=== PATIENT | male | born 1995 | race American Indian/Alaskan Native ===

== ENCOUNTER 2020-08-01 21:05 | Emergency (ER) | payer OTHER, SELFPAY ==
--- NOTE | ~2020-08-01 | CT_ITS ---
EXAMINATION: CT ABDOMEN AND PELVIS WITHOUT CONTRAST CLINICAL INFORMATION: Abdominal discomfort with question of hernia COMPARISON: None TECHNIQUE: Multidetector volumetric imaging was performed from the superior aspect of the liver through the pubic symphysis. Sagittal and coronal reformatted images were obtained on the technologist's workstation. This CT examination was performed using dose optimization techniques as appropriate, variously including the following: *Automated exposure control *Adjustment of mA and/or kV according to patient size (this includes techniques or standardized protocols for targeted exams where dose is matched to indication/reason for exam; i.e. extremities or head) *Use of iterative reconstruction technique DLP: 468 mGy-cm FINDINGS: LUNG BASES: The visualized lung bases are unremarkable. LIVER, GALLBLADDER, AND BILIARY TREE: The liver is normal in size, shape, and attenuation. No focal hepatic lesion or biliary ductal dilatation is present. The gallbladder is unremarkable with no evidence of radiopaque gallstones, gallbladder wall thickening, or obvious pericholecystic inflammatory changes. PANCREAS: Unremarkable. SPLEEN: Mild splenomegaly with the spleen measuring 13.4 cm in greatest length . ADRENAL GLANDS: Unremarkable. KIDNEYS AND URETERS: The kidneys are normal in size, shape, and attenuation. Tiny punctate 1 to 2 mm left renal calculus is present. No hydronephrosis, hydroureter, or other calculi seen. No perinephric stranding. BLADDER: Unremarkable. GASTROINTESTINAL TRACT: The small and large bowel are unremarkable. The appendix is unremarkable. ABDOMINAL WALL: No significant hernia is appreciated. LYMPH NODES: Moderately extensive retroperitoneal lymphadenopathy is present which is suboptimally seen because of lack of IV contrast, oral contrast and lack of retroperitoneal fat. Precaval nodes are present, aortocaval nodes are present, para-aortic lymph nodes are present and iliac lymph nodes are present. For example, a conglomerate lymph node in the left para-aortic region measures 2.1 x 1.4 x 4.2 cm (3:31). A left external iliac lymph node measures 2.1 x 1.4 x 1.8 cm (3:79). Multiple lymph nodes are also noted in the root of the mesentery which are more easily appreciable on coronal imaging. VASCULAR: Unremarkable. PELVIC VISCERA: Prostate and seminal vesicles appear normal. OSSEOUS STRUCTURES: Unremarkable. CT/CT abdomen pelvis wo con IMPRESSION: 1. Retroperitoneal lymphadenopathy and splenomegaly. Differential diagnosis includes infectious etiologies as well as neoplastic. 2. Incidentally noted tiny punctate nonobstructing left renal calculus. This critical result was discussed with KATIA Hanna at 11:59 PM on 08/01/2020 and it was ascertained that the content and urgency of the report was understood at the time of direct communication.
[2020-08-01 21:18] VITALS: BP 107/70; PULSE 77; RESP 15; TEMP 36.8; O2SAT 98; BMI 23.0
--- NOTE | 2020-08-01 23:39 | ED_ITS ---
HPI - General Adult General Chief complaint: Abdominal Pain Stated complaint: UPPER EPIGASTRIC PAIN Time Seen by Provider: 08/01/20 22:59 Source: patient Mode of arrival: ambulatory Limitations: no limitations History of Present Illness HPI narrative: Patient presents to ED stating sensation of something moving in h is abdomen. 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 Patient denies any abdominal pain, nausea, vomiting, fever, or chills. Patient denies any ingestion of drugs. Related Data Allergies Allergy/AdvReac Type Severity Reaction Status Date / Time No Known Allergies Allergy Verified 08/01/20 22:05 Review of Systems Review of Systems: Yes all other systems are reviewed and are negative Constitutional: Constitutional: Reports as per HPI and Reports no additional constitutional complaints Eyes: Eyes: Reports as per HPI and Reports no additional eye complaints ENT: Reports system reviewed and no additional complaints, except as documented and Reports as per HPI Cardiovascular: Cardiovascular: Reports as per HPI and Reports no additional cardiovascular complaints Respiratory: Respiratory: Reports as per HPI and Reports no additional respiratory complaints Gastrointestinal: Gastrointestinal: Reports as per HPI and Reports no additional gastrointestinal complaints Comments: Something moving abdomen Genitourinary: Genitourinary: Reports no additional male genitourinary complaints and Reports as per HPI Musculoskeletal: Musculoskeletal: Reports no additional musculoskeletal comp laints and Reports as per HPI Neurologic: Reports system reviewed and no additional complaints, except as documented and Reports as per HPI Psychiatric: Psychiatric: Reports no additional psychiatric complaints and Reports as per HPI [facility] Social History Social History Smoking Status: Current every day smoker Substance Use Type: Marijuana Any prior treatment program specific to substance use: No Advance Directives: No Advance Directives Information Provided: No Physical Exam Vital Signs: Vital Signs: Last Vital Signs Temp 98.3 F 08/01/20 21:18 Pulse 77 08/01/20 21:18 Resp 15 08/01/20 21:18 BP 107/70 08/01/20 21:18 Pulse Ox 98 08/01/20 21:18 Body Mass Index 23.0 Const: General: cooperative, healthy appearing, comfortable, no acute distress, well developed, alert, awake and Physically active Orientation/c onsciousness: patient oriented x3 HENMT: Head: Yes normal to inspection, Yes No palpable skull fracture present, Yes normocephalic and Yes atraumatic Eyes: General: appearance normal, both eyes and all related structures Neck: Neck: Yes normal visual inspection, Yes full ROM, Yes no lymphadenopathy, Yes no meningeal signs, Yes trachea midline, Yes supple and No tender Chest: Chest palpation & inspection: normal inspection of the chest and normal palpation of entire chest wall Resp: Effort & Inspection: normal respiratory effort and able to speak in complete sentences Cardio: Jugular venous distension: no JVD Heart sounds: S1 normal heart sound present and S2 normal heart sound present GI: Inspection: Yes normal to inspection and No abdominal wall ecchymosis Palpation (GI): Soft to palpation, not firm, nontender, no guarding and not rigid : General: No CVA tenderness and Yes no CVA tenderness Back/Spine/Pelvis: Back: no CVA tenderness, No CVA tenderness and No back tenderness Skin: General skin exam: no rashes or lesions noted and elasticity normal Neuro: General: patient oriented x3, no meningeal signs and CN's II-XI intact bilaterally Cranial nerves: Yes CN's II-XII intact bilaterally Extrem: General: Yes normal to inspection Psych: Appearance: grossly normal, well kempt and not disheveled Course Course Course Narrative: Unlikely patient have abdominal event. 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 Low suspicious for m edical/surgical etiology. Reevaluation(s) Reevaluation #1: Negative for elevated white blood cell count. Chemistry normal. Liver enzymes and lipase normal. Also called by radiologist to inform of patient's retroperitoneal lymphadenopathy. Patient was informed of this and told he should follow up with PCP or oncology to get biopsy make sure he does not have lymphoma. Patient labs are normal. Patient given copy of labs and imaging. Medical Decision Making MDM Narrative Medical decision making narrative: Marijuana use Lab Data Result diagrams: 08/01/20 23:43 08/01/20 23:43 Labs: Lab Results 08/01/20 08/01/20 Range/Units 23:43 23:43 WBC 4.5 L (4.8-10.8) X10*3/uL RBC 4.01 L (4.60-5.80) X10*6/uL Hgb 12.4 L (14.0-18.0) g/dl Hct 36.6 L (42-52) % MCV 91.3 (80-98) fL MCH 30.9 (27.0-33.0) pg MCHC 33.9 (31.0-36.0) g/dl RDW 11.8 (11.0-16.0) % Plt Count 237 (160-400) X10*3/uL MPV 8.3 L (9.4-12.4) fL Immature Gran % (Auto) 0.2 (0.0-0.4) % Neut % (Auto) 59.2 (45-73) % Lymph % (Auto) 21.0 (20-40) % Collier % (Auto) 18.5 H (2-11) % Eos % (Auto) 0.7 (0-4) % Baso % (Auto) 0.4 (0-2) % Lymph # (Auto) 1.0 L (1.2-4.9) X10*3/uL Collier # (Auto) 0.8 (0.1-1.2) X10*3/uL Eos # (Auto) 0.0 (0.0-0.4) X10*3/uL Baso # (Auto) 0.0 (0.0-0.2) X10*3/uL Abs Immat Gran (auto) 0.01 (0.00-0.03) X10*3/uL Absolute Neuts (auto) 2.7 (2.0-8.3) X10*3/uL Absolute Nucleated RBC 0.000 (0.0-0.012) X10*3/uL Nucleated RBC % (auto) 0.0 (0.0-0.2) /100WBC Sodium 142 (135-145) mmol/L Potassium 3.8 (3.3-5.1) mmol/L Chloride 104 (96-108) mmol/L Carbon Dioxide 25 (22-29) mmol/L Anion Gap 17 (12-20) BUN 11 (9-16) mg/dL Creatinine 0.80 (0.5-1.4) mg/dL Estim Creat Clear Calc 150.7 Estimated GFR > 60 Random Glucose 81 (60-115) mg/dL Calcium 9.1 (8.4-10.2) mg/dL Total Bilirubin 1.6 H (0.0-1.0) mg/dL Direct Bilirubin 0.6 H (0.0-0.5) mg/dL AST 21 (5-37) U/L ALT 11 (0-40) U/L Alkaline Phosphatase 62 (39-117) U/L Total Protein 6.5 (6.5-8.0) g/dL Albumin 4.2 (3.5-5.0) g/dL Lipase 41 (8-78) U/L Discharge Plan Discharge Clinical Impression: Marijuana use Patient Disposition: Home, Self-Care Instructions: Lymphadenopathy (ED), Medicinal Use of Cannabis (ED) Additional Instructions: Return to the ED immediately for any abdominal pain, nausea, vomiting, fever, chills, weakness, dizziness, or any other concerning symptoms. CT scan shows retro peritoneal lymphadenopathy and splenomegaly. Recommend follow-up with PCP for further evaluation to rule out lymphoma. Referrals: Jb Weiss MD [Physician] - 2 days (CT scan shows retroperitoneal lymphadenopathy and splenomegaly. Lymphoma workup may be needed) Interventions: ED Discharge Assessment Last Done: 08/02/20 00:56 Discharge Date/Time: 08/02/20 00:58 Print Language: Czech
[2020-08-01 23:49] LABS: MANUAL DIFF FLAG NO
[2020-08-01 23:51] LABS: Basophils Percent Auto 0.4 % (0-2); Eosinophils Percent Auto 0.7 % (0-4); Hematocrit 36.6 % (42-52); Hemoglobin 12.4 g/dl (14.0-18.0); Imm Gran Abs Auto 0.01 X10*3/uL (0.00-0.03); Imm Gran Pct Auto 0.2 % (0.0-0.4); Mean Corpuscular HGB Conc 33.9 g/dl (31.0-36.0); Mean Corpuscular Hemoglobin 30.9 pg (27.0-33.0); Mean Corpuscular Volume 91.3 fL (80-98); Mean Platelet Volume 8.3 fL (9.4-12.4); Monocytes Absolute Auto 0.8 X10*3/uL (0.1-1.2); Monocytes Percent Auto 18.5 % (2-11); Neutrophils Absolute Auto 2.7 X10*3/uL (2.0-8.3); Neutrophils Percent Auto 59.2 % (45-73); Platelet Count 237 X10*3/uL (160-400); Red Blood Count 4.01 X10*6/uL (4.60-5.80); Red Cell Distribution Width 11.8 % (11.0-16.0); White Blood Count 4.5 X10*3/uL (4.8-10.8)
[2020-08-02 00:36] LABS: Alanine Aminotransferase 11 U/L (0-40); Albumin Level 4.2 g/dL (3.5-5.0); Alkaline Phosphatase 62 U/L (39-117); Anion Gap 17 (12-20); Aspartate Amino Transferase 21 U/L (5-37); Bilirubin Direct 0.6 mg/dL (0.0-0.5); Bilirubin Total 1.6 mg/dL (0.0-1.0); Blood Urea Nitrogen 11 mg/dL (9-16); Calcium 9.1 mg/dL (8.4-10.2); Carbon Dioxide 25 mmol/L (22-29); Chloride 104 mmol/L (96-108); Creatinine Clr Calc Pharmacy 150.7; Estimated Glomerular Filt Rate > 60; Glucose Random 81 mg/dL (60-115); Lipase 41 U/L (8-78); Potassium 3.8 mmol/L (3.3-5.1); Sodium 142 mmol/L (135-145); Total Protein 6.5 g/dL (6.5-8.0)
== END 2020-08-02 00:58 | disposition home or self-care (01) ==
PROVIDERS: Physician Assistant; Emergency Provider Internal Medicine
DX: R10.13 Epigastric pain (principal); F12.90 Cannabis use, unspecified, uncomplicated; F17.200 Nicotine dependence, unspecified, uncomplicated; Z71.6 Tobacco abuse counseling
CPT/HCPCS: 36415; 74176; 80053; 80076; 82248; 83690; 85025; 99284

== ENCOUNTER 2022-07-31 12:32 | Inpatient (IN) | payer MEDICARE, MEDICAID, SELFPAY ==
[2022-07-31 13:05] VITALS: BP 130/60; BP 148/86; PULSE 110; PULSE 92; RESP 18; TEMP 36.4; O2SAT 96; O2SAT 97; BMI 22.4
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
[2022-07-31 14:08] LABS: MANUAL DIFF FLAG NO
[2022-07-31 14:10] LABS: Basophils Percent Auto 0.6 % (0-2); Eosinophils Absolute Auto 0.1 X10*3/uL (0.0-0.4); Hematocrit 38.2 % (42.0-52.0); Imm Gran Abs Auto 0.01 X10*3/uL (0.00-0.03); Imm Gran Pct Auto 0.2 % (0.0-0.4); Lymphocytes Absolute Auto 0.7 X10*3/uL (1.2-4.9); Lymphocytes Percent Auto 12.8 % (20-40); Mean Corpuscular Hemoglobin 31.1 pg (27.0-33.0); Mean Corpuscular Volume 91.4 fL (80.0-98.0); Mean Platelet Volume 8.2 fL (9.4-12.4); Monocytes Percent Auto 19.1 % (2-11); Neutrophils Absolute Auto 3.3 x10*3/uL (2.0-8.3); Neutrophils Percent Auto 65.3 % (45-73); Platelet Count 333 X10*3/uL (160-400); Red Blood Count 4.18 X10*6/uL (4.60-5.80); Red Cell Distribution Width 12.2 % (11.0-16.0); White Blood Count 5.1 X10*3/uL (4.8-10.8)
[2022-07-31 14:26] LABS: IDNOW Serial# 08D9AD1C
[2022-07-31 14:27] LABS: COVID-19 Test Negative (Negative)
[2022-07-31 14:27] LABS: Alanine Aminotransferase 17 U/L (0-40); Albumin Level 4.5 g/dL (3.5-5.0); Alkaline Phosphatase 73 U/L (39-117); Anion Gap 12 (12-20); Aspartate Amino Transferase 26 U/L (5-37); Bilirubin Direct 0.6 mg/dL (0.0-0.5); Bilirubin Total 2.3 mg/dL (0.0-1.0); Blood Urea Nitrogen 10 mg/dL (9-16); Calcium 9.6 mg/dL (8.4-10.2); Carbon Dioxide 31 mmol/L (22-29); Chloride 102 mmol/L (96-108); Estimated Glomerular Filt Rate > 60; Ethanol < 10 mg/dL; Glucose Random 85 mg/dL (60-115); Potassium 4.9 mmol/L (3.3-5.1); Sodium 140 mmol/L (135-145); Total Protein 6.9 g/dL (6.5-8.0)
[2022-07-31 14:28] LABS: Amphetamine Screen Urine Not Detected (Not Detect); Barbiturates, Urine Not Detected (Not Detect); Benzodiazepines Screen Urine Not Detected (Not Detect); Cannabinoid Screen Urine POSITIVE (Not Detect); Cocaine Screen Urine Not Detected (Not Detect); Fentanyl, urine Not Detected (Not Detect); Opiate Screen Urine Not Detected (Not Detect); Phencyclidine Screen Urine Not Detected (Not Detect)
--- NOTE | 2022-07-31 14:54 | PHA.MEDREC ---
Pharmacy Consult ? Medication Reconciliation Pharmacy has completed the medication reconciliation. Patient states that they use an estradiol patch once weekly but are unsure of dosing
--- NOTE | 2022-07-31 15:03 | MHC.CARE ---
Spoke with [facility]- pt is an adult inpatient bedsearch
[2022-07-31] MEDS: QUEtiapine Fumarate 100 MG TABLET PO (20:15)
[2022-07-31] MEDS: hydrOXYzine HCL 25 MG TABLET PO (20:18)
[2022-07-31 20:24] VITALS: BP 102/48; PULSE 89; RESP 18; TEMP 37.2; O2SAT 99
[2022-07-31] MEDS: QUEtiapine Fumarate 25 MG TABLET PO (21:40)
--- NOTE | 2022-08-01 01:55 | PC.NURSE ---
Patient is in bed appears sleeping, no distress observed/reported, mood labile and behavior unpredictable, disposition per [facility] is section 12 inpatient bed search, medication compliant, VSS, will continue to monitor
[2022-08-01 06:49] VITALS: BP 102/56; PULSE 74; RESP 15; TEMP 36.8; O2SAT 97
[2022-08-01] MEDS: QUEtiapine Fumarate 25 MG TABLET PO ×2 (07:59→16:49)
[2022-08-01] MEDS: QUEtiapine Fumarate 50 MG TABLET PO (07:59)
[2022-08-01] MEDS: hydrOXYzine HCL 25 MG TABLET PO ×2 (07:59→20:15)
--- NOTE | 2022-08-01 08:01 | PC.NURSE ---
patient anxious-states he feels unsafe in the hospital and wants to go home. unable to elaborate on why he feels unsafe. given daily medications as well as PRN for anxiety
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
[2022-08-01 20:02] VITALS: BP 113/53; PULSE 88; RESP 18; TEMP 36.4; O2SAT 98
[2022-08-01] MEDS: QUEtiapine Fumarate 100 MG TABLET PO (20:15)
[2022-08-02 08:00] VITALS: BP 111/57; PULSE 72; TEMP 36.6; O2SAT 99
[2022-08-02] MEDS: hydrOXYzine HCL 25 MG TABLET PO ×2 (08:26→20:46)
[2022-08-02] MEDS: QUEtiapine Fumarate 50 MG TABLET PO (08:27)
[2022-08-02 09:01] LABS: Estimated Average Glucose 80 mg/dL; Hemoglobin A1c % 4.4 %
[2022-08-02 09:09] LABS: Alanine Aminotransferase 15 U/L (0-31); Albumin Level 4.3 g/dL (3.5-5.0); Alkaline Phosphatase 71 U/L (39-117); Anion Gap 11 (12-20); Aspartate Amino Transferase 19 U/L (5-31); Bilirubin Total 1.5 mg/dL (0.0-1.0); Blood Urea Nitrogen 15 mg/dL (9-16); Calcium 9.4 mg/dL (8.4-10.2); Carbon Dioxide 32 mmol/L (22-29); Chloride 102 mmol/L (96-108); Cholesterol 166 mg/dL; Creatinine Clr Calc Pharmacy 104.8; Estimated Glomerular Filt Rate > 60; Glucose Fasting 86 mg/dL (60-99); HDL Cholesterol 42 mg/dL; LDL Cholesterol Calculated 97 mg/dl; Potassium 4.7 mmol/L (3.3-5.1); Sodium 140 mmol/L (135-145); Total Protein 6.7 g/dL (6.5-8.0); Triglycerides 135 mg/dL
[2022-08-02 09:38] LABS: Folate 14.1 ng/mL (> or = 4.0); Free T4 (Free Thyroxine) 1.02 ng/dL (0.71-1.85); Vitamin B12 < 148 pg/mL (200-900)
[2022-08-02] MEDS: QUEtiapine Fumarate 25 MG TABLET PO ×2 (12:24→16:13)
--- NOTE | 2022-08-02 12:30 | HO.PS.ADMBH ---
FORMERLY [facility], [facility] Medical History PTSD (post-traumatic stress disorder) Diagnostics Vital Signs (24Hr): Vital Signs - 24 hr 08/01/22 20:02 08/02/22 08:00 Temperature 97.6 F 97.8 F Pulse Rate 88 72 Respiratory Rate 18 Blood Pressure 113/53 L 111/57 L Pulse Oximetry 98 99 Oxygen Delivery Method Room Air Room Air BMI result Body Mass Index 22.4 Labs 07/31/22 14:04 08/02/22 08:21 Labs: Laboratory Results - last 48 hr 07/31/22 07/31/22 07/31/22 14:00 14:04 14:04 WBC 5.1 RBC 4.18 L Hgb 13.0 L Hct 38.2 L MCV 91.4 MCH 31.1 MCHC 34.0 RDW 12.2 Plt Count 333 MPV 8.2 L Immature Gran % (Auto) 0.2 Neut % (Auto) 65.3 Lymph % (Auto) 12.8 L [place] % (Auto) 19.1 H Eos % (Auto) 2.0 Baso % (Auto) 0.6 Lymph # (Auto) 0.7 L [place] # (Auto) 1.0 Eos # (Auto) 0.1 Baso # (Auto) 0.0 Abs Immat Gran (auto) 0.01 Absolute Neuts (auto) 3.3 Absolute Nucleated RBC 0.000 Nucleated RBC % (auto) 0.0 Sodium 140 Potassium 4.9 D Chloride 102 Carbon Dioxide 31 H Anion Gap 12 BUN 10 Creatinine 0.88 Estim Creat Clear Calc 124.0 Estimated GFR > 60 Random Glucose 85 Fasting Glucose Estimat Average Glucose Hemoglobin A1c % Calcium 9.6 Total Bilirubin 2.3 H Direct Bilirubin 0.6 H AST 26 ALT 17 Alkaline Phosphatase 73 Total Protein 6.9 Albumin 4.5 Triglycerides Cholesterol LDL Cholesterol, Calc HDL Cholesterol Vitamin B12 Folate TSH Free T4 Urine Opiates Screen Urine Fentanyl Screen Ur Barbiturates Screen Ur Phencyclidine Scrn Ur Amphetamines Screen U Benzodiazepines Scrn Urine Cocaine Screen U Marijuana (THC) Screen Ethyl Alcohol < 10 COVID-19 (CONSUELO) Negative COVID-19 Clin Com See Note 07/31/22 08/02/22 08/02/22 14:09 08:21 08:21 WBC RBC Hgb Hct MCV MCH MCHC RDW Plt Count MPV Immature Gran % (Auto) Neut % (Auto) Lymph % (Auto) [place] % (Auto) Eos % (Auto) Baso % (Auto) Lymph # (Auto) [place] # (Auto) Eos # (Auto) Baso # (Auto) Abs Immat Gran (auto) Absolute Neuts (auto) Absolute Nucleated RBC Nucleated RBC % (auto) Sodium 140 Potassium 4.7 Chloride 102 Carbon Dioxide 32 H Anion Gap 11 L BUN 15 Creatinine 0.85 Estim Creat Clear Calc 104.8 Estimated GFR > 60 Random Glucose Fasting Glucose 86 Estimat Average Glucose 80 Hemoglobin A1c % 4.4 Calcium 9.4 Total Bilirubin 1.5 H Direct Bilirubin AST 19 ALT 15 Alkaline Phosphatase 71 Total Protein 6.7 Albumin 4.3 Triglycerides 135 Cholesterol 166 LDL Cholesterol, Calc 97 HDL Cholesterol 42 Vitamin B12 < 148 L Folate 14.1 TSH 0.90 Free T4 1.02 Urine Opiates Screen Not Detected Urine Fentanyl Screen Not Detected Ur Barbiturates Screen Not Detected Ur Phencyclidine Scrn Not Detected Ur Amphetamines Screen Not Detected U Benzodiazepines Scrn Not Detected Urine Cocaine Screen Not Detected U Marijuana (THC) Screen POSITIVE H Ethyl Alcohol COVID-19 (CONSUELO) COVID-19 Clin Com Meds/Allergies Meds Home Medications Medication Instructions Recorded Confirmed Type hydroxyzine pamoate 25 mg capsule 25 mg PO BID 07/31/22 07/31/22 History (Vistaril) quetiapine 100 mg tablet (Seroquel) 100 mg PO BEDTIME 07/31/22 07/31/22 History quetiapine 25 mg tablet (Seroquel) 25 mg PO DAILY PRN Anxiety 07/31/22 07/31/22 History quetiapine 50 mg tablet (Seroquel) 50 mg PO DAILY 07/31/22 07/31/22 History Allergies Allergies Allergy/AdvReac Type Severity Reaction Status Date / Time No Known Allergies Allergy Verified 08/01/20 22:05 Assessment & Plan Certification I certify that partial hospital treatment is medically necessary due to the symptoms and problems resulting from the patient's mental illness and the failure to treat the patient at the partial hospital level of care would likely result in the patient requiring inpatient psychiatric care which could not be prevented at a less intensive level of care. Time Spent With Patient Time: Total time managing care of this patient today ____ minutes.
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
[2022-08-02] MEDS: QUEtiapine Fumarate 200 MG TABLET PO (20:46)
[2022-08-02 20:47] VITALS: BP 115/65; PULSE 100; TEMP 36.8; O2SAT 99
[2022-08-03 08:42] VITALS: BP 98/55; PULSE 70; TEMP 36.7; O2SAT 100
[2022-08-03] MEDS: QUEtiapine Fumarate 50 MG TABLET PO (08:48)
[2022-08-03] MEDS: hydrOXYzine HCL 25 MG TABLET PO ×2 (08:49→20:06)
[2022-08-03] MEDS: Cyanocobalamin (Vitamin B-12) 1,000 MCG TABLET 1000 MCG PO (12:25)
[2022-08-03] MEDS: QUEtiapine Fumarate 200 MG TABLET PO (20:06)
[2022-08-03 20:08] VITALS: BP 126/73; PULSE 100; TEMP 36.8; O2SAT 99
--- NOTE | 2022-08-03 21:45 | P.PNPSI_ITS ---
Subjective Subjective Date of Service: 08/03/22 Reason For Visit: Psychosis Interim History: Patient seen. DW RN I feel well medicated Feels increase in Seroquel helped. She slept well. She continues to be hyperverbal. She talks about people interfering in her marriage before going to the hospital. She is medication compliant. Vit B12 is low. Review of Systems Review of Systems Constitutional:No Fever, No Chills, No Fatigue, No Malaise ENT/Mouth: No Ear Pain, No sore throat, No Rhinorrhea, No Swallowing Difficulty Eyes: No Eye Pain, No Swelling, No Redness Cardiovascular: No Chest Pain, No SOB, No Edema, No Palpitations Respiratory: No Cough, No Dyspnea Gastrointestinal: No Nausea, No Vomiting, No Diarrhea, No Constipation, No Abdominal pain Musculoskeletal: No joint pain, No Myalgias, No Joint Swelling Skin: No Skin Lesions, No rash Neuro: No Weakness, No Headache Psych: + Anxiety/Panic, +Depression, No SI/HI/AH/VH, + Social Issues Yes all other systems are reviewed and are negative Constitutional: Reports as per [facility] Mental Status Exam Mental Status Exam Narrative: calm, cooperative. no PMA/PMR. adequtely dressed and groomed. speech nml rate, incr amount, nml loudness, nml tone, decr latency. thoughts generally linear, paranoid, illogical. affect full range, normo-intense, non-labile. mood pretty relaxed. denies SI/HI/AVH. Diagnostics Vital Signs (24Hr): Vital Signs - 24 hr 08/03/22 08:42 08/03/22 20:08 Temperature 98.1 F 98.3 F Pulse Rate 70 100 Blood Pressure 98/55 L 126/73 Pulse Oximetry 100 99 Oxygen Delivery Method Room Air Room Air BMI result Body Mass Index 22.4 Labs 07/31/22 14:04 08/02/22 08:21 Labs: Laboratory Results - last 48 hr 08/02/22 08/02/22 08:21 08:21 Sodium 140 Potassium 4.7 Chloride 102 Carbon Dioxide 32 H Anion Gap 11 L BUN 15 Creatinine 0.85 Estim Creat Clear Calc 104.8 Estimated GFR > 60 Fasting Glucose 86 Estimat Average Glucose 80 Hemoglobin A1c % 4.4 Calcium 9.4 Total Bilirubin 1.5 H AST 19 ALT 15 Alkaline Phosphatase 71 Total Protein 6.7 Albumin 4.3 Triglycerides 135 Cholesterol 166 LDL Cholesterol, Calc 97 HDL Cholesterol 42 Vitamin B12 < 148 L Folate 14.1 TSH 0.90 Free T4 1.02 Medications Medications Current Medications Acetaminophen (Acetaminophen 325 Mg Tablet) 650 mg PO Q6H PRN PRN Reason: Headache/Pain Mild Scale (1-3) Al Hydroxide/Mg Hydroxide (Magnesium Hydrox/Alum Hydrox 30 Ml Oral.Susp) 30 ml PO Q6H PRN PRN Reason: Heartburn/Nausea Cyanocobalamin (Cyanocobalamin (Vitamin B-12) 1,000 Mcg Tablet) 1,000 mcg PO DAILY [facility] Last Admin: 08/03/22 12:25 Dose: 1,000 mcg Hydroxyzine HCl (Hydroxyzine Hcl 25 Mg Tablet) 25 mg PO BID [facility] Last Admin: 08/03/22 20:06 Dose: 25 mg Hydroxyzine HCl (Hydroxyzine Hcl 25 Mg Tablet) 25 mg PO Q6H PRN PRN Reason: Anxiety Magnesium Hydroxide (Milk Of Magnesia 30 Ml Oral.Susp) 30 ml PO DAILY PRN PRN Reason: Constipation Nicotine Polacrilex (Nicotine Polacrilex 2 Mg Gum) 4 mg BUCCAL Q2H PRN PRN Reason: Nicotine Cravings Quetiapine Fumarate (Quetiapine Fumarate 50 Mg Tablet) 50 mg PO DAILY [facility] Last Admin: 08/03/22 08:48 Dose: 50 mg Quetiapine Fumarate (Quetiapine Fumarate 25 Mg Tablet) 25 mg PO Q4H PRN PRN Reason: severe anxiety Last Admin: 08/02/22 16:13 Dose: 25 mg Quetiapine Fumarate (Quetiapine Fumarate 200 Mg Tablet) 200 mg PO BEDTIME [facility] Last Admin: 08/03/22 20:06 Dose: 200 mg Trazodone HCl (Trazodone Hcl 50 Mg Tablet) 50 mg PO BEDTIME MRX1 PRN PRN Reason: Insomnia Allergies Allergies Allergy/AdvReac Type Severity Reaction Status Date / Time No Known Allergies Allergy Verified 08/01/20 22:05 Assessment & Plan Assessment & Plan (1) Psychotic disorder: Status: Acute Code(s): F29 - Unspecified psychosis not due to a substance or known physiological condition Plan increase HS seroquel from 100 mg to 200 mg nightly. continue seroquel 50 mg QAM and 25 mg PRNs. 08/03: Continue treatment plan Reason for contiued inpatient stay Substantial Risk for: inability to function and rapid decompensation Time Spent With Patient Time: Total time managing care of this patient today ____ minutes.
[2022-08-04 06:00] VITALS: BP 92/53; PULSE 77; TEMP 36.6; O2SAT 98
[2022-08-04] MEDS: hydrOXYzine HCL 25 MG TABLET PO ×2 (08:27→20:03)
[2022-08-04] MEDS: QUEtiapine Fumarate 50 MG TABLET PO (08:27)
[2022-08-04] MEDS: Ibuprofen 400 MG TABLET PO (13:36)
[2022-08-04] MEDS: QUEtiapine Fumarate 25 MG TABLET PO (15:24)
[2022-08-04 20:00] VITALS: BP 120/72; PULSE 96; RESP 18; TEMP 36.3; O2SAT 97
[2022-08-04] MEDS: QUEtiapine Fumarate 200 MG TABLET PO (20:03)
--- NOTE | 2022-08-04 20:57 | HO.PSYCHPN ---
Subjective Subjective Date of Service: 08/04/22 Reason For Visit: Psychosis Interim History: Patient seen. LENORE RN Patient continues to verbalize delusional thoughts. 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 She says her is famous because of her. She refused vit B12 today. She said she felt nauseaous after she took it yesterday. I offered a decrease in dose and she declined for today. Believes an uncle of hers and they found high levels of vit B12 in his system which is why she doesn't want to take it. Continues to say I feel well medicated. Denies SI/HI. Review of Systems Review of Systems Constitutional:No Fever, No Chills, No Fatigue, No Malaise ENT/Mouth: No Ear Pain, No sore throat, No Rhinorrhea, No Swallowing Difficulty Eyes: No Eye Pain, No Swelling, No Redness Cardiovascular: No Chest Pain, No SOB, No Edema, No Palpitations Respiratory: No Cough, No Dyspnea Gastrointestinal: No Nausea, No Vomiting, No Diarrhea, No Constipation, No Abdominal pain Musculoskeletal: No joint pain, No Myalgias, No Joint Swelling Skin: No Skin Lesions, No rash Neuro: No Weakness, No Headache Psych: + Anxiety/Panic, +Depression, No SI/HI/AH/VH, + Social Issues Yes all other systems are reviewed and are negative Constitutional: Reports as per [facility] Mental Status Exam Mental Status Exam Narrative: calm, cooperative. no PMA/PMR. adequtely dressed and groomed. speech nml rate, incr amount, nml loudness, nml tone, decr latency. thoughts generally linear, paranoid, illogical. affect full range, normo-intense, non-labile. mood pretty relaxed. denies SI/HI/AVH. Diagnostics Vital Signs (24Hr): Vital Signs - 24 hr 08/04/22 06:00 08/04/22 20:00 Temperature 98 F 97.4 F Pulse Rate 77 96 Respiratory Rate 18 Blood Pressure 92/53 L 120/72 Pulse Oximetry 98 97 Oxygen Delivery Method Room Air Room Air BMI result Body Mass Index 22.4 Labs 07/31/22 14:04 08/02/22 08:21 Medications Medications Current Medications Acetaminophen (Acetaminophen 325 Mg Tablet) 650 mg PO Q6H PRN PRN Reason: Headache/Pain Mild Scale (1-3) Al Hydroxide/Mg Hydroxide (Magnesium Hydrox/Alum Hydrox 30 Ml Oral.Susp) 30 ml PO Q6H PRN PRN Reason: Heartburn/Nausea Cyanocobalamin (Cyanocobalamin (Vitamin B-12) 1,000 Mcg Tablet) 1,000 mcg PO DAILY [facility] Last Admin: 08/04/22 08:27 Dose: Not Given Hydroxyzine HCl (Hydroxyzine Hcl 25 Mg Tablet) 25 mg PO BID [facility] Last Admin: 08/04/22 20:03 Dose: 25 mg Hydroxyzine HCl (Hydroxyzine Hcl 25 Mg Tablet) 25 mg PO Q6H PRN PRN Reason: Anxiety Ibuprofen (Ibuprofen 400 Mg Tablet) 400 mg PO TIDWM PRN PRN Reason: Pain, Severe (Pain Scale 7-10) Last Admin: 08/04/22 13:36 Dose: 400 mg Magnesium Hydroxide (Milk Of Magnesia 30 Ml Oral.Susp) 30 ml PO DAILY PRN PRN Reason: Constipation Nicotine Polacrilex (Nicotine Polacrilex 2 Mg Gum) 4 mg BUCCAL Q2H PRN PRN Reason: Nicotine Cravings Quetiapine Fumarate (Quetiapine Fumarate 50 Mg Tablet) 50 mg PO DAILY [facility] Last Admin: 08/04/22 08:27 Dose: 50 mg Quetiapine Fumarate (Quetiapine Fumarate 25 Mg Tablet) 25 mg PO Q4H PRN PRN Reason: severe anxiety Last Admin: 08/04/22 15:24 Dose: 25 mg Quetiapine Fumarate (Quetiapine Fumarate 200 Mg Tablet) 200 mg PO BEDTIME [facility] Last Admin: 08/04/22 20:03 Dose: 200 mg Trazodone HCl (Trazodone Hcl 50 Mg Tablet) 50 mg PO BEDTIME MRX1 PRN PRN Reason: Insomnia Allergies Allergies Allergy/AdvReac Type Severity Reaction Status Date / Time No Known Allergies Allergy Verified 08/01/20 22:05 Assessment & Plan Assessment & Plan (1) Psychotic disorder: Status: Acute Code(s): F29 - Unspecified psychosis not due to a substance or known physiological condition Plan increase HS seroquel from 100 mg to 200 mg nightly. continue seroquel 50 mg QAM and 25 mg PRNs. 08/03: Continue treatment plan 08/04: Lower dose of vit B12. Continue treatment plan. Reason for contiued inpatient stay Substantial Risk for: inability to function and rapid decompensation Time Spent With Patient Time: Total time managing care of this patient today ____ minutes.
[2022-08-05 06:00] VITALS: BP 110/59; PULSE 86; RESP 18; TEMP 36.7; O2SAT 100
[2022-08-05] MEDS: QUEtiapine Fumarate 50 MG TABLET PO (08:39)
[2022-08-05] MEDS: hydrOXYzine HCL 25 MG TABLET PO ×2 (08:39→20:13)
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
[2022-08-05] MEDS: QUEtiapine Fumarate 25 MG TABLET PO ×3 (10:39→17:37)
[2022-08-05 20:05] VITALS: BP 127/55; PULSE 96; RESP 18; TEMP 36.9; O2SAT 97
[2022-08-05] MEDS: QUEtiapine Fumarate 200 MG TABLET PO (20:13)
[2022-08-06 08:00] VITALS: BP 104/54; PULSE 80; RESP 18; TEMP 36.6; O2SAT 98
[2022-08-06] MEDS: hydrOXYzine HCL 25 MG TABLET PO (08:56)
[2022-08-06] MEDS: QUEtiapine Fumarate 50 MG TABLET PO (08:56)
--- NOTE | 2022-08-06 09:35 | PC.NURSE ---
Francine is alert, fully oriented, pleasant and cooperative with discharge process. She denies ideation, plan or intent to harm self or others. She verbalizes understanding of discharge plan including medications and appointments. She denies physical complaint at present.
== END 2022-08-06 11:00 | disposition home or self-care (01) | DRG 885 ==
LOC: HO.ED 08-01 11:34 → HO.PADLT16 08-01 14:24
PROVIDERS: Physician Assistant; Admitting Provider Psychiatry & Neurology Psychiatry; Emergency Provider Internal Medicine; Visit Provider Psychiatry & Neurology Psychiatry
DX: F31.9 Bipolar disorder, unspecified (principal); F39 Unspecified mood [affective] disorder; F43.10 Post-traumatic stress disorder, unspecified; F17.210 Nicotine dependence, cigarettes, uncomplicated; Z71.6 Tobacco abuse counseling; Z79.899 Other long term (current) drug therapy
CPT/HCPCS: 36415; 80048; 80053; 80061; 80076; 80307; 82077; 82607; 82746; 83036; 84439; 84443; 85025; 87635; 99285

== ENCOUNTER 2022-09-20 23:53 | Inpatient (IN) | payer MEDICARE, MEDICAID, SELFPAY ==
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
--- NOTE | ~2022-09-20 | CT_ITS ---
EXAMINATION: CT HEAD WITHOUT CONTRAST CLINICAL INFORMATION: Status post findings appear. COMPARISON: None available. TECHNIQUE: Contiguous axial imaging was performed from the skull base to vertex without intravenous administration of contrast. This CT examination was performed using dose optimization techniques as appropriate, variously including the following: *Automated exposure control *Adjustment of mA and/or kV according to patient size (this includes techniques or standardized protocols for targeted exams where dose is matched to indication/reason for exam; i.e. extremities or head) *Use of iterative reconstruction technique DLP: 692 mGy-cm FINDINGS: There is no acute intra-axial, extra-axial bleed, masses or midline shift. There is no acute infarction evolution. There is no edema. The bah to white matter difference is maintained normal. The lateral ventricles are symmetrical in size and configuration without enlargement. Bone windows reveal no calvarial abnormality. There is diffuse mucoperiosteal thickening bilateral sphenoid and ethmoid sinuses. No gross bony abnormality seen. CT/CT head/brain wo IV con IMPRESSION: 1. No acute intracranial process seen. 2. Chronic bilateral sphenoid and ethmoid sinus inflammatory changes.
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
--- NOTE | 2022-09-21 | ECG_ITS ---
Test Reason : Asses QT Blood Pressure : / mmHG Vent. Rate : 074 BPM Atrial Rate : 074 BPM P-R Int : 154 ms QRS Dur : 096 ms QT Int : 380 ms P-R-T Axes : 069 087 083 degrees QTc Int : 421 ms Normal sinus rhythm Normal ECG No previous ECGs available Referred By: Val Carballo Electronically Signed By:MARIAJOSE MCCALLUM
[2022-09-21 00:06] VITALS: BP 104/68; PULSE 106; RESP 18; TEMP 36.7; O2SAT 98; BMI 22.4
--- NOTE | 2022-09-21 00:40 | ED.PSYCH ---
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 Has had multiple hospitalizations on the psych unit in the past. Patient takes medical marijuana and Seroquel. He denies visual and auditory hallucinations however seems to be talking to himself during my exam. Denies drugs, alcohol. And reports regular tobacco smoking Denies suicidal and homicidal ideation Related Data Home Medications Medication Instructions Recorded Confirmed quetiapine 200 mg tablet 200 mg PO BEDTIME 09/21/22 09/21/22 quetiapine 25 mg tablet 25 mg PO BEDTIME 09/21/22 09/21/22 quetiapine 50 mg tablet 50 mg PO BEDTIME 09/21/22 09/21/22 Allergies Allergy/AdvReac Type Severity Reaction Status Date / Time No Known Allergies Allergy Verified 09/21/22 00:15 Review of Systems Review of Systems: Constitutional : No Weight loss, No Fever, No Chills, No Fatigue, No Malaise ENT/Mouth : No sore throat, No Rhinorrhea Eyes: No Eye Pain, No Swelling, No Redness Cardiovascular : No Chest Pain, No SOB, No Dyspnea on Exertion, No Orthopnea, No Edema, No Palpitations Respiratory : No Cough, No Sputum, No Wheezing Gastrointestinal : No Nausea, No Vomiting, No Diarrhea, No Constipation, No abdominal Pain, No Hematochezia, No Melena Genitourinary : No Dysuria, No Urinary Frequency, No Hematuria, Musculoskeletal : No joint pain, No Myalgias, No Joint Swelling Skin : No Skin Lesions, No rash Neuro : No Weakness, No Numbness, No Dizziness, No Headache Psych : + Anxiety/Panic, No Depression, + hallucinations All other systems reviewed and are negative Yes all other systems are reviewed and are negative PMFSH Past Medical History Attestation statement: The following information was validated with the patient. Source: old records reviewed and nursing notes reviewed Medical History PTSD (post-traumatic stress disorder) Social History Social History Household Members: None Housing: Apartment Do you presently have visiting nurse or other home services: No Alcohol intake: current Alcohol intake frequency: holidays/special occasions only Patient Tobacco Use Status: Current someday Tobacco user Tobacco use type: Cigarette Cigarettes Per Day: 3 e-Cigarette/Vaping Use: Never Used Second Hand Smoke Exposure: No Substance Use Type: Marijuana Advance Directives: No Advance Directives Information Provided: No service: No Sexual orientation: Lesbian/Gagnon/Homosexual Physical Exam Vital Signs: Vital Signs: Last Vital Signs Temp 98.1 F 09/21/22 00:06 Pulse 106 H 09/21/22 00:06 Resp 18 09/21/22 00:06 BP 104/68 09/21/22 00:06 Pulse Ox 98 09/21/22 00:06 O2 Del Method Room Air 09/21/22 00:06 BMI result Body Mass Index 22.4 vss Appearance: Alert.? Oriented X3.? No acute distress.? Goes off on tangents during my exam, Unorganized thoughts. Head: Normocephalic, atraumatic, no step-offs or deformities Eyes: Pupils equal, round and reactive to light.? ENT: Pharynx normal.??External ears normal, TMs normal bilaterally and EAC's normal. No pain with manipulation of external ears bilaterally. No mastoid tenderness. Neck: Normal inspection.? Neck supple.? CVS: Normal heart rate and rhythm.? Pulses normal.? Respiratory: No respiratory distress.? Breath sounds normal.? Abdomen: Soft and nontender.? Skin: Skin warm and dry.? Normal skin color.? Normal skin turgor.? Extremities: No lower extremity edema.? No calf ttp. 5/5 strength to bilateral upper and lower extremities Back: No midline tenderness, no C-spine tenderness, full range of motion, no CVA tenderness bilaterally Neuro: Oriented X 3.? No motor deficit.? No sensory deficit. CN 2-12 intact Course Reevaluation(s) Reevaluation #1: You the within normal limits. Chemistry unremarkable however patient is noted to have an elevated bilirubin of 2.2, no abdominal pain or tenderness, will have him follow up with outpatient providers to further evaluate this elevated bilirubin, to no upon chart review patient's bilirubin has been 2.3 in the past.. No medical complaints at this time. Patient's salicylates, acetaminophen ethanol negative. COVID negative Time: 01:21 Reevaluation #2: At this time patient to be placed into observation to allow more time to be evaluated by care team. Time: 01:22 Medical Decision Making Medical Decision Making MDM Narrative: 27-year-old female to male transgender presents with hallucinations, grandiose thoughts times a few days worsening. Physical exam significant for goes off on tangents during my exam, Unorganized thoughts. RRR. lungs clear. Abdomen soft non tender non distended This is likely acute psychosis versus polysubstance abuse versus narcissistic personality disorder per since borderline personality disorder versus schizophrenia. Unlikely metabolic derangements. Plan medical clearance evaluation by behavioral health team Differential Diagnosis Differential Diagnoses: The differential diagnosis associated with the presentation includes This is likely acute psychosis versus polysubstance abuse versus narcissistic personality disorder per since borderline personality disorder versus schizophrenia. Unlikely metabolic derangements. Admission/Observation Consideration of admission/observation: Escalation of care including admission/observation considered Lab Data 09/21/22 00:53 09/21/22 00:53 Labs: Lab Results 09/21/22 Range/Units 00:53 WBC 6.8 (4.8-10.8) X10*3/uL RBC 4.11 L (4.20-5.50) X10*6/uL Hgb 11.5 L (12.0-16.0) g/dl Hct 35.7 L (37.0-47.0) % MCV 86.9 (80.0-98.0) fL MCH 28.0 (27.0-33.0) pg MCHC 32.2 (31.0-35.0) g/dl RDW 13.1 (11.0-16.0) % Plt Count 312 (160-400) X10*3/uL MPV 8.5 L (9.4-12.3) fL Immature Gran % (Auto) 0.1 (0.0-0.4) % Neut % (Auto) 65.6 (45-73) % Lymph % (Auto) 19.4 L (20-40) % [place] % (Auto) 14.3 H (2-11) % Eos % (Auto) 0.3 (0-4) % Baso % (Auto) 0.3 (0-2) % Lymph # (Auto) 1.3 (1.2-4.9) X10*3/uL [place] # (Auto) 1.0 (0.1-1.2) X10*3/uL Eos # (Auto) 0.0 (0.0-0.4) X10*3/uL Baso # (Auto) 0.0 (0.0-0.2) X10*3/uL Abs Immat Gran (auto) 0.01 (0.00-0.03) X10*3/uL Absolute Neuts (auto) 4.4 (2.0-8.3) x10*3/uL Absolute Nucleated RBC 0.000 (0.0-0.012) X10*3/uL Nucleated RBC % (auto) 0.0 (0.0-0.2) /100WBC Core Measures AMI core measures followed: Yes Measure exclusions: not indicated Critical Care Time Critical Care Time Critical Care Time: No Discharge Plan Discharge Clinical Impression: Acute psychosis, Hyperbilirubinemia Patient Disposition: Still a Patient Prescriptions: No Action quetiapine 25 mg tablet 25 mg PO BEDTIME quetiapine 200 mg tablet 200 mg PO BEDTIME quetiapine 50 mg tablet 50 mg PO BEDTIME
[2022-09-21 00:59] LABS: MANUAL DIFF FLAG NO
[2022-09-21 01:01] LABS: Basophils Percent Auto 0.3 % (0-2); Eosinophils Percent Auto 0.3 % (0-4); Hematocrit 35.7 % (37.0-47.0); Hemoglobin 11.5 g/dl (12.0-16.0); Imm Gran Abs Auto 0.01 X10*3/uL (0.00-0.03); Imm Gran Pct Auto 0.1 % (0.0-0.4); Lymphocytes Absolute Auto 1.3 X10*3/uL (1.2-4.9); Lymphocytes Percent Auto 19.4 % (20-40); Mean Corpuscular HGB Conc 32.2 g/dl (31.0-35.0); Mean Corpuscular Volume 86.9 fL (80.0-98.0); Mean Platelet Volume 8.5 fL (9.4-12.3); Monocytes Percent Auto 14.3 % (2-11); Neutrophils Absolute Auto 4.4 x10*3/uL (2.0-8.3); Neutrophils Percent Auto 65.6 % (45-73); Platelet Count 312 X10*3/uL (160-400); Red Blood Count 4.11 X10*6/uL (4.20-5.50); Red Cell Distribution Width 13.1 % (11.0-16.0); White Blood Count 6.8 X10*3/uL (4.8-10.8)
[2022-09-21 01:15] LABS: Alanine Aminotransferase 23 U/L (0-31); Albumin Level 4.5 g/dL (3.5-5.0); Alkaline Phosphatase 61 U/L (39-117); Anion Gap 13 (12-20); Aspartate Amino Transferase 47 U/L (5-31); Bilirubin Total 2.2 mg/dL (0.0-1.0); Blood Urea Nitrogen 15 mg/dL (9-16); Calcium 9.3 mg/dL (8.4-10.2); Carbon Dioxide 25 mmol/L (22-29); Chloride 107 mmol/L (96-108); Creatinine Clr Calc Pharmacy 89.9; Estimated Glomerular Filt Rate > 60; Glucose Random 87 mg/dL (60-115); Potassium 3.6 mmol/L (3.3-5.1); Sodium 141 mmol/L (135-145); Total Protein 6.6 g/dL (6.5-8.0)
[2022-09-21 01:16] LABS: Acetaminophen LAB < 17 mcg/mL (<30); Ethanol < 10 mg/dL; Salicylate < 5.0 mg/dL (15-30)
[2022-09-21 01:20] LABS: COVID-19 Test Negative (Negative); IDNOW Serial# BCCEAD1C
--- NOTE | 2022-09-21 06:11 | PC.NURSE ---
Patient is currently in bed appears sleeping, no distress observed/reported, behavior non concerning, care consult ordered/pending evaluation, VSS, urine pending, blood draws completed/resulted, med rec completed/pending provider's approval, will continue to monitor.
--- NOTE | 2022-09-21 06:56 | PC.NURSE ---
patient appears to remain asleep at present respirations are even and unlabored patient appears in no distress
[2022-09-21 07:16] VITALS: BP 105/63; PULSE 72; RESP 20; TEMP 36.5; O2SAT 100
[2022-09-21 07:30] LABS: Appearance Urine Clear; Color Urine Yellow; Glucose Urine UA Negative (Negative); Leukocyte Esterase Urine Negative (Negative); Nitrite Urine Negative (Negative); PH 5.5 (5.0-9.0); Specific Gravity - Urine >= 1.030 (1.005-1.025); Urine Blood Negative (Negative); Urine Ketones Trace mg/dL (Negative); Urine Protein Trace mg/dL (Neg-Trace)
[2022-09-21 07:42] LABS: Amphetamine Screen Urine Not Detected (Not Detect); Barbiturates, Urine Not Detected (Not Detect); Benzodiazepines Screen Urine Not Detected (Not Detect); Cannabinoid Screen Urine POSITIVE (Not Detect); Cocaine Screen Urine Not Detected (Not Detect); Fentanyl, urine Not Detected (Not Detect); Opiate Screen Urine Not Detected (Not Detect); Phencyclidine Screen Urine Not Detected (Not Detect)
[2022-09-21] MEDS: QUEtiapine Fumarate 100 MG TABLET PO (08:38)
[2022-09-21] MEDS: QUEtiapine Fumarate 25 MG TABLET 50 MG PO (13:05)
[2022-09-21 16:29] VITALS: BP 110/71; PULSE 75; RESP 16; TEMP 36.4; O2SAT 99
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
[2022-09-21] MEDS: QUEtiapine Fumarate 200 MG TABLET PO (20:03)
[2022-09-22] MEDS: hydrOXYzine HCL 25 MG TABLET PO (06:17)
[2022-09-22] MEDS: QUEtiapine Fumarate 100 MG TABLET PO (08:25)
[2022-09-22 08:26] VITALS: BP 106/54; PULSE 79; RESP 16; TEMP 36.1; O2SAT 94
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
[2022-09-22] MEDS: QUEtiapine Fumarate 25 MG TABLET 50 MG PO (12:57)
[2022-09-22] MEDS: QUEtiapine Fumarate 25 MG TABLET PO (15:17)
[2022-09-22 15:48] VITALS: BP 121/50; PULSE 91; TEMP 36
[2022-09-22] MEDS: QUEtiapine Fumarate 200 MG TABLET PO (19:40)
[2022-09-23] MEDS: QUEtiapine Fumarate 100 MG TABLET PO (08:52)
[2022-09-23 08:53] VITALS: BP 112/61; PULSE 80; RESP 18; TEMP 36.9; O2SAT 99
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
[2022-09-23] MEDS: QUEtiapine Fumarate 25 MG TABLET 50 MG PO (13:16)
--- NOTE | 2022-09-23 13:51 | PC.NURSE ---
PT does not want NRT.
--- NOTE | 2022-09-23 14:22 | PC.NURSE ---
PT signed a three day notice, up 09/26/22
[2022-09-23] MEDS: QUEtiapine Fumarate 25 MG TABLET PO (17:48)
[2022-09-23 20:05] VITALS: BP 116/72; PULSE 94; TEMP 36.6
[2022-09-23] MEDS: clonazePAM 1 MG TABLET PO (20:06)
[2022-09-23] MEDS: QUEtiapine Fumarate 200 MG TABLET PO (20:07)
--- NOTE | 2022-09-23 20:29 | PC.NURSE ---
Pt signed a 3-day notice on previous shift today, then retracted 3-day early in evening shift. Pt approached this telegraphic typewriter operator chief and asked to sign a new 3-day notice, which was signed at 20:30.
[2022-09-24] MEDS: clonazePAM 1 MG TABLET PO ×2 (08:35→19:45)
[2022-09-24] MEDS: QUEtiapine Fumarate 100 MG TABLET PO (08:35)
--- NOTE | 2022-09-24 10:00 | HO.PSYCHPN ---
Subjective Subjective Date of Service: 09/24/22 Reason For Visit: psychosis Subjective Notes: 3 Day Healthcare Proxy: No Guardianship: No Medical Problems Affecting Mental Status: No Interim History: Francine presents with sadness and tearfulness today. She feels betrayed by supports in her community she reports. Reports medicines are helpful, but is ruminative regarding why others are against me . 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 Isolative, in her room a good deal of the time, and much less agitated than previously observed. States she is feeling defeated today. Medication Compliance: Yes Side effects from medications: No Attending Groups: No Review of Systems Acute medical concerns: No Medical Review of Systems: unchanged Mental Status Exam Mental Status Exam Patient Appearance: Appropriate Patient Orientation: Person and Place Level of Consciousness: Alert Patient Behavior: Guarded, Talkative, Passive, Suspicious, Anxious, Fearful and Distractible Mood Description: Depressed and Labile Affect Description: Flat Patient Cognition Impaired: No Ability to Follow Directions: Fair Speech Pattern: Spontaneous Speech Memory Description: Remote Impaired and Episodic Impaired Delusions: Being Controlled, Paranoid Ideation, Grandiose and Present Perceptual Disturbances: Depersonalization and Derealization Thought Process: Evasive Thought Content: positive for Flight of Ideas, positive for Racing, positive for Disorganized and positive for Evasive Depressive Symptoms: Crying Spells, Loss of Int. in Activity, Feelings of Worthlessness, Hopelessness, Isolating-Friends/Family, Unhappiness, Increased Fatigue, Low Self Esteem and Difficulty Concentrating Abnormal Motor Activity Signs and Symptoms: Restlessness Judgement: Poor Diagnostics Vital Signs (24Hr): Vital Signs - 24 hr 09/23/22 20:05 Temperature 97.9 F Pulse Rate 94 Blood Pressure 116/72 BMI result Body Mass Index 22.4 Labs 09/21/22 00:53 09/21/22 00:53 Medications Medications Current Medications Acetaminophen (Acetaminophen 325 Mg Tablet) 650 mg PO Q6H PRN PRN Reason: Headache/Pain Mild Scale (1-3) Al Hydroxide/Mg Hydroxide (Magnesium Hydrox/Alum Hydrox 30 Ml Oral.Susp) 30 ml PO Q6H PRN PRN Reason: Heartburn/Nausea Clonazepam (Clonazepam 1 Mg Tablet) 1 mg PO BID REYES Last Admin: 05/16/23 08:35 Dose: 1 mg Hydroxyzine HCl (Hydroxyzine Hcl 25 Mg Tablet) 25 mg PO Q6H PRN PRN Reason: Anxiety Last Admin: 09/22/22 06:17 Dose: 25 mg Magnesium Hydroxide (Milk Of Magnesia 30 Ml Oral.Susp) 30 ml PO DAILY PRN PRN Reason: Constipation Nicotine (Nicotine 21 Mg Patch.Td24) 21 mg TRANSDERMA DAILY [facility] Last Admin: 09/24/22 08:38 Dose: Not Given Nicotine Polacrilex (Nicotine Polacrilex 2 Mg Gum) 4 mg BUCCAL Q2H PRN PRN Reason: Nicotine Cravings Quetiapine Fumarate (Quetiapine Fumarate 25 Mg Tablet) 50 mg PO DAILY@1300 [facility] Last Admin: 09/23/22 13:16 Dose: 50 mg Quetiapine Fumarate (Quetiapine Fumarate 100 Mg Tablet) 100 mg PO DAILY [facility] Last Admin: 09/24/22 08:35 Dose: 100 mg Quetiapine Fumarate (Quetiapine Fumarate 200 Mg Tablet) 200 mg PO BEDTIME [facility] Last Admin: 09/23/22 20:07 Dose: 200 mg Quetiapine Fumarate (Quetiapine Fumarate 25 Mg Tablet) 25 mg PO TID PRN PRN Reason: agitation Last Admin: 09/23/22 17:48 Dose: 25 mg Trazodone HCl (Trazodone Hcl 50 Mg Tablet) 50 mg PO BEDTIME MRX1 PRN PRN Reason: Insomnia Allergies Allergies Allergy/AdvReac Type Severity Reaction Status Date / Time No Known Allergies Allergy Verified 09/21/22 00:15 Assessment & Plan Assessment & Plan (1) Bipolar affective psychosis: Status: Acute Code(s): F31.9 - Bipolar disorder, unspecified Plan 27 year old with history of psychosis presents with delusions, paranoia, and grandiosity believing someone is trying to steal her identity, 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 Admit to M5 CV Start medications as prescribed during last admission and seemed effective. Optimize as needed. Collaterals. FU on whether patient has access to firearms. Milieu and group therapy 09/23/22 Klonopin 1 mg bid Nicotine Patch/Gum 09/24/22 Continue current regime TDN to 09/25. Will file Section 7. Informed Consent: further education needed Reason for continued inpatient stay Substantial Risk for: harm to self, harm to others, inability to function and rapid decompensation Time Spent With Patient Time: Total time managing care of this patient today ____ minutes.
[2022-09-24 11:11] VITALS: BP 112/46; PULSE 73; RESP 16; TEMP 36.8; O2SAT 100
[2022-09-24] MEDS: QUEtiapine Fumarate 25 MG TABLET 50 MG PO (14:25)
[2022-09-24 19:25] VITALS: BP 112/57; PULSE 78; TEMP 36.1; O2SAT 97
[2022-09-24] MEDS: QUEtiapine Fumarate 200 MG TABLET PO (19:45)
[2022-09-25] MEDS: clonazePAM 1 MG TABLET PO ×2 (08:38→20:24)
[2022-09-25] MEDS: QUEtiapine Fumarate 100 MG TABLET PO (08:38)
[2022-09-25 08:40] VITALS: BP 110/59; PULSE 82; RESP 18; TEMP 36.8; O2SAT 99
[2022-09-25] MEDS: QUEtiapine Fumarate 25 MG TABLET 50 MG PO (13:53)
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
[2022-09-25 18:35] VITALS: BP 126/61; PULSE 125; TEMP 36.6
[2022-09-25] MEDS: QUEtiapine Fumarate 200 MG TABLET PO (20:24)
[2022-09-26] MEDS: QUEtiapine Fumarate 100 MG TABLET PO (08:53)
[2022-09-26] MEDS: clonazePAM 1 MG TABLET PO ×2 (08:53→19:57)
[2022-09-26 09:35] VITALS: BP 116/75; PULSE 85; RESP 18; TEMP 36.4; O2SAT 99
[2022-09-26 09:36] VITALS: BMI 23.1
[2022-09-26] MEDS: QUEtiapine Fumarate 25 MG TABLET 50 MG PO (13:29)
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
[2022-09-26 16:48] VITALS: BP 105/56; PULSE 75; TEMP 36.6
[2022-09-26] MEDS: QUEtiapine Fumarate 200 MG TABLET PO (19:57)
[2022-09-27] MEDS: QUEtiapine Fumarate 100 MG TABLET PO (08:54)
[2022-09-27] MEDS: clonazePAM 1 MG TABLET PO ×2 (08:54→20:23)
[2022-09-27 09:00] VITALS: BP 129/57; PULSE 77; RESP 18; TEMP 36.4; O2SAT 98
--- NOTE | 2022-09-27 10:10 | HO.PSYCHPN ---
Subjective Subjective Date of Service: 09/27/22 Reason For Visit: psychosis Subjective Notes: Conditional Voluntary Healthcare Proxy: No Guardianship: No Medical Problems Affecting Mental Status: No Interim History: Reports feeling some improvement. Agrees to increase HS Seroquel by 100 mg. Discussed distress with foster father and her feelings of sadness and not feeling supported. Reviewed in team who report pt was expansive last evening and expressing her anger with her landlord and others. Discussed having a family meeting with foster father-pt is agreeable. Discussed couples meeting possibility which she doubts will be possible as partner is reluctant due to trust issues with people he does not know. Medication Compliance: Yes Side effects from medications: No Attending Groups: No Review of Systems Acute medical concerns: No Medical Review of Systems: unchanged Mental Status Exam Mental Status Exam Patient Appearance: Appropriate Patient Orientation: Person, Place and Time Level of Consciousness: Alert Patient Behavior: Talkative, Anxious and Distractible Mood Description: Labile Affect Description: Labile Patient Cognition Impaired: No Ability to Follow Directions: Fair Speech Pattern: Spontaneous Speech Memory Description: Remote Impaired and Episodic Impaired Delusions: Being Controlled, Paranoid Ideation, Grandiose and Present Perceptual Disturbances: Depersonalization and Derealization Thought Content: positive for Circumstantial Depressive Symptoms: Increased Anxiety, Crying Spells, Loss of Int. in Activity, Feelings of Worthlessness, Hopelessness, Isolating-Friends/Family, Unhappiness, Increased Fatigue, Low Self Esteem and Difficulty Concentrating Judgement: Fair Diagnostics Vital Signs (24Hr): Vital Signs - 24 hr 09/26/22 16:48 09/27/22 09:00 Temperature 97.9 F 97.6 F Pulse Rate 75 77 Respiratory Rate 18 Blood Pressure 105/56 L 129/57 L Pulse Oximetry 98 Oxygen Delivery Method Room Air BMI result Body Mass Index 23.1 Labs 09/21/22 00:53 09/21/22 00:53 Medications Medications Current Medications Acetaminophen (Acetaminophen 325 Mg Tablet) 650 mg PO Q6H PRN PRN Reason: Headache/Pain Mild Scale (1-3) Al Hydroxide/Mg Hydroxide (Magnesium Hydrox/Alum Hydrox 30 Ml Oral.Susp) 30 ml PO Q6H PRN PRN Reason: Heartburn/Nausea Clonazepam (Clonazepam 1 Mg Tablet) 1 mg PO BID [facility] Last Admin: 09/27/22 08:54 Dose: 1 mg Hydroxyzine HCl (Hydroxyzine Hcl 25 Mg Tablet) 25 mg PO Q6H PRN PRN Reason: Anxiety Last Admin: 09/22/22 06:17 Dose: 25 mg Magnesium Hydroxide (Milk Of Magnesia 30 Ml Oral.Susp) 30 ml PO DAILY PRN PRN Reason: Constipation Nicotine (Nicotine 21 Mg Patch.Td24) 21 mg TRANSDERMA DAILY [facility] Last Admin: 09/27/22 08:56 Dose: Not Given Nicotine Polacrilex (Nicotine Polacrilex 2 Mg Gum) 4 mg BUCCAL Q2H PRN PRN Reason: Nicotine Cravings Quetiapine Fumarate (Quetiapine Fumarate 25 Mg Tablet) 50 mg PO DAILY@1300 [facility] Last Admin: 09/26/22 13:29 Dose: 50 mg Quetiapine Fumarate (Quetiapine Fumarate 100 Mg Tablet) 100 mg PO DAILY [facility] Last Admin: 09/27/22 08:54 Dose: 100 mg Quetiapine Fumarate (Quetiapine Fumarate 200 Mg Tablet) 200 mg PO BEDTIME [facility] Last Admin: 09/26/22 19:57 Dose: 200 mg Quetiapine Fumarate (Quetiapine Fumarate 25 Mg Tablet) 25 mg PO TID PRN PRN Reason: agitation Last Admin: 09/23/22 17:48 Dose: 25 mg Trazodone HCl (Trazodone Hcl 50 Mg Tablet) 50 mg PO BEDTIME MRX1 PRN PRN Reason: Insomnia Allergies Allergies Allergy/AdvReac Type Severity Reaction Status Date / Time No Known Allergies Allergy Verified 09/21/22 00:15 Assessment & Plan Assessment & Plan (1) Bipolar affective psychosis: Status: Acute Code(s): F31.9 - Bipolar disorder, unspecified Plan 27 year old with history of psychosis presents with delusions, paranoia, and grandiosity believing someone is trying to steal her identity, 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 Admit to [facility] CV Start medications as prescribed during last admission and seemed effective. Optimize as needed. Collaterals. FU on whether patient has access to firearms. Milieu and group therapy 09/23/22 Klonopin 1 mg bid Nicotine Patch/Gum 09/24/22 Continue current regime TDN to 09/25. Will file Section 7. 09/26/22 Continue current regime and plan of care. 09/27/22 Increase Seroquel by 100 mg at HS Patient educated on: medication risk/benefits Informed Consent: understands Reason for continued inpatient stay Substantial Risk for: rapid decompensation Time Spent With Patient Time: Total time managing care of this patient today ____ minutes.
[2022-09-27] MEDS: QUEtiapine Fumarate 25 MG TABLET 50 MG PO (12:37)
[2022-09-27 18:00] VITALS: BP 120/56; PULSE 80; TEMP 36.4
[2022-09-27] MEDS: QUEtiapine Fumarate 300 MG TABLET PO (20:23)
[2022-09-28] MEDS: clonazePAM 1 MG TABLET PO ×2 (08:50→19:46)
[2022-09-28] MEDS: QUEtiapine Fumarate 100 MG TABLET PO (08:50)
[2022-09-28 08:53] VITALS: BP 96/51; PULSE 94; RESP 16; TEMP 36.8; O2SAT 98
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
[2022-09-28] MEDS: QUEtiapine Fumarate 25 MG TABLET PO (10:26)
[2022-09-28] MEDS: QUEtiapine Fumarate 25 MG TABLET 50 MG PO (13:22)
[2022-09-28 18:00] VITALS: BP 118/54; PULSE 92; TEMP 36.3; O2SAT 98
[2022-09-28] MEDS: QUEtiapine Fumarate 300 MG TABLET PO (19:46)
[2022-09-29] MEDS: clonazePAM 1 MG TABLET PO ×2 (08:24→20:37)
[2022-09-29] MEDS: QUEtiapine Fumarate 100 MG TABLET PO (08:24)
[2022-09-29 08:30] VITALS: BP 115/88; PULSE 72; RESP 16; TEMP 36.6; O2SAT 98
[2022-09-29] MEDS: QUEtiapine Fumarate 25 MG TABLET PO ×2 (11:48→18:54)
[2022-09-29] MEDS: QUEtiapine Fumarate 25 MG TABLET 50 MG PO (13:17)
--- NOTE | 2022-09-29 15:21 | PC.NURSE ---
PT signed a 3 day notice 09/29/22, up 10/03/22.
[2022-09-29 16:55] VITALS: BP 121/63; PULSE 86; TEMP 36.7; O2SAT 97
--- NOTE | 2022-09-29 18:10 | HO.PSYCHPN ---
Subjective Subjective Date of Service: 09/29/22 Reason For Visit: psychosis Subjective Notes: Conditional Voluntary and 3 Day Healthcare Proxy: No Guardianship: No Medical Problems Affecting Mental Status: No Interim History: Pt seen, reviewed with the team Will trial Lidocaine Patch for pain mgt Discussed making contact with which she will do today. Discussed agenda for team meeting this week. Medication Compliance: Yes Side effects from medications: No Attending Groups: No Review of Systems Acute medical concerns: No Medical Review of Systems: unchanged Mental Status Exam Mental Status Exam Patient Appearance: Appropriate Patient Orientation: Person, Place and Time Level of Consciousness: Alert Patient Behavior: Talkative, Anxious and Distractible Mood Description: Labile Affect Description: Labile Patient Cognition Impaired: No Ability to Follow Directions: Fair Speech Pattern: Spontaneous Speech Memory Description: Remote Impaired and Episodic Impaired Delusions: Being Controlled, Paranoid Ideation, Grandiose and Present Perceptual Disturbances: Depersonalization and Derealization Thought Content: positive for Circumstantial Depressive Symptoms: Increased Anxiety, Crying Spells, Loss of Int. in Activity, Feelings of Worthlessness, Hopelessness, Isolating-Friends/Family, Unhappiness, Increased Fatigue, Low Self Esteem and Difficulty Concentrating Judgement: Fair Diagnostics Vital Signs (24Hr): Vital Signs - 24 hr 09/29/22 08:30 09/29/22 16:55 Temperature 98 F 98.0 F Pulse Rate 72 86 Respiratory Rate 16 Blood Pressure 115/88 121/63 Pulse Oximetry 98 97 Oxygen Delivery Method Room Air Room Air BMI result Body Mass Index 23.1 Labs 09/21/22 00:53 09/21/22 00:53 Medications Medications Current Medications Acetaminophen (Acetaminophen 325 Mg Tablet) 650 mg PO Q6H PRN PRN Reason: Headache/Pain Mild Scale (1-3) Al Hydroxide/Mg Hydroxide (Magnesium Hydrox/Alum Hydrox 30 Ml Oral.Susp) 30 ml PO Q6H PRN PRN Reason: Heartburn/Nausea Clonazepam (Clonazepam 1 Mg Tablet) 1 mg PO BID [facility] Last Admin: 09/29/22 08:24 Dose: 1 mg Hydroxyzine HCl (Hydroxyzine Hcl 25 Mg Tablet) 25 mg PO Q6H PRN PRN Reason: Anxiety Last Admin: 09/22/22 06:17 Dose: 25 mg Magnesium Hydroxide (Milk Of Magnesia 30 Ml Oral.Susp) 30 ml PO DAILY PRN PRN Reason: Constipation Nicotine (Nicotine 21 Mg Patch.Td24) 21 mg TRANSDERMA DAILY [facility] Last Admin: 09/29/22 08:33 Dose: Not Given Nicotine Polacrilex (Nicotine Polacrilex 2 Mg Gum) 4 mg BUCCAL Q2H PRN PRN Reason: Nicotine Cravings Quetiapine Fumarate (Quetiapine Fumarate 25 Mg Tablet) 50 mg PO DAILY@1300 [facility] Last Admin: 09/29/22 13:17 Dose: 50 mg Quetiapine Fumarate (Quetiapine Fumarate 100 Mg Tablet) 100 mg PO DAILY [facility] Last Admin: 09/29/22 08:24 Dose: 100 mg Quetiapine Fumarate (Quetiapine Fumarate 25 Mg Tablet) 25 mg PO TID PRN PRN Reason: agitation Last Admin: 09/29/22 11:48 Dose: 25 mg Quetiapine Fumarate (Quetiapine Fumarate 300 Mg Tablet) 300 mg PO BEDTIME [facility] Last Admin: 09/28/22 19:46 Dose: 300 mg Trazodone HCl (Trazodone Hcl 50 Mg Tablet) 50 mg PO BEDTIME MRX1 PRN PRN Reason: Insomnia Allergies Allergies Allergy/AdvReac Type Severity Reaction Status Date / Time No Known Allergies Allergy Verified 09/21/22 00:15 Assessment & Plan Assessment & Plan (1) Bipolar affective psychosis: Status: Acute Code(s): F31.9 - Bipolar disorder, unspecified Plan 27 year old with history of psychosis presents with delusions, paranoia, and grandiosity believing someone is trying to steal her identity, 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 Admit to [facility] CV Start medications as prescribed during last admission and seemed effective. Optimize as needed. Collaterals. FU on whether patient has access to firearms. Milieu and group therapy 09/23/22 Klonopin 1 mg bid Nicotine Patch/Gum 09/24/22 Continue current regime TDN to 09/25. Will file Section 7. 09/26/22 Continue current regime and plan of care. 09/27/22 Increase Seroquel by 100 mg at HS 09/29/22 Continue current plan and regime Lidocaine Patch daily for pain mgt. Patient educated on: medication risk/benefits and therapeutic strategies Informed Consent: understands Reason for continued inpatient stay Substantial Risk for: rapid decompensation Time Spent With Patient Time: Total time managing care of this patient today ____ minutes.
[2022-09-29] MEDS: hydrOXYzine HCL 25 MG TABLET PO (18:54)
[2022-09-29] MEDS: Ibuprofen 800 MG TABLET PO (18:54)
[2022-09-29] MEDS: Lidocaine 4 % Patch ADH..PATCH 1 PATCH TRANSDERMA (18:55)
[2022-09-29] MEDS: Acetaminophen 325 MG TABLET 650 MG PO (20:36)
[2022-09-29] MEDS: QUEtiapine Fumarate 300 MG TABLET PO (20:37)
[2022-09-30] MEDS: clonazePAM 1 MG TABLET PO ×2 (08:02→20:25)
[2022-09-30] MEDS: QUEtiapine Fumarate 100 MG TABLET PO (08:02)
[2022-09-30] MEDS: Lidocaine 4 % Patch ADH..PATCH 1 PATCH TRANSDERMA (08:03)
[2022-09-30 08:05] VITALS: BP 144/77; PULSE 107; RESP 18; TEMP 36.4; O2SAT 99
[2022-09-30] MEDS: Acetaminophen 325 MG TABLET 650 MG PO (10:47)
[2022-09-30] MEDS: Ibuprofen 800 MG TABLET PO (10:47)
[2022-09-30] MEDS: QUEtiapine Fumarate 25 MG TABLET 50 MG PO (12:45)
[2022-09-30] MEDS: QUEtiapine Fumarate 25 MG TABLET PO (13:31)
[2022-09-30] MEDS: hydrOXYzine HCL 25 MG TABLET PO (13:31)
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
[2022-09-30 17:12] VITALS: BP 120/63; PULSE 98; TEMP 36.1
--- NOTE | 2022-09-30 19:59 | PC.NURSE ---
LATE ENTRY: Contacted MD Hagen at 1703 via [employer] to confirm the ortho consult that was placed, 09/30/22 at 1432 was placed, and was aware. MD Hagen is aware of consult.
[2022-09-30] MEDS: QUEtiapine Fumarate 300 MG TABLET PO (20:25)
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
[2022-10-01] MEDS: hydrOXYzine HCL 25 MG TABLET PO ×2 (05:18→12:35)
[2022-10-01] MEDS: Ibuprofen 800 MG TABLET PO ×2 (05:20→19:03)
[2022-10-01] MEDS: Lidocaine 4 % Patch ADH..PATCH 1 PATCH TRANSDERMA (05:56)
[2022-10-01] MEDS: QUEtiapine Fumarate 25 MG TABLET PO (06:02)
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
[2022-10-01 08:15] VITALS: BP 120/58; PULSE 93; RESP 18; TEMP 37; O2SAT 99
[2022-10-01] MEDS: QUEtiapine Fumarate 100 MG TABLET PO (08:23)
[2022-10-01] MEDS: Acetaminophen 325 MG TABLET 650 MG PO (08:23)
[2022-10-01] MEDS: clonazePAM 1 MG TABLET PO ×2 (08:23→18:13)
[2022-10-01] MEDS: QUEtiapine Fumarate 25 MG TABLET 50 MG PO (12:34)
[2022-10-01 16:10] VITALS: BP 92/55; PULSE 97
[2022-10-01] MEDS: QUEtiapine Fumarate 300 MG TABLET PO (18:13)
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
--- NOTE | 2022-10-01 19:44 | PC.NURSE ---
Pt signed a 3-day notice on 10/01/22, up on 10/04/22
[2022-10-01] MEDS: OLANZapine 5 MG TABLET PO (21:34)
--- NOTE | 2022-10-01 21:37 | PC.NURSE ---
Pt retracted a 3-day notice on 10/01/22
[2022-10-02] MEDS: OLANZapine 5 MG TABLET PO ×2 (08:12→19:29)
[2022-10-02] MEDS: clonazePAM 1 MG TABLET PO ×2 (08:12→19:28)
[2022-10-02 08:20] VITALS: BP 102/58; PULSE 87; RESP 18; TEMP 36.5; O2SAT 98
[2022-10-02] MEDS: Lidocaine 4 % Patch ADH..PATCH 1 PATCH TRANSDERMA (09:34)
[2022-10-02] MEDS: Milk of Magnesia 30 ML ORAL.SUSP PO (10:20)
[2022-10-02] MEDS: Acetaminophen 325 MG TABLET 650 MG PO (13:03)
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
[2022-10-02 16:12] VITALS: BP 114/58; PULSE 90; TEMP 37.4
--- NOTE | 2022-10-02 17:06 | HE.PHANOTE ---
Recieved patient own [facility] patch [facility], verifying medication, sending up to the floor
[2022-10-02] MEDS: Ibuprofen 800 MG TABLET PO (18:25)
[2022-10-02] MEDS: Magnesium Hydrox/Alum Hydrox 30 ML ORAL.SUSP PO (18:47)
[2022-10-02] MEDS: QUEtiapine Fumarate 100 MG TABLET PO (19:28)
--- NOTE | 2022-10-02 19:48 | PC.NURSE ---
Pt received first Estradiol 0.1 mg Transdermal patch at 1926 rather than 1714 because patient wanted to shower before putting patch on.
[2022-10-03 07:00] VITALS: BMI 24.5
[2022-10-03] MEDS: OLANZapine 5 MG TABLET PO ×2 (08:03→20:13)
[2022-10-03] MEDS: Lidocaine 4 % Patch ADH..PATCH 1 PATCH TRANSDERMA (08:03)
[2022-10-03 08:06] VITALS: BP 130/63; PULSE 92; RESP 16; TEMP 36.5; O2SAT 99
[2022-10-03] MEDS: QUEtiapine Fumarate 100 MG TABLET PO ×2 (08:09→20:14)
[2022-10-03] MEDS: Acetaminophen 325 MG TABLET 650 MG PO (08:09)
[2022-10-03] MEDS: clonazePAM 1 MG TABLET PO ×2 (10:23→20:13)
--- NOTE | 2022-10-03 13:11 | P.PNPSI_ITS ---
Subjective Subjective Date of Service: 10/03/22 Reason For Visit: psychosis Subjective Notes: Conditional Voluntary Healthcare Proxy: No Guardianship: No Medical Problems Affecting Mental Status: No Interim History: Approached x 2 this afternoon to meet, however, pt sleeping soundly-possibly transition to Olanzapine SE? Team report pt is anxious to discharge. We spoke of this yesterday and discussed Olanzapine titration and time that was needed. Medication Compliance: Yes Side effects from medications: Yes (??Sedation) Attending Groups: Yes Review of Systems Acute medical concerns: No Medical Review of Systems: unchanged Mental Status Exam Mental Status Exam Patient Appearance: Appropriate Patient Orientation: Person, Place and Time Level of Consciousness: Alert Patient Behavior: Talkative, Distractible and Good Eye Contact Mood Description: Apprehensive Affect Description: Apprehensive Patient Cognition Impaired: No Ability to Follow Directions: Fair Speech Pattern: Spontaneous Speech Memory Description: Episodic Impaired Delusions: Paranoid Ideation, Grandiose and Present Perceptual Disturbances: Depersonalization and Derealization Thought Process: Distracted and Goal Oriented Thought Content: positive for Flight of Ideas, positive for Circumstantial and positive for Perseveration Depressive Symptoms: Increased Anxiety, Loss of Int. in Activity, Feelings of Worthlessness, Hopelessness, Isolating-Friends/Family, Unhappiness, Increased Fatigue, Low Self Esteem and Difficulty Concentrating Abnormal Motor Activity Signs and Symptoms: Restlessness Judgement: Fair Diagnostics Vital Signs (24Hr): Vital Signs - 24 hr 10/02/22 16:12 10/03/22 08:06 Temperature 99.3 F 97.7 F Pulse Rate 90 92 Respiratory Rate 16 Blood Pressure 114/58 L 130/63 Pulse Oximetry 99 Oxygen Delivery Method Room Air BMI result Body Mass Index 24.5 Labs 09/21/22 00:53 09/21/22 00:53 Imaging Radiology Impressions: ITS Impressions Cervical Spine X-Ray 09/29/22 19:45 IMPRESSION: No fracture or dislocation. Forearm X-Ray 09/29/22 19:45 IMPRESSION: Oblique fracture of the distal shaft of the ulna. Findings will be communicated by the [place] work flow sustainability purchasing agent. Humerus X-Ray 09/29/22 19:45 IMPRESSION: Oblique fracture of the distal shaft of the ulna. Findings will be communicated by the [place] work flow sustainability purchasing agent. Wrist X-Ray 09/29/22 19:45 IMPRESSION: Oblique fracture of the distal shaft of the ulna. Findings will be communicated by the [place] work flow sustainability purchasing agent. Head CT 09/29/22 19:49 IMPRESSION: 1. No acute intracranial process seen. 2. Chronic bilateral sphenoid and ethmoid sinus inflammatory changes. Medications Medications Current Medications Acetaminophen (Acetaminophen 325 Mg Tablet) 650 mg PO Q6H PRN PRN Reason: Headache/Pain Mild Scale (1-3) Last Admin: 10/03/22 08:09 Dose: 650 mg Al Hydroxide/Mg Hydroxide (Magnesium Hydrox/Alum Hydrox 30 Ml Oral.Susp) 30 ml PO Q6H PRN PRN Reason: Heartburn/Nausea Last Admin: 10/02/22 18:47 Dose: 30 ml Clonazepam (Clonazepam 1 Mg Tablet) 1 mg PO BID [facility] Hydroxyzine HCl (Hydroxyzine Hcl 25 Mg Tablet) 25 mg PO Q6H PRN PRN Reason: Anxiety Last Admin: 10/01/22 12:35 Dose: 25 mg Ibuprofen (Ibuprofen 800 Mg Tablet) 800 mg PO Q8H PRN PRN Reason: Pain, Mild (Pain Scale 1-3) Last Admin: 10/02/22 18:25 Dose: 800 mg Lidocaine (Lidocaine 4 % Patch Adh..Patch) 1 patch TRANSDERMA DAILY [facility]; Protocol Last Admin: 10/03/22 08:03 Dose: 1 patch Magnesium Hydroxide (Milk Of Magnesia 30 Ml Oral.Susp) 30 ml PO DAILY PRN PRN Reason: Constipation Last Admin: 10/02/22 10:20 Dose: 30 ml Nicotine (Nicotine 21 Mg Patch.Td24) 21 mg TRANSDERMA DAILY [facility] Last Admin: 10/03/22 08:06 Dose: Not Given Nicotine Polacrilex (Nicotine Polacrilex 2 Mg Gum) 4 mg BUCCAL Q2H PRN PRN Reason: Nicotine Cravings Pt Own (Fidelia ( Estradiol 0.1 Mg Transdermal System)) 1 each TRANSDERMA SuWe [facility]; Protocol Last Admin: 10/02/22 19:27 Dose: 1 each Olanzapine (Olanzapine 5 Mg Tablet) 5 mg PO BID [facility] Last Admin: 10/03/22 08:03 Dose: 5 mg Quetiapine Fumarate (Quetiapine Fumarate 100 Mg Tablet) 100 mg PO TID PRN PRN Reason: agitation Last Admin: 10/03/22 08:09 Dose: 100 mg Trazodone HCl (Trazodone Hcl 50 Mg Tablet) 50 mg PO BEDTIME MRX1 PRN PRN Reason: Insomnia Allergies Allergies Allergy/AdvReac Type Severity Reaction Status Date / Time No Known Allergies Allergy Verified 09/21/22 00:15 Assessment & Plan Assessment & Plan (1) Psychotic disorder: Status: Acute Code(s): F29 - Unspecified psychosis not due to a substance or known physiological condition Plan Discontinue Seroquel Seroquel prn Olanzapine 5 mg bid As pt was taking Seroquel 450 mg, this converts to Olanzapine 30 mg-will adjust as tolerated. 10/02/22: Continue current regime and plan of care. 10/03/22: Continue current regime. If daytime sedation persists, will consolidate Olanzapine to HS. Informed Consent: understands Reason for continued inpatient stay Substantial Risk for: harm to self, harm to others, inability to function and rapid decompensation Time Spent With Patient Time: Total time managing care of this patient today ____ minutes.
[2022-10-03] MEDS: Ibuprofen 800 MG TABLET PO (15:47)
[2022-10-03 18:00] VITALS: BP 125/69; PULSE 100; TEMP 37.2; O2SAT 95
[2022-10-04] MEDS: Ibuprofen 800 MG TABLET PO ×2 (06:14→20:01)
[2022-10-04] MEDS: clonazePAM 1 MG TABLET PO (08:28)
[2022-10-04] MEDS: OLANZapine 5 MG TABLET PO (08:28)
[2022-10-04 08:30] VITALS: RESP 16; TEMP 36.3; O2SAT 99
[2022-10-04] MEDS: Lidocaine 4 % Patch ADH..PATCH 1 PATCH TRANSDERMA (09:21)
[2022-10-04] MEDS: QUEtiapine Fumarate 100 MG TABLET PO ×2 (12:02→20:00)
[2022-10-04] MEDS: OLANZapine 10 MG TABLET PO (13:57)
--- NOTE | 2022-10-04 14:53 | PC.NURSE ---
Pt signed a 3-day on 10/04/2022, it is up 10/10/2022.
--- NOTE | 2022-10-04 14:53 | PC.NURSE ---
Pt revoked 3-day in the afternoon of 10/04/2022
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
[2022-10-04 18:00] VITALS: BP 125/72; PULSE 95; TEMP 36.2; O2SAT 99
[2022-10-04] MEDS: OLANZapine 7.5 MG TABLET 15 MG PO (20:00)
[2022-10-04] MEDS: clonazePAM 0.5 MG TABLET PO (20:01)
[2022-10-05 08:39] VITALS: BP 109/57; PULSE 92; RESP 16; TEMP 36.7; O2SAT 98
[2022-10-05] MEDS: OLANZapine 7.5 MG TABLET 15 MG PO ×2 (08:43→18:02)
[2022-10-05] MEDS: clonazePAM 0.5 MG TABLET PO ×2 (08:43→18:03)
--- NOTE | 2022-10-05 10:56 | HO.PSYCHPN ---
Subjective Subjective Date of Service: 10/05/22 Reason For Visit: psychosis Interim History: Patient seen and discussed. Patient remains psychotic and excitable at times. She is reported to be self dialoguing. She was calm on approach by this telegraphic typewriter operator chief and says she has been feeling well. Says her medications calm her anxiety and fears. She had a visit from her [facility] family service caseworker which she appreciated. Talked to staff about meeting with and spending time with the [facility] after she leaves the hospital. Denies SI/HI/AVH. Review of Systems Review of Systems Constitutional : No Weight loss, No Fever, No Chills, No Fatigue, No Malaise ENT/Mouth : No sore throat, No Rhinorrhea Eyes: No Eye Pain, No Swelling, No Redness Cardiovascular : No Chest Pain, No SOB, No Dyspnea on Exertion, No Orthopnea, No Edema, No Palpitations Respiratory : No Cough, No Sputum, No Wheezing Gastrointestinal : No Nausea, No Vomiting, No Diarrhea, No Constipation, No abdominal Pain, No Hematochezia, No Melena Genitourinary : No Dysuria, No Urinary Frequency, No Hematuria, Musculoskeletal : No joint pain, No Myalgias, No Joint Swelling Skin : No Skin Lesions, No rash Neuro : No Weakness, No Numbness, No Dizziness, No Headache Psych : + Anxiety/Panic, No Depression, + hallucinations All other systems reviewed and are negative Yes all other systems are reviewed and are negative Mental Status Exam Mental Status Exam Narrative: Appearance:casually groomed, good hygiene, right hand pain Behavior:cooperative Psychomotor: no agitation or retardation noted Speech:clear, normal rate/rhythm/volume, spontaneous TP:mostly linear TC:less perseverative on DC Mood: calm Affect: contricted. blunted SI: none HI: none AH/VH: delusions: Grandiose. Paranoid Insight/judgment: poor x 2. Memory/cog: alert, oriented x 3. Patient Appearance: Appropriate Patient Orientation: Person, Place and Time Level of Consciousness: Alert Patient Behavior: Talkative, Suspicious, Anxious, Fearful, Distractible and Good Eye Contact Mood Description: Anxious and Apprehensive Affect Description: Anxious and Apprehensive Patient Cognition Impaired: No Ability to Follow Directions: Fair Speech Pattern: Spontaneous Speech Memory Description: Episodic Impaired Diagnostics Vital Signs (24Hr): Vital Signs - 24 hr 10/04/22 18:00 10/05/22 08:39 Temperature 97.1 F 98.1 F Pulse Rate 95 92 Respiratory Rate 16 Blood Pressure 125/72 109/57 L Pulse Oximetry 99 98 Oxygen Delivery Method Room Air Room Air BMI result Body Mass Index 24.5 Labs 09/21/22 00:53 09/21/22 00:53 Imaging Radiology Impressions: ITS Impressions Cervical Spine X-Ray 09/29/22 19:45 IMPRESSION: No fracture or dislocation. Forearm X-Ray 09/29/22 19:45 IMPRESSION: Oblique fracture of the distal shaft of the ulna. Findings will be communicated by the [place] work flow place change roof bolter. Humerus X-Ray 09/29/22 19:45 IMPRESSION: Oblique fracture of the distal shaft of the ulna. Findings will be communicated by the [place] work flow place change roof bolter. Wrist X-Ray 09/29/22 19:45 IMPRESSION: Oblique fracture of the distal shaft of the ulna. Findings will be communicated by the [place] work flow place change roof bolter. Head CT 09/29/22 19:49 IMPRESSION: 1. No acute intracranial process seen. 2. Chronic bilateral sphenoid and ethmoid sinus inflammatory changes. Medications Medications Current Medications Acetaminophen (Acetaminophen 325 Mg Tablet) 650 mg PO Q6H PRN PRN Reason: Headache/Pain Mild Scale (1-3) Last Admin: 10/03/22 08:09 Dose: 650 mg Al Hydroxide/Mg Hydroxide (Magnesium Hydrox/Alum Hydrox 30 Ml Oral.Susp) 30 ml PO Q6H PRN PRN Reason: Heartburn/Nausea Last Admin: 10/02/22 18:47 Dose: 30 ml Clonazepam (Clonazepam 0.5 Mg Tablet) 0.5 mg PO BID [facility] Last Admin: 10/05/22 08:43 Dose: 0.5 mg Hydroxyzine HCl (Hydroxyzine Hcl 25 Mg Tablet) 25 mg PO Q6H PRN PRN Reason: Anxiety Last Admin: 10/01/22 12:35 Dose: 25 mg Ibuprofen (Ibuprofen 800 Mg Tablet) 800 mg PO Q8H PRN PRN Reason: Pain, Mild (Pain Scale 1-3) Last Admin: 10/04/22 20:01 Dose: 800 mg Lidocaine (Lidocaine 4 % Patch Adh..Patch) 1 patch TRANSDERMA DAILY [facility]; Protocol Last Admin: 10/05/22 10:28 Dose: Not Given Magnesium Hydroxide (Milk Of Magnesia 30 Ml Oral.Susp) 30 ml PO DAILY PRN PRN Reason: Constipation Last Admin: 10/02/22 10:20 Dose: 30 ml Nicotine (Nicotine 21 Mg Patch.Td24) 21 mg TRANSDERMA DAILY [facility] Last Admin: 10/05/22 08:43 Dose: Not Given Nicotine Polacrilex (Nicotine Polacrilex 2 Mg Gum) 4 mg BUCCAL Q2H PRN PRN Reason: Nicotine Cravings Pt Own (Fidelia ( Estradiol 0.1 Mg Transdermal System)) 1 each TRANSDERMA SuWe [facility]; Protocol Last Admin: 10/02/22 19:27 Dose: 1 each Olanzapine (Olanzapine 7.5 Mg Tablet) 15 mg PO BID [facility] Last Admin: 10/05/22 08:43 Dose: 15 mg Quetiapine Fumarate (Quetiapine Fumarate 100 Mg Tablet) 100 mg PO TID PRN PRN Reason: agitation Last Admin: 10/04/22 20:00 Dose: 100 mg Trazodone HCl (Trazodone Hcl 50 Mg Tablet) 50 mg PO BEDTIME MRX1 PRN PRN Reason: Insomnia Allergies Allergies Allergy/AdvReac Type Severity Reaction Status Date / Time No Known Allergies Allergy Verified 09/21/22 00:15 Assessment & Plan Assessment & Plan (1) Psychotic disorder: Status: Acute Code(s): F29 - Unspecified psychosis not due to a substance or known physiological condition Plan Discontinue Seroquel Seroquel prn Olanzapine 5 mg bid As pt was taking Seroquel 450 mg, this converts to Olanzapine 30 mg-will adjust as tolerated. 10/02/22: Continue current regime and plan of care. 10/03/22: Continue current regime. If daytime sedation persists, will consolidate Olanzapine to HS. 10/04/22: Olanzapine 10 mg x 1 dose Increase Olanzapine to 15 mg bid Decrease Klonopin to 0.5 mg bid 10/05: Continue current plan. Reason for continued inpatient stay Substantial Risk for: inability to function and rapid decompensation Time Spent With Patient Time: Total time managing care of this patient today ____ minutes.
[2022-10-05] MEDS: Ibuprofen 800 MG TABLET PO (16:01)
[2022-10-05 17:59] VITALS: BP 124/63; PULSE 102
[2022-10-05] MEDS: QUEtiapine Fumarate 100 MG TABLET PO (18:06)
--- NOTE | 2022-10-05 18:38 | PC.NURSE ---
10/05 @18:37 Pt. signed a 3 day noticed, understands that the weekend and holidays do Not count, starting 10/08, up 10/11.
[2022-10-06 08:11] VITALS: BP 139/61; PULSE 93; RESP 16; TEMP 36.8; O2SAT 95
[2022-10-06] MEDS: clonazePAM 0.5 MG TABLET PO ×2 (08:56→19:10)
[2022-10-06] MEDS: OLANZapine 7.5 MG TABLET 15 MG PO ×2 (08:57→19:10)
[2022-10-06] MEDS: Lidocaine 4 % Patch ADH..PATCH 1 PATCH TRANSDERMA (08:57)
[2022-10-06] MEDS: QUEtiapine Fumarate 100 MG TABLET PO ×2 (09:04→19:10)
[2022-10-06] MEDS: hydrOXYzine HCL 25 MG TABLET PO (13:33)
[2022-10-06 16:18] VITALS: BP 124/55; PULSE 123; TEMP 36.3
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
[2022-10-07 08:13] VITALS: BP 126/61; PULSE 84; RESP 16; TEMP 36.8; O2SAT 97
[2022-10-07] MEDS: OLANZapine 7.5 MG TABLET 15 MG PO ×2 (08:15→19:13)
[2022-10-07] MEDS: Lidocaine 4 % Patch ADH..PATCH 1 PATCH TRANSDERMA (08:15)
[2022-10-07] MEDS: clonazePAM 0.5 MG TABLET PO ×2 (08:15→19:13)
[2022-10-07] MEDS: Ibuprofen 800 MG TABLET PO (09:50)
--- NOTE | 2022-10-07 09:56 | HO.PSYCHPN ---
Subjective Subjective Date of Service: 10/07/22 Reason For Visit: psychosis Interim History: Patient seen and discussed. She reports she is doing well because she is medicated. She is somewhat isolative. Denies SI. Says she doesn't want to go back to her apartment. Guarded and calm. Sleep is good. Appetite is good. Denies AH but staff report self dialogue and intermittently responding to internal stimuli. Review of Systems Review of Systems per hpi Yes all other systems are reviewed and are negative Mental Status Exam Mental Status Exam Narrative: Appearance:casually groomed, good hygiene, right hand pain Behavior:cooperative Psychomotor: no agitation or retardation noted Speech:clear, normal rate/rhythm/volume, spontaneous TP:mostly linear TC:less perseverative on DC Mood: calm Affect: contricted. blunted SI: none HI: none AH/VH: delusions: Grandiose. Paranoid Insight/judgment: poor x 2. Memory/cog: alert, oriented x 3. Patient Appearance: Appropriate Patient Orientation: Person, Place and Time Level of Consciousness: Alert Patient Behavior: Talkative, Suspicious, Anxious, Fearful, Distractible and Good Eye Contact Mood Description: Anxious and Apprehensive Affect Description: Anxious and Apprehensive Patient Cognition Impaired: No Ability to Follow Directions: Fair Speech Pattern: Spontaneous Speech Memory Description: Episodic Impaired Diagnostics Vital Signs (24Hr): Vital Signs - 24 hr 10/06/22 16:18 Temperature 97.3 F Pulse Rate 123 H Blood Pressure 124/55 L BMI result Body Mass Index 24.5 Labs 09/21/22 00:53 09/21/22 00:53 Imaging Radiology Impressions: ITS Impressions Cervical Spine X-Ray 09/29/22 19:45 IMPRESSION: No fracture or dislocation. Forearm X-Ray 09/29/22 19:45 IMPRESSION: Oblique fracture of the distal shaft of the ulna. Findings will be communicated by the [place] work flow motor vehicle light assembler. Humerus X-Ray 09/29/22 19:45 IMPRESSION: Oblique fracture of the distal shaft of the ulna. Findings will be communicated by the [place] work flow motor vehicle light assembler. Wrist X-Ray 09/29/22 19:45 IMPRESSION: Oblique fracture of the distal shaft of the ulna. Findings will be communicated by the [place] work flow motor vehicle light assembler. Head CT 09/29/22 19:49 IMPRESSION: 1. No acute intracranial process seen. 2. Chronic bilateral sphenoid and ethmoid sinus inflammatory changes. Medications Medications Current Medications Acetaminophen (Acetaminophen 325 Mg Tablet) 650 mg PO Q6H PRN PRN Reason: Headache/Pain Mild Scale (1-3) Last Admin: 10/03/22 08:09 Dose: 650 mg Al Hydroxide/Mg Hydroxide (Magnesium Hydrox/Alum Hydrox 30 Ml Oral.Susp) 30 ml PO Q6H PRN PRN Reason: Heartburn/Nausea Last Admin: 10/02/22 18:47 Dose: 30 ml Clonazepam (Clonazepam 0.5 Mg Tablet) 0.5 mg PO BID [facility] Last Admin: 10/07/22 08:15 Dose: 0.5 mg Hydroxyzine HCl (Hydroxyzine Hcl 25 Mg Tablet) 25 mg PO Q6H PRN PRN Reason: Anxiety Last Admin: 10/06/22 13:33 Dose: 25 mg Ibuprofen (Ibuprofen 800 Mg Tablet) 800 mg PO Q8H PRN PRN Reason: Pain, Mild (Pain Scale 1-3) Last Admin: 10/07/22 09:50 Dose: 800 mg Lidocaine (Lidocaine 4 % Patch Adh..Patch) 1 patch TRANSDERMA DAILY [facility]; Protocol Last Admin: 10/07/22 08:15 Dose: 1 patch Magnesium Hydroxide (Milk Of Magnesia 30 Ml Oral.Susp) 30 ml PO DAILY PRN PRN Reason: Constipation Last Admin: 10/02/22 10:20 Dose: 30 ml Nicotine (Nicotine 21 Mg Patch.Td24) 21 mg TRANSDERMA DAILY [facility] Last Admin: 10/07/22 09:23 Dose: Not Given Nicotine Polacrilex (Nicotine Polacrilex 2 Mg Gum) 4 mg BUCCAL Q2H PRN PRN Reason: Nicotine Cravings Pt Own (Fidelia ( Estradiol 0.1 Mg Transdermal System)) 1 each TRANSDERMA SuWe [facility]; Protocol Last Admin: 10/06/22 16:16 Dose: 1 each Olanzapine (Olanzapine 7.5 Mg Tablet) 15 mg PO BID [facility] Last Admin: 10/07/22 08:15 Dose: 15 mg Quetiapine Fumarate (Quetiapine Fumarate 100 Mg Tablet) 100 mg PO TID PRN PRN Reason: agitation Last Admin: 10/06/22 19:10 Dose: 100 mg Trazodone HCl (Trazodone Hcl 50 Mg Tablet) 50 mg PO BEDTIME MRX1 PRN PRN Reason: Insomnia Allergies Allergies Allergy/AdvReac Type Severity Reaction Status Date / Time No Known Allergies Allergy Verified 09/21/22 00:15 Assessment & Plan Assessment & Plan (1) Psychotic disorder: Status: Acute Code(s): F29 - Unspecified psychosis not due to a substance or known physiological condition Plan Discontinue Seroquel Seroquel prn Olanzapine 5 mg bid As pt was taking Seroquel 450 mg, this converts to Olanzapine 30 mg-will adjust as tolerated. 10/02/22: Continue current regime and plan of care. 10/03/22: Continue current regime. If daytime sedation persists, will consolidate Olanzapine to HS. 10/04/22: Olanzapine 10 mg x 1 dose Increase Olanzapine to 15 mg bid Decrease Klonopin to 0.5 mg bid 10/05: Continue current plan. 10/06: Continue current treatment plan. 10/07: Continue current treatment plan. Reason for continued inpatient stay Substantial Risk for: inability to function and rapid decompensation Time Spent With Patient Time: Total time managing care of this patient today ____ minutes.
[2022-10-07] MEDS: QUEtiapine Fumarate 100 MG TABLET PO ×2 (11:34→19:13)
[2022-10-07 18:20] VITALS: BP 121/77; PULSE 118; TEMP 36.4
[2022-10-08 08:20] VITALS: BP 127/58; PULSE 93; RESP 18; TEMP 36.5; O2SAT 99
[2022-10-08] MEDS: Lidocaine 4 % Patch ADH..PATCH 1 PATCH TRANSDERMA (08:21)
[2022-10-08] MEDS: OLANZapine 7.5 MG TABLET 15 MG PO ×2 (08:22→18:20)
[2022-10-08] MEDS: clonazePAM 0.5 MG TABLET PO ×2 (08:23→18:20)
[2022-10-08] MEDS: Ibuprofen 800 MG TABLET PO ×2 (09:39→18:19)
[2022-10-08] MEDS: hydrOXYzine HCL 25 MG TABLET PO (11:55)
[2022-10-08] MEDS: QUEtiapine Fumarate 100 MG TABLET PO (11:55)
[2022-10-08 15:57] VITALS: BP 114/57; PULSE 100
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
[2022-10-08] MEDS: HaloperidoL 1 MG TABLET 2 MG PO (19:05)
[2022-10-09] MEDS: QUEtiapine Fumarate 100 MG TABLET PO ×3 (04:35→19:20)
[2022-10-09] MEDS: clonazePAM 0.5 MG TABLET PO ×2 (08:37→19:15)
[2022-10-09] MEDS: OLANZapine 7.5 MG TABLET 15 MG PO ×2 (08:37→19:15)
[2022-10-09] MEDS: HaloperidoL 1 MG TABLET 2 MG PO ×2 (08:37→19:15)
[2022-10-09] MEDS: Lidocaine 4 % Patch ADH..PATCH 1 PATCH TRANSDERMA (08:38)
[2022-10-09 08:43] VITALS: BP 110/53; PULSE 99; RESP 16; TEMP 36.5; O2SAT 97
[2022-10-09] MEDS: Milk of Magnesia 30 ML ORAL.SUSP PO (12:25)
[2022-10-09] MEDS: bisacodyL 5 MG TABLET.DR 10 MG PO (14:24)
--- NOTE | 2022-10-09 14:44 | PC.NURSE ---
Pt retracted 3 day on 10/09.MD CELIO, SW aware.
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
[2022-10-09 18:55] VITALS: BP 125/69; PULSE 118; TEMP 36.4
--- NOTE | 2022-10-09 19:00 | PC.NURSE ---
pt signed a 3 day notice up on October 14. MD CELIO, and SW aware.
[2022-10-09] MEDS: Docusate Sodium 100 MG CAPSULE PO (19:15)
[2022-10-10 07:00] VITALS: BMI 25.4
[2022-10-10 08:05] VITALS: BP 125/60; PULSE 90; RESP 18; TEMP 36.7; O2SAT 96
[2022-10-10] MEDS: OLANZapine 7.5 MG TABLET 15 MG PO ×2 (08:07→19:39)
[2022-10-10] MEDS: Docusate Sodium 100 MG CAPSULE PO ×2 (08:08→19:38)
[2022-10-10] MEDS: HaloperidoL 1 MG TABLET 2 MG PO ×2 (08:08→19:40)
[2022-10-10] MEDS: clonazePAM 0.5 MG TABLET PO ×2 (08:09→19:39)
[2022-10-10] MEDS: Lidocaine 4 % Patch ADH..PATCH 1 PATCH TRANSDERMA (08:09)
[2022-10-10] MEDS: QUEtiapine Fumarate 100 MG TABLET PO (11:27)
[2022-10-10] MEDS: bisacodyL 5 MG TABLET.DR 10 MG PO (12:49)
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
[2022-10-10 17:05] VITALS: BP 156/65; PULSE 102; TEMP 36.7; O2SAT 97
[2022-10-10] MEDS: Ibuprofen 800 MG TABLET PO (20:45)
[2022-10-11 08:05] VITALS: BP 133/67; PULSE 115; RESP 18; TEMP 36.8; O2SAT 94
[2022-10-11] MEDS: HaloperidoL 1 MG TABLET 2 MG PO (08:14)
[2022-10-11] MEDS: Docusate Sodium 100 MG CAPSULE PO ×2 (08:14→19:31)
[2022-10-11] MEDS: OLANZapine 7.5 MG TABLET 15 MG PO ×2 (08:14→19:31)
[2022-10-11] MEDS: clonazePAM 0.5 MG TABLET PO ×2 (08:14→19:31)
[2022-10-11] MEDS: Multivitamin TABLET 1 TAB PO (08:14)
[2022-10-11] MEDS: Lidocaine 4 % Patch ADH..PATCH 1 PATCH TRANSDERMA (08:14)
[2022-10-11] MEDS: Cyanocobalamin (Vitamin B-12) 100 MCG TABLET PO (08:14)
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
[2022-10-11] MEDS: QUEtiapine Fumarate 100 MG TABLET PO ×3 (10:32→19:31)
[2022-10-11 18:17] VITALS: BP 117/70; PULSE 114; TEMP 36.2
[2022-10-11] MEDS: HaloperidoL 5 MG TABLET PO (19:31)
[2022-10-12] MEDS: QUEtiapine Fumarate 100 MG TABLET PO ×3 (01:28→17:56)
[2022-10-12] MEDS: Docusate Sodium 100 MG CAPSULE PO ×2 (08:22→17:56)
[2022-10-12] MEDS: OLANZapine 7.5 MG TABLET 15 MG PO ×2 (08:22→17:56)
[2022-10-12] MEDS: Multivitamin TABLET 1 TAB PO (08:22)
[2022-10-12] MEDS: HaloperidoL 5 MG TABLET PO ×2 (08:22→17:56)
[2022-10-12] MEDS: clonazePAM 0.5 MG TABLET PO ×2 (08:22→17:56)
[2022-10-12] MEDS: Lidocaine 4 % Patch ADH..PATCH 1 PATCH TRANSDERMA (08:22)
[2022-10-12] MEDS: Cyanocobalamin (Vitamin B-12) 100 MCG TABLET PO (08:22)
[2022-10-12 08:27] VITALS: BP 130/63; PULSE 105; RESP 16; TEMP 36.4; O2SAT 95
[2022-10-12] MEDS: hydrOXYzine HCL 25 MG TABLET PO (11:31)
[2022-10-12 15:49] VITALS: BP 109/56; PULSE 109
--- NOTE | 2022-10-12 16:54 | HO.PSYCHPN ---
Subjective Subjective Date of Service: 10/12/22 Reason For Visit: psychosis Subjective Notes: Conditional Voluntary and 3 Day Medical Problems Affecting Mental Status: No Interim History: met with patient; reviewed chart; pt calm and cooperative; he reports wanting discharge. remains delusional, and grandiose at times. Won't retract 3 day but does agree to increase Haldol. He is focused on discharge Medication Compliance: Yes Side effects from medications: No Attending Groups: Intermittent Review of Systems Acute medical concerns: No Review of Systems Review of Systems per hpi Yes all other systems are reviewed and are negative Mental Status Exam Mental Status Exam Narrative: Appearance:casually groomed, good hygiene, right hand pain Behavior:cooperative Psychomotor: no agitation or retardation noted Speech:clear, normal rate/rhythm/volume, spontaneous TP:mostly linear TC:less perseverative on DC Mood: calm Affect: contricted. blunted SI: none HI: none AH/VH: delusions: Grandiose. Paranoid Insight/judgment: poor x 2. Memory/cog: alert, oriented x 3. Patient Appearance: Appropriate Patient Orientation: Person, Place, Time and Situation Level of Consciousness: Alert Patient Behavior: Appropriate, Talkative, Cooperative and Good Eye Contact Mood Description: Fearful and Anxious Affect Description: Flat Patient Cognition Impaired: No Ability to Follow Directions: Fair Speech Pattern: Spontaneous Speech Memory Description: Episodic Impaired Diagnostics Vital Signs (24Hr): Vital Signs - 24 hr 10/11/22 18:17 10/12/22 08:27 10/12/22 15:49 Temperature 97.2 F 97.6 F Pulse Rate 114 H 105 H 109 H Respiratory Rate 16 Blood Pressure 117/70 130/63 109/56 L Pulse Oximetry 95 Oxygen Delivery Method Room Air BMI result Body Mass Index 25.4 Labs 09/21/22 00:53 09/21/22 00:53 Imaging Radiology Impressions: ITS Impressions Cervical Spine X-Ray 09/29/22 19:45 IMPRESSION: No fracture or dislocation. Forearm X-Ray 09/29/22 19:45 IMPRESSION: Oblique fracture of the distal shaft of the ulna. Findings will be communicated by the [employer] work flow mortgage loan originator. Humerus X-Ray 09/29/22 19:45 IMPRESSION: Oblique fracture of the distal shaft of the ulna. Findings will be communicated by the [employer] work flow mortgage loan originator. Wrist X-Ray 09/29/22 19:45 IMPRESSION: Oblique fracture of the distal shaft of the ulna. Findings will be communicated by the [employer] work flow mortgage loan originator. Head CT 09/29/22 19:49 IMPRESSION: 1. No acute intracranial process seen. 2. Chronic bilateral sphenoid and ethmoid sinus inflammatory changes. Medications Medications Current Medications Acetaminophen (Acetaminophen 325 Mg Tablet) 650 mg PO Q6H PRN PRN Reason: Headache/Pain Mild Scale (1-3) Last Admin: 10/03/22 08:09 Dose: 650 mg Al Hydroxide/Mg Hydroxide (Magnesium Hydrox/Alum Hydrox 30 Ml Oral.Susp) 30 ml PO Q6H PRN PRN Reason: Heartburn/Nausea Last Admin: 10/02/22 18:47 Dose: 30 ml Bisacodyl (Bisacodyl 5 Mg Tablet.Dr) 20 mg PO DAILY PRN PRN Reason: Constipation Clonazepam (Clonazepam 0.5 Mg Tablet) 0.5 mg PO BID [facility] Last Admin: 10/12/22 08:22 Dose: 0.5 mg Cyanocobalamin (Cyanocobalamin (Vitamin B-12) 100 Mcg Tablet) 100 mcg PO DAILY [facility] Last Admin: 10/12/22 08:22 Dose: 100 mcg Docusate Sodium (Docusate Sodium 100 Mg Capsule) 100 mg PO BID [facility] Last Admin: 10/12/22 08:22 Dose: 100 mg Haloperidol (Haloperidol 5 Mg Tablet) 5 mg PO BID [facility] Last Admin: 10/12/22 08:22 Dose: 5 mg Hydroxyzine HCl (Hydroxyzine Hcl 25 Mg Tablet) 25 mg PO Q6H PRN PRN Reason: Anxiety Last Admin: 10/12/22 11:31 Dose: 25 mg Ibuprofen (Ibuprofen 800 Mg Tablet) 800 mg PO Q8H PRN PRN Reason: Pain, Mild (Pain Scale 1-3) Last Admin: 10/10/22 20:45 Dose: 800 mg Lidocaine (Lidocaine 4 % Patch Adh..Patch) 1 patch TRANSDERMA DAILY [facility]; Protocol Last Admin: 10/12/22 08:22 Dose: 1 patch Magnesium Hydroxide (Milk Of Magnesia 30 Ml Oral.Susp) 30 ml PO DAILY PRN PRN Reason: Constipation Last Admin: 10/09/22 12:25 Dose: 30 ml Multivitamins/Vitamin C (Multivitamin Tablet) 1 tab PO DAILY [facility] Last Admin: 10/12/22 08:22 Dose: 1 tab Nicotine (Nicotine 21 Mg Patch.Td24) 21 mg TRANSDERMA DAILY [facility] Last Admin: 10/12/22 08:30 Dose: Not Given Nicotine Polacrilex (Nicotine Polacrilex 2 Mg Gum) 4 mg BUCCAL Q2H PRN PRN Reason: Nicotine Cravings Pt Own (Fidelia ( Estradiol 0.1 Mg Transdermal System)) 1 each TRANSDERMA SuWe [facility]; Protocol Last Admin: 10/09/22 16:42 Dose: 1 each Olanzapine (Olanzapine 7.5 Mg Tablet) 15 mg PO BID [facility] Last Admin: 10/12/22 08:22 Dose: 15 mg Quetiapine Fumarate (Quetiapine Fumarate 100 Mg Tablet) 100 mg PO TID PRN PRN Reason: agitation Last Admin: 10/12/22 11:31 Dose: 100 mg Trazodone HCl (Trazodone Hcl 50 Mg Tablet) 50 mg PO BEDTIME MRX1 PRN PRN Reason: Insomnia Allergies Allergies Allergy/AdvReac Type Severity Reaction Status Date / Time No Known Allergies Allergy Verified 09/21/22 00:15 Assessment & Plan Assessment & Plan (1) Psychotic disorder: Status: Acute Code(s): F29 - Unspecified psychosis not due to a substance or known physiological condition Plan Discontinue Seroquel Seroquel prn Olanzapine 5 mg bid As pt was taking Seroquel 450 mg, this converts to Olanzapine 30 mg-will adjust as tolerated. 10/02/22: Continue current regime and plan of care. 10/03/22: Continue current regime. If daytime sedation persists, will consolidate Olanzapine to HS. 10/04/22: Olanzapine 10 mg x 1 dose Increase Olanzapine to 15 mg bid Decrease Klonopin to 0.5 mg bid 10/05: Continue current plan. 10/06: Continue current treatment plan. 10/07: Continue current treatment plan. 10/08/22: Haldol 2 mg bid 10/09/22: Continue current regime. 10/10/22: Continue current regime. 10/11/22: INCREASED Haldol to 5mg BID (up from 2mg) for continued delusional thinking, no insight 10/12/22 continue treatment plan Reason for continued inpatient stay Substantial Risk for: harm to self, harm to others, inability to function and rapid decompensation Time Spent With Patient Time: Total time managing care of this patient today ____ minutes.
[2022-10-12] MEDS: Ibuprofen 800 MG TABLET PO (17:56)
[2022-10-13] MEDS: hydrOXYzine HCL 25 MG TABLET PO (04:49)
[2022-10-13] MEDS: QUEtiapine Fumarate 100 MG TABLET PO ×3 (04:49→19:27)
[2022-10-13] MEDS: Lidocaine 4 % Patch ADH..PATCH 1 PATCH TRANSDERMA (08:48)
[2022-10-13] MEDS: OLANZapine 7.5 MG TABLET 15 MG PO ×2 (08:49→20:04)
[2022-10-13] MEDS: Multivitamin TABLET 1 TAB PO (08:49)
[2022-10-13] MEDS: clonazePAM 0.5 MG TABLET PO ×2 (08:49→20:04)
[2022-10-13] MEDS: Docusate Sodium 100 MG CAPSULE PO ×2 (08:49→20:04)
[2022-10-13] MEDS: Cyanocobalamin (Vitamin B-12) 100 MCG TABLET PO (08:49)
[2022-10-13] MEDS: HaloperidoL 5 MG TABLET PO ×2 (08:49→20:04)
[2022-10-13 09:00] VITALS: BP 108/53; PULSE 97; RESP 16; TEMP 36.9; O2SAT 96
--- NOTE | 2022-10-13 11:34 | HO.PSYCHPN ---
Subjective Subjective Date of Service: 10/13/22 Reason For Visit: psychosis Subjective Notes: Conditional Voluntary and 3 Day Interim History: pt calm and cooperative; he reports wanting discharge. remains delusional, and grandiose at times. pt more appropriate and able to maintain good behavioral control; no impulsivity; Won't retract 3 day but does agree to increase Haldol. He is focused on discharge Medication Compliance: Yes Side effects from medications: No Attending Groups: Intermittent Review of Systems Acute medical concerns: Yes Medical Review of Systems: unchanged Review of Systems Review of Systems per hpi Yes all other systems are reviewed and are negative Mental Status Exam Mental Status Exam Narrative: Appearance:casually groomed, good hygiene, right hand pain Behavior:cooperative Psychomotor: no agitation or retardation noted Speech:clear, normal rate/rhythm/volume, spontaneous TP:mostly linear TC:less perseverative on DC Mood: calm Affect: contricted. blunted SI: none HI: none AH/VH: delusions: Grandiose. Paranoid Insight/judgment: poor x 2. Memory/cog: alert, oriented x 3. Patient Appearance: Appropriate Patient Orientation: Person, Place, Time and Situation Level of Consciousness: Alert Patient Behavior: Appropriate, Talkative, Cooperative and Good Eye Contact Mood Description: Fearful and Anxious Affect Description: Flat Patient Cognition Impaired: No Ability to Follow Directions: Fair Speech Pattern: Spontaneous Speech Memory Description: Episodic Impaired Diagnostics Vital Signs (24Hr): Vital Signs - 24 hr 10/12/22 15:49 10/13/22 09:00 Temperature 98.5 F Pulse Rate 109 H 97 Respiratory Rate 16 Blood Pressure 109/56 L 108/53 L Pulse Oximetry 96 Oxygen Delivery Method Room Air BMI result Body Mass Index 25.4 Labs 09/21/22 00:53 09/21/22 00:53 Imaging Radiology Impressions: ITS Impressions Cervical Spine X-Ray 09/29/22 19:45 IMPRESSION: No fracture or dislocation. Forearm X-Ray 09/29/22 19:45 IMPRESSION: Oblique fracture of the distal shaft of the ulna. Findings will be communicated by the [employer] work flow wood heel fitter machine. Humerus X-Ray 09/29/22 19:45 IMPRESSION: Oblique fracture of the distal shaft of the ulna. Findings will be communicated by the [facility] work flow wood heel fitter machine. Wrist X-Ray 09/29/22 19:45 IMPRESSION: Oblique fracture of the distal shaft of the ulna. Findings will be communicated by the [facility] work flow wood heel fitter machine. Head CT 09/29/22 19:49 IMPRESSION: 1. No acute intracranial process seen. 2. Chronic bilateral sphenoid and ethmoid sinus inflammatory changes. Medications Medications Current Medications Acetaminophen (Acetaminophen 325 Mg Tablet) 650 mg PO Q6H PRN PRN Reason: Headache/Pain Mild Scale (1-3) Last Admin: 10/03/22 08:09 Dose: 650 mg Al Hydroxide/Mg Hydroxide (Magnesium Hydrox/Alum Hydrox 30 Ml Oral.Susp) 30 ml PO Q6H PRN PRN Reason: Heartburn/Nausea Last Admin: 10/02/22 18:47 Dose: 30 ml Bisacodyl (Bisacodyl 5 Mg Tablet.Dr) 20 mg PO DAILY PRN PRN Reason: Constipation Clonazepam (Clonazepam 0.5 Mg Tablet) 0.5 mg PO BID REPLACED BY [facility] Last Admin: 10/13/22 08:49 Dose: 0.5 mg Cyanocobalamin (Cyanocobalamin (Vitamin B-12) 100 Mcg Tablet) 100 mcg PO DAILY REPLACED BY [facility] Last Admin: 10/13/22 08:49 Dose: 100 mcg Docusate Sodium (Docusate Sodium 100 Mg Capsule) 100 mg PO BID REPLACED BY [facility] Last Admin: 10/13/22 08:49 Dose: 100 mg Haloperidol (Haloperidol 5 Mg Tablet) 5 mg PO BID REPLACED BY [facility] Last Admin: 10/13/22 08:49 Dose: 5 mg Hydroxyzine HCl (Hydroxyzine Hcl 25 Mg Tablet) 25 mg PO Q6H PRN PRN Reason: Anxiety Last Admin: 10/13/22 04:49 Dose: 25 mg Ibuprofen (Ibuprofen 800 Mg Tablet) 800 mg PO Q8H PRN PRN Reason: Pain, Mild (Pain Scale 1-3) Last Admin: 10/12/22 17:56 Dose: 800 mg Lidocaine (Lidocaine 4 % Patch Adh..Patch) 1 patch TRANSDERMA DAILY REPLACED BY [facility]; Protocol Last Admin: 10/13/22 08:48 Dose: 1 patch Magnesium Hydroxide (Milk Of Magnesia 30 Ml Oral.Susp) 30 ml PO DAILY PRN PRN Reason: Constipation Last Admin: 10/09/22 12:25 Dose: 30 ml Multivitamins/Vitamin C (Multivitamin Tablet) 1 tab PO DAILY REPLACED BY [facility] Last Admin: 10/13/22 08:49 Dose: 1 tab Nicotine (Nicotine 21 Mg Patch.Td24) 21 mg TRANSDERMA DAILY REPLACED BY [facility] Last Admin: 10/13/22 09:13 Dose: Not Given Nicotine Polacrilex (Nicotine Polacrilex 2 Mg Gum) 4 mg BUCCAL Q2H PRN PRN Reason: Nicotine Cravings Pt Own (Fidelia ( Estradiol 0.1 Mg Transdermal System)) 1 each TRANSDERMA SuWe REPLACED BY [facility]; Protocol Last Admin: 10/09/22 16:42 Dose: 1 each Olanzapine (Olanzapine 7.5 Mg Tablet) 15 mg PO BID REPLACED BY [facility] Last Admin: 10/13/22 08:49 Dose: 15 mg Quetiapine Fumarate (Quetiapine Fumarate 100 Mg Tablet) 100 mg PO TID PRN PRN Reason: agitation Last Admin: 10/13/22 04:49 Dose: 100 mg Trazodone HCl (Trazodone Hcl 50 Mg Tablet) 50 mg PO BEDTIME MRX1 PRN PRN Reason: Insomnia Allergies Allergies Allergy/AdvReac Type Severity Reaction Status Date / Time No Known Allergies Allergy Verified 09/21/22 00:15 Assessment & Plan Assessment & Plan (1) Psychotic disorder: Status: Acute Code(s): F29 - Unspecified psychosis not due to a substance or known physiological condition Plan Discontinue Seroquel Seroquel prn Olanzapine 5 mg bid As pt was taking Seroquel 450 mg, this converts to Olanzapine 30 mg-will adjust as tolerated. 10/02/22: Continue current regime and plan of care. 10/03/22: Continue current regime. If daytime sedation persists, will consolidate Olanzapine to HS. 10/04/22: Olanzapine 10 mg x 1 dose Increase Olanzapine to 15 mg bid Decrease Klonopin to 0.5 mg bid 10/05: Continue current plan. 10/06: Continue current treatment plan. 10/07: Continue current treatment plan. 10/08/22: Haldol 2 mg bid 10/09/22: Continue current regime. 10/10/22: Continue current regime. 10/11/22: INCREASED Haldol to 5mg BID (up from 2mg) for continued delusional thinking, no insight 10/12/22 continue treatment plan 10/13/22 continue treatment plan Reason for continued inpatient stay Substantial Risk for: harm to self, harm to others, inability to function and rapid decompensation Time Spent With Patient Time: Total time managing care of this patient today ____ minutes.
[2022-10-13 20:00] VITALS: BP 115/71; PULSE 113; TEMP 37; O2SAT 96
[2022-10-14] MEDS: Multivitamin TABLET 1 TAB PO (08:22)
[2022-10-14] MEDS: Docusate Sodium 100 MG CAPSULE PO ×2 (08:22→19:19)
[2022-10-14] MEDS: OLANZapine 7.5 MG TABLET 15 MG PO ×2 (08:22→19:19)
[2022-10-14] MEDS: Cyanocobalamin (Vitamin B-12) 100 MCG TABLET PO (08:23)
[2022-10-14] MEDS: HaloperidoL 5 MG TABLET PO ×2 (08:23→19:19)
[2022-10-14] MEDS: clonazePAM 0.5 MG TABLET PO ×2 (08:23→19:19)
[2022-10-14] MEDS: Lidocaine 4 % Patch ADH..PATCH 1 PATCH TRANSDERMA (08:24)
[2022-10-14 08:37] VITALS: BP 133/68; PULSE 83; RESP 16; TEMP 36.9; O2SAT 99
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
[2022-10-14] MEDS: QUEtiapine Fumarate 100 MG TABLET PO ×2 (12:12→18:05)
[2022-10-14 18:53] VITALS: BP 127/69; PULSE 118; TEMP 36.5
[2022-10-14] MEDS: traZODone HCL 50 MG TABLET PO (20:31)
[2022-10-15] MEDS: Cyanocobalamin (Vitamin B-12) 100 MCG TABLET PO (08:08)
[2022-10-15] MEDS: Multivitamin TABLET 1 TAB PO (08:08)
[2022-10-15] MEDS: Lidocaine 4 % Patch ADH..PATCH 1 PATCH TRANSDERMA (08:09)
[2022-10-15] MEDS: HaloperidoL 5 MG TABLET PO ×2 (08:09→19:36)
[2022-10-15] MEDS: clonazePAM 0.5 MG TABLET PO ×2 (08:09→19:35)
[2022-10-15] MEDS: OLANZapine 7.5 MG TABLET 15 MG PO ×2 (08:09→19:35)
[2022-10-15] MEDS: Docusate Sodium 100 MG CAPSULE PO ×2 (08:09→19:35)
[2022-10-15 08:33] VITALS: BP 108/64; PULSE 94; RESP 16; TEMP 36.6; O2SAT 98
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
[2022-10-15] MEDS: QUEtiapine Fumarate 100 MG TABLET PO ×3 (11:49→19:35)
[2022-10-15 16:32] VITALS: BP 125/72; PULSE 103; TEMP 36.4
[2022-10-15] MEDS: hydrOXYzine HCL 25 MG TABLET PO (16:34)
--- NOTE | 2022-10-15 17:08 | PC.NURSE ---
Pt signed a 3 day notice on 10/15/22- up on October 18. MD CELIO, and MONICA aware.
[2022-10-15] MEDS: traZODone HCL 50 MG TABLET PO (19:59)
[2022-10-15] MEDS: Acetaminophen 325 MG TABLET 650 MG PO (20:16)
[2022-10-16 06:00] VITALS: BP 107/62; PULSE 97; RESP 16; TEMP 36.7; O2SAT 96
[2022-10-16] MEDS: HaloperidoL 5 MG TABLET PO ×2 (09:06→21:55)
[2022-10-16] MEDS: OLANZapine 7.5 MG TABLET 15 MG PO ×2 (09:06→19:55)
[2022-10-16] MEDS: Cyanocobalamin (Vitamin B-12) 100 MCG TABLET PO (09:06)
[2022-10-16] MEDS: Docusate Sodium 100 MG CAPSULE PO ×2 (09:07→19:54)
[2022-10-16] MEDS: Multivitamin TABLET 1 TAB PO (09:07)
[2022-10-16] MEDS: clonazePAM 0.5 MG TABLET PO ×2 (09:07→19:54)
[2022-10-16] MEDS: Lidocaine 4 % Patch ADH..PATCH 1 PATCH TRANSDERMA (10:08)
--- NOTE | 2022-10-16 11:56 | PC.NURSE ---
Pt retracted 3 day notice on 10/16/22. Pt is now a Conditional Voluntary for treatment.
[2022-10-16] MEDS: QUEtiapine Fumarate 100 MG TABLET PO ×2 (12:49→19:55)
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
[2022-10-16 18:00] VITALS: BP 118/96; PULSE 109; RESP 20; TEMP 37.2; O2SAT 94
[2022-10-16] MEDS: hydrOXYzine HCL 25 MG TABLET PO (19:54)
[2022-10-16] MEDS: traZODone HCL 50 MG TABLET PO (19:55)
[2022-10-17 07:00] VITALS: BMI 26.5
[2022-10-17 08:15] VITALS: BP 109/64; PULSE 117; RESP 18; TEMP 36.2; O2SAT 98
[2022-10-17] MEDS: OLANZapine 7.5 MG TABLET 15 MG PO ×2 (08:30→19:39)
[2022-10-17] MEDS: clonazePAM 0.5 MG TABLET PO ×2 (08:31→19:40)
[2022-10-17] MEDS: Docusate Sodium 100 MG CAPSULE PO ×2 (08:31→19:40)
[2022-10-17] MEDS: Cyanocobalamin (Vitamin B-12) 100 MCG TABLET PO (08:31)
[2022-10-17] MEDS: HaloperidoL 5 MG TABLET PO ×2 (08:31→19:40)
[2022-10-17] MEDS: Multivitamin TABLET 1 TAB PO (08:31)
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
[2022-10-17] MEDS: QUEtiapine Fumarate 100 MG TABLET PO (16:49)
[2022-10-17] MEDS: Acetaminophen 325 MG TABLET 650 MG PO (18:28)
[2022-10-17 19:01] VITALS: BP 127/68; PULSE 100; RESP 18; TEMP 36.5; O2SAT 96
[2022-10-17] MEDS: hydrOXYzine HCL 25 MG TABLET PO (19:40)
[2022-10-17] MEDS: traZODone HCL 50 MG TABLET PO ×2 (19:40→22:34)
[2022-10-18 07:55] VITALS: BP 110/72; PULSE 88; RESP 18; TEMP 36.4; O2SAT 97
[2022-10-18] MEDS: HaloperidoL 5 MG TABLET PO ×2 (07:59→21:46)
[2022-10-18] MEDS: clonazePAM 0.5 MG TABLET PO ×2 (07:59→21:45)
[2022-10-18] MEDS: OLANZapine 7.5 MG TABLET 15 MG PO ×2 (07:59→21:45)
[2022-10-18] MEDS: Cyanocobalamin (Vitamin B-12) 100 MCG TABLET PO (07:59)
[2022-10-18] MEDS: Multivitamin TABLET 1 TAB PO (07:59)
[2022-10-18] MEDS: Docusate Sodium 100 MG CAPSULE PO ×2 (07:59→21:45)
--- NOTE | 2022-10-18 09:17 | PC.NURSE ---
Pt filed 3 day on 10/17/22. , UR, Charge and SW made aware.
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
[2022-10-18] MEDS: QUEtiapine Fumarate 100 MG TABLET PO (14:53)
[2022-10-18 16:10] VITALS: BP 113/60; PULSE 106; TEMP 36.8
[2022-10-18] MEDS: Acetaminophen 325 MG TABLET 650 MG PO (17:07)
[2022-10-19] MEDS: QUEtiapine Fumarate 100 MG TABLET PO ×3 (02:33→19:13)
[2022-10-19 08:06] VITALS: BP 107/66; PULSE 106; RESP 16; TEMP 36.7; O2SAT 96
[2022-10-19] MEDS: clonazePAM 0.5 MG TABLET PO ×2 (08:18→19:14)
[2022-10-19] MEDS: Multivitamin TABLET 1 TAB PO (08:18)
[2022-10-19] MEDS: Cyanocobalamin (Vitamin B-12) 100 MCG TABLET PO (08:18)
[2022-10-19] MEDS: Docusate Sodium 100 MG CAPSULE PO ×2 (08:18→19:13)
[2022-10-19] MEDS: HaloperidoL 5 MG TABLET PO ×2 (08:18→19:14)
[2022-10-19] MEDS: OLANZapine 7.5 MG TABLET 15 MG PO ×2 (08:21→19:13)
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
[2022-10-19] MEDS: Lidocaine 4 % Patch ADH..PATCH 1 PATCH TRANSDERMA (16:00)
[2022-10-19] MEDS: Acetaminophen 325 MG TABLET 650 MG PO (16:33)
[2022-10-19 18:03] VITALS: BP 128/58; PULSE 119; TEMP 36.7
[2022-10-19] MEDS: traZODone HCL 50 MG TABLET PO (19:16)
[2022-10-20] MEDS: Docusate Sodium 100 MG CAPSULE PO ×2 (09:29→19:14)
[2022-10-20] MEDS: Multivitamin TABLET 1 TAB PO (09:29)
[2022-10-20] MEDS: OLANZapine 7.5 MG TABLET 15 MG PO ×2 (09:29→19:14)
[2022-10-20] MEDS: clonazePAM 0.5 MG TABLET PO ×2 (09:30→19:14)
[2022-10-20] MEDS: Cyanocobalamin (Vitamin B-12) 100 MCG TABLET PO (09:30)
[2022-10-20] MEDS: HaloperidoL 5 MG TABLET PO ×2 (09:30→19:14)
[2022-10-20 09:57] VITALS: BP 113/59; PULSE 122; RESP 16; TEMP 36.6; O2SAT 96
[2022-10-20] MEDS: Lidocaine 4 % Patch ADH..PATCH 1 PATCH TRANSDERMA (11:09)
[2022-10-20 16:12] VITALS: BP 146/62; PULSE 114; TEMP 36.4
[2022-10-20] MEDS: Acetaminophen 325 MG TABLET 650 MG PO (17:08)
[2022-10-20] MEDS: QUEtiapine Fumarate 100 MG TABLET PO (17:09)
[2022-10-20] MEDS: traZODone HCL 50 MG TABLET PO (19:14)
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
[2022-10-21 06:00] VITALS: BP 121/56; PULSE 109; RESP 16; TEMP 36.6
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
[2022-10-21] MEDS: Cyanocobalamin (Vitamin B-12) 100 MCG TABLET PO (08:49)
[2022-10-21] MEDS: Multivitamin TABLET 1 TAB PO (08:49)
[2022-10-21] MEDS: Docusate Sodium 100 MG CAPSULE PO ×2 (08:49→18:14)
[2022-10-21] MEDS: HaloperidoL 5 MG TABLET PO ×2 (08:49→18:14)
[2022-10-21] MEDS: clonazePAM 0.5 MG TABLET PO ×2 (08:49→18:14)
[2022-10-21] MEDS: OLANZapine 7.5 MG TABLET 15 MG PO ×2 (08:50→18:14)
[2022-10-21] MEDS: QUEtiapine Fumarate 100 MG TABLET PO (09:41)
[2022-10-21 16:04] VITALS: BP 129/57; PULSE 105
[2022-10-21] MEDS: traZODone HCL 50 MG TABLET PO (18:14)
[2022-10-22] MEDS: QUEtiapine Fumarate 100 MG TABLET PO ×2 (07:52→14:11)
[2022-10-22] MEDS: OLANZapine 7.5 MG TABLET 15 MG PO ×2 (08:27→20:27)
[2022-10-22] MEDS: Cyanocobalamin (Vitamin B-12) 100 MCG TABLET PO (08:27)
[2022-10-22] MEDS: Multivitamin TABLET 1 TAB PO (08:27)
[2022-10-22] MEDS: HaloperidoL 5 MG TABLET PO ×2 (08:27→20:27)
[2022-10-22] MEDS: Docusate Sodium 100 MG CAPSULE PO ×2 (08:27→20:27)
[2022-10-22] MEDS: clonazePAM 0.5 MG TABLET PO ×2 (08:27→20:27)
[2022-10-22 08:39] VITALS: BP 135/60; PULSE 94; RESP 16; TEMP 36.6; O2SAT 98
--- NOTE | 2022-10-22 09:55 | PC.NURSE ---
Pt signed 3 day notice up Wednesday 10/25
[2022-10-22] MEDS: Acetaminophen 325 MG TABLET 650 MG PO (12:34)
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
--- NOTE | 2022-10-22 15:22 | PC.NURSE ---
Pt retracted 3 day notice on 10/22. Pt is now Conditional Voluntary for treatment.
--- NOTE | 2022-10-22 17:30 | PC.NURSE ---
Pt signed a 3 day, following the retraction, on 10/22 up on Wednesday 10/25. MD CELIO, SW aware
[2022-10-22 18:00] VITALS: BP 126/58; PULSE 107; RESP 16; TEMP 36.9; O2SAT 97
[2022-10-23 06:00] VITALS: BP 116/55; PULSE 103; RESP 16; TEMP 36.5; O2SAT 96
[2022-10-23] MEDS: QUEtiapine Fumarate 100 MG TABLET PO (06:11)
[2022-10-23] MEDS: Multivitamin TABLET 1 TAB PO (08:33)
[2022-10-23] MEDS: HaloperidoL 5 MG TABLET PO ×2 (08:33→19:43)
[2022-10-23] MEDS: OLANZapine 7.5 MG TABLET 15 MG PO ×2 (08:33→19:44)
[2022-10-23] MEDS: Docusate Sodium 100 MG CAPSULE PO ×2 (08:33→19:43)
[2022-10-23] MEDS: clonazePAM 0.5 MG TABLET PO (08:33)
[2022-10-23] MEDS: Cyanocobalamin (Vitamin B-12) 100 MCG TABLET PO (08:33)
[2022-10-23] MEDS: Acetaminophen 325 MG TABLET 650 MG PO ×2 (14:23→20:46)
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
[2022-10-23] MEDS: Ibuprofen 800 MG TABLET PO (16:23)
[2022-10-23 19:40] VITALS: BP 120/58; PULSE 100; TEMP 36.4; O2SAT 97
[2022-10-23] MEDS: traZODone HCL 50 MG TABLET PO (19:54)
[2022-10-24 07:00] VITALS: BMI 26.8
[2022-10-24] MEDS: Multivitamin TABLET 1 TAB PO (08:12)
[2022-10-24] MEDS: Cyanocobalamin (Vitamin B-12) 100 MCG TABLET PO (08:12)
[2022-10-24] MEDS: HaloperidoL 5 MG TABLET PO ×2 (08:12→18:18)
[2022-10-24] MEDS: OLANZapine 7.5 MG TABLET 15 MG PO ×2 (08:12→18:18)
[2022-10-24] MEDS: Docusate Sodium 100 MG CAPSULE PO ×2 (08:12→18:19)
[2022-10-24 08:18] VITALS: BP 114/68; PULSE 91; RESP 16; TEMP 37.2; O2SAT 97
[2022-10-24] MEDS: QUEtiapine Fumarate 100 MG TABLET PO ×2 (09:08→18:18)
[2022-10-24] MEDS: Lidocaine 4 % Patch ADH..PATCH 1 PATCH TRANSDERMA (09:08)
[2022-10-24 15:49] VITALS: BP 107/57; PULSE 110; TEMP 36.7
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
[2022-10-24] MEDS: clonazePAM 0.5 MG TABLET PO (18:18)
[2022-10-24] MEDS: traZODone HCL 50 MG TABLET PO (18:18)
[2022-10-24] MEDS: Acetaminophen 325 MG TABLET 650 MG PO (19:58)
[2022-10-25 06:00] VITALS: BP 130/65; PULSE 109; RESP 16; TEMP 36.5
[2022-10-25] MEDS: OLANZapine 7.5 MG TABLET 15 MG PO ×2 (08:28→18:13)
[2022-10-25] MEDS: Multivitamin TABLET 1 TAB PO (08:28)
[2022-10-25] MEDS: Docusate Sodium 100 MG CAPSULE PO ×2 (08:28→18:13)
[2022-10-25] MEDS: Cyanocobalamin (Vitamin B-12) 100 MCG TABLET PO (08:28)
[2022-10-25] MEDS: HaloperidoL 5 MG TABLET PO ×2 (08:28→18:13)
[2022-10-25] MEDS: clonazePAM 0.5 MG TABLET PO ×2 (09:23→18:13)
[2022-10-25] MEDS: Lidocaine 4 % Patch ADH..PATCH 1 PATCH TRANSDERMA (09:24)
[2022-10-25] MEDS: Acetaminophen 325 MG TABLET 650 MG PO (10:46)
[2022-10-25 16:19] VITALS: BP 119/59; PULSE 101; TEMP 35.5
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
[2022-10-25] MEDS: traZODone HCL 50 MG TABLET PO (18:13)
[2022-10-25] MEDS: QUEtiapine Fumarate 100 MG TABLET PO (18:13)
[2022-10-26] MEDS: Cyanocobalamin (Vitamin B-12) 100 MCG TABLET PO (08:30)
[2022-10-26] MEDS: Docusate Sodium 100 MG CAPSULE PO ×2 (08:30→20:03)
[2022-10-26] MEDS: Multivitamin TABLET 1 TAB PO (08:30)
[2022-10-26] MEDS: HaloperidoL 5 MG TABLET PO ×2 (08:30→20:03)
[2022-10-26] MEDS: OLANZapine 7.5 MG TABLET 15 MG PO ×2 (08:30→20:03)
[2022-10-26] MEDS: Lidocaine 4 % Patch ADH..PATCH 1 PATCH TRANSDERMA (08:31)
[2022-10-26 09:03] VITALS: BP 110/77; PULSE 116; RESP 16; TEMP 36.4; O2SAT 97
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
[2022-10-26] MEDS: QUEtiapine Fumarate 100 MG TABLET PO (13:49)
[2022-10-26] MEDS: Acetaminophen 325 MG TABLET 650 MG PO (15:41)
[2022-10-26 18:00] VITALS: BP 112/53; PULSE 114; RESP 16; TEMP 36.8; O2SAT 96
[2022-10-26] MEDS: clonazePAM 0.5 MG TABLET PO (21:08)
[2022-10-26] MEDS: traZODone HCL 50 MG TABLET PO (21:08)
[2022-10-27] MEDS: Cyanocobalamin (Vitamin B-12) 100 MCG TABLET PO (08:17)
[2022-10-27] MEDS: Multivitamin TABLET 1 TAB PO (08:17)
[2022-10-27] MEDS: OLANZapine 7.5 MG TABLET 15 MG PO ×2 (08:18→19:23)
[2022-10-27] MEDS: Docusate Sodium 100 MG CAPSULE PO ×2 (08:18→19:23)
[2022-10-27] MEDS: HaloperidoL 5 MG TABLET PO ×2 (08:18→19:23)
[2022-10-27 08:36] VITALS: BP 129/60; PULSE 98; RESP 16; TEMP 36.5; O2SAT 98
[2022-10-27] MEDS: QUEtiapine Fumarate 100 MG TABLET PO ×2 (10:05→19:23)
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
[2022-10-27] MEDS: Acetaminophen 325 MG TABLET 650 MG PO (13:59)
[2022-10-27 19:15] VITALS: BP 126/69; PULSE 121; TEMP 37.2; O2SAT 96
[2022-10-27] MEDS: traZODone HCL 50 MG TABLET PO (19:23)
[2022-10-27] MEDS: clonazePAM 0.5 MG TABLET PO (19:23)
[2022-10-28 09:12] VITALS: BP 132/62; PULSE 78; RESP 16; TEMP 36.7; O2SAT 98
[2022-10-28] MEDS: HaloperidoL 5 MG TABLET PO (09:16)
[2022-10-28] MEDS: Multivitamin TABLET 1 TAB PO (09:16)
[2022-10-28] MEDS: Cyanocobalamin (Vitamin B-12) 100 MCG TABLET PO (09:16)
[2022-10-28] MEDS: OLANZapine 7.5 MG TABLET 15 MG PO (09:16)
[2022-10-28] MEDS: Docusate Sodium 100 MG CAPSULE PO (09:16)
[2022-10-28] MEDS: clonazePAM 0.5 MG TABLET PO (09:17)
[2022-10-28] MEDS: QUEtiapine Fumarate 100 MG TABLET PO (09:17)
[2022-10-28] MEDS: Acetaminophen 325 MG TABLET 650 MG PO (10:48)
[2022-10-28] MEDS: hydrOXYzine HCL 25 MG TABLET PO (13:29)
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
== END 2022-10-28 14:25 | DRG 885 ==
LOC: HO.ED 09-21 00:54 → HO.PM5 09-21 13:52
PROVIDERS: Physician Assistant; Admitting Provider Psychiatry & Neurology Psychiatry; Emergency Provider Internal Medicine; Visit Provider Clinical Nurse Specialist Psychiatric/Mental Health, Adult
DX: F31.9 Bipolar disorder, unspecified (principal); S52.234A Nondisplaced oblique fracture of shaft of right ulna, initial encounter for closed fracture; F64.0 Transsexualism; F17.210 Nicotine dependence, cigarettes, uncomplicated; Z71.6 Tobacco abuse counseling; X58.XXXA Exposure to other specified factors, initial encounter; Z20.822 Contact with and (suspected) exposure to COVID-19; Z79.899 Other long term (current) drug therapy
CPT/HCPCS: 36415; 70450; 72040; 72050; 73060; 73090; 73100; 80053; 80143; 80179; 80307; 81003; 85025; 87635; 93005; 99285

== ENCOUNTER → 2022-09-21 13:45 | Outpatient (BNV) | payer MEDICARE, MEDICAID, SELFPAY | PROVIDERS: Admitting Provider Psychiatry & Neurology Psychiatry; Emergency Provider Internal Medicine; Visit Provider Psychiatry & Neurology Psychiatry | DX: F31.9 Bipolar disorder, unspecified (principal); F29 Unspecified psychosis not due to a substance or known physiological condition | CPT/HCPCS: 90792; 99231; 99232; 99239 ==

== ENCOUNTER 2022-11-04 20:35 | Outpatient (BNV) | payer MEDICARE, MEDICAID, SELFPAY | END 2022-11-20 09:00 | PROVIDERS: Admitting Provider Psychiatry & Neurology Psychiatry; PCP Internal Medicine; Visit Provider Internal Medicine Cardiovascular Disease | DX: I45.81 Long QT syndrome (principal) | CPT/HCPCS: 93010 ==

== ENCOUNTER 2022-11-04 20:35 | Inpatient (IN) | payer MEDICARE, MEDICAID, SELFPAY ==
[2022-11-04 18:00] VITALS: BP 112/78; PULSE 110; TEMP 36.3; O2SAT 96
--- NOTE | 2022-11-04 21:05 | P.CONHOSP_ITS ---
Agree with a PP, assessment and plan. For full H&P see below History of Present Illness Data of Consult Service Date: 11/04/22 Primary Care Provider: Donte Chowdary III, MD HPI Reason for consult: Admission H&P Pt is a 27-year-old trans male to female with a PMH significant for?PTSD and schizoaffective disorder with psychotic symptoms who is admitted to M5 psychiatry unit for being disorganized and feeling overwhelmed. Patient presented to the emergency room with concerns for withdrawal after she stopped taking her home psychiatry medications. Medical consult for admission H&P. ?Patient has no acute medical complaints at this time. Denies headache, vision changes, difficulty swallowing. No chest pain/pressure, palpitations. Denies shortness of breath. No fever, chills, nausea, vomiting, diarrhea, abdominal pain. Labs reviewed, unremarkable. Review of Systems Review of Systems: Patient has no acute medical complaints at this time Yes all other systems are reviewed and are negative [facility] Medical History PTSD (post-traumatic stress disorder) Schizoaffective disorder, bipolar type Social History Household Members: None Housing: Other Do you presently have visiting nurse or other home services: Yes Alcohol intake: current Alcohol intake frequency: holidays/special occasions only Patient Tobacco Use Status: Current everyday Tobacco user Tobacco use type: Cigarette Cigarette Packs Per Day: 0.33 Cigarettes Per Day: 6.6 Smoked in Last 30 Days: Yes e-Cigarette/Vaping Use: Never Used Patient Interested in Nicotine Replacement: Yes Patient Given Instructions on How to Stop Smoking: Yes Date Education Initiated: 11/04/22 Second Hand Smoke Exposure: No Use of substances other than those prescribed or required for medical reasons: No Substance Use Type: Caffiene Substance Use Frequency: Daily Last Used Substance: Unknown Currently Displaying Signs/Symptoms of Drug Intoxication Withdrawal: No Any prior treatment program specific to substance use: No Have you been hit, kicked, punched, or otherwise hurt by someone within the past year? If so, by whom?: No Do you feel safe in your current relationship?: No Is there a partner from a previous relationship who is making you feel unsafe now?: No Are you made to feel afraid or neglected: No Advance Directives: No Advance Directives Information Provided: No Do you have thoughts of harming others: None Do you have a plan to hurt others: No Plan Recently lost weight without trying: No How much weight loss: Not applicable Eating poorly because of decreased appetite: No Nutrition screen score: 0 Nutrition Risks: No Nutritional Risk Patient : No : No Poor oral hygiene: No service: No Sexual orientation: Did not discuss Meds Allergies Allergy/AdvReac Type Severity Reaction Status Date / Time No Known Allergies Allergy Verified 09/21/22 00:15 Active Medications: Current Medications Acetaminophen (Acetaminophen 325 Mg Tablet) 650 mg PO Q6H PRN PRN Reason: Headache/Pain Mild Scale (1-3) Al Hydroxide/Mg Hydroxide (Magnesium Hydrox/Alum Hydrox 30 Ml Oral.Susp) 30 ml PO Q6H PRN PRN Reason: Heartburn/Nausea Clonazepam (Clonazepam 0.5 Mg Tablet) 0.5 mg PO BID PRN PRN Reason: anxiety Cyanocobalamin (Cyanocobalamin (Vitamin B-12) 500 Mcg Tablet) 500 mcg PO DAILY REYES Docusate Sodium (Docusate Sodium 100 Mg Capsule) 100 mg PO BID PRN PRN Reason: constipation Haloperidol (Haloperidol 5 Mg Tablet) 5 mg PO BID REYES Haloperidol Decanoate (Haloperidol Decanoate 50 Mg/Ml Ampul) 100 mg IM Q28D REYES Hydroxyzine HCl (Hydroxyzine Hcl 25 Mg Tablet) 25 mg PO Q6H PRN PRN Reason: Anxiety Magnesium Hydroxide (Milk Of Magnesia 30 Ml Oral.Susp) 30 ml PO DAILY PRN PRN Reason: Constipation Multivitamins/Vitamin C (Multivitamin Tablet) 1 tab PO DAILY [facility] Nicotine (Nicotine 21 Mg Patch.Td24) 21 mg TRANSDERMA DAILY REYES Nicotine Polacrilex (Nicotine Polacrilex 2 Mg Gum) 4 mg BUCCAL Q2H PRN PRN Reason: Nicotine Cravings Non-Formulary Medication (Non-Formulary Medication) 0.1 each TRANSDERMA CONT. PER PROTOCOL [facility] Olanzapine (Olanzapine 7.5 Mg Tablet) 15 mg PO BID REYES Trazodone HCl (Trazodone Hcl 50 Mg Tablet) 50 mg PO BEDTIME MRX1 PRN PRN Reason: Insomnia Physical Exam Vital Signs and Narrative: Vital Signs: General: AOx3, no acute distress Resp: CTA bilaterally CVS: S1, S2, RRR GI: +BS, NT, no distention Skin: No rash Neuro: Cranial nerves II-XII grossly intact bilaterally. Motor grossly intact bilaterally Extremities: No edema Psych: Appropriate affect Assessment and Plan (1) Routine history and physical examination of adult: Status: Acute Plan Pt is a 27-year-old trans male to female with a PMH significant for?PTSD and schizoaffective disorder with psychotic symptoms who is admitted to M5 psychiatry unit for being disorganized and feeling overwhelmed. Patient present ed to the emergency room with concerns for withdrawal after she stopped taking her home psychiatry medications. Medical consult for admission H&P. ?Patient has no acute medical complaints at this time. Mood disorder Plan as per psychiatry Transitioning male to female Continue estradiol patches Thank you for allowing us to participate in the care of this patient. Signing off at this time. Please let us know if there are any acute complaints or questions. Time Spent With Patient Time: Total time managing care of this patient today ____ minutes.
[2022-11-04] MEDS: OLANZapine 7.5 MG TABLET 15 MG PO (22:03)
[2022-11-04] MEDS: traZODone HCL 50 MG TABLET PO (22:03)
[2022-11-04] MEDS: Acetaminophen 325 MG TABLET 650 MG PO (22:54)
[2022-11-04] MEDS: clonazePAM 0.5 MG TABLET PO (22:54)
--- NOTE | 2022-11-04 23:49 | PC.ADMIT ---
Patient is a 27 year old transsexual female admitted as a CV admission to at 2044 and placed on 15 minute safety checks. Patient was recently on and was not being compliant with their medications and became upset and depressed and presented back to the [facility] ED. Patient indicated to this typewriter mechanic that she was not on my important vitamins and that's why I ended up here again. Patient denied any SI, HI, AH or VH. Patient was able to sign legals and answer admission assessment questions. Patient was calm and cooperative and said she felt safe on the unit. Patient took HS medications and is resting quietly at this time, in NAD.
[2022-11-05] MEDS: Multivitamin TABLET 1 TAB PO (08:28)
[2022-11-05] MEDS: OLANZapine 7.5 MG TABLET 15 MG PO ×2 (08:28→19:38)
[2022-11-05] MEDS: clonazePAM 0.5 MG TABLET PO ×2 (08:31→19:38)
[2022-11-05 08:52] VITALS: BP 131/71; PULSE 124; RESP 16; TEMP 36.6; O2SAT 98
[2022-11-05] MEDS: Acetaminophen 325 MG TABLET 650 MG PO ×2 (09:09→17:06)
[2022-11-05 10:01] LABS: Cholesterol 112 mg/dL; HDL Cholesterol 27 mg/dL; LDL Cholesterol Calculated 62 mg/dl; Magnesium 2.1 mg/dL (1.6-2.6); Triglycerides 115 mg/dL
[2022-11-05 10:11] LABS: Estimated Average Glucose 80 mg/dL; Free T4 (Free Thyroxine) 0.95 ng/dL (0.71-1.85); Hemoglobin A1c % 4.4 %
[2022-11-05 10:27] LABS: Folate 15.8 ng/mL (> or = 4.0); Vitamin B12 346 pg/mL (200-900)
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
[2022-11-05 16:54] VITALS: BP 122/61; PULSE 107; RESP 20; TEMP 37.1; O2SAT 96
[2022-11-05 17:00] VITALS: TEMP 37.4
[2022-11-05] MEDS: traZODone HCL 50 MG TABLET PO (19:42)
[2022-11-05] MEDS: Ibuprofen 400 MG TABLET PO (19:42)
[2022-11-06] MEDS: Acetaminophen 325 MG TABLET 650 MG PO ×2 (05:56→12:32)
[2022-11-06 05:57] VITALS: TEMP 37.9
[2022-11-06 08:30] VITALS: BP 113/56; PULSE 92; RESP 16; TEMP 36.2; O2SAT 96
[2022-11-06] MEDS: OLANZapine 7.5 MG TABLET 15 MG PO ×2 (08:50→19:29)
[2022-11-06] MEDS: clonazePAM 0.5 MG TABLET PO ×2 (08:50→18:16)
[2022-11-06] MEDS: Multivitamin TABLET 1 TAB PO (08:50)
[2022-11-06] MEDS: Cyanocobalamin (Vitamin B-12) 500 MCG TABLET PO (08:50)
[2022-11-06 12:43] LABS: MANUAL DIFF FLAG NO
[2022-11-06 13:03] LABS: Basophils Percent Auto 0.6 % (0-2); Eosinophils Absolute Auto 0.3 X10*3/uL (0.0-0.4); Eosinophils Percent Auto 4.4 % (0-4); Hematocrit 36.1 % (37.0-47.0); Hemoglobin 11.3 g/dl (12.0-16.0); Imm Gran Abs Auto 0.02 X10*3/uL (0.00-0.03); Imm Gran Pct Auto 0.3 % (0.0-0.4); Lymphocytes Absolute Auto 0.9 X10*3/uL (1.2-4.9); Lymphocytes Percent Auto 12.6 % (20-40); Mean Corpuscular HGB Conc 31.3 g/dl (31.0-35.0); Mean Corpuscular Hemoglobin 26.2 pg (27.0-33.0); Mean Corpuscular Volume 83.8 fL (80.0-98.0); Mean Platelet Volume 8.9 fL (9.4-12.3); Monocytes Absolute Auto 1.3 X10*3/uL (0.1-1.2); Monocytes Percent Auto 18.7 % (2-11); Neutrophils Absolute Auto 4.4 x10*3/uL (2.0-8.3); Neutrophils Percent Auto 63.4 % (45-73); Platelet Count 337 X10*3/uL (160-400); Red Blood Count 4.31 X10*6/uL (4.20-5.50); Red Cell Distribution Width 13.9 % (11.0-16.0)
[2022-11-06] MEDS: Ibuprofen 400 MG TABLET PO (13:27)
[2022-11-06] MEDS: hydrOXYzine HCL 25 MG TABLET PO (15:21)
[2022-11-06 16:46] LABS: IDNOW Serial# 6674DD1D; Strep A Nucleic Acid Negative (Negative)
--- NOTE | 2022-11-06 16:52 | P.PNPSI_ITS ---
Subjective Subjective Date of Service: 11/06/22 Reason For Visit: Schizoaffective D/o, Bipolar type; Bipolar w/ psyc Subjective Notes: Conditional Voluntary and 3 Day Healthcare Proxy: No Guardianship: No Medical Problems Affecting Mental Status: No Interim History: Requests to pay bills by phone 11/09 and have her electric turned on 11/07 in her new apt. Throat culture, CBC done as pt reported not feeling well. T. 100.7. Both negative. Discussed not wanting to take Haldol any longer. Discussed options. Pt willing to trial Clozapine. Reports increase of salivation with Haldol-discussed options for Rx-pt would prefer to trial another agent. Medication Compliance: Yes Side effects from medications: No Attending Groups: Yes Review of Systems Acute medical concerns: No Medical Review of Systems: unchanged Mental Status Exam Mental Status Exam Patient Appearance: Fatigued Patient Orientation: Person, Place, Time and Situation Level of Consciousness: Alert Patient Behavior: Appropriate, Talkative, Cooperative and Good Eye Contact Mood Description: Depressed Affect Description: Flat Patient Cognition Impaired: No Ability to Follow Directions: Good Speech Pattern: Spontaneous Speech Memory Description: Episodic Impaired Hallucinations: None (denies) Delusions: Paranoid Ideation and Present Perceptual Disturbances: Depersonalization and Derealization Thought Process: Distracted and Rumination Thought Content: positive for Circumstantial, positive for Perseveration, positive for Preoccupation, positive for Suicidal Ideation (denies) and positive for Homicidal Ideation (denies) Depressive Symptoms: Increased Anxiety, Diff. Making Decisions, Difficulty Sleeping, Thoughts of /Suicide (denies), Low Self Esteem and Loss of Energy Judgement: Fair Diagnostics Vital Signs (24Hr): Vital Signs - 24 hr 11/05/22 16:54 11/05/22 17:00 11/06/22 05:57 Temperature 98.7 F 99.3 F 100.2 F Pulse Rate 107 H Respiratory Rate 20 Blood Pressure 122/61 Pulse Oximetry 96 Oxygen Delivery Method Room Air 11/06/22 08:30 Temperature 97.2 F Pulse Rate 92 Respiratory Rate 16 Blood Pressure 113/56 L Pulse Oximetry 96 Oxygen Delivery Method Room Air Labs 11/06/22 12:37 Labs: Laboratory Results - last 48 hr 11/05/22 11/05/22 11/05/22 07:53 07:53 07:53 WBC RBC Hgb Hct MCV MCH MCHC RDW Plt Count MPV Immature Gran % (Auto) Neut % (Auto) Lymph % (Auto) [place] % (Auto) Eos % (Auto) Baso % (Auto) Lymph # (Auto) [place] # (Auto) Eos # (Auto) Baso # (Auto) Abs Immat Gran (auto) Absolute Neuts (auto) Absolute Nucleated RBC Nucleated RBC % (auto) Estimat Average Glucose 80 Hemoglobin A1c % 4.4 Magnesium 2.1 Triglycerides 115 Cholesterol 112 LDL Cholesterol, Calc 62 HDL Cholesterol 27 Vitamin B12 346 Folate 15.8 Free T4 0.95 Strep [facility] S. pyogenes GrpA CAROLE 11/06/22 11/06/22 11/06/22 12:37 15:45 15:45 WBC 7.0 RBC 4.31 Hgb 11.3 L Hct 36.1 L MCV 83.8 MCH 26.2 L MCHC 31.3 RDW 13.9 Plt Count 337 MPV 8.9 L Immature Gran % (Auto) 0.3 Neut % (Auto) 63.4 Lymph % (Auto) 12.6 L [place] % (Auto) 18.7 H Eos % (Auto) 4.4 H Baso % (Auto) 0.6 Lymph # (Auto) 0.9 L [place] # (Auto) 1.3 H Eos # (Auto) 0.3 Baso # (Auto) 0.0 Abs Immat Gran (auto) 0.02 Absolute Neuts (auto) 4.4 Absolute Nucleated RBC 0.000 Nucleated RBC % (auto) 0.0 Estimat Average Glucose Hemoglobin A1c % Magnesium Triglycerides Cholesterol LDL Cholesterol, Calc HDL Cholesterol Vitamin B12 Folate Free T4 Strep [facility] Cancelled S. pyogenes GrpA CAROLE Negative Medications Medications Current Medications Acetaminophen (Acetaminophen 325 Mg Tablet) 650 mg PO Q6H PRN PRN Reason: Headache/Pain Mild Scale (1-3) Last Admin: 11/06/22 12:32 Dose: 650 mg Al Hydroxide/Mg Hydroxide (Magnesium Hydrox/Alum Hydrox 30 Ml Oral.Susp) 30 ml PO Q6H PRN PRN Reason: Heartburn/Nausea Clonazepam (Clonazepam 0.5 Mg Tablet) 0.5 mg PO BID PRN PRN Reason: anxiety Last Admin: 11/06/22 08:50 Dose: 0.5 mg Cyanocobalamin (Cyanocobalamin (Vitamin B-12) 500 Mcg Tablet) 500 mcg PO DAILY [facility] Last Admin: 11/06/22 08:50 Dose: 500 mcg Docusate Sodium (Docusate Sodium 100 Mg Capsule) 100 mg PO BID PRN PRN Reason: constipation Haloperidol (Haloperidol 5 Mg Tablet) 5 mg PO BID [facility] Last Admin: 11/06/22 10:39 Dose: Not Given Haloperidol Decanoate (Haloperidol Decanoate 50 Mg/Ml Ampul) 100 mg IM Q28D [facility] Hydroxyzine HCl (Hydroxyzine Hcl 25 Mg Tablet) 25 mg PO Q6H PRN PRN Reason: Anxiety Last Admin: 11/06/22 15:21 Dose: 25 mg Ibuprofen (Ibuprofen 400 Mg Tablet) 400 mg PO Q6H PRN PRN Reason: Pain, Moderate(Pain Scale 4-6) Last Admin: 11/06/22 13:27 Dose: 400 mg Magnesium Hydroxide (Milk Of Magnesia 30 Ml Oral.Susp) 30 ml PO DAILY PRN PRN Reason: Constipation Multivitamins/Vitamin C (Multivitamin Tablet) 1 tab PO DAILY [facility] Last Admin: 11/06/22 08:50 Dose: 1 tab Nicotine Polacrilex (Nicotine Polacrilex 2 Mg Gum) 4 mg BUCCAL Q2H PRN PRN Reason: Nicotine Cravings Estradiol. 0.1 Mg/ (Day Patch) 1 each TRANSDERMA WeSa [facility] Last Admin: 11/06/22 10:40 Dose: 1 each Olanzapine (Olanzapine 7.5 Mg Tablet) 15 mg PO BID [facility] Last Admin: 11/06/22 08:50 Dose: 15 mg Trazodone HCl (Trazodone Hcl 50 Mg Tablet) 50 mg PO BEDTIME MRX1 PRN PRN Reason: Insomnia Last Admin: 11/05/22 19:42 Dose: 50 mg Allergies Allergies Allergy/AdvReac Type Severity Reaction Status Date / Time No Known Allergies Allergy Verified 09/21/22 00:15 Assessment & Plan Assessment & Plan (1) Schizoaffective disorder, bipolar type: Status: Acute Code(s): F25.0 - Schizoaffective disorder, bipolar type Assessment and Plan: 11/06/22: Will enroll pt in [facility] for Clozaril trial. Patient educated on: medication risk/benefits Informed Consent: understands and further education needed Reason for continued inpatient stay Substantial Risk for: rapid decompensation Time Spent With Patient Time: Total time managing care of this patient today ____ minutes.
[2022-11-06 18:22] VITALS: BP 113/72; PULSE 100; TEMP 36.6; O2SAT 98
[2022-11-06] MEDS: traZODone HCL 50 MG TABLET PO (19:29)
[2022-11-07 06:00] VITALS: BP 121/57; PULSE 116; RESP 16; TEMP 35.8; O2SAT 97
[2022-11-07] MEDS: Cyanocobalamin (Vitamin B-12) 500 MCG TABLET PO (08:43)
[2022-11-07] MEDS: Multivitamin TABLET 1 TAB PO (08:43)
[2022-11-07] MEDS: clonazePAM 0.5 MG TABLET PO ×2 (08:43→18:58)
[2022-11-07] MEDS: OLANZapine 7.5 MG TABLET 15 MG PO ×2 (08:43→18:58)
[2022-11-07] MEDS: Acetaminophen 325 MG TABLET 650 MG PO (16:11)
[2022-11-07 16:31] VITALS: BP 108/54; PULSE 90; TEMP 37.1; O2SAT 96
[2022-11-07] MEDS: hydrOXYzine HCL 25 MG TABLET PO (17:00)
--- NOTE | 2022-11-07 17:23 | P.PNPSI_ITS ---
Subjective Subjective Date of Service: 11/07/22 Reason For Visit: Schizoaffective D/o, Bipolar type; Bipolar w/ psyc Subjective Notes: Conditional Voluntary and 3 Day Healthcare Proxy: No Guardianship: No Medical Problems Affecting Mental Status: No Interim History: Pt registration with Clozaril [facility] completed. Pt continues to sign TDN and retract Team consulted with [facility] regarding presentation after leaving respite and prior to return to the hospital. Pt clearly needing the structure and support of a team as she becomes distracted, disorganized and fearful when alone it seems, which increases symptoms, paranoia and tendency to respond as she did prior to her first admission. Pt's sx appear to trend toward delusions of persecution-people will hurt her and she needs to be aggressive to defend herself (trauma hx contributing as well). Discussed this concern with pt and how Clozapine may help. We await approval to begin regime. Medication Compliance: Yes Side effects from medications: No Attending Groups: No Review of Systems Acute medical concerns: No Medical Review of Systems: unchanged Mental Status Exam Mental Status Exam Patient Appearance: Fatigued Patient Orientation: Person, Place, Time and Situation Level of Consciousness: Alert Patient Behavior: Appropriate, Talkative, Cooperative and Good Eye Contact Mood Description: Depressed Affect Description: Flat Patient Cognition Impaired: No Ability to Follow Directions: Good Speech Pattern: Spontaneous Speech Memory Description: Episodic Impaired Hallucinations: None (denies) Delusions: Paranoid Ideation and Present Perceptual Disturbances: Depersonalization and Derealization Thought Process: Distracted and Rumination Thought Content: positive for Circumstantial, positive for Perseveration, positive for Preoccupation, positive for Suicidal Ideation (denies) and positive for Homicidal Ideation (denies) Depressive Symptoms: Increased Anxiety, Diff. Making Decisions, Difficulty Sleeping, Thoughts of /Suicide (denies), Low Self Esteem and Loss of Energy Judgement: Fair Diagnostics Vital Signs (24Hr): Vital Signs - 24 hr 11/06/22 18:22 11/07/22 06:00 11/07/22 16:31 Temperature 97.9 F 96.5 F L 98.8 F Pulse Rate 100 116 H 90 Respiratory Rate 16 Blood Pressure 113/72 121/57 L 108/54 L Pulse Oximetry 98 97 96 Oxygen Delivery Method Room Air Room Air Room Air Labs 11/06/22 12:37 Labs: Laboratory Results - last 48 hr 11/06/22 11/06/22 11/06/22 12:37 15:45 15:45 WBC 7.0 RBC 4.31 Hgb 11.3 L Hct 36.1 L MCV 83.8 MCH 26.2 L MCHC 31.3 RDW 13.9 Plt Count 337 MPV 8.9 L Immature Gran % (Auto) 0.3 Neut % (Auto) 63.4 Lymph % (Auto) 12.6 L [place] % (Auto) 18.7 H Eos % (Auto) 4.4 H Baso % (Auto) 0.6 Lymph # (Auto) 0.9 L [place] # (Auto) 1.3 H Eos # (Auto) 0.3 Baso # (Auto) 0.0 Abs Immat Gran (auto) 0.02 Absolute Neuts (auto) 4.4 Absolute Nucleated RBC 0.000 Nucleated RBC % (auto) 0.0 Strep [facility] Cancelled S. pyogenes GrpA CAROLE Negative Medications Medications Current Medications Acetaminophen (Acetaminophen 325 Mg Tablet) 650 mg PO Q6H PRN PRN Reason: Headache/Pain Mild Scale (1-3) Last Admin: 11/07/22 16:11 Dose: 650 mg Al Hydroxide/Mg Hydroxide (Magnesium Hydrox/Alum Hydrox 30 Ml Oral.Susp) 30 ml PO Q6H PRN PRN Reason: Heartburn/Nausea Clonazepam (Clonazepam 0.5 Mg Tablet) 0.5 mg PO BID PRN PRN Reason: anxiety Last Admin: 11/07/22 08:43 Dose: 0.5 mg Cyanocobalamin (Cyanocobalamin (Vitamin B-12) 500 Mcg Tablet) 500 mcg PO DAILY [facility] Last Admin: 11/07/22 08:43 Dose: 500 mcg Docusate Sodium (Docusate Sodium 100 Mg Capsule) 100 mg PO BID PRN PRN Reason: constipation Haloperidol (Haloperidol 5 Mg Tablet) 5 mg PO BID [facility] Last Admin: 11/07/22 09:04 Dose: Not Given Haloperidol Decanoate (Haloperidol Decanoate 50 Mg/Ml Ampul) 100 mg IM Q28D [facility] Hydroxyzine HCl (Hydroxyzine Hcl 25 Mg Tablet) 25 mg PO Q6H PRN PRN Reason: Anxiety Last Admin: 11/07/22 17:00 Dose: 25 mg Ibuprofen (Ibuprofen 400 Mg Tablet) 400 mg PO Q6H PRN PRN Reason: Pain, Moderate(Pain Scale 4-6) Last Admin: 11/06/22 13:27 Dose: 400 mg Magnesium Hydroxide (Milk Of Magnesia 30 Ml Oral.Susp) 30 ml PO DAILY PRN PRN Reason: Constipation Multivitamins/Vitamin C (Multivitamin Tablet) 1 tab PO DAILY [facility] Last Admin: 11/07/22 08:43 Dose: 1 tab Nicotine Polacrilex (Nicotine Polacrilex 2 Mg Gum) 4 mg BUCCAL Q2H PRN PRN Reason: Nicotine Cravings Estradiol. 0.1 Mg/ (Day Patch) 1 each TRANSDERMA WeSa [facility] Last Admin: 11/06/22 10:40 Dose: 1 each Olanzapine (Olanzapine 7.5 Mg Tablet) 15 mg PO BID [facility] Last Admin: 11/07/22 08:43 Dose: 15 mg Trazodone HCl (Trazodone Hcl 50 Mg Tablet) 50 mg PO BEDTIME MRX1 PRN PRN Reason: Insomnia Last Admin: 11/06/22 19:29 Dose: 50 mg Allergies Allergies Allergy/AdvReac Type Severity Reaction Status Date / Time No Known Allergies Allergy Verified 09/21/22 00:15 Assessment & Plan Assessment & Plan (1) Schizoaffective disorder, bipolar type: Status: Acute Code(s): F25.0 - Schizoaffective disorder, bipolar type Assessment and Plan: 11/07/22- Continue current plan of care. Patient educated on: medication risk/benefits and therapeutic strategies Informed Consent: further education needed Reason for continued inpatient stay Substantial Risk for: rapid decompensation Time Spent With Patient Time: Total time managing care of this patient today ____ minutes.
[2022-11-07] MEDS: traZODone HCL 50 MG TABLET PO (18:58)
[2022-11-08 08:17] VITALS: BP 102/62; PULSE 79; RESP 16; TEMP 36.8; O2SAT 98
[2022-11-08] MEDS: Multivitamin TABLET 1 TAB PO (08:27)
[2022-11-08] MEDS: Cyanocobalamin (Vitamin B-12) 500 MCG TABLET PO (08:27)
[2022-11-08] MEDS: clonazePAM 0.5 MG TABLET PO ×2 (08:28→19:40)
[2022-11-08] MEDS: OLANZapine 7.5 MG TABLET 15 MG PO ×2 (08:28→19:41)
[2022-11-08] MEDS: Acetaminophen 325 MG TABLET 650 MG PO ×2 (08:31→19:41)
[2022-11-08] MEDS: Lidocaine 4 % Patch ADH..PATCH 1 PATCH TRANSDERMA (13:18)
--- NOTE | 2022-11-08 13:35 | P.PNPSI_ITS ---
Subjective Subjective Date of Service: 11/08/22 Reason For Visit: Schizoaffective D/o, Bipolar type; Bipolar w/ psyc Subjective Notes: Conditional Voluntary and 3 Day Healthcare Proxy: No Guardianship: No Medical Problems Affecting Mental Status: No Interim History: Review of [facility] literature with pt on Clozapine. She refuses to begin, focusing on potential SE. At this time she will remain with Haldol Dec IM, due next week. Pt resting in bed, reports some back neck discomfort, along with anxiety about upcoming changes in her life which we discussed. Discussed the need for treatment compliance to remain progressive in building her life, career and keeping her apartment. Yes, I don't want to keep cycling into the hospital. Medication Compliance: Yes Side effects from medications: No Attending Groups: No Review of Systems Acute medical concerns: No Medical Review of Systems: unchanged Mental Status Exam Mental Status Exam Patient Appearance: Fatigued Patient Orientation: Person, Place, Time and Situation Level of Consciousness: Alert Patient Behavior: Appropriate, Talkative, Cooperative and Good Eye Contact Mood Description: Depressed and Anxious Affect Description: Anxious and Flat Patient Cognition Impaired: No Ability to Follow Directions: Good Speech Pattern: Spontaneous Speech Memory Description: Episodic Impaired Hallucinations: None (denies) Delusions: Paranoid Ideation and Present Perceptual Disturbances: Depersonalization and Derealization Thought Process: Distracted and Rumination Thought Content: positive for Circumstantial, positive for Perseveration, positive for Preoccupation, positive for Suicidal Ideation (denies) and positive for Homicidal Ideation (denies) Depressive Symptoms: Increased Anxiety, Diff. Making Decisions, Difficulty Sleeping, Thoughts of /Suicide (denies), Low Self Esteem and Loss of Energy Judgement: Fair Diagnostics Vital Signs (24Hr): Vital Signs - 24 hr 11/07/22 16:31 11/08/22 08:17 Temperature 98.8 F 98.2 F Pulse Rate 90 79 Respiratory Rate 16 Blood Pressure 108/54 L 102/62 Pulse Oximetry 96 98 Oxygen Delivery Method Room Air Room Air Labs 11/06/22 12:37 Labs: Laboratory Results - last 48 hr 11/06/22 11/06/22 15:45 15:45 Strep Scn [facility] Cancelled S. pyogenes GrpA CAROLE Negative Medications Medications Current Medications Acetaminophen (Acetaminophen 325 Mg Tablet) 650 mg PO Q6H PRN PRN Reason: Headache/Pain Mild Scale (1-3) Last Admin: 11/08/22 08:31 Dose: 650 mg Al Hydroxide/Mg Hydroxide (Magnesium Hydrox/Alum Hydrox 30 Ml Oral.Susp) 30 ml PO Q6H PRN PRN Reason: Heartburn/Nausea Clonazepam (Clonazepam 0.5 Mg Tablet) 0.5 mg PO BID PRN PRN Reason: anxiety Last Admin: 11/08/22 08:28 Dose: 0.5 mg Clozapine (Clozapine 25 Mg Tablet) 25 mg PO BEDTIME [facility] Cyanocobalamin (Cyanocobalamin (Vitamin B-12) 500 Mcg Tablet) 500 mcg PO DAILY [facility] Last Admin: 11/08/22 08:27 Dose: 500 mcg Docusate Sodium (Docusate Sodium 100 Mg Capsule) 100 mg PO BID PRN PRN Reason: constipation Haloperidol (Haloperidol 5 Mg Tablet) 5 mg PO BID [facility] Last Admin: 11/08/22 08:29 Dose: Not Given Haloperidol Decanoate (Haloperidol Decanoate 50 Mg/Ml Ampul) 100 mg IM Q28D [facility] Hydroxyzine HCl (Hydroxyzine Hcl 25 Mg Tablet) 25 mg PO Q6H PRN PRN Reason: Anxiety Last Admin: 11/07/22 17:00 Dose: 25 mg Ibuprofen (Ibuprofen 400 Mg Tablet) 400 mg PO Q6H PRN PRN Reason: Pain, Moderate(Pain Scale 4-6) Last Admin: 11/06/22 13:27 Dose: 400 mg Lidocaine (Lidocaine 4 % Patch Adh..Patch) 1 patch TRANSDERMA DAILY [facility]; Protocol Last Admin: 11/08/22 13:18 Dose: 1 patch Magnesium Hydroxide (Milk Of Magnesia 30 Ml Oral.Susp) 30 ml PO DAILY PRN PRN Reason: Constipation Multivitamins/Vitamin C (Multivitamin Tablet) 1 tab PO DAILY [facility] Last Admin: 11/08/22 08:27 Dose: 1 tab Nicotine Polacrilex (Nicotine Polacrilex 2 Mg Gum) 4 mg BUCCAL Q2H PRN PRN Reason: Nicotine Cravings Estradiol. 0.1 Mg/ (Day Patch) 1 each TRANSDERMA WeSa [facility] Last Admin: 11/06/22 10:40 Dose: 1 each Olanzapine (Olanzapine 7.5 Mg Tablet) 15 mg PO BID [facility] Last Admin: 11/08/22 08:28 Dose: 15 mg Trazodone HCl (Trazodone Hcl 50 Mg Tablet) 50 mg PO BEDTIME MRX1 PRN PRN Reason: Insomnia Last Admin: 11/07/22 18:58 Dose: 50 mg Allergies Allergies Allergy/AdvReac Type Severity Reaction Status Date / Time No Known Allergies Allergy Verified 09/21/22 00:15 Assessment & Plan Assessment & Plan (1) Schizoaffective disorder, bipolar type: Status: Acute Code(s): F25.0 - Schizoaffective disorder, bipolar type Assessment and Plan: 11/07/22- Continue current plan of care. 11/08/22- Declines Clozapine. Will continue with Haldol Decanoate Patient educated on: medication risk/benefits and therapeutic strategies Informed Consent: further education needed Reason for continued inpatient stay Substantial Risk for: rapid decompensation Time Spent With Patient Time: Total time managing care of this patient today ____ minutes.
[2022-11-08 18:00] VITALS: BP 108/65; PULSE 82; TEMP 36.7
[2022-11-08] MEDS: hydrOXYzine HCL 25 MG TABLET PO (19:40)
[2022-11-08] MEDS: traZODone HCL 100 MG TABLET PO (19:40)
[2022-11-08] MEDS: Docusate Sodium 100 MG CAPSULE PO (19:41)
[2022-11-09] MEDS: Cyanocobalamin (Vitamin B-12) 500 MCG TABLET PO (08:04)
[2022-11-09] MEDS: OLANZapine 7.5 MG TABLET 15 MG PO ×2 (08:04→19:44)
[2022-11-09] MEDS: Multivitamin TABLET 1 TAB PO (08:04)
[2022-11-09 08:15] VITALS: BP 116/60; PULSE 127; RESP 18; TEMP 36.9; O2SAT 95
[2022-11-09] MEDS: clonazePAM 0.5 MG TABLET PO ×2 (08:20→19:44)
[2022-11-09] MEDS: Acetaminophen 325 MG TABLET 650 MG PO (14:14)
[2022-11-09] MEDS: Ibuprofen 400 MG TABLET PO (15:53)
[2022-11-09] MEDS: hydrOXYzine HCL 25 MG TABLET PO (15:54)
[2022-11-09 18:00] VITALS: BP 145/64; PULSE 101; RESP 22; TEMP 36.2; O2SAT 97
--- NOTE | 2022-11-09 18:26 | HO.PSYCHPN ---
Subjective Subjective Date of Service: 11/09/22 Reason For Visit: Schizoaffective D/o, Bipolar type; Bipolar w/ psyc Subjective Notes: Conditional Voluntary Healthcare Proxy: No Guardianship: No Medical Problems Affecting Mental Status: No Interim History: Pt seen and reviewed with team. Reports she is doing OK. Discussed potential Clozaril trial. Pt prefers to remain with Haldol Deconate/Olanzapine at this time. Concerned about potential SE of Clozaril and need for weekly blood work-believes this is too much maintenance to require. Medication Compliance: Yes Side effects from medications: No Attending Groups: Intermittent Review of Systems Acute medical concerns: No Medical Review of Systems: unchanged Mental Status Exam Mental Status Exam Patient Appearance: Fatigued Patient Orientation: Person, Place, Time and Situation Level of Consciousness: Alert Patient Behavior: Appropriate, Talkative, Cooperative and Good Eye Contact Mood Description: Depressed and Anxious Affect Description: Anxious and Flat Patient Cognition Impaired: No Ability to Follow Directions: Good Speech Pattern: Spontaneous Speech Memory Description: Episodic Impaired Hallucinations: None (denies) Delusions: Paranoid Ideation and Present Perceptual Disturbances: Depersonalization and Derealization Thought Process: Distracted and Rumination Thought Content: positive for Circumstantial, positive for Perseveration, positive for Preoccupation, positive for Suicidal Ideation (denies) and positive for Homicidal Ideation (denies) Depressive Symptoms: Increased Anxiety, Diff. Making Decisions, Difficulty Sleeping, Thoughts of /Suicide (denies), Low Self Esteem and Loss of Energy Judgement: Fair Diagnostics Vital Signs (24Hr): Vital Signs - 24 hr 11/09/22 08:15 Temperature 98.4 F Pulse Rate 127 H Respiratory Rate 18 Blood Pressure 116/60 Pulse Oximetry 95 Oxygen Delivery Method Room Air Labs 11/06/22 12:37 Medications Medications Current Medications Acetaminophen (Acetaminophen 325 Mg Tablet) 650 mg PO Q6H PRN PRN Reason: Headache/Pain Mild Scale (1-3) Last Admin: 11/09/22 14:14 Dose: 650 mg Al Hydroxide/Mg Hydroxide (Magnesium Hydrox/Alum Hydrox 30 Ml Oral.Susp) 30 ml PO Q6H PRN PRN Reason: Heartburn/Nausea Clonazepam (Clonazepam 0.5 Mg Tablet) 0.5 mg PO BID PRN PRN Reason: anxiety Last Admin: 11/09/22 08:20 Dose: 0.5 mg Cyanocobalamin (Cyanocobalamin (Vitamin B-12) 500 Mcg Tablet) 500 mcg PO DAILY [facility] Last Admin: 11/09/22 08:04 Dose: 500 mcg Docusate Sodium (Docusate Sodium 100 Mg Capsule) 100 mg PO BID PRN PRN Reason: constipation Last Admin: 11/08/22 19:41 Dose: 100 mg Haloperidol (Haloperidol 5 Mg Tablet) 5 mg PO BID [facility] Last Admin: 11/09/22 08:32 Dose: Not Given Haloperidol Decanoate (Haloperidol Decanoate 50 Mg/Ml Ampul) 100 mg IM Q28D [facility] Hydroxyzine HCl (Hydroxyzine Hcl 25 Mg Tablet) 25 mg PO Q6H PRN PRN Reason: Anxiety Last Admin: 11/09/22 15:54 Dose: 25 mg Ibuprofen (Ibuprofen 400 Mg Tablet) 400 mg PO Q6H PRN PRN Reason: Pain, Moderate(Pain Scale 4-6) Last Admin: 11/09/22 15:53 Dose: 400 mg Lidocaine (Lidocaine 4 % Patch Adh..Patch) 1 patch TRANSDERMA DAILY [facility]; Protocol Last Admin: 11/09/22 09:31 Dose: Not Given Magnesium Hydroxide (Milk Of Magnesia 30 Ml Oral.Susp) 30 ml PO DAILY PRN PRN Reason: Constipation Multivitamins/Vitamin C (Multivitamin Tablet) 1 tab PO DAILY [facility] Last Admin: 11/09/22 08:04 Dose: 1 tab Nicotine Polacrilex (Nicotine Polacrilex 2 Mg Gum) 4 mg BUCCAL Q2H PRN PRN Reason: Nicotine Cravings Estradiol. 0.1 Mg/ (Day Patch) 1 each TRANSDERMA WeSa [facility] Last Admin: 11/09/22 09:31 Dose: Not Given Olanzapine (Olanzapine 7.5 Mg Tablet) 15 mg PO BID [facility] Last Admin: 11/09/22 08:04 Dose: 15 mg Trazodone HCl (Trazodone Hcl 100 Mg Tablet) 100 mg PO BEDTIME [facility] Last Admin: 11/08/22 19:40 Dose: 100 mg Allergies Allergies Allergy/AdvReac Type Severity Reaction Status Date / Time No Known Allergies Allergy Verified 09/21/22 00:15 Assessment & Plan Assessment & Plan (1) Schizoaffective disorder, bipolar type: Status: Acute Code(s): F25.0 - Schizoaffective disorder, bipolar type Assessment and Plan: 11/07/22- Continue current plan of care. 11/08/22- Declines Clozapine. Will continue with Haldol Decanoate 11/09/22- Continue current regime Patient educated on: medication risk/benefits Informed Consent: understands Reason for continued inpatient stay Substantial Risk for: rapid decompensation Time Spent With Patient Time: Total time managing care of this patient today ____ minutes.
[2022-11-09] MEDS: traZODone HCL 100 MG TABLET PO (19:44)
[2022-11-09] MEDS: Docusate Sodium 100 MG CAPSULE PO (19:44)
[2022-11-10 06:00] VITALS: BP 114/72; PULSE 96; RESP 18; TEMP 36.9; O2SAT 96
[2022-11-10] MEDS: Multivitamin TABLET 1 TAB PO (08:22)
[2022-11-10] MEDS: OLANZapine 7.5 MG TABLET 15 MG PO ×2 (08:22→19:13)
[2022-11-10] MEDS: Cyanocobalamin (Vitamin B-12) 500 MCG TABLET PO (08:22)
[2022-11-10] MEDS: clonazePAM 0.5 MG TABLET PO ×2 (08:42→19:14)
--- NOTE | 2022-11-10 08:58 | HO.PSYCHPN ---
Subjective Subjective Date of Service: 11/10/22 Reason For Visit: Schizoaffective D/o, Bipolar type; Bipolar w/ psyc Subjective Notes: Conditional Voluntary Healthcare Proxy: No Guardianship: No Medical Problems Affecting Mental Status: No Interim History: Discussed discharge planning with Francine. Her apartment will be prepared by the end of November. Will plan to discharge after injection is given. Team will discuss with [facility] regarding resources for placement. Pt agreeable. Medication Compliance: Yes Side effects from medications: No Attending Groups: Intermittent Review of Systems Acute medical concerns: No Medical Review of Systems: unchanged Mental Status Exam Mental Status Exam Patient Appearance: Fatigued Patient Orientation: Person, Place, Time and Situation Level of Consciousness: Alert Patient Behavior: Appropriate, Talkative, Cooperative and Good Eye Contact Mood Description: Depressed and Anxious Affect Description: Anxious and Flat Patient Cognition Impaired: No Ability to Follow Directions: Good Speech Pattern: Spontaneous Speech Memory Description: Episodic Impaired Hallucinations: None (denies) Delusions: Paranoid Ideation and Present Perceptual Disturbances: Depersonalization and Derealization Thought Process: Distracted and Rumination Thought Content: positive for Circumstantial, positive for Perseveration, positive for Preoccupation, positive for Suicidal Ideation (denies) and positive for Homicidal Ideation (denies) Depressive Symptoms: Increased Anxiety, Diff. Making Decisions, Difficulty Sleeping, Thoughts of /Suicide (denies), Low Self Esteem and Loss of Energy Judgement: Fair Diagnostics Vital Signs (24Hr): Vital Signs - 24 hr 11/09/22 18:00 11/10/22 06:00 Temperature 97.1 F 98.4 F Pulse Rate 101 H 96 Respiratory Rate 22 H 18 Blood Pressure 145/64 H 114/72 Pulse Oximetry 97 96 Oxygen Delivery Method Room Air Room Air Labs 11/06/22 12:37 Medications Medications Current Medications Acetaminophen (Acetaminophen 325 Mg Tablet) 650 mg PO Q6H PRN PRN Reason: Headache/Pain Mild Scale (1-3) Last Admin: 11/09/22 14:14 Dose: 650 mg Al Hydroxide/Mg Hydroxide (Magnesium Hydrox/Alum Hydrox 30 Ml Oral.Susp) 30 ml PO Q6H PRN PRN Reason: Heartburn/Nausea Clonazepam (Clonazepam 0.5 Mg Tablet) 0.5 mg PO BID PRN PRN Reason: anxiety Last Admin: 11/10/22 08:42 Dose: 0.5 mg Cyanocobalamin (Cyanocobalamin (Vitamin B-12) 500 Mcg Tablet) 500 mcg PO DAILY [facility] Last Admin: 11/10/22 08:22 Dose: 500 mcg Docusate Sodium (Docusate Sodium 100 Mg Capsule) 100 mg PO BID PRN PRN Reason: constipation Last Admin: 11/09/22 19:44 Dose: 100 mg Haloperidol (Haloperidol 5 Mg Tablet) 5 mg PO BID [facility] Last Admin: 11/09/22 22:13 Dose: Not Given Haloperidol Decanoate (Haloperidol Decanoate 50 Mg/Ml Ampul) 100 mg IM Q28D [facility] Hydroxyzine HCl (Hydroxyzine Hcl 25 Mg Tablet) 25 mg PO Q6H PRN PRN Reason: Anxiety Last Admin: 11/09/22 15:54 Dose: 25 mg Ibuprofen (Ibuprofen 400 Mg Tablet) 400 mg PO Q6H PRN PRN Reason: Pain, Moderate(Pain Scale 4-6) Last Admin: 11/09/22 15:53 Dose: 400 mg Lidocaine (Lidocaine 4 % Patch Adh..Patch) 1 patch TRANSDERMA DAILY [facility]; Protocol Last Admin: 11/09/22 09:31 Dose: Not Given Magnesium Hydroxide (Milk Of Magnesia 30 Ml Oral.Susp) 30 ml PO DAILY PRN PRN Reason: Constipation Multivitamins/Vitamin C (Multivitamin Tablet) 1 tab PO DAILY [facility] Last Admin: 11/10/22 08:22 Dose: 1 tab Nicotine Polacrilex (Nicotine Polacrilex 2 Mg Gum) 4 mg BUCCAL Q2H PRN PRN Reason: Nicotine Cravings Estradiol. 0.1 Mg/ (Day Patch) 1 each TRANSDERMA WeSa [facility] Last Admin: 11/09/22 09:31 Dose: Not Given Olanzapine (Olanzapine 7.5 Mg Tablet) 15 mg PO BID [facility] Last Admin: 11/10/22 08:22 Dose: 15 mg Trazodone HCl (Trazodone Hcl 100 Mg Tablet) 100 mg PO BEDTIME [facility] Last Admin: 11/09/22 19:44 Dose: 100 mg Allergies Allergies Allergy/AdvReac Type Severity Reaction Status Date / Time No Known Allergies Allergy Verified 09/21/22 00:15 Assessment & Plan Assessment & Plan (1) Schizoaffective disorder, bipolar type: Status: Acute Code(s): F25.0 - Schizoaffective disorder, bipolar type Assessment and Plan: 11/07/22- Continue current plan of care. 11/08/22- Declines Clozapine. Will continue with Haldol Decanoate 11/10/22- Discharge planning after Haldol Decanoate is given. Informed Consent: understands Reason for continued inpatient stay Substantial Risk for: rapid decompensation Time Spent With Patient Time: Total time managing care of this patient today ____ minutes.
[2022-11-10] MEDS: hydrOXYzine HCL 25 MG TABLET PO (14:46)
[2022-11-10] MEDS: Acetaminophen 325 MG TABLET 650 MG PO (16:22)
[2022-11-10] MEDS: Lidocaine 4 % Patch ADH..PATCH 1 PATCH TRANSDERMA (17:06)
[2022-11-10 18:00] VITALS: BP 110/64; PULSE 111; TEMP 36.8; O2SAT 97
[2022-11-10] MEDS: Docusate Sodium 100 MG CAPSULE PO (19:14)
[2022-11-10] MEDS: traZODone HCL 100 MG TABLET PO (19:14)
[2022-11-11] MEDS: Cyanocobalamin (Vitamin B-12) 500 MCG TABLET PO (09:15)
[2022-11-11] MEDS: Multivitamin TABLET 1 TAB PO (09:15)
[2022-11-11] MEDS: OLANZapine 7.5 MG TABLET 15 MG PO ×2 (09:15→19:17)
[2022-11-11] MEDS: clonazePAM 0.5 MG TABLET PO ×2 (09:16→19:18)
[2022-11-11 09:45] VITALS: BP 130/58; PULSE 123; RESP 16; TEMP 36.7; O2SAT 97
--- NOTE | 2022-11-11 11:52 | HO.PSYCHPN ---
Subjective Subjective Date of Service: 11/11/22 Reason For Visit: Schizoaffective D/o, Bipolar type; Bipolar w/ psyc Subjective Notes: Conditional Voluntary Healthcare Proxy: No Guardianship: No Medical Problems Affecting Mental Status: No Interim History: Isolative, decrease in socialization. Estradiol Patch found at [facility] and ordered for pt. Denies sx of concern Denies feeling overmedicated. Prepared for Haldol Dec this week. Medication Compliance: Yes Side effects from medications: No Attending Groups: Intermittent Review of Systems Acute medical concerns: No Medical Review of Systems: unchanged Mental Status Exam Mental Status Exam Patient Appearance: Fatigued Patient Orientation: Person, Place, Time and Situation Level of Consciousness: Alert Patient Behavior: Appropriate, Talkative, Cooperative and Good Eye Contact Mood Description: Depressed and Anxious Affect Description: Anxious and Flat Patient Cognition Impaired: No Ability to Follow Directions: Good Speech Pattern: Spontaneous Speech Memory Description: Episodic Impaired Hallucinations: None (denies) Delusions: Paranoid Ideation and Present Perceptual Disturbances: Depersonalization and Derealization Thought Process: Distracted and Rumination Thought Content: positive for Circumstantial, positive for Perseveration, positive for Preoccupation, positive for Suicidal Ideation (denies) and positive for Homicidal Ideation (denies) Depressive Symptoms: Increased Anxiety, Diff. Making Decisions, Difficulty Sleeping, Thoughts of /Suicide (denies), Low Self Esteem and Loss of Energy Judgement: Fair Diagnostics Vital Signs (24Hr): Vital Signs - 24 hr 11/10/22 18:00 11/11/22 09:45 Temperature 98.2 F 98.1 F Pulse Rate 111 H 123 H Respiratory Rate 16 Blood Pressure 110/64 130/58 L Pulse Oximetry 97 97 Oxygen Delivery Method Room Air Room Air Labs 11/06/22 12:37 Medications Medications Current Medications Acetaminophen (Acetaminophen 325 Mg Tablet) 650 mg PO Q6H PRN PRN Reason: Headache/Pain Mild Scale (1-3) Last Admin: 11/10/22 16:22 Dose: 650 mg Al Hydroxide/Mg Hydroxide (Magnesium Hydrox/Alum Hydrox 30 Ml Oral.Susp) 30 ml PO Q6H PRN PRN Reason: Heartburn/Nausea Clonazepam (Clonazepam 0.5 Mg Tablet) 0.5 mg PO BID PRN PRN Reason: anxiety Last Admin: 11/11/22 09:16 Dose: 0.5 mg Cyanocobalamin (Cyanocobalamin (Vitamin B-12) 500 Mcg Tablet) 500 mcg PO DAILY [facility] Last Admin: 11/11/22 09:15 Dose: 500 mcg Docusate Sodium (Docusate Sodium 100 Mg Capsule) 100 mg PO BID PRN PRN Reason: constipation Last Admin: 11/10/22 19:14 Dose: 100 mg Haloperidol (Haloperidol 5 Mg Tablet) 5 mg PO BID [facility] Last Admin: 11/11/22 09:17 Dose: Not Given Haloperidol Decanoate (Haloperidol Decanoate 50 Mg/Ml Ampul) 100 mg IM Q28D [facility] Hydroxyzine HCl (Hydroxyzine Hcl 25 Mg Tablet) 25 mg PO Q6H PRN PRN Reason: Anxiety Last Admin: 11/10/22 14:46 Dose: 25 mg Ibuprofen (Ibuprofen 400 Mg Tablet) 400 mg PO Q6H PRN PRN Reason: Pain, Moderate(Pain Scale 4-6) Last Admin: 11/09/22 15:53 Dose: 400 mg Lidocaine (Lidocaine 4 % Patch Adh..Patch) 1 patch TRANSDERMA DAILY [facility]; Protocol Last Admin: 11/11/22 09:17 Dose: Not Given Magnesium Hydroxide (Milk Of Magnesia 30 Ml Oral.Susp) 30 ml PO DAILY PRN PRN Reason: Constipation Multivitamins/Vitamin C (Multivitamin Tablet) 1 tab PO DAILY [facility] Last Admin: 11/11/22 09:15 Dose: 1 tab Nicotine Polacrilex (Nicotine Polacrilex 2 Mg Gum) 4 mg BUCCAL Q2H PRN PRN Reason: Nicotine Cravings Estradiol. 0.1 Mg/ (Day Patch) 1 each TRANSDERMA WeSa [facility] Last Admin: 11/09/22 09:31 Dose: Not Given Olanzapine (Olanzapine 7.5 Mg Tablet) 15 mg PO BID [facility] Last Admin: 11/11/22 09:15 Dose: 15 mg Trazodone HCl (Trazodone Hcl 100 Mg Tablet) 100 mg PO BEDTIME [facility] Last Admin: 11/10/22 19:14 Dose: 100 mg Allergies Allergies Allergy/AdvReac Type Severity Reaction Status Date / Time No Known Allergies Allergy Verified 09/21/22 00:15 Assessment & Plan Assessment & Plan (1) Schizoaffective disorder, bipolar type: Status: Acute Code(s): F25.0 - Schizoaffective disorder, bipolar type Assessment and Plan: 11/07/22- Continue current plan of care. 11/08/22- Declines Clozapine. Will continue with Haldol Decanoate 11/10/22- Discharge planning after Haldol Decanoate is given. 11/11/22- Continue current regime and plan of care. Informed Consent: understands Reason for continued inpatient stay Substantial Risk for: rapid decompensation Time Spent With Patient Time: Total time managing care of this patient today ____ minutes.
[2022-11-11 18:00] VITALS: BP 116/65; PULSE 114; TEMP 36.3
[2022-11-11] MEDS: Acetaminophen 325 MG TABLET 650 MG PO (18:06)
[2022-11-11] MEDS: traZODone HCL 100 MG TABLET PO (19:17)
[2022-11-12 08:00] VITALS: BP 118/57; PULSE 88; RESP 16; TEMP 36.8; O2SAT 96
[2022-11-12] MEDS: Cyanocobalamin (Vitamin B-12) 500 MCG TABLET PO (08:28)
[2022-11-12] MEDS: Multivitamin TABLET 1 TAB PO (08:28)
[2022-11-12] MEDS: OLANZapine 7.5 MG TABLET 15 MG PO ×2 (08:29→19:10)
[2022-11-12] MEDS: clonazePAM 0.5 MG TABLET PO ×2 (08:35→19:09)
--- NOTE | 2022-11-12 08:55 | PC.NURSE ---
pt refuses haldol po and states she is not going to take the haldol decanoate as it makes her mouth have too much saliva .
--- NOTE | 2022-11-12 11:48 | HO.PSYCHPN ---
Subjective Subjective Date of Service: 11/12/22 Reason For Visit: Schizoaffective D/o, Bipolar type; Bipolar w/ psyc Interim History: No change in symptoms. Some social interactions with peers. Denies sx of concern Denies feeling overmedicated. Prepared for Haldol Dec this week. Review of Systems Review of Systems Patient has no acute medical complaints at this time Yes all other systems are reviewed and are negative Reports behavioral changes Psychiatric: Reports anxiety, Reports behavioral changes, Reports difficulty concentrating and Reports paranoia Mental Status Exam Mental Status Exam Patient Appearance: Fatigued Patient Orientation: Person, Place, Time and Situation Level of Consciousness: Alert Patient Behavior: Appropriate, Talkative, Cooperative and Good Eye Contact Mood Description: Depressed and Anxious Affect Description: Anxious and Flat Patient Cognition Impaired: No Ability to Follow Directions: Good Speech Pattern: Spontaneous Speech Memory Description: Episodic Impaired Diagnostics Vital Signs (24Hr): Vital Signs - 24 hr 11/11/22 18:00 11/12/22 08:00 Temperature 97.4 F 98.2 F Pulse Rate 114 H 88 Respiratory Rate 16 Blood Pressure 116/65 118/57 L Pulse Oximetry 96 Oxygen Delivery Method Room Air Labs 11/06/22 12:37 Medications Medications Current Medications Acetaminophen (Acetaminophen 325 Mg Tablet) 650 mg PO Q6H PRN PRN Reason: Headache/Pain Mild Scale (1-3) Last Admin: 11/11/22 18:06 Dose: 650 mg Al Hydroxide/Mg Hydroxide (Magnesium Hydrox/Alum Hydrox 30 Ml Oral.Susp) 30 ml PO Q6H PRN PRN Reason: Heartburn/Nausea Clonazepam (Clonazepam 0.5 Mg Tablet) 0.5 mg PO BID PRN PRN Reason: anxiety Last Admin: 11/12/22 08:35 Dose: 0.5 mg Cyanocobalamin (Cyanocobalamin (Vitamin B-12) 500 Mcg Tablet) 500 mcg PO DAILY [facility] Last Admin: 11/12/22 08:28 Dose: 500 mcg Docusate Sodium (Docusate Sodium 100 Mg Capsule) 100 mg PO BID PRN PRN Reason: constipation Last Admin: 11/10/22 19:14 Dose: 100 mg Haloperidol (Haloperidol 5 Mg Tablet) 5 mg PO BID [facility] Last Admin: 11/12/22 08:32 Dose: Not Given Haloperidol Decanoate (Haloperidol Decanoate 50 Mg/Ml Ampul) 100 mg IM Q28D [facility] Hydroxyzine HCl (Hydroxyzine Hcl 25 Mg Tablet) 25 mg PO Q6H PRN PRN Reason: Anxiety Last Admin: 11/10/22 14:46 Dose: 25 mg Ibuprofen (Ibuprofen 400 Mg Tablet) 400 mg PO Q6H PRN PRN Reason: Pain, Moderate(Pain Scale 4-6) Last Admin: 11/09/22 15:53 Dose: 400 mg Lidocaine (Lidocaine 4 % Patch Adh..Patch) 1 patch TRANSDERMA DAILY [facility]; Protocol Last Admin: 11/12/22 08:32 Dose: Not Given Magnesium Hydroxide (Milk Of Magnesia 30 Ml Oral.Susp) 30 ml PO DAILY PRN PRN Reason: Constipation Multivitamins/Vitamin C (Multivitamin Tablet) 1 tab PO DAILY [facility] Last Admin: 11/12/22 08:28 Dose: 1 tab Nicotine Polacrilex (Nicotine Polacrilex 2 Mg Gum) 4 mg BUCCAL Q2H PRN PRN Reason: Nicotine Cravings Estradiol. 0.1 Mg/ (Day Patch) 1 each TRANSDERMA WeSa [facility] Last Admin: 11/09/22 09:31 Dose: Not Given Olanzapine (Olanzapine 7.5 Mg Tablet) 15 mg PO BID [facility] Last Admin: 11/12/22 08:29 Dose: 15 mg Trazodone HCl (Trazodone Hcl 100 Mg Tablet) 100 mg PO BEDTIME [facility] Last Admin: 11/11/22 19:17 Dose: 100 mg Allergies Allergies Allergy/AdvReac Type Severity Reaction Status Date / Time No Known Allergies Allergy Verified 09/21/22 00:15 Assessment & Plan Assessment & Plan (1) Schizoaffective disorder, bipolar type: Status: Acute Code(s): F25.0 - Schizoaffective disorder, bipolar type Assessment and Plan: 11/07/22- Continue current plan of care. 11/08/22- Declines Clozapine. Will continue with Haldol Decanoate 11/10/22- Discharge planning after Haldol Decanoate is given. 11/11/22- Continue current regime and plan of care. 11/12: Haldol Dec this week. Continue current plan of care. Reason for continued inpatient stay Substantial Risk for: harm to self, harm to others, inability to function and rapid decompensation Time Spent With Patient Time: Total time managing care of this patient today ____ minutes.
[2022-11-12] MEDS: hydrOXYzine HCL 25 MG TABLET PO (15:22)
[2022-11-12 16:25] VITALS: BP 110/58; PULSE 121; TEMP 35.6
[2022-11-12] MEDS: traZODone HCL 100 MG TABLET PO (19:08)
[2022-11-13 08:53] VITALS: BP 121/62; PULSE 68; RESP 16; TEMP 36.8; O2SAT 98
[2022-11-13] MEDS: Cyanocobalamin (Vitamin B-12) 500 MCG TABLET PO (08:54)
[2022-11-13] MEDS: Multivitamin TABLET 1 TAB PO (08:54)
[2022-11-13] MEDS: clonazePAM 0.5 MG TABLET PO ×2 (09:16→19:14)
[2022-11-13] MEDS: Acetaminophen 325 MG TABLET 650 MG PO ×2 (09:16→18:52)
[2022-11-13] MEDS: OLANZapine 7.5 MG TABLET 15 MG PO ×2 (09:16→19:14)
[2022-11-13] MEDS: Lidocaine 4 % Patch ADH..PATCH 1 PATCH TRANSDERMA (11:15)
[2022-11-13] MEDS: HaloperidoL 5 MG TABLET PO ×2 (11:15→19:14)
[2022-11-13 18:20] VITALS: BP 94/56; PULSE 102; TEMP 36.2
[2022-11-13] MEDS: Docusate Sodium 100 MG CAPSULE PO (19:13)
[2022-11-13] MEDS: traZODone HCL 100 MG TABLET PO (19:14)
[2022-11-14] MEDS: OLANZapine 7.5 MG TABLET 15 MG PO ×2 (08:17→19:30)
[2022-11-14] MEDS: clonazePAM 0.5 MG TABLET PO ×2 (08:17→19:29)
[2022-11-14] MEDS: Multivitamin TABLET 1 TAB PO (08:17)
[2022-11-14] MEDS: Cyanocobalamin (Vitamin B-12) 500 MCG TABLET PO (08:17)
[2022-11-14] MEDS: HaloperidoL 5 MG TABLET PO (08:17)
[2022-11-14 08:33] VITALS: BP 105/67; PULSE 84; RESP 16; TEMP 36.2; O2SAT 99
[2022-11-14] MEDS: Acetaminophen 325 MG TABLET 650 MG PO (13:49)
--- NOTE | 2022-11-14 15:52 | HO.PSYCHPN ---
Subjective Subjective Date of Service: 11/13/22 Reason For Visit: Schizoaffective D/o, Bipolar type; Bipolar w/ psyc Subjective Notes: Conditional Voluntary Healthcare Proxy: No Guardianship: No Medical Problems Affecting Mental Status: No Interim History: Francine discussed feeling she is less able to speak when taking Haldol PO. Reviewed sx, discussed benztropine prn which she will consider. Discussed Haldol Dec IM injection for 11/14. She reports she believes this has worked well and is a good option, it does not make me less able to speak. Medication Compliance: Yes Side effects from medications: Yes Attending Groups: No Review of Systems Acute medical concerns: No Mental Status Exam Mental Status Exam Patient Appearance: Appropriate Patient Orientation: Person, Place, Time and Situation Level of Consciousness: Alert Patient Behavior: Talkative and Good Eye Contact Mood Description: Appropriate Affect Description: Appropriate Patient Cognition Impaired: No Ability to Follow Directions: Good Speech Pattern: Spontaneous Speech Memory Description: Intact Hallucinations: None Delusions: Present Thought Process: Goal Oriented Thought Content: positive for Circumstantial and positive for Goal Oriented Judgement: Fair Diagnostics Vital Signs (24Hr): Vital Signs - 24 hr 11/13/22 18:20 11/14/22 08:33 Temperature 97.1 F 97.1 F Pulse Rate 102 H 84 Respiratory Rate 16 Blood Pressure 94/56 L 105/67 Pulse Oximetry 99 Oxygen Delivery Method Room Air Labs 11/06/22 12:37 Medications Medications Current Medications Acetaminophen (Acetaminophen 325 Mg Tablet) 650 mg PO Q6H PRN PRN Reason: Headache/Pain Mild Scale (1-3) Last Admin: 11/14/22 13:49 Dose: 650 mg Al Hydroxide/Mg Hydroxide (Magnesium Hydrox/Alum Hydrox 30 Ml Oral.Susp) 30 ml PO Q6H PRN PRN Reason: Heartburn/Nausea Benztropine Mesylate (Benztropine Mesylate 1 Mg Tablet) 1 mg PO BID PRN PRN Reason: eps Clonazepam (Clonazepam 0.5 Mg Tablet) 0.5 mg PO BID PRN PRN Reason: anxiety Last Admin: 11/14/22 08:17 Dose: 0.5 mg Cyanocobalamin (Cyanocobalamin (Vitamin B-12) 500 Mcg Tablet) 500 mcg PO DAILY [facility] Last Admin: 11/14/22 08:17 Dose: 500 mcg Docusate Sodium (Docusate Sodium 100 Mg Capsule) 100 mg PO BID PRN PRN Reason: constipation Last Admin: 11/13/22 19:13 Dose: 100 mg Haloperidol (Haloperidol 5 Mg Tablet) 5 mg PO BID [facility] Last Admin: 11/14/22 08:17 Dose: 5 mg Haloperidol Decanoate (Haloperidol Decanoate 50 Mg/Ml Ampul) 100 mg IM Q28D [facility] Hydroxyzine HCl (Hydroxyzine Hcl 25 Mg Tablet) 25 mg PO Q6H PRN PRN Reason: Anxiety Last Admin: 11/12/22 15:22 Dose: 25 mg Ibuprofen (Ibuprofen 400 Mg Tablet) 400 mg PO Q6H PRN PRN Reason: Pain, Moderate(Pain Scale 4-6) Last Admin: 11/09/22 15:53 Dose: 400 mg Lidocaine (Lidocaine 4 % Patch Adh..Patch) 1 patch TRANSDERMA DAILY [facility]; Protocol Last Admin: 11/14/22 09:11 Dose: Not Given Magnesium Hydroxide (Milk Of Magnesia 30 Ml Oral.Susp) 30 ml PO DAILY PRN PRN Reason: Constipation Multivitamins/Vitamin C (Multivitamin Tablet) 1 tab PO DAILY [facility] Last Admin: 11/14/22 08:17 Dose: 1 tab Nicotine Polacrilex (Nicotine Polacrilex 2 Mg Gum) 4 mg BUCCAL Q2H PRN PRN Reason: Nicotine Cravings Estradiol. 0.1 Mg/ (Day Patch) 1 each TRANSDERMA WeSa [facility] Last Admin: 11/13/22 15:40 Dose: Not Given Olanzapine (Olanzapine 7.5 Mg Tablet) 15 mg PO BID [facility] Last Admin: 11/14/22 08:17 Dose: 15 mg Trazodone HCl (Trazodone Hcl 100 Mg Tablet) 100 mg PO BEDTIME [facility] Last Admin: 11/13/22 19:14 Dose: 100 mg Allergies Allergies Allergy/AdvReac Type Severity Reaction Status Date / Time No Known Allergies Allergy Verified 09/21/22 00:15 Assessment & Plan Assessment & Plan (1) Schizoaffective disorder, bipolar type: Status: Acute Code(s): F25.0 - Schizoaffective disorder, bipolar type Assessment and Plan: 11/07/22- Continue current plan of care. 11/08/22- Declines Clozapine. Will continue with Haldol Decanoate 11/10/22- Discharge planning after Haldol Decanoate is given. 11/11/22- Continue current regime and plan of care. 11/12: Haldol Dec this week. Continue current plan of care. 11/13/22: Continue current regime and plan of care. Patient educated on: medication risk/benefits Informed Consent: understands and further education needed Reason for continued inpatient stay Substantial Risk for: rapid decompensation Time Spent With Patient Time: Total time managing care of this patient today ____ minutes.
--- NOTE | 2022-11-14 15:52 | HO.PSYCHPN ---
Subjective Subjective Date of Service: 11/14/22 Reason For Visit: Schizoaffective D/o, Bipolar type; Bipolar w/ psyc Subjective Notes: Conditional Voluntary Healthcare Proxy: No Guardianship: No Medical Problems Affecting Mental Status: No Interim History: Discussed care planning with pt. Haldol Dec IM will be given 11/15/22. PO Haldol will be discontinued. Pt is feeling prepared for discharge, will plan for early next week, if there are no adverse responses to IM. She agrees with this plan. Medication Compliance: Yes Side effects from medications: No Attending Groups: Yes Review of Systems Acute medical concerns: No Medical Review of Systems: unchanged Mental Status Exam Mental Status Exam Patient Appearance: Appropriate Patient Orientation: Person, Place, Time and Situation Level of Consciousness: Alert Patient Behavior: Appropriate, Talkative, Cooperative and Good Eye Contact Mood Description: Flat Affect Description: Flat Patient Cognition Impaired: No Ability to Follow Directions: Good Speech Pattern: Spontaneous Speech Memory Description: Intact Hallucinations: None Delusions: Not Present Thought Process: Intact and Goal Oriented Thought Content: positive for Intact, positive for Circumstantial, positive for Goal Oriented, positive for Suicidal Ideation (denies) and positive for Homicidal Ideation (denies) Depressive Symptoms: Sleeping More Than Usual and Thoughts of /Suicide (denies) Judgement: Fair Diagnostics Vital Signs (24Hr): Vital Signs - 24 hr 11/13/22 18:20 11/14/22 08:33 Temperature 97.1 F 97.1 F Pulse Rate 102 H 84 Respiratory Rate 16 Blood Pressure 94/56 L 105/67 Pulse Oximetry 99 Oxygen Delivery Method Room Air Labs 11/06/22 12:37 Medications Medications Current Medications Acetaminophen (Acetaminophen 325 Mg Tablet) 650 mg PO Q6H PRN PRN Reason: Headache/Pain Mild Scale (1-3) Last Admin: 11/14/22 13:49 Dose: 650 mg Al Hydroxide/Mg Hydroxide (Magnesium Hydrox/Alum Hydrox 30 Ml Oral.Susp) 30 ml PO Q6H PRN PRN Reason: Heartburn/Nausea Benztropine Mesylate (Benztropine Mesylate 1 Mg Tablet) 1 mg PO BID PRN PRN Reason: eps Clonazepam (Clonazepam 0.5 Mg Tablet) 0.5 mg PO BID PRN PRN Reason: anxiety Last Admin: 11/14/22 08:17 Dose: 0.5 mg Cyanocobalamin (Cyanocobalamin (Vitamin B-12) 500 Mcg Tablet) 500 mcg PO DAILY [facility] Last Admin: 11/14/22 08:17 Dose: 500 mcg Docusate Sodium (Docusate Sodium 100 Mg Capsule) 100 mg PO BID PRN PRN Reason: constipation Last Admin: 11/13/22 19:13 Dose: 100 mg Haloperidol (Haloperidol 5 Mg Tablet) 5 mg PO BID [facility] Last Admin: 11/14/22 08:17 Dose: 5 mg Haloperidol Decanoate (Haloperidol Decanoate 50 Mg/Ml Ampul) 100 mg IM Q28D [facility] Hydroxyzine HCl (Hydroxyzine Hcl 25 Mg Tablet) 25 mg PO Q6H PRN PRN Reason: Anxiety Last Admin: 11/12/22 15:22 Dose: 25 mg Ibuprofen (Ibuprofen 400 Mg Tablet) 400 mg PO Q6H PRN PRN Reason: Pain, Moderate(Pain Scale 4-6) Last Admin: 11/09/22 15:53 Dose: 400 mg Lidocaine (Lidocaine 4 % Patch Adh..Patch) 1 patch TRANSDERMA DAILY [facility]; Protocol Last Admin: 11/14/22 09:11 Dose: Not Given Magnesium Hydroxide (Milk Of Magnesia 30 Ml Oral.Susp) 30 ml PO DAILY PRN PRN Reason: Constipation Multivitamins/Vitamin C (Multivitamin Tablet) 1 tab PO DAILY [facility] Last Admin: 11/14/22 08:17 Dose: 1 tab Nicotine Polacrilex (Nicotine Polacrilex 2 Mg Gum) 4 mg BUCCAL Q2H PRN PRN Reason: Nicotine Cravings Estradiol. 0.1 Mg/ (Day Patch) 1 each TRANSDERMA WeSa [facility] Last Admin: 11/13/22 15:40 Dose: Not Given Olanzapine (Olanzapine 7.5 Mg Tablet) 15 mg PO BID [facility] Last Admin: 11/14/22 08:17 Dose: 15 mg Trazodone HCl (Trazodone Hcl 100 Mg Tablet) 100 mg PO BEDTIME [facility] Last Admin: 11/13/22 19:14 Dose: 100 mg Allergies Allergies Allergy/AdvReac Type Severity Reaction Status Date / Time No Known Allergies Allergy Verified 09/21/22 00:15 Assessment & Plan Assessment & Plan (1) Schizoaffective disorder, bipolar type: Status: Acute Code(s): F25.0 - Schizoaffective disorder, bipolar type Assessment and Plan: 11/07/22- Continue current plan of care. 11/08/22- Declines Clozapine. Will continue with Haldol Decanoate 11/10/22- Discharge planning after Haldol Decanoate is given. 11/11/22- Continue current regime and plan of care. 11/12: Haldol Dec this week. Continue current plan of care. 11/14/22: Haldol Dec 11/15. DC PO Haldol Benztropine prn Tentative discharge early next week Patient educated on: medication risk/benefits and therapeutic strategies Informed Consent: understands Reason for continued inpatient stay Substantial Risk for: rapid decompensation Time Spent With Patient Time: Total time managing care of this patient today ____ minutes.
[2022-11-14] MEDS: hydrOXYzine HCL 25 MG TABLET PO (16:33)
[2022-11-14 18:38] VITALS: BP 114/64; PULSE 104; TEMP 36.3
[2022-11-14] MEDS: traZODone HCL 100 MG TABLET PO (19:29)
[2022-11-15 06:00] VITALS: BP 104/66; PULSE 88; RESP 16; TEMP 36.1; O2SAT 98
[2022-11-15] MEDS: Cyanocobalamin (Vitamin B-12) 500 MCG TABLET PO (08:31)
[2022-11-15] MEDS: Multivitamin TABLET 1 TAB PO (08:31)
[2022-11-15] MEDS: OLANZapine 7.5 MG TABLET 15 MG PO ×2 (08:31→20:17)
[2022-11-15] MEDS: clonazePAM 0.5 MG TABLET PO ×2 (08:38→20:17)
[2022-11-15] MEDS: Docusate Sodium 100 MG CAPSULE PO (13:58)
--- NOTE | 2022-11-15 16:23 | PC.NURSE ---
Pt signed 3 day notice on 11/15, up on Monday 11/20. MD CELIO, SW aware.
[2022-11-15] MEDS: hydrOXYzine HCL 25 MG TABLET PO (17:45)
[2022-11-15 18:00] VITALS: BP 135/72; PULSE 101; RESP 18; TEMP 36.4; O2SAT 96
[2022-11-15] MEDS: Acetaminophen 325 MG TABLET 650 MG PO (18:49)
--- NOTE | 2022-11-15 20:10 | HO.PSYCHPN ---
Subjective Subjective Date of Service: 11/15/22 Reason For Visit: Schizoaffective D/o, Bipolar type; Bipolar w/ psyc Interim History: Pt reports feeling well. She reports she is getting next ROJO injection today. She denies VH/AH. No delusional content noted or reported. No SI/HI. Per nursing, pt sleeping and eating well. No behavioral concerns. Medication Compliance: Yes Side effects from medications: No Review of Systems Review of Systems Patient has no acute medical complaints at this time Yes all other systems are reviewed and are negative Reports behavioral changes Psychiatric: Reports anxiety, Reports behavioral changes, Reports difficulty concentrating and Reports paranoia Mental Status Exam Mental Status Exam Patient Appearance: Appropriate Patient Orientation: Person, Place, Time and Situation Level of Consciousness: Alert Patient Behavior: Appropriate, Talkative, Cooperative and Good Eye Contact Mood Description: Flat Affect Description: Flat Patient Cognition Impaired: No Ability to Follow Directions: Good Speech Pattern: Spontaneous Speech Memory Description: Intact Diagnostics Vital Signs (24Hr): Vital Signs - 24 hr 11/15/22 06:00 Temperature 97.0 F Pulse Rate 88 Respiratory Rate 16 Blood Pressure 104/66 Pulse Oximetry 98 Oxygen Delivery Method Room Air Labs 11/06/22 12:37 Medications Medications Current Medications Acetaminophen (Acetaminophen 325 Mg Tablet) 650 mg PO Q6H PRN PRN Reason: Headache/Pain Mild Scale (1-3) Last Admin: 11/15/22 18:49 Dose: 650 mg Al Hydroxide/Mg Hydroxide (Magnesium Hydrox/Alum Hydrox 30 Ml Oral.Susp) 30 ml PO Q6H PRN PRN Reason: Heartburn/Nausea Benztropine Mesylate (Benztropine Mesylate 1 Mg Tablet) 1 mg PO BID PRN PRN Reason: eps Clonazepam (Clonazepam 0.5 Mg Tablet) 0.5 mg PO BID PRN PRN Reason: anxiety Last Admin: 11/15/22 08:38 Dose: 0.5 mg Cyanocobalamin (Cyanocobalamin (Vitamin B-12) 500 Mcg Tablet) 500 mcg PO DAILY [facility] Last Admin: 11/15/22 08:31 Dose: 500 mcg Docusate Sodium (Docusate Sodium 100 Mg Capsule) 100 mg PO BID PRN PRN Reason: constipation Last Admin: 11/15/22 13:58 Dose: 100 mg Haloperidol Decanoate (Haloperidol Decanoate 50 Mg/Ml Ampul) 100 mg IM Q28D [facility] Last Admin: 11/15/22 08:57 Dose: 100 mg Hydroxyzine HCl (Hydroxyzine Hcl 25 Mg Tablet) 25 mg PO Q6H PRN PRN Reason: Anxiety Last Admin: 11/15/22 17:45 Dose: 25 mg Ibuprofen (Ibuprofen 400 Mg Tablet) 400 mg PO Q6H PRN PRN Reason: Pain, Moderate(Pain Scale 4-6) Last Admin: 11/09/22 15:53 Dose: 400 mg Lidocaine (Lidocaine 4 % Patch Adh..Patch) 1 patch TRANSDERMA DAILY [facility]; Protocol Last Admin: 11/15/22 08:44 Dose: Not Given Magnesium Hydroxide (Milk Of Magnesia 30 Ml Oral.Susp) 30 ml PO DAILY PRN PRN Reason: Constipation Multivitamins/Vitamin C (Multivitamin Tablet) 1 tab PO DAILY [facility] Last Admin: 11/15/22 08:31 Dose: 1 tab Nicotine Polacrilex (Nicotine Polacrilex 2 Mg Gum) 4 mg BUCCAL Q2H PRN PRN Reason: Nicotine Cravings Estradiol. 0.1 Mg/ (Day Patch) 1 each TRANSDERMA WeSa [facility] Last Admin: 11/13/22 15:40 Dose: Not Given Olanzapine (Olanzapine 7.5 Mg Tablet) 15 mg PO BID [facility] Last Admin: 11/15/22 08:31 Dose: 15 mg Trazodone HCl (Trazodone Hcl 100 Mg Tablet) 100 mg PO BEDTIME [facility] Last Admin: 11/14/22 19:29 Dose: 100 mg Allergies Allergies Allergy/AdvReac Type Severity Reaction Status Date / Time No Known Allergies Allergy Verified 09/21/22 00:15 Assessment & Plan Assessment & Plan (1) Schizoaffective disorder, bipolar type: Status: Acute Code(s): F25.0 - Schizoaffective disorder, bipolar type Assessment and Plan: 11/07/22- Continue current plan of care. 11/08/22- Declines Clozapine. Will continue with Haldol Decanoate 11/10/22- Discharge planning after Haldol Decanoate is given. 11/11/22- Continue current regime and plan of care. 11/12: Haldol Dec this week. Continue current plan of care. 11/14/22: Haldol Dec 11/15. DC PO Haldol Benztropine prn Tentative discharge early next week 11/15 continue tx. Reason for continued inpatient stay Substantial Risk for: stable for discharge Time Spent With Patient Time: Total time managing care of this patient today ____ minutes.
[2022-11-15] MEDS: traZODone HCL 100 MG TABLET PO (20:17)
[2022-11-16] MEDS: clonazePAM 0.5 MG TABLET PO ×2 (08:59→19:13)
[2022-11-16] MEDS: Docusate Sodium 100 MG CAPSULE PO ×2 (08:59→19:16)
[2022-11-16] MEDS: OLANZapine 7.5 MG TABLET 15 MG PO ×2 (09:00→19:13)
[2022-11-16] MEDS: Cyanocobalamin (Vitamin B-12) 500 MCG TABLET PO (09:00)
[2022-11-16] MEDS: Multivitamin TABLET 1 TAB PO (09:00)
[2022-11-16 09:05] VITALS: BP 121/67; PULSE 100; RESP 18; TEMP 36.7; O2SAT 97
--- NOTE | 2022-11-16 10:08 | HO.PSYCHPN ---
Subjective Subjective Date of Service: 11/16/22 Reason For Visit: Schizoaffective D/o, Bipolar type; Bipolar w/ psyc Subjective Notes: Conditional Voluntary Healthcare Proxy: No Guardianship: No Medical Problems Affecting Mental Status: No Medication Compliance: Yes Side effects from medications: No Attending Groups: Intermittent Review of Systems Acute medical concerns: No Medical Review of Systems: unchanged Mental Status Exam Mental Status Exam Narrative: lying in bed Patient Appearance: Disheveled Patient Orientation: Person, Place, Time and Situation Level of Consciousness: Awake Mood Description: Calm Affect Description: Blunted Patient Cognition Impaired: No Ability to Follow Directions: Fair Speech Pattern: Clear Hallucinations: None Delusions: Not Present Thought Process: Intact and Goal Oriented Thought Content: positive for Intact and positive for Poverty of Content Depressive Symptoms: Back Pain Judgement: Fair Diagnostics Vital Signs (24Hr): Vital Signs - 24 hr 11/15/22 18:00 11/16/22 09:05 Temperature 97.5 F 98.1 F Pulse Rate 101 H 100 Respiratory Rate 18 18 Blood Pressure 135/72 121/67 Pulse Oximetry 96 97 Oxygen Delivery Method Room Air Room [facility] Labs 11/06/22 12:37 Medications Medications Current Medications Acetaminophen (Acetaminophen 325 Mg Tablet) 650 mg PO Q6H PRN PRN Reason: Headache/Pain Mild Scale (1-3) Last Admin: 11/15/22 18:49 Dose: 650 mg Al Hydroxide/Mg Hydroxide (Magnesium Hydrox/Alum Hydrox 30 Ml Oral.Susp) 30 ml PO Q6H PRN PRN Reason: Heartburn/Nausea Benztropine Mesylate (Benztropine Mesylate 1 Mg Tablet) 1 mg PO BID PRN PRN Reason: eps Clonazepam (Clonazepam 0.5 Mg Tablet) 0.5 mg PO BID PRN PRN Reason: anxiety Last Admin: 11/16/22 08:59 Dose: 0.5 mg Cyanocobalamin (Cyanocobalamin (Vitamin B-12) 500 Mcg Tablet) 500 mcg PO DAILY [facility] Last Admin: 11/16/22 09:00 Dose: 500 mcg Docusate Sodium (Docusate Sodium 100 Mg Capsule) 100 mg PO BID PRN PRN Reason: constipation Last Admin: 11/16/22 08:59 Dose: 100 mg Haloperidol Decanoate (Haloperidol Decanoate 50 Mg/Ml Ampul) 100 mg IM Q28D [facility] Last Admin: 11/15/22 08:57 Dose: 100 mg Hydroxyzine HCl (Hydroxyzine Hcl 25 Mg Tablet) 25 mg PO Q6H PRN PRN Reason: Anxiety Last Admin: 11/15/22 17:45 Dose: 25 mg Ibuprofen (Ibuprofen 400 Mg Tablet) 400 mg PO Q6H PRN PRN Reason: Pain, Moderate(Pain Scale 4-6) Last Admin: 11/09/22 15:53 Dose: 400 mg Lidocaine (Lidocaine 4 % Patch Adh..Patch) 1 patch TRANSDERMA DAILY [facility]; Protocol Last Admin: 11/15/22 08:44 Dose: Not Given Magnesium Hydroxide (Milk Of Magnesia 30 Ml Oral.Susp) 30 ml PO DAILY PRN PRN Reason: Constipation Multivitamins/Vitamin C (Multivitamin Tablet) 1 tab PO DAILY [facility] Last Admin: 11/16/22 09:00 Dose: 1 tab Nicotine Polacrilex (Nicotine Polacrilex 2 Mg Gum) 4 mg BUCCAL Q2H PRN PRN Reason: Nicotine Cravings Estradiol. 0.1 Mg/ (Day Patch) 1 each TRANSDERMA WeSa [facility] Last Admin: 11/16/22 10:03 Dose: Not Given Olanzapine (Olanzapine 7.5 Mg Tablet) 15 mg PO BID [facility] Last Admin: 11/16/22 09:00 Dose: 15 mg Trazodone HCl (Trazodone Hcl 100 Mg Tablet) 100 mg PO BEDTIME [facility] Last Admin: 11/15/22 20:17 Dose: 100 mg Allergies Allergies Allergy/AdvReac Type Severity Reaction Status Date / Time No Known Allergies Allergy Verified 09/21/22 00:15 Assessment & Plan Assessment & Plan (1) Schizoaffective disorder, bipolar type: Status: Acute Code(s): F25.0 - Schizoaffective disorder, bipolar type Assessment and Plan: 11/07/22- Continue current plan of care. 11/08/22- Declines Clozapine. Will continue with Haldol Decanoate 11/10/22- Discharge planning after Haldol Decanoate is given. 11/11/22- Continue current regime and plan of care. 11/12: Haldol Dec this week. Continue current plan of care. 11/14/22: Haldol Dec 11/15. DC PO Haldol Benztropine prn Tentative discharge early next week 11/15 continue tx. 11/16 CTP Patient educated on: medication risk/benefits Informed Consent: understands Reason for continued inpatient stay Substantial Risk for: rapid decompensation Time Spent With Patient Time: Total time managing care of this patient today ____ minutes.
[2022-11-16] MEDS: Lidocaine 4 % Patch ADH..PATCH 1 PATCH TRANSDERMA (14:56)
[2022-11-16] MEDS: hydrOXYzine HCL 25 MG TABLET PO (17:28)
[2022-11-16 18:38] VITALS: BP 121/67; PULSE 121; TEMP 36
[2022-11-16] MEDS: traZODone HCL 100 MG TABLET PO (19:13)
[2022-11-17 08:46] VITALS: BP 118/74; PULSE 86; RESP 16; TEMP 36.7; O2SAT 97
[2022-11-17] MEDS: Multivitamin TABLET 1 TAB PO (09:22)
[2022-11-17] MEDS: Cyanocobalamin (Vitamin B-12) 500 MCG TABLET PO (09:22)
[2022-11-17] MEDS: OLANZapine 7.5 MG TABLET 15 MG PO ×2 (09:22→19:30)
[2022-11-17] MEDS: clonazePAM 0.5 MG TABLET PO ×2 (09:22→19:30)
[2022-11-17] MEDS: Docusate Sodium 100 MG CAPSULE PO ×2 (09:28→19:30)
--- NOTE | 2022-11-17 10:18 | HO.PSYCHPN ---
Subjective Subjective Date of Service: 11/17/22 Reason For Visit: Schizoaffective D/o, Bipolar type; Bipolar w/ psyc Subjective Notes: Conditional Voluntary Interim History: reports doing ok - pain in back from fracture depends on position- takes lidocaine patch in pm - She reports feelingok mood- no si/psychosis, apt ok, no s/e from medications looking forward to dc will live in hotel and then get apartment in 2 weeks- has [facility] supports Medication Compliance: Yes Side effects from medications: No Mental Status Exam Mental Status Exam Narrative: lying in bed Patient Appearance: Disheveled Patient Orientation: Person, Place, Time and Situation Level of Consciousness: Awake Mood Description: Calm Affect Description: Blunted Patient Cognition Impaired: No Ability to Follow Directions: Fair Speech Pattern: Clear Hallucinations: None Delusions: Not Present Thought Process: Intact and Goal Oriented Thought Content: positive for Intact and positive for Poverty of Content Depressive Symptoms: Back Pain Judgement: Fair Diagnostics Vital Signs (24Hr): Vital Signs - 24 hr 11/16/22 18:38 11/17/22 08:46 Temperature 96.8 F 98.1 F Pulse Rate 121 H 86 Respiratory Rate 16 Blood Pressure 121/67 118/74 Pulse Oximetry 97 Oxygen Delivery Method Room Air Labs 11/06/22 12:37 Medications Medications Current Medications Acetaminophen (Acetaminophen 325 Mg Tablet) 650 mg PO Q6H PRN PRN Reason: Headache/Pain Mild Scale (1-3) Last Admin: 11/15/22 18:49 Dose: 650 mg Al Hydroxide/Mg Hydroxide (Magnesium Hydrox/Alum Hydrox 30 Ml Oral.Susp) 30 ml PO Q6H PRN PRN Reason: Heartburn/Nausea Benztropine Mesylate (Benztropine Mesylate 1 Mg Tablet) 1 mg PO BID PRN PRN Reason: eps Clonazepam (Clonazepam 0.5 Mg Tablet) 0.5 mg PO BID PRN PRN Reason: anxiety Last Admin: 11/17/22 09:22 Dose: 0.5 mg Cyanocobalamin (Cyanocobalamin (Vitamin B-12) 500 Mcg Tablet) 500 mcg PO DAILY [facility] Last Admin: 11/17/22 09:22 Dose: 500 mcg Docusate Sodium (Docusate Sodium 100 Mg Capsule) 100 mg PO BID PRN PRN Reason: constipation Last Admin: 11/17/22 09:28 Dose: 100 mg Haloperidol Decanoate (Haloperidol Decanoate 50 Mg/Ml Ampul) 100 mg IM Q28D [facility] Last Admin: 11/15/22 08:57 Dose: 100 mg Hydroxyzine HCl (Hydroxyzine Hcl 25 Mg Tablet) 25 mg PO Q6H PRN PRN Reason: Anxiety Last Admin: 11/16/22 17:28 Dose: 25 mg Ibuprofen (Ibuprofen 400 Mg Tablet) 400 mg PO Q6H PRN PRN Reason: Pain, Moderate(Pain Scale 4-6) Last Admin: 11/09/22 15:53 Dose: 400 mg Lidocaine (Lidocaine 4 % Patch Adh..Patch) 1 patch TRANSDERMA DAILY [facility]; Protocol Last Admin: 11/16/22 14:56 Dose: 1 patch Magnesium Hydroxide (Milk Of Magnesia 30 Ml Oral.Susp) 30 ml PO DAILY PRN PRN Reason: Constipation Multivitamins/Vitamin C (Multivitamin Tablet) 1 tab PO DAILY [facility] Last Admin: 11/17/22 09:22 Dose: 1 tab Nicotine Polacrilex (Nicotine Polacrilex 2 Mg Gum) 4 mg BUCCAL Q2H PRN PRN Reason: Nicotine Cravings Estradiol. 0.1 Mg/ (Day Patch) 1 each TRANSDERMA WeSa [facility] Last Admin: 11/16/22 10:03 Dose: Not Given Olanzapine (Olanzapine 7.5 Mg Tablet) 15 mg PO BID [facility] Last Admin: 11/17/22 09:22 Dose: 15 mg Trazodone HCl (Trazodone Hcl 100 Mg Tablet) 100 mg PO BEDTIME [facility] Last Admin: 11/16/22 19:13 Dose: 100 mg Allergies Allergies Allergy/AdvReac Type Severity Reaction Status Date / Time No Known Allergies Allergy Verified 09/21/22 00:15 Assessment & Plan Assessment & Plan (1) Schizoaffective disorder, bipolar type: Status: Acute Code(s): F25.0 - Schizoaffective disorder, bipolar type Assessment and Plan: 11/07/22- Continue current plan of care. 11/08/22- Declines Clozapine. Will continue with Haldol Decanoate 11/10/22- Discharge planning after Haldol Decanoate is given. 11/11/22- Continue current regime and plan of care. 11/12: Haldol Dec this week. Continue current plan of care. 11/14/22: Haldol Dec 11/15. DC PO Haldol Benztropine prn Tentative discharge early next week 11/15 continue tx. 11/16 CTP 11/17 no change Patient educated on: other (dc planning) Informed Consent: understands Reason for continued inpatient stay Substantial Risk for: rapid decompensation Time Spent With Patient Time: Total time managing care of this patient today ____ minutes.
[2022-11-17] MEDS: Acetaminophen 325 MG TABLET 650 MG PO (17:58)
[2022-11-17 18:51] VITALS: BP 116/76; PULSE 91; TEMP 36.3
[2022-11-17] MEDS: traZODone HCL 100 MG TABLET PO (19:30)
[2022-11-17] MEDS: hydrOXYzine HCL 25 MG TABLET PO (19:30)
[2022-11-18] MEDS: Cyanocobalamin (Vitamin B-12) 500 MCG TABLET PO (08:37)
[2022-11-18] MEDS: Multivitamin TABLET 1 TAB PO (08:37)
[2022-11-18] MEDS: OLANZapine 7.5 MG TABLET 15 MG PO ×2 (08:37→19:22)
[2022-11-18 09:02] VITALS: BP 103/62; PULSE 100; RESP 16; TEMP 36.4; O2SAT 97
[2022-11-18] MEDS: Ibuprofen 400 MG TABLET PO (10:08)
[2022-11-18] MEDS: clonazePAM 0.5 MG TABLET PO ×2 (13:03→19:22)
[2022-11-18] MEDS: Lidocaine 4 % Patch ADH..PATCH 1 PATCH TRANSDERMA (16:57)
[2022-11-18 18:00] VITALS: BP 120/54; PULSE 98; TEMP 36.2; O2SAT 98
[2022-11-18] MEDS: hydrOXYzine HCL 25 MG TABLET PO (18:26)
[2022-11-18] MEDS: traZODone HCL 100 MG TABLET PO (19:23)
[2022-11-18] MEDS: Docusate Sodium 100 MG CAPSULE PO (19:23)
--- NOTE | 2022-11-18 19:24 | P.PNPSI_ITS ---
Subjective Subjective Date of Service: 11/18/22 Reason For Visit: Schizoaffective D/o, Bipolar type; Bipolar w/ psyc Subjective Notes: Conditional Voluntary Healthcare Proxy: No Guardianship: No Medical Problems Affecting Mental Status: No Interim History: Pt reports ROJO was well tolerated with some redness remaining at the site. Discussed dosing, believes 75- 100 mg range is appropriate. Not feeling overmedicated. Feeling excited and anxious for new housing option, [facility]. Denies sx of depression, anxiety. Medication Compliance: Yes Side effects from medications: No Attending Groups: Intermittent Review of Systems Acute medical concerns: No Medical Review of Systems: unchanged Mental Status Exam Mental Status Exam Patient Appearance: Appropriate Patient Orientation: Person, Place, Time and Situation Level of Consciousness: Alert Patient Behavior: Appropriate, Talkative and Good Eye Contact Mood Description: Calm Affect Description: Calm Patient Cognition Impaired: No Ability to Follow Directions: Good Speech Pattern: Spontaneous Speech Memory Description: Intact Hallucinations: None Delusions: Not Present Thought Process: Intact and Goal Oriented Thought Content: positive for Intact, positive for Goal Oriented, positive for Suicidal Ideation (denies) and positive for Homicidal Ideation (denies) Depressive Symptoms: Thoughts of /Suicide (denies) Judgement: Good Diagnostics Vital Signs (24Hr): Vital Signs - 24 hr 11/18/22 09:02 Temperature 97.6 F Pulse Rate 100 Respiratory Rate 16 Blood Pressure 103/62 Pulse Oximetry 97 Oxygen Delivery Method Room Air Labs 11/06/22 12:37 Medications Medications Current Medications Acetaminophen (Acetaminophen 325 Mg Tablet) 650 mg PO Q6H PRN PRN Reason: Headache/Pain Mild Scale (1-3) Last Admin: 11/17/22 17:58 Dose: 650 mg Al Hydroxide/Mg Hydroxide (Magnesium Hydrox/Alum Hydrox 30 Ml Oral.Susp) 30 ml PO Q6H PRN PRN Reason: Heartburn/Nausea Benztropine Mesylate (Benztropine Mesylate 1 Mg Tablet) 1 mg PO BID PRN PRN Reason: eps Clonazepam (Clonazepam 0.5 Mg Tablet) 0.5 mg PO BID PRN PRN Reason: anxiety Last Admin: 11/18/22 13:03 Dose: 0.5 mg Cyanocobalamin (Cyanocobalamin (Vitamin B-12) 500 Mcg Tablet) 500 mcg PO DAILY [facility] Last Admin: 11/18/22 08:37 Dose: 500 mcg Docusate Sodium (Docusate Sodium 100 Mg Capsule) 100 mg PO BID PRN PRN Reason: constipation Last Admin: 11/17/22 19:30 Dose: 100 mg Haloperidol Decanoate (Haloperidol Decanoate 50 Mg/Ml Ampul) 100 mg IM Q28D [facility] Last Admin: 11/15/22 08:57 Dose: 100 mg Hydroxyzine HCl (Hydroxyzine Hcl 25 Mg Tablet) 25 mg PO Q6H PRN PRN Reason: Anxiety Last Admin: 11/18/22 18:26 Dose: 25 mg Ibuprofen (Ibuprofen 400 Mg Tablet) 400 mg PO Q6H PRN PRN Reason: Pain, Moderate(Pain Scale 4-6) Last Admin: 11/18/22 10:08 Dose: 400 mg Lidocaine (Lidocaine 4 % Patch Adh..Patch) 1 patch TRANSDERMA DAILY [facility]; Protocol Last Admin: 11/18/22 16:57 Dose: 1 patch Magnesium Hydroxide (Milk Of Magnesia 30 Ml Oral.Susp) 30 ml PO DAILY PRN PRN Reason: Constipation Multivitamins/Vitamin C (Multivitamin Tablet) 1 tab PO DAILY [facility] Last Admin: 11/18/22 08:37 Dose: 1 tab Nicotine Polacrilex (Nicotine Polacrilex 2 Mg Gum) 4 mg BUCCAL Q2H PRN PRN Reason: Nicotine Cravings Estradiol. 0.1 Mg/ (Day Patch) 1 each TRANSDERMA WeSa [facility] Last Admin: 11/16/22 10:03 Dose: Not Given Olanzapine (Olanzapine 7.5 Mg Tablet) 15 mg PO BID [facility] Last Admin: 11/18/22 08:37 Dose: 15 mg Trazodone HCl (Trazodone Hcl 100 Mg Tablet) 100 mg PO BEDTIME [facility] Last Admin: 11/17/22 19:30 Dose: 100 mg Allergies Allergies Allergy/AdvReac Type Severity Reaction Status Date / Time No Known Allergies Allergy Verified 09/21/22 00:15 Assessment & Plan Assessment & Plan (1) Schizoaffective disorder, bipolar type: Status: Acute Code(s): F25.0 - Schizoaffective disorder, bipolar type Assessment and Plan: 11/07/22- Continue current plan of care. 11/08/22- Declines Clozapine. Will continue with Haldol Decanoate 11/10/22- Discharge planning after Haldol Decanoate is given. 11/11/22- Continue current regime and plan of care. 11/12: Haldol Dec this week. Continue current plan of care. 11/14/22: Haldol Dec 11/15. DC PO Haldol Benztropine prn Tentative discharge early next week 11/15 continue tx. 11/16 CTP 11/17 no change 11/18/22 Continue current regime and plan of care. Patient educated on: medication risk/benefits and therapeutic strategies Informed Consent: understands Reason for continued inpatient stay Substantial Risk for: rapid decompensation Time Spent With Patient Time: Total time managing care of this patient today ____ minutes.
[2022-11-19] MEDS: Acetaminophen 325 MG TABLET 650 MG PO (00:38)
[2022-11-19] MEDS: OLANZapine 7.5 MG TABLET 15 MG PO ×2 (08:19→20:03)
[2022-11-19] MEDS: clonazePAM 0.5 MG TABLET PO ×2 (08:19→20:08)
[2022-11-19] MEDS: Cyanocobalamin (Vitamin B-12) 500 MCG TABLET PO (08:19)
[2022-11-19] MEDS: Multivitamin TABLET 1 TAB PO (08:19)
[2022-11-19 08:41] VITALS: BP 110/74; PULSE 106; RESP 16; TEMP 36.4; O2SAT 97
[2022-11-19] MEDS: Docusate Sodium 100 MG CAPSULE PO (09:03)
[2022-11-19] MEDS: Lidocaine 4 % Patch ADH..PATCH 1 PATCH TRANSDERMA (09:35)
[2022-11-19] MEDS: hydrOXYzine HCL 25 MG TABLET PO ×2 (15:10→20:05)
--- NOTE | 2022-11-19 16:09 | P.PNPSI_ITS ---
Subjective Subjective Date of Service: 11/19/22 Reason For Visit: Schizoaffective D/o, Bipolar type; Bipolar w/ psyc Subjective Notes: Conditional Voluntary Healthcare Proxy: No Guardianship: No Medical Problems Affecting Mental Status: No Interim History: Pt reports feeling well and prepared for discharge. She is excited and apprehensive about moving to her new apartment within the next few weeks. She plans to return to the hotel she was staying at to await the availability of the apartment. Review of questions, medicines and current plans. Medication Compliance: Yes Side effects from medications: No Attending Groups: No Review of Systems Acute medical concerns: No Medical Review of Systems: unchanged Mental Status Exam Mental Status Exam Patient Appearance: Appropriate Patient Orientation: Person, Place, Time and Situation Level of Consciousness: Alert Patient Behavior: Appropriate, Talkative and Good Eye Contact Mood Description: Calm Affect Description: Calm Patient Cognition Impaired: No Ability to Follow Directions: Good Speech Pattern: Spontaneous Speech Memory Description: Intact Hallucinations: None Delusions: Not Present Thought Process: Intact and Goal Oriented Thought Content: positive for Intact, positive for Goal Oriented, positive for Suicidal Ideation (denies) and positive for Homicidal Ideation (denies) Depressive Symptoms: Thoughts of /Suicide (denies) Judgement: Good Diagnostics Vital Signs (24Hr): Vital Signs - 24 hr 11/18/22 18:00 11/19/22 08:41 Temperature 97.2 F 97.5 F Pulse Rate 98 106 H Respiratory Rate 16 Blood Pressure 120/54 L 110/74 Pulse Oximetry 98 97 Oxygen Delivery Method Room Air Room Air Labs 11/06/22 12:37 Medications Medications Current Medications Acetaminophen (Acetaminophen 325 Mg Tablet) 650 mg PO Q6H PRN PRN Reason: Headache/Pain Mild Scale (1-3) Last Admin: 11/19/22 00:38 Dose: 650 mg Al Hydroxide/Mg Hydroxide (Magnesium Hydrox/Alum Hydrox 30 Ml Oral.Susp) 30 ml PO Q6H PRN PRN Reason: Heartburn/Nausea Benztropine Mesylate (Benztropine Mesylate 1 Mg Tablet) 1 mg PO BID PRN PRN Reason: eps Clonazepam (Clonazepam 0.5 Mg Tablet) 0.5 mg PO BID PRN PRN Reason: anxiety Last Admin: 11/19/22 08:19 Dose: 0.5 mg Cyanocobalamin (Cyanocobalamin (Vitamin B-12) 500 Mcg Tablet) 500 mcg PO DAILY [facility] Last Admin: 11/19/22 08:19 Dose: 500 mcg Docusate Sodium (Docusate Sodium 100 Mg Capsule) 100 mg PO BID PRN PRN Reason: constipation Last Admin: 11/19/22 09:03 Dose: 100 mg Haloperidol Decanoate (Haloperidol Decanoate 50 Mg/Ml Ampul) 100 mg IM Q28D [facility] Last Admin: 11/15/22 08:57 Dose: 100 mg Hydroxyzine HCl (Hydroxyzine Hcl 25 Mg Tablet) 25 mg PO Q6H PRN PRN Reason: Anxiety Last Admin: 11/19/22 15:10 Dose: 25 mg Ibuprofen (Ibuprofen 400 Mg Tablet) 400 mg PO Q6H PRN PRN Reason: Pain, Moderate(Pain Scale 4-6) Last Admin: 11/18/22 10:08 Dose: 400 mg Lidocaine (Lidocaine 4 % Patch Adh..Patch) 1 patch TRANSDERMA DAILY [facility]; Protocol Last Admin: 11/19/22 09:35 Dose: 1 patch Magnesium Hydroxide (Milk Of Magnesia 30 Ml Oral.Susp) 30 ml PO DAILY PRN PRN Reason: Constipation Multivitamins/Vitamin C (Multivitamin Tablet) 1 tab PO DAILY [facility] Last Admin: 11/19/22 08:19 Dose: 1 tab Nicotine Polacrilex (Nicotine Polacrilex 2 Mg Gum) 4 mg BUCCAL Q2H PRN PRN Reason: Nicotine Cravings Estradiol. 0.1 Mg/ (Day Patch) 1 each TRANSDERMA WeSa [facility] Last Admin: 11/16/22 10:03 Dose: Not Given Olanzapine (Olanzapine 7.5 Mg Tablet) 15 mg PO BID [facility] Last Admin: 11/19/22 08:19 Dose: 15 mg Trazodone HCl (Trazodone Hcl 100 Mg Tablet) 100 mg PO BEDTIME [facility] Last Admin: 11/18/22 19:23 Dose: 100 mg Allergies Allergies Allergy/AdvReac Type Severity Reaction Status Date / Time No Known Allergies Allergy Verified 09/21/22 00:15 Assessment & Plan Assessment & Plan (1) Schizoaffective disorder, bipolar type: Status: Acute Code(s): F25.0 - Schizoaffective disorder, bipolar type Assessment and Plan: 11/07/22- Continue current plan of care. 11/08/22- Declines Clozapine. Will continue with Haldol Decanoate 11/10/22- Discharge planning after Haldol Decanoate is given. 11/11/22- Continue current regime and plan of care. 11/12: Haldol Dec this week. Continue current plan of care. 11/14/22: Haldol Dec 11/15. DC PO Haldol Benztropine prn Tentative discharge early next week 11/15 continue tx. 11/16 CTP 11/17 no change 11/18/22 Continue current regime and plan of care. 11/19/22: CMP, EKG in the a.m. Discharge to out patient care 11/20/22. Patient educated on: medication risk/benefits and therapeutic strategies Informed Consent: understands Reason for continued inpatient stay Substantial Risk for: rapid decompensation Time Spent With Patient Time: Total time managing care of this patient today ____ minutes.
[2022-11-19 16:16] VITALS: BP 100/60; PULSE 96; RESP 16; TEMP 36.3; O2SAT 99
[2022-11-19] MEDS: traZODone HCL 100 MG TABLET PO (20:04)
[2022-11-20] MEDS: Acetaminophen 325 MG TABLET 650 MG PO (04:23)
[2022-11-20] MEDS: Cyanocobalamin (Vitamin B-12) 500 MCG TABLET PO (08:15)
[2022-11-20] MEDS: clonazePAM 0.5 MG TABLET PO (08:15)
[2022-11-20] MEDS: OLANZapine 7.5 MG TABLET 15 MG PO (08:15)
[2022-11-20] MEDS: Multivitamin TABLET 1 TAB PO (08:15)
[2022-11-20 08:16] LABS: Alanine Aminotransferase 22 U/L (0-31); Albumin Level 3.8 g/dL (3.5-5.0); Alkaline Phosphatase 80 U/L (39-117); Anion Gap 14 (12-20); Aspartate Amino Transferase 26 U/L (5-31); Bilirubin Total 1.1 mg/dL (0.0-1.0); Blood Urea Nitrogen 14 mg/dL (9-16); Carbon Dioxide 29 mmol/L (22-29); Chloride 101 mmol/L (96-108); Estimated Glomerular Filt Rate > 60; Glucose Random 88 mg/dL (60-115); Potassium 4.1 mmol/L (3.3-5.1); Sodium 140 mmol/L (135-145); Total Protein 6.5 g/dL (6.5-8.0)
--- NOTE | 2022-11-20 09:00 | ECG_ITS ---
Test Reason : qtc check Blood Pressure : / mmHG Vent. Rate : 093 BPM Atrial Rate : 093 BPM P-R Int : 152 ms QRS Dur : 096 ms QT Int : 350 ms P-R-T Axes : 063 085 070 degrees QTc Int : 435 ms Normal sinus rhythm Normal ECG When compared with ECG of 21-SEP-2022 07:43, No significant change was found Referred By: Kelle Williamson Electronically Signed By:BRITTA ROBERSON MD
[2022-11-20 09:12] VITALS: BP 125/60; PULSE 130; RESP 18; TEMP 36.1; O2SAT 98
[2022-11-20] MEDS: Lidocaine 4 % Patch ADH..PATCH 1 PATCH TRANSDERMA (09:16)
[2022-11-20] MEDS: Docusate Sodium 100 MG CAPSULE PO (10:01)
[2022-11-20] MEDS: hydrOXYzine HCL 25 MG TABLET PO (11:22)
--- NOTE | 2022-12-28 11:48 | PM.PSYDC ---
DS: Providers Provider Date of Service: 11/20/22 Date of admission: 11/04/22 20:35 Date of discharge: 11/20/22 Primary care physician: Donte Chowdary III, MD Admitting clinician: Kelle Williamson Attending physician on admission: Devan Sanchez Consults: 11/04/22 17:09 Consult to Hospitalist Routine Comment: Consulting Provider: Hospitalist Reason For Exam: Transfer from [facility] Attending physician on discharge: Devan Sanchez Discharging clinician: Kelle Williamson DS: Diagnosis Discharge Diagnosis (1) Schizoaffective disorder, bipolar type: Status: Acute DS: Medications Discharge Medications Home Medications: Previous Rx's Medication Instructions Recorded acetaminophen 325 mg tablet 650 mg PO Q6H PRN Headache/Pain 10/28/22 Mild Scale (1-3) #90 tabs estradiol 0.1 mg/24 hr semiweekly 1 patch transdermal 2XW #8 ea 10/28/22 transdermal patch estradiol 0.1 mg/24 hr semiweekly 1 patch transdermal 2XW #8 ea 11/11/22 transdermal patch benztropine 1 mg tablet 1 mg PO BID PRN eps #60 tabs 11/19/22 clonazepam 0.5 mg tablet 0.5 mg PO BID PRN Anxiety #60 tabs 11/19/22 cyanocobalamin (vitamin B-12) 500 500 mcg PO DAILY #30 tabs 11/19/22 mcg tablet docusate sodium 100 mg capsule 100 mg PO BID #60 caps 11/19/22 haloperidol decanoate 100 mg/mL 100 mg IM Q4W #1 mL 11/19/22 intramuscular solution (Haldol Decanoate) hydroxyzine HCl 25 mg tablet 25 mg PO Q6H PRN Anxiety #60 tabs 11/19/22 ibuprofen 400 mg tablet 400 mg PO Q6H PRN Pain, 11/19/22 Moderate(Pain Scale 4-6) #30 tabs lidocaine 4 % topical patch 1 patch transdermal DAILY #30 ea 11/19/22 (Lidocaine Pain Relief) multivitamin (Daily-Alvinia tablet) 1 tab PO DAILY #30 tabs 11/19/22 nicotine (polacrilex) 4 mg gum 4 mg buccal Q2H PRN nicotine 11/19/22 cravings #50 ea olanzapine 15 mg tablet (Zyprexa) 15 mg PO BID #60 tabs 11/19/22 trazodone 100 mg tablet 100 mg PO BEDTIME #0 tabs 11/19/22 trazodone 100 mg tablet 100 mg PO BEDTIME #30 tabs 11/19/22 syringe with needle 3 mL 21 gauge #1 ea 12/05/22 x 1 (Syringe) benztropine 1 mg tablet 1 mg PO BID PRN EPS #60 tabs 12/25/22 clonazepam 0.5 mg tablet (Klonopin) 0.5 mg PO BID PRN anxiety #60 tabs 12/25/22 docusate sodium 100 mg capsule 100 mg PO BID #60 caps 12/25/22 (Colace) haloperidol decanoate 100 mg/mL 100 mg IM Q4W #1 mL 12/25/22 intramuscular solution (Haldol Decanoate) hydroxyzine HCl 25 mg tablet 25 mg PO QID PRN anxiety #30 tabs 12/25/22 multivitamin 1 tab PO DAILY #30 tabs 12/25/22 olanzapine 15 mg tablet 15 mg PO BID #60 tabs 12/25/22 syringe with needle 3 mL 21 gauge #1 ea 12/25/22 x 1 (Syringe) trazodone 100 mg tablet 100 mg PO BEDTIME #30 tabs 12/25/22 vitamin B12 500 mcg-folic acid 400 1 tab PO DAILY #30 tabs 12/25/22 mcg tablet Mental Status Exam Mental Status Exam Patient Appearance: Appropriate Patient Orientation: Person, Place, Time and Situation Level of Consciousness: Alert Patient Behavior: Appropriate, Talkative and Good Eye Contact Mood Description: Calm Affect Description: Calm Patient Cognition Impaired: No Ability to Follow Directions: Good Speech Pattern: Spontaneous Speech Memory Description: Intact Hallucinations: None Delusions: Not Present Thought Process: Intact and Goal Oriented Thought Content: positive for Intact, positive for Goal Oriented, positive for Suicidal Ideation (denies) and positive for Homicidal Ideation (denies) Depressive Symptoms: Thoughts of /Suicide (denies) Judgement: Good DS: Summary Hospital Course Hospital Course: Admission to adult psychiatry for exacerbation of schizoaffective disorder, bipolar type. Pt was recently in patient 09/21/22 to 10/28/22. She was discharged to respite, with a plan to remain there until her new apartment was ready at the end of November. Team reports she left after one day, was not compliant with medicine and returns with report that she was given incorrect vitamins as an out pt and returns to have these adjusted. Medications were reviewed, re-started and pt tolerated these without event. Education and support were provided along with encouragement to accept OP team and [facility] support of her during the transition to her new apartment. Pt was able to recompensate, comply with medications, again accept VNA to help with medicine compliance. Currently, she will return to a hotel she chose to stay in until her apartment is completed. She agrees with medication plans and with out patient follow up plans for aftercare. She will call and/or return if needed. Time spent discussing smoking cessation with patient: 3 to 10 minutes Status at Discharge Functional status at discharge: independent ambulation Overall status at discharge: patient is progressing back to baseline Time Spent with Patient Time attestation: Total time managing care of this patient today ____ minutes. Time spent: Greater than 30 minutes Discharge Plan Discharge Anticipated Discharge Date/Time: 11/20/22 12:00 Patient Disposition: Xfer Other Discharge Diagnosis: Schizoaffective Disorder, Bipolar Type Referrals: [facility] [Other] - 1 Week (fax- [phone] services will resume the day of D/C- 11/20/22. ) [facility] (therapist) [Other] - 1 Week (Hospital follow-up appointment with therapist patient should follow-up with therapist after discharge as appointment not given. ) [facility] [Other] (Walk in if needed) Discharge Medications: New lidocaine [Lidocaine Pain Relief] 4 % Adhesive Patch,Medicated 1 patch transdermal DAILY Qty: 30 0RF Protocol: Apply to: Apply to: back cyanocobalamin (vitamin B-12) 500 mcg Tablet 500 mcg PO DAILY Qty: 30 0RF ibuprofen 400 mg Tablet 400 mg PO Q6H PRN (Reason: Pain, Moderate(Pain Scale 4-6)) Qty: 30 0RF benztropine 1 mg Tablet 1 mg PO BID PRN (Reason: eps) Qty: 60 0RF trazodone 100 mg tablet 100 mg PO BEDTIME Qty: 30 0RF nicotine (polacrilex) 4 mg gum 4 mg buccal Q2H PRN (Reason: nicotine cravings) Qty: 50 0RF trazodone 100 mg Tablet 100 mg PO BEDTIME Qty: 0 0RF (DME) Syringe 3cc/21Gx1 3 mL 21 gauge x 1 syringe See Rx Instructions .Route Qty: 1 0RF Rx Instructions: As directed benztropine 1 mg tablet 1 mg PO BID PRN (Reason: EPS) Qty: 60 0RF vitamin C55-vltrt acid 500-400 mcg tablet 1 tab PO DAILY Qty: 30 0RF Rx Instructions: administer with a meal trazodone 100 mg tablet 100 mg PO BEDTIME Qty: 30 0RF (DME) Syringe 3cc/21Gx1 3 mL 21 gauge x 1 syringe See Rx Instructions .Route Qty: 1 0RF Rx Instructions: As directed clonazepam [Klonopin] 0.5 mg tablet 0.5 mg PO BID PRN (Reason: anxiety) Qty: 60 0RF docusate sodium [Colace] 100 mg capsule 100 mg PO BID Qty: 60 0RF haloperidol decanoate [Haldol Decanoate] 100 mg/mL solution 100 mg IM Q4W Qty: 1 0RF hydroxyzine HCl 25 mg tablet 25 mg PO QID PRN (Reason: anxiety) Qty: 30 0RF multivitamin Tablet 1 tab PO DAILY Qty: 30 0RF olanzapine 15 mg tablet 15 mg PO BID Qty: 60 0RF Continued acetaminophen 325 mg Tablet 650 mg PO Q6H PRN (Reason: Headache/Pain Mild Scale (1-3)) Qty: 90 0RF estradiol 0.1 mg/24 hr patch semiweekly 1 patch transdermal 2XW Qty: 8 0RF Rx Instructions: Friday, Friday estradiol 0.1 mg/24 hr patch semiweekly 1 patch transdermal 2XW Qty: 8 0RF Rx Instructions: apply 1 patch for 3 days alternating with 1 patch for 4 days each week for 3 wks per 4-wk cycle multivitamin [Daily-Lavinia] Tablet 1 tab PO DAILY Qty: 30 0RF haloperidol decanoate [Haldol Decanoate] 100 mg/mL solution 100 mg IM Q4W Qty: 1 0RF clonazepam 0.5 mg Tablet 0.5 mg PO BID PRN (Reason: Anxiety) Qty: 60 0RF docusate sodium 100 mg Capsule 100 mg PO BID Qty: 60 0RF hydroxyzine HCl 25 mg Tablet 25 mg PO Q6H PRN (Reason: Anxiety) Qty: 60 0RF olanzapine [Zyprexa] 15 mg tablet 15 mg PO BID Qty: 60 0RF Discontinued haloperidol 5 mg Tablet 5 mg PO BID Qty: 60 0RF nicotine (polacrilex) 2 mg Gum 4 mg buccal Q2H PRN (Reason: Nicotine Cravings) Qty: 60 0RF nicotine 21 mg/24 hr Patch 24 Hour 21 mg transdermal DAILY Qty: 30 0RF cyanocobalamin (vitamin B-12) [Vitamin B-12] 100 mcg Tablet 100 mcg PO DAILY Qty: 30 0RF lidocaine [Lidocaine Pain Relief] 4 % Adhesive Patch,Medicated 1 patch transdermal DAILY Qty: 30 0RF Protocol: Apply to: Apply to: affected area trazodone 50 mg Tablet 50 mg PO BEDTIME MRX1 PRN (Reason: Insomnia) Qty: 60 0RF ibuprofen 800 mg Tablet 800 mg PO Q8H PRN (Reason: Pain, Mild (Pain Scale 1-3)) Qty: 60 0RF Discharge Orders: Discharge Order (Routine); Ordered 11/20/22 Ordered By: Kelle Williamson Diet: Advance to usual diet Activity on Discharge: As tolerated Stand Alone Forms: Patient Portal Discharge page, Community Support Care Plan Goals: Mood and Behavioral Stabilization Health Concerns: Mood and Behavioral Stabilization Plan of Treatment: Attend follow up appointments Take medications as directed Haldol Decanoate injection is due to be given on December 13, 2022 Assessment: Pt interviewed prior to discharge and found to be fully oriented and without SI/HI. Pt has insight and demonstrates good judgment in terms of wanting to pursue treatment. Pt is not in imminent risk of harm to self or others and has a safety plan that includes presenting to the closest ER or calling 911 if feeling unsafe. Pt has been observed closely by nursing and unit staff throughout admission. Pt has not engaged in any behaviors that suggest dangerousness to self or others and has demonstrated appropriate behaviors and impulse control. Discharge Date/Time: 11/20/22 11:47
== END 2022-11-20 11:47 | disposition other institution (70) | DRG 885 ==
PROVIDERS: Admitting Provider Psychiatry & Neurology Psychiatry; PCP Internal Medicine; Visit Provider Clinical Nurse Specialist Psychiatric/Mental Health, Adult
DX: F25.0 Schizoaffective disorder, bipolar type (principal); F43.10 Post-traumatic stress disorder, unspecified; F17.210 Nicotine dependence, cigarettes, uncomplicated; Z71.6 Tobacco abuse counseling; Z79.899 Other long term (current) drug therapy
CPT/HCPCS: 36415; 80053; 80061; 82607; 82746; 83036; 83735; 84439; 85025; 87651; 93005

== ENCOUNTER → 2022-11-04 20:35 | Outpatient (BNV) | payer MEDICARE, MEDICAID, SELFPAY | PROVIDERS: Admitting Provider Psychiatry & Neurology Psychiatry; PCP Internal Medicine; Visit Provider Clinical Nurse Specialist Psychiatric/Mental Health, Adult | DX: F25.0 Schizoaffective disorder, bipolar type (principal) | CPT/HCPCS: 90792; 99231; 99232; 99239 ==

== ENCOUNTER 2022-11-15 08:09 | Outpatient (REF) | payer MEDICARE, MEDICAID, SELFPAY | END 2022-11-15 08:10 | disposition home or self-care (01) | LOC: HO.HOSX 08:09 | PROVIDERS: Visit Provider Physician Assistant | DX: Z13.89 Encounter for screening for other disorder (principal) ==

== ENCOUNTER 2024-09-08 18:20 | Inpatient (IN) | payer MEDICARE, MEDICAID, SELFPAY ==
--- NOTE | 2024-09-08 18:29 | ED_ITS ---
HPI - General Adult General Chief complaint: Psychiatric Symptoms Stated complaint: crisis eval Time Seen by Provider: 09/08/24 19:07 Source: patient Limitations: no limitations History of Present Illness ED Provider: Anali Hartley PA-C HPI narrative: 29-year-old female with a history of schizoaffective disorder of bipolar type, who presents requiring medical clearance. Patient states she was just discharged from [facility] She states she requires a medical clearance so she can return to work, she currently works for the [employer]. Related Data Home Medications ?Medication ?Instructions ?Recorded ?Confirmed estradiol 3 mg PO DAILY 09/08/24 09/08/24 ferrous sulfate 324 mg PO DAILY 09/08/24 09/08/24 quetiapine 75 mg PO QNOON 09/08/24 09/08/24 quetiapine 100 mg PO DAILY 09/08/24 09/08/24 quetiapine 250 mg PO BEDTIME 09/08/24 09/08/24 Allergies Allergy/AdvReac Type Severity Reaction Status Date / Time amoxicillin Allergy Facial Verified 09/08/24 18:39 Swelling Review of Systems 2 Review of Systems: Yes all other systems are reviewed and are negative Constitutional: Constitutional: Denies fatigue and Denies fever(s) Cardiovascular: Cardiovascular: Denies chest pain and Denies dyspnea Respiratory: Respiratory: Denies cough and Denies dyspnea Gastrointestinal: Gastrointestinal: Denies abdominal pain, Denies nausea and Denies vomiting Endocrine: Endocrine: Denies fatigue PMFSH Past Medical History Attestation statement: The following information was validated with the patient. Medical History PTSD (post-traumatic stress disorder) Schizoaffective disorder, bipolar type Social History Social History Household Members: None Housing: Other Do you presently have visiting nurse or other home services: Yes Alcohol intake: current Alcohol intake frequency: holidays/special occasions only Patient Tobacco Use Status: Current everyday Tobacco user Tobacco use type: Cigarette Cigarette Packs Per Day: 0.33 Cigarettes Per Day: 6.6 e-Cigarette/Vaping Use: Never Used Second Hand Smoke Exposure: No Substance Use Type: Caffiene Advance Directives: No Advance Directives Information Provided: Yes service: No Sexual orientation: transgender Physical Exam ED Vital Signs: Vital Signs - 24 hr 09/08/24 18:37 09/09/24 06:15 Temperature 97.7 F Pulse Rate 85 Respiratory Rate 16 16 Blood Pressure 121/76 Pulse Oximetry 100 Oxygen Delivery Method Room Air BMI result Body Mass Index 24.2 Const Other: Alert Orientation/consciousness: patient oriented x3 Resp Effort & Inspection: normal respiratory effort Cardio Other: Normal peripheral perfusion Skin Other: Warm dry no rash Neuro General: patient oriented x3, gait normal, no focal motor deficits and CN's II- XI intact bilaterally Psych Other: unorganized thought process. paranoid delusions appears to be talking to herself on my exam. Course Course Course Narrative: This is a Rapid Medical Examination (RME) performed by Avni Mcmanus PA-C in triage. Full HPI, ROS, assessment and treatment plan per primary provider in the Main ED. 09/08/241837 KATIA Canales Hx: 29 yo transgender male to female presents to the ED today requesting to speak with crisis. states she works for the [employer] and she needs clearance in order to return back to work. story is quite unclear. no SI/HI. PE/vitals: vitals stable. unorganized thought process. paranoid delusions appears to be talking to herself on my exam. Plan: med clearance, care team eval Reevaluation(s) Reevaluation #1: speaking with Twila from the care team, Time: 19:41 Date: 09/08/24 Provider: KATIA Flores Patient in physician observation for psychiatric evaluation.? No acute events reported overnight. No current complaints. VS stable.? Patient is in bed search status/pending CARE team evaluation. Will continue to monitor. the Pt will be a bed search, she is very grandiose in her thought process with paranoid delusions, and again she was responding to internal stimuli from triage, Time: 19:40 Reevaluation #2: Time: 07:05 Date: 09/09/24 Provider: Karen Westbrook DO Patient in physician observation for psychiatric evaluation.? No acute events reported overnight. No current complaints. VS stable.? Patient is in bed search status. Will continue to monitor. Reevaluation #3: Time: 13:00 Date: 09/09/24 Provider: Karen Westbrook DO Physician observation ended at 1300. Patient to be admitted as inpatient to psychiatry Medications Administered Generic Name Dose Route Start Last Admin Trade Name Freq PRN Reason Stop Dose Admin Estradiol 3 mg 09/09/24 09:00 09/09/24 09:08 Estradiol 0.5 Mg Tablet PO 3 mg DAILY REYES Administration Ferrous Sulfate 324 mg 09/09/24 09:00 09/09/24 09:09 Ferrous Sulfate 324 Mg Tablet.Dr PO 324 mg DAILY REYES Administration Quetiapine Fumarate 200 mg 09/08/24 23:30 09/08/24 23:36 Quetiapine Fumarate 200 Mg Tablet PO 200 mg BEDTIME REYES Administration Quetiapine Fumarate 100 mg 09/09/24 09:00 09/09/24 09:08 Quetiapine Fumarate 100 Mg Tablet PO 100 mg DAILY REYES Administration Quetiapine Fumarate 75 mg 09/09/24 12:00 09/09/24 11:37 Quetiapine Fumarate 25 Mg Tablet PO 75 mg DAILY@1200 REYES Administration Quetiapine Fumarate 50 mg 09/08/24 23:30 09/08/24 23:36 Quetiapine Fumarate 50 Mg Tablet PO 50 mg BEDTIME REYES Administration Discontinued Medications Generic Name Dose Route Start Last Admin Trade Name Freq PRN Reason Stop Dose Admin Acetaminophen 650 mg 09/08/24 23:20 09/08/24 23:35 Acetaminophen 325 Mg Tablet PO 09/08/24 23:21 325 mg ONCE ONE Administration Acetaminophen 650 mg 09/09/24 05:59 09/09/24 09:08 Acetaminophen 325 Mg Tablet PO 09/09/24 06:00 650 mg ONCE ONE Administration Diphenhydramine HCl 50 mg 09/08/24 20:23 09/08/24 20:26 Diphenhydramine Hcl 25 Mg Capsule PO 09/08/24 20:24 50 mg ONCE ONE Administration Medical Decision Making Medical Decision Making MDM Narrative: 29-year-old female with a history of schizoaffective disorder of bipolar type, who presents requiring medical clearance. Patient states she was just discharged from [facility] [place]. She states she requires a medical clearance so she can return to work, she currently works for the [employer]. Problem: Schizoaffective disorder bipolar type History: Per patient I have considered the following differential diagnoses: SI, HI, decompensated psychiatric illness, drug/alcohol intoxication Plan: Patient will be referred to the care team, in triage she was responding to internal stimuli and was exhibiting paranoid delusions, I foresee her potentially being another bed search unless this is her baseline. I have independently reviewed the following tests: Labs: No lab abnormalities, U tox positive for marijuana, ethanol negative, Lab Data 09/08/24 19:57 09/08/24 19:57 Labs: Lab Results 09/08/24 09/08/24 Range/Units 19:57 20:24 WBC 7.9 (4.8-10.8) X10*3/uL RBC 4.21 (4.20-5.50) X10*6/uL Hgb 12.7 (12.0-16.0) g/dl Hct 37.4 (37.0-47.0) % MCV 88.8 (80.0-98.0) fL MCH 30.2 (27.0-33.0) pg MCHC 34.0 (31.0-35.0) g/dl RDW 14.0 (11.0-16.0) % Plt Count 314 (160-400) X10*3/uL MPV 8.6 L (9.4-12.3) fL Immature Gran % (Auto) 0.4 (0.0-0.4) % Neut % (Auto) 55.4 (45-73) % Lymph % (Auto) 26.9 (20-40) % [place] % (Auto) 15.5 H (2-11) % Eos % (Auto) 1.4 (0-4) % Baso % (Auto) 0.4 (0-2) % Lymph # (Auto) 2.1 (1.2-4.9) X10*3/uL [place] # (Auto) 1.2 (0.1-1.2) X10*3/uL Eos # (Auto) 0.1 (0.0-0.4) X10*3/uL Baso # (Auto) 0.0 (0.0-0.2) X10*3/uL Abs Immat Gran (auto) 0.03 (0.00-0.03) X10*3/uL Absolute Neuts (auto) 4.4 (2.0-8.3) x10*3/uL Absolute Nucleated RBC 0.000 (0.0-0.012) X10*3/uL Nucleated RBC % (auto) 0.0 (0.0-0.2) /100WBC Sodium 137 (135-145) mmol/L Potassium 4.0 (3.3-5.1) mmol/L Chloride 102 (96-108) mmol/L Carbon Dioxide 26 (22-29) mmol/L Anion Gap 13 (12-20) BUN 15 (9-16) mg/dL Creatinine 0.82 (0.5-1.4) mg/dL Estim Creat Clear Calc 106.7 Estimated GFR > 60 Random Glucose 68 (60-115) mg/dL Calcium 9.1 D (8.4-10.2) mg/dL Magnesium 1.9 (1.6-2.6) mg/dL Total Bilirubin 1.1 H (0.0-1.0) mg/dL AST 59 H (5-31) U/L ALT 52 H (0-31) U/L Alkaline Phosphatase 98 (39-117) U/L Total Protein 6.7 (6.5-8.0) g/dL Albumin 4.2 (3.5-5.0) g/dL Lipase 28 (8-78) U/L Beta HCG, Quant < 2 mIU/mL Urine Color Yellow Urine Appearance Clear Urine pH 5.5 (5.0-9.0) Ur Specific [place] 1.020 (1.005-1.025) Urine Protein Negative (Neg-Trace) mg/dL Urine Glucose (UA) Negative (Negative) mg/dL Urine Ketones Negative (Negative) mg/dL Urine Blood Negative (Negative) Urine Nitrite Negative (Negative) Ur Leukocyte Esterase Negative (Negative) Salicylates < 5.0 L (15-30) mg/dL Urine Opiates Screen Not Detected (Not Detect) Ur Buprenorphine Scrn Not Detected (Not Detect) ng/mL Ur Oxycodone Screen Not Detected (Not Detect) ng/mL Urine Methadone Screen Not Detected (Not Detect) ng/mL Urine Fentanyl Screen Not Detected (Not Detect) Acetaminophen < 3 (<30) mcg/mL Ur Barbiturates Screen Not Detected (Not Detect) Ur Phencyclidine Scrn Not Detected (Not Detect) Ur Amphetamines Screen Not Detected (Not Detect) U Benzodiazepines Scrn Not Detected (Not Detect) Urine Cocaine Screen Not Detected (Not Detect) U Marijuana (THC) Screen POSITIVE H (Not Detect) Ethyl Alcohol < 10 mg/dL Influenza Type A (PCR) NEGATIVE (Negative) Influenza Type B (PCR) NEGATIVE (Negative) RSV RNA Qual (PCR) NEGATIVE (Negative) SARS-CoV-2 RNA (RT-PCR) NEGATIVE (Negative) Discharge Plan Discharge Clinical Impression: Paranoid delusion Patient Disposition: Admitted As Inpatient Interventions: Admission Worksheet (ED) Last Done: 09/09/24 12:40 Discharge Date/Time: 09/09/24 13:14
[2024-09-08 18:37] VITALS: BP 121/76; PULSE 85; RESP 16; TEMP 36.5; O2SAT 100; BMI 24.2
[2024-09-08 20:02] LABS: MANUAL DIFF FLAG NO
[2024-09-08 20:11] LABS: Basophils Percent Auto 0.4 % (0-2); Eosinophils Absolute Auto 0.1 X10*3/uL (0.0-0.4); Eosinophils Percent Auto 1.4 % (0-4); Hematocrit 37.4 % (37.0-47.0); Hemoglobin 12.7 g/dl (12.0-16.0); Imm Gran Abs Auto 0.03 X10*3/uL (0.00-0.03); Imm Gran Pct Auto 0.4 % (0.0-0.4); Lymphocytes Absolute Auto 2.1 X10*3/uL (1.2-4.9); Lymphocytes Percent Auto 26.9 % (20-40); Mean Corpuscular Hemoglobin 30.2 pg (27.0-33.0); Mean Corpuscular Volume 88.8 fL (80.0-98.0); Mean Platelet Volume 8.6 fL (9.4-12.3); Monocytes Absolute Auto 1.2 X10*3/uL (0.1-1.2); Monocytes Percent Auto 15.5 % (2-11); Neutrophils Absolute Auto 4.4 x10*3/uL (2.0-8.3); Neutrophils Percent Auto 55.4 % (45-73); Platelet Count 314 X10*3/uL (160-400); Red Blood Count 4.21 X10*6/uL (4.20-5.50); White Blood Count 7.9 X10*3/uL (4.8-10.8)
[2024-09-08 20:16] LABS: Ethanol < 10 mg/dL
[2024-09-08 20:17] LABS: Alanine Aminotransferase 52 U/L (0-31); Albumin Level 4.2 g/dL (3.5-5.0); Alkaline Phosphatase 98 U/L (39-117); Anion Gap 13 (12-20); Aspartate Amino Transferase 59 U/L (5-31); Bilirubin Total 1.1 mg/dL (0.0-1.0); Blood Urea Nitrogen 15 mg/dL (9-16); Calcium 9.1 mg/dL (8.4-10.2); Carbon Dioxide 26 mmol/L (22-29); Chloride 102 mmol/L (96-108); Creatinine Clr Calc Pharmacy 106.7; Estimated Glomerular Filt Rate > 60; Glucose Random 68 mg/dL (60-115); Lipase 28 U/L (8-78); Magnesium 1.9 mg/dL (1.6-2.6); Sodium 137 mmol/L (135-145); Total Protein 6.7 g/dL (6.5-8.0)
[2024-09-08 20:18] LABS: Acetaminophen LAB < 3 mcg/mL (<30); Salicylate < 5.0 mg/dL (15-30)
[2024-09-08] MEDS: diphenhydrAMINE HCL 25 MG CAPSULE 50 MG PO (20:26)
[2024-09-08 20:39] LABS: Influenza A PCR NEGATIVE (Negative); Influenza B PCR NEGATIVE (Negative); Resp Syncy Virus RNA Qual PCR NEGATIVE (Negative); SARS COV2 PCR INHOUSE NEGATIVE (Negative)
[2024-09-08 20:43] LABS: Appearance Urine Clear; Color Urine Yellow; Glucose Urine UA Negative (Negative); Leukocyte Esterase Urine Negative (Negative); Nitrite Urine Negative (Negative); PH 5.5 (5.0-9.0); Urine Blood Negative (Negative); Urine Ketones Negative (Negative); Urine Protein Negative (Neg-Trace)
[2024-09-08 20:48] LABS: Amphetamine Screen Urine Not Detected (Not Detect); Barbiturates, Urine Not Detected (Not Detect); Benzodiazepines Screen Urine Not Detected (Not Detect); Buprenorphine Scr Not Detected (Not Detect); Cannabinoid Screen Urine POSITIVE (Not Detect); Cocaine Screen Urine Not Detected (Not Detect); Fentanyl, urine Not Detected (Not Detect); Methadone Screen, Urine Not Detected (Not Detect); Opiate Screen Urine Not Detected (Not Detect); Oxycodone Screen Urine Not Detected (Not Detect); Phencyclidine Screen Urine Not Detected (Not Detect)
--- NOTE | 2024-09-08 21:43 | PC.NURSE ---
t/w enlisted care team to assist in trying to get med list for client, no answer at [facility] and client doesnt recall hs progesterone dose.
[2024-09-08 22:06] LABS: HCG Quantitative < 2 mIU/mL
[2024-09-08] MEDS: Acetaminophen 325 MG TABLET 650 MG PO (23:35)
[2024-09-08] MEDS: QUEtiapine Fumarate 50 MG TABLET PO (23:36)
[2024-09-08] MEDS: QUEtiapine Fumarate 200 MG TABLET PO (23:36)
--- NOTE | 2024-09-09 | ECG_ITS ---
Test Reason : check qtc Blood Pressure : */* mmHG Vent. Rate : 82 BPM Atrial Rate : 82 BPM P-R Int : 138 ms QRS Dur : 92 ms QT Int : 378 ms P-R-T Axes : 63 87 83 degrees QTcB Int : 441 ms Normal sinus rhythm Normal ECG When compared with ECG of 20-Nov-2022 09:06, No significant change was found Referred By: Oneil Gibbs Electronically Signed By: Lio Choi
--- NOTE | 2024-09-09 05:04 | PC.NURSE ---
patient redirected as client began to void in cup in room my feet hurt and i cant walk client did bring vessel
[2024-09-09 06:15] VITALS: RESP 16
--- NOTE | 2024-09-09 07:03 | PC.NURSE ---
Care of Pt assumed at change of shift. Pt is currently resting quietly and comfortably on bed. NAD noted.
[2024-09-09] MEDS: estradioL 0.5 MG TABLET 3 MG PO (09:08)
[2024-09-09] MEDS: QUEtiapine Fumarate 100 MG TABLET PO (09:08)
[2024-09-09] MEDS: Acetaminophen 325 MG TABLET 650 MG PO (09:08)
[2024-09-09] MEDS: Ferrous Sulfate 324 MG TABLET.DR PO (09:09)
[2024-09-09] MEDS: QUEtiapine Fumarate 25 MG TABLET 75 MG PO (11:37)
[2024-09-09 13:51] VITALS: BP 135/73; PULSE 98; TEMP 36.9; O2SAT 99
[2024-09-09 13:52] VITALS: BMI 23.8
--- NOTE | 2024-09-09 17:58 | PC.ADMIT ---
Francine is a 29 year old trans woman who was admitted to M5 room 505 from the pod at 1:15pm. She goes by, she/her . She carries the diagnoses of schizoaffective disorder, PTSD and bipolar disorder. She looks her stated age. Per Gricelda MALONE (pod nurse), Francine came to the ER on 09/08/24 from a hospital in [place] to have Crisis screen her so she could return to work. Reportedly she presented as psychotic and manic so was NOT cleared to return to work and got admitted here. Skin/ safety check was completed and was unremarkable. Once on the unit she presented as hyperverbal, difficult to follow and tangential. Some of her stories about her work were fantastical and had a paranoid feel to them. She denied SI and HI but endorses AVH. She signed a CV and was put on 15 minute safety checks. Francine denied any medical conditions, and she is on hormone therapy. Her tox screen was positive for cannabis and she has a medical card for PTSD, anger and appetite. She reported that she smokes or eats it daily. Francine also smokes cigarettes and said she smokes about a pack every two weeks. She described herself as a social drinker who drinks 1 or 2 drinks about twice a month. She denied other substance use. Francine described herself as, a mean girl with a temper when she gets angry. She has a court date on 09/20 for shoplifting however maintained to this journalists and other writers that the person she was with at the time shoplifted and she was arrested because they were together. A smoking consult was put in for her.She was approved to have her wig on the unit.
[2024-09-09 20:00] VITALS: BP 140/94; PULSE 103; TEMP 36.7; O2SAT 98
[2024-09-09] MEDS: QUEtiapine Fumarate 200 MG TABLET PO (21:20)
[2024-09-09] MEDS: QUEtiapine Fumarate 50 MG TABLET PO (21:20)
[2024-09-10 08:00] VITALS: BP 102/50; PULSE 94; RESP 18; TEMP 36.8; O2SAT 97
[2024-09-10] MEDS: estradioL 0.5 MG TABLET 3 MG PO (08:22)
[2024-09-10] MEDS: QUEtiapine Fumarate 100 MG TABLET PO (08:22)
[2024-09-10] MEDS: Ferrous Sulfate 324 MG TABLET.DR PO (08:22)
[2024-09-10 08:33] LABS: Estimated Average Glucose 82 mg/dL; Hemoglobin A1C 90.8283 umol/L; Hemoglobin A1c % 4.5 % (<6.0); Total Hemoglobin (HGBA1C) 3590.8775 umol/L
[2024-09-10 08:46] LABS: Alanine Aminotransferase 51 U/L (0-31); Albumin Level 4.3 g/dL (3.5-5.0); Alkaline Phosphatase 97 U/L (39-117); Anion Gap 13 (12-20); Aspartate Amino Transferase 41 U/L (5-31); Bilirubin Total 1.1 mg/dL (0.0-1.0); Blood Urea Nitrogen 15 mg/dL (9-16); Calcium 9.2 mg/dL (8.4-10.2); Carbon Dioxide 28 mmol/L (22-29); Chloride 104 mmol/L (96-108); Cholesterol 159 mg/dL (<200); Creatinine Clr Calc Pharmacy 110.8; Estimated Glomerular Filt Rate > 60; Glucose Random 101 mg/dL (60-115); HDL Cholesterol 49 mg/dL (>40); LDL Cholesterol Calculated 75 mg/dL (<100); Potassium 4.4 mmol/L (3.3-5.1); Sodium 141 mmol/L (135-145); Total Protein 6.9 g/dL (6.5-8.0); Triglycerides 177 mg/dL (<150)
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
[2024-09-10] MEDS: QUEtiapine Fumarate 25 MG TABLET 75 MG PO (12:19)
[2024-09-10] MEDS: Lidocaine 4 % Patch ADH..PATCH 1 PATCH TRANSDERMA (12:20)
[2024-09-10] MEDS: QUEtiapine Fumarate 50 MG TABLET PO ×3 (18:27→23:25)
[2024-09-10 20:00] VITALS: BP 121/63; PULSE 99; RESP 16; TEMP 36.1; O2SAT 97
[2024-09-10] MEDS: QUEtiapine Fumarate 200 MG TABLET PO (21:53)
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
[2024-09-11 08:00] VITALS: BP 129/81; PULSE 88; RESP 18; TEMP 36.9; O2SAT 99
[2024-09-11] MEDS: Ferrous Sulfate 324 MG TABLET.DR PO (08:23)
[2024-09-11] MEDS: estradioL 0.5 MG TABLET 3 MG PO (08:23)
[2024-09-11] MEDS: QUEtiapine Fumarate 100 MG TABLET PO (08:24)
[2024-09-11] MEDS: QUEtiapine Fumarate 50 MG TABLET PO ×5 (10:33→23:40)
[2024-09-11] MEDS: Lidocaine 4 % Patch ADH..PATCH 1 PATCH TRANSDERMA (11:54)
[2024-09-11] MEDS: QUEtiapine Fumarate 25 MG TABLET 75 MG PO (11:55)
[2024-09-11 20:00] VITALS: BP 110/60; PULSE 97; RESP 16; TEMP 37.1; O2SAT 97
[2024-09-11] MEDS: QUEtiapine Fumarate 200 MG TABLET PO (20:42)
[2024-09-12 07:54] VITALS: BP 112/53; PULSE 70; RESP 16; TEMP 36.6; O2SAT 99
--- NOTE | 2024-09-12 08:03 | P.PNPSI_ITS ---
Subjective Subjective Date of Service: 09/12/24 Reason For Visit: crisis eval Subjective Notes: Conditional Voluntary Healthcare Proxy: No Guardianship: No Medical Problems Affecting Mental Status: No Interim History: 29 yo with delusional do = doing ok - sleeping in room- reports medictions are fine and no s/e denies current si - continues with various unclear beliefs about the mayor and [employer] - protecting her- spending more time in room to avoid intrusive other patient Medication Compliance: Yes Side effects from medications: No Attending Groups: Intermittent Review of Systems Acute medical concerns: No Medical Review of Systems: unchanged Mental Status Exam Mental Status Exam Patient Appearance: Appropriate (not made up like when out of room) Patient Orientation: Person, Place, Time and Situation Level of Consciousness: Drowsy Patient Behavior: Cooperative and Isolative (today) Mood Description: Calm Affect Description: Constricted Patient Cognition Impaired: No Ability to Follow Directions: Good Speech Pattern: Clear Hallucinations: None Delusions: Present Thought Process: Intact and Goal Oriented Judgement: Fair Diagnostics Vital Signs (24Hr): Vital Signs - 24 hr 09/11/24 20:00 09/12/24 07:54 Temperature 98.7 F 97.8 F Pulse Rate 97 70 Respiratory Rate 16 16 Blood Pressure 110/60 112/53 L Pulse Oximetry 97 99 Oxygen Delivery Method Room Air Room Air BMI result Body Mass Index 23.8 Labs 09/08/24 19:57 09/10/24 08:17 Labs: Laboratory Results - last 48 hr 09/10/24 08:17 Sodium 141 Potassium 4.4 Chloride 104 Carbon Dioxide 28 Anion Gap 13 BUN 15 Creatinine 0.79 Estim Creat Clear Calc 110.8 Estimated GFR > 60 Random Glucose 101 Estimat Average Glucose 82 Hemoglobin A1c % 4.5 Calcium 9.2 Total Bilirubin 1.1 H AST 41 H ALT 51 H Alkaline Phosphatase 97 Total Protein 6.9 Albumin 4.3 Triglycerides 177 H Cholesterol 159 LDL Cholesterol, Calc 75 HDL Cholesterol 49 TSH 3.90 lfts slight elevation Medications Medications Current Medications Acetaminophen (Acetaminophen 325 Mg Tablet) 650 mg PO Q6H PRN PRN Reason: Headache/Pain, Scale 1-10 Al Hydroxide/Mg Hydroxide (Magnesium Hydrox/Alum Hydrox 30 Ml Oral.Susp) 30 ml PO Q6H PRN PRN Reason: Heartburn/Nausea Estradiol (Estradiol 0.5 Mg Tablet) 3 mg PO DAILY [facility] Last Admin: 09/11/24 08:23 Dose: 3 mg Ferrous Sulfate (Ferrous Sulfate 324 Mg Tablet.) 324 mg PO DAILY [facility] Last Admin: 09/11/24 08:23 Dose: 324 mg Hydroxyzine HCl (Hydroxyzine Hcl 25 Mg Tablet) 25 mg PO Q6H PRN PRN Reason: mild anxiety Lidocaine (Lidocaine 4 % Patch Adh..Patch) 1 patch TRANSDERMA DAILY [facility]; Protocol Last Admin: 09/11/24 11:54 Dose: 1 patch Magnesium Hydroxide (Milk Of Magnesia 30 Ml Oral.Susp) 30 ml PO DAILY PRN PRN Reason: Constipation Nicotine (Nicotine 21 Mg Patch.Td24) 21 mg TRANSDERMA DAILY PRN PRN Reason: smoking cessation Nicotine Polacrilex (Nicotine Polacrilex 2 Mg Gum) 4 mg BUCCAL Q2H PRN PRN Reason: Nicotine Cravings Olanzapine (Olanzapine 5 Mg Tablet) 5 mg PO TID PRN PRN Reason: agitation Quetiapine Fumarate (Quetiapine Fumarate 200 Mg Tablet) 200 mg PO BEDTIME [facility] Last Admin: 09/11/24 20:42 Dose: 200 mg Quetiapine Fumarate (Quetiapine Fumarate 100 Mg Tablet) 100 mg PO DAILY [facility] Last Admin: 09/11/24 08:24 Dose: 100 mg Quetiapine Fumarate (Quetiapine Fumarate 25 Mg Tablet) 75 mg PO DAILY@1200 [facility] Last Admin: 09/11/24 11:55 Dose: 75 mg Quetiapine Fumarate (Quetiapine Fumarate 50 Mg Tablet) 50 mg PO BEDTIME [facility] Last Admin: 09/11/24 20:48 Dose: 50 mg Quetiapine Fumarate (Quetiapine Fumarate 50 Mg Tablet) 50 mg PO TID PRN PRN Reason: anxiety, Last Admin: 09/11/24 23:40 Dose: 50 mg Trazodone HCl (Trazodone Hcl 50 Mg Tablet) 50 mg PO BEDTIME MRX1 PRN PRN Reason: Insomnia Allergies Allergies Allergy/AdvReac Type Severity Reaction Status Date / Time amoxicillin Allergy Facial Verified 09/08/24 18:39 Swelling Assessment & Plan Assessment & Plan (1) Schizoaffective disorder, bipolar type: Status: Acute Code(s): F25.0 - Schizoaffective disorder, bipolar type (2) Cannabis use disorder: Status: Acute Code(s): F12.90 - Cannabis use, unspecified, uncomplicated (3) Elevated transaminase level: Status: Acute Code(s): R74.01 - Elevation of levels of liver transaminase levels Assessment and Plan: mild Plan Admit, CV, 15 minute checks Diagnostics as needed Seroquel 50 mg tid prn Evaluate efficacy of re-starting Seroquel and if pt should return to [facility] Collateral contact Discharge/aftercare planning. Reason for continued inpatient stay Substantial Risk for: inability to function and rapid decompensation Time Spent With Patient Time: Total time managing care of this patient today ____ minutes.
[2024-09-12] MEDS: estradioL 0.5 MG TABLET 3 MG PO (08:29)
[2024-09-12] MEDS: Ferrous Sulfate 324 MG TABLET.DR PO (08:29)
[2024-09-12] MEDS: QUEtiapine Fumarate 100 MG TABLET PO (08:29)
[2024-09-12] MEDS: QUEtiapine Fumarate 25 MG TABLET 75 MG PO (12:30)
[2024-09-12] MEDS: QUEtiapine Fumarate 50 MG TABLET PO ×3 (17:46→21:34)
[2024-09-12 20:00] VITALS: BP 123/67; PULSE 100; RESP 15; TEMP 36.9; O2SAT 97
[2024-09-12] MEDS: QUEtiapine Fumarate 200 MG TABLET PO (20:15)
[2024-09-13 07:57] VITALS: BP 105/59; PULSE 83; RESP 18; TEMP 36.8; O2SAT 98
[2024-09-13] MEDS: Ferrous Sulfate 324 MG TABLET.DR PO (08:25)
[2024-09-13] MEDS: Lidocaine 4 % Patch ADH..PATCH 1 PATCH TRANSDERMA (08:25)
[2024-09-13] MEDS: estradioL 0.5 MG TABLET 3 MG PO (08:25)
[2024-09-13] MEDS: QUEtiapine Fumarate 100 MG TABLET PO (08:26)
[2024-09-13] MEDS: QUEtiapine Fumarate 25 MG TABLET 75 MG PO (11:47)
--- NOTE | 2024-09-13 17:22 | P.PNPSI_ITS ---
Subjective Subjective Date of Service: 09/13/24 Reason For Visit: crisis eval Subjective Notes: Conditional Voluntary and 3 Day Interim History: Pt with fixed delusional system. Difficulty with peers over the weekend. Declines return to [facility] which by history have worked very effectively. Court 09/20 for shoplifting No issues with behaviors in milieu. Denies SI/HI/AH/VH Medication Compliance: Yes Side effects from medications: No Attending Groups: Intermittent Review of Systems Review of Systems Denies Mental Status Exam Mental Status Exam Patient Appearance: Appropriate (not made up like when out of room) Patient Orientation: Person, Place, Time and Situation Level of Consciousness: Drowsy Patient Behavior: Cooperative and Isolative (today) Mood Description: Calm Affect Description: Constricted Patient Cognition Impaired: No Ability to Follow Directions: Good Speech Pattern: Clear Hallucinations: None Delusions: Present Thought Process: Intact and Goal Oriented Judgement: Fair Diagnostics Vital Signs (24Hr): Vital Signs - 24 hr 09/12/24 20:00 09/13/24 07:57 Temperature 98.5 F 98.2 F Pulse Rate 100 83 Respiratory Rate 15 18 Blood Pressure 123/67 105/59 L Pulse Oximetry 97 98 Oxygen Delivery Method Room Air BMI result Body Mass Index 23.8 Labs 09/08/24 19:57 09/10/24 08:17 Medications Medications Current Medications Acetaminophen (Acetaminophen 325 Mg Tablet) 650 mg PO Q6H PRN PRN Reason: Headache/Pain, Scale 1-10 Al Hydroxide/Mg Hydroxide (Magnesium Hydrox/Alum Hydrox 30 Ml Oral.Susp) 30 ml PO Q6H PRN PRN Reason: Heartburn/Nausea Estradiol (Estradiol 0.5 Mg Tablet) 3 mg PO DAILY [facility] Last Admin: 09/13/24 08:25 Dose: 3 mg Ferrous Sulfate (Ferrous Sulfate 324 Mg Tablet.Dr) 324 mg PO DAILY [facility] Last Admin: 09/13/24 08:25 Dose: 324 mg Hydroxyzine HCl (Hydroxyzine Hcl 25 Mg Tablet) 25 mg PO Q6H PRN PRN Reason: mild anxiety Lidocaine (Lidocaine 4 % Patch Adh..Patch) 1 patch TRANSDERMA DAILY [facility]; Protocol Last Admin: 09/13/24 08:25 Dose: 1 patch Magnesium Hydroxide (Milk Of Magnesia 30 Ml Oral.Susp) 30 ml PO DAILY PRN PRN Reason: Constipation Nicotine (Nicotine 21 Mg Patch.Td24) 21 mg TRANSDERMA DAILY PRN PRN Reason: smoking cessation Nicotine Polacrilex (Nicotine Polacrilex 2 Mg Gum) 4 mg BUCCAL Q2H PRN PRN Reason: Nicotine Cravings Olanzapine (Olanzapine 5 Mg Tablet) 5 mg PO TID PRN PRN Reason: agitation Quetiapine Fumarate (Quetiapine Fumarate 200 Mg Tablet) 200 mg PO BEDTIME [facility] Last Admin: 09/12/24 20:15 Dose: 200 mg Quetiapine Fumarate (Quetiapine Fumarate 100 Mg Tablet) 100 mg PO DAILY [facility] Last Admin: 09/13/24 08:26 Dose: 100 mg Quetiapine Fumarate (Quetiapine Fumarate 25 Mg Tablet) 75 mg PO DAILY@1200 [facility] Last Admin: 09/13/24 11:47 Dose: 75 mg Quetiapine Fumarate (Quetiapine Fumarate 50 Mg Tablet) 50 mg PO BEDTIME [facility] Last Admin: 09/12/24 20:16 Dose: 50 mg Quetiapine Fumarate (Quetiapine Fumarate 50 Mg Tablet) 50 mg PO TID PRN PRN Reason: anxiety, Last Admin: 09/12/24 21:34 Dose: 50 mg Trazodone HCl (Trazodone Hcl 50 Mg Tablet) 50 mg PO BEDTIME MRX1 PRN PRN Reason: Insomnia Allergies Allergies Allergy/AdvReac Type Severity Reaction Status Date / Time amoxicillin Allergy Facial Verified 09/08/24 18:39 Swelling Assessment & Plan Assessment & Plan (1) Schizoaffective disorder, bipolar type: Status: Acute Code(s): F25.0 - Schizoaffective disorder, bipolar type (2) Cannabis use disorder: Status: Acute Code(s): F12.90 - Cannabis use, unspecified, uncomplicated (3) Elevated transaminase level: Status: Acute Code(s): R74.01 - Elevation of levels of liver transaminase levels Assessment and Plan: mild Plan Admit, CV, 15 minute checks Diagnostics as needed Seroquel 50 mg tid prn Evaluate efficacy of re-starting Seroquel and if pt should return to [facility] Collateral contact Discharge/aftercare planning. 09/13- TDN. Pt declined med changes. Continue current plan. Reason for continued inpatient stay Substantial Risk for: rapid decompensation Time Spent With Patient Time: Total time managing care of this patient today ____ minutes.
[2024-09-13] MEDS: QUEtiapine Fumarate 50 MG TABLET PO ×3 (18:58→21:41)
[2024-09-13 19:57] VITALS: BP 122/70; PULSE 86; RESP 14; TEMP 36.9; O2SAT 98
[2024-09-13] MEDS: QUEtiapine Fumarate 200 MG TABLET PO (20:27)
[2024-09-13] MEDS: hydrOXYzine HCL 25 MG TABLET PO (20:37)
[2024-09-14 08:00] VITALS: BP 109/57; RESP 18; TEMP 36.6; O2SAT 109
[2024-09-14] MEDS: QUEtiapine Fumarate 100 MG TABLET PO (09:50)
[2024-09-14] MEDS: Ferrous Sulfate 324 MG TABLET.DR PO (09:50)
[2024-09-14] MEDS: estradioL 0.5 MG TABLET 3 MG PO (09:51)
--- NOTE | 2024-09-14 10:22 | HO.PSYCHPN ---
Subjective Subjective Date of Service: 09/14/24 Reason For Visit: crisis eval Subjective Notes: Conditional Voluntary and 3 Day Healthcare Proxy: No Guardianship: No Medical Problems Affecting Mental Status: No Interim History: Denies SI,HI,AH,VH Fixed delusional content evident Declines a return to ROJO, Olanzapine as these in combination have been effective by history Plans DC on a TDN on 09/16 [facility] team in to meet today Medication Compliance: Yes Side effects from medications: No Attending Groups: Intermittent Review of Systems Acute medical concerns: No Review of Systems Review of Systems Denies Mental Status Exam Mental Status Exam Patient Appearance: Appropriate Patient Orientation: Person, Place, Time and Situation Level of Consciousness: Alert Patient Behavior: Talkative, Cooperative and Isolative (today) Mood Description: Calm Affect Description: Calm Patient Cognition Impaired: No Ability to Follow Directions: Good Speech Pattern: Clear and Spontaneous Speech Hallucinations: None Delusions: Present Thought Process: Intact and Goal Oriented Judgement: Fair Diagnostics Vital Signs (24Hr): Vital Signs - 24 hr 09/13/24 19:57 09/14/24 08:00 Temperature 98.4 F 97.8 F Pulse Rate 86 Respiratory Rate 14 18 Blood Pressure 122/70 109/57 L Pulse Oximetry 98 109 H Oxygen Delivery Method Room Air Room Air BMI result Body Mass Index 23.8 Labs 09/08/24 19:57 09/10/24 08:17 Medications Medications Current Medications Acetaminophen (Acetaminophen 325 Mg Tablet) 650 mg PO Q6H PRN PRN Reason: Headache/Pain, Scale 1-10 Al Hydroxide/Mg Hydroxide (Magnesium Hydrox/Alum Hydrox 30 Ml Oral.Susp) 30 ml PO Q6H PRN PRN Reason: Heartburn/Nausea Estradiol (Estradiol 0.5 Mg Tablet) 3 mg PO DAILY [facility] Last Admin: 09/14/24 09:51 Dose: 3 mg Ferrous Sulfate (Ferrous Sulfate 324 Mg Tablet.Dr) 324 mg PO DAILY [facility] Last Admin: 09/14/24 09:50 Dose: 324 mg Hydroxyzine HCl (Hydroxyzine Hcl 25 Mg Tablet) 25 mg PO Q6H PRN PRN Reason: mild anxiety Last Admin: 09/13/24 20:37 Dose: 25 mg Lidocaine (Lidocaine 4 % Patch Adh..Patch) 1 patch TRANSDERMA DAILY [facility]; Protocol Last Admin: 09/14/24 09:54 Dose: Not Given Magnesium Hydroxide (Milk Of Magnesia 30 Ml Oral.Susp) 30 ml PO DAILY PRN PRN Reason: Constipation Nicotine (Nicotine 21 Mg Patch.Td24) 21 mg TRANSDERMA DAILY PRN PRN Reason: smoking cessation Nicotine Polacrilex (Nicotine Polacrilex 2 Mg Gum) 4 mg BUCCAL Q2H PRN PRN Reason: Nicotine Cravings Olanzapine (Olanzapine 5 Mg Tablet) 5 mg PO TID PRN PRN Reason: agitation Quetiapine Fumarate (Quetiapine Fumarate 200 Mg Tablet) 200 mg PO BEDTIME [facility] Last Admin: 09/13/24 20:27 Dose: 200 mg Quetiapine Fumarate (Quetiapine Fumarate 100 Mg Tablet) 100 mg PO DAILY [facility] Last Admin: 09/14/24 09:50 Dose: 100 mg Quetiapine Fumarate (Quetiapine Fumarate 25 Mg Tablet) 75 mg PO DAILY@1200 [facility] Last Admin: 09/13/24 11:47 Dose: 75 mg Quetiapine Fumarate (Quetiapine Fumarate 50 Mg Tablet) 50 mg PO BEDTIME [facility] Last Admin: 09/13/24 20:27 Dose: 50 mg Quetiapine Fumarate (Quetiapine Fumarate 50 Mg Tablet) 50 mg PO TID PRN PRN Reason: anxiety, Last Admin: 09/13/24 21:41 Dose: 50 mg Trazodone HCl (Trazodone Hcl 50 Mg Tablet) 50 mg PO BEDTIME MRX1 PRN PRN Reason: Insomnia Allergies Allergies Allergy/AdvReac Type Severity Reaction Status Date / Time amoxicillin Allergy Facial Verified 09/08/24 18:39 Swelling Assessment & Plan Assessment & Plan (1) Schizoaffective disorder, bipolar type: Status: Acute Code(s): F25.0 - Schizoaffective disorder, bipolar type (2) Cannabis use disorder: Status: Acute Code(s): F12.90 - Cannabis use, unspecified, uncomplicated (3) Elevated transaminase level: Status: Acute Code(s): R74.01 - Elevation of levels of liver transaminase levels Assessment and Plan: mild Plan Admit, CV, 15 minute checks Diagnostics as needed Seroquel 50 mg tid prn Evaluate efficacy of re-starting Seroquel and if pt should return to [facility] Collateral contact Discharge/aftercare planning. 09/14/24- TDN to 09/16. Pt to discharge Declined med changes Reason for continued inpatient stay Substantial Risk for: rapid decompensation Time Spent With Patient Time: Total time managing care of this patient today ____ minutes.
[2024-09-14] MEDS: Lidocaine 4 % Patch ADH..PATCH 1 PATCH TRANSDERMA (11:37)
[2024-09-14] MEDS: QUEtiapine Fumarate 25 MG TABLET 75 MG PO (11:40)
[2024-09-14] MEDS: QUEtiapine Fumarate 50 MG TABLET PO ×3 (15:42→21:51)
[2024-09-14 20:00] VITALS: BP 144/70; PULSE 94; RESP 16; TEMP 37.3; O2SAT 99
[2024-09-14] MEDS: QUEtiapine Fumarate 200 MG TABLET PO (20:18)
[2024-09-14] MEDS: hydrOXYzine HCL 25 MG TABLET PO (21:50)
[2024-09-15 08:00] VITALS: BP 134/72; PULSE 95; RESP 16; TEMP 36.9; O2SAT 99
[2024-09-15] MEDS: QUEtiapine Fumarate 100 MG TABLET PO (08:30)
[2024-09-15] MEDS: estradioL 0.5 MG TABLET 3 MG PO (08:30)
[2024-09-15] MEDS: Ferrous Sulfate 324 MG TABLET.DR PO (08:30)
[2024-09-15] MEDS: QUEtiapine Fumarate 25 MG TABLET 75 MG PO (11:57)
--- NOTE | 2024-09-15 15:40 | HO.PSYCHPN ---
Subjective Subjective Date of Service: 09/15/24 Reason For Visit: crisis eval Interim History: Laying in bed. napping. guarded. declined to meet with T/W. Patient reports feeling better ; pt stated, I didn't sleep last night. I'm leaving tomorrow and going to [facility] . denies any issues at this time. Continue current tx plan. Mental Status Exam Mental Status Exam Narrative: unable to obtain full mental status d/t pt declining to meet with T/W. Patient Orientation: Person, Place, Time and Situation Level of Consciousness: Drowsy Patient Behavior: Guarded Mood Description: Calm Affect Description: Calm Speech Pattern: Clear Diagnostics Vital Signs (24Hr): Vital Signs - 24 hr 09/14/24 20:00 09/15/24 08:00 Temperature 99.2 F 98.4 F Pulse Rate 94 95 Respiratory Rate 16 16 Blood Pressure 144/70 H 134/72 Pulse Oximetry 99 99 Oxygen Delivery Method Room Air Room Air BMI result Body Mass Index 23.8 Labs 09/08/24 19:57 09/10/24 08:17 Medications Medications Current Medications Acetaminophen (Acetaminophen 325 Mg Tablet) 650 mg PO Q6H PRN PRN Reason: Headache/Pain, Scale 1-10 Al Hydroxide/Mg Hydroxide (Magnesium Hydrox/Alum Hydrox 30 Ml Oral.Susp) 30 ml PO Q6H PRN PRN Reason: Heartburn/Nausea Estradiol (Estradiol 0.5 Mg Tablet) 3 mg PO DAILY [facility] Last Admin: 09/15/24 08:30 Dose: 3 mg Ferrous Sulfate (Ferrous Sulfate 324 Mg Tablet.Dr) 324 mg PO DAILY [facility] Last Admin: 09/15/24 08:30 Dose: 324 mg Hydroxyzine HCl (Hydroxyzine Hcl 25 Mg Tablet) 25 mg PO Q6H PRN PRN Reason: mild anxiety Last Admin: 09/14/24 21:50 Dose: 25 mg Lidocaine (Lidocaine 4 % Patch Adh..Patch) 1 patch TRANSDERMA DAILY [facility]; Protocol Last Admin: 09/15/24 08:32 Dose: Not Given Magnesium Hydroxide (Milk Of Magnesia 30 Ml Oral.Susp) 30 ml PO DAILY PRN PRN Reason: Constipation Nicotine (Nicotine 21 Mg Patch.Td24) 21 mg TRANSDERMA DAILY PRN PRN Reason: smoking cessation Nicotine Polacrilex (Nicotine Polacrilex 2 Mg Gum) 4 mg BUCCAL Q2H PRN PRN Reason: Nicotine Cravings Olanzapine (Olanzapine 5 Mg Tablet) 5 mg PO TID PRN PRN Reason: agitation Quetiapine Fumarate (Quetiapine Fumarate 200 Mg Tablet) 200 mg PO BEDTIME [facility] Last Admin: 09/14/24 20:18 Dose: 200 mg Quetiapine Fumarate (Quetiapine Fumarate 100 Mg Tablet) 100 mg PO DAILY [facility] Last Admin: 09/15/24 08:30 Dose: 100 mg Quetiapine Fumarate (Quetiapine Fumarate 25 Mg Tablet) 75 mg PO DAILY@1200 [facility] Last Admin: 09/15/24 11:57 Dose: 75 mg Quetiapine Fumarate (Quetiapine Fumarate 50 Mg Tablet) 50 mg PO BEDTIME [facility] Last Admin: 09/14/24 20:18 Dose: 50 mg Quetiapine Fumarate (Quetiapine Fumarate 50 Mg Tablet) 50 mg PO TID PRN PRN Reason: anxiety, Last Admin: 09/14/24 21:51 Dose: 50 mg Trazodone HCl (Trazodone Hcl 50 Mg Tablet) 50 mg PO BEDTIME MRX1 PRN PRN Reason: Insomnia Allergies Allergies Allergy/AdvReac Type Severity Reaction Status Date / Time amoxicillin Allergy Facial Verified 09/08/24 18:39 Swelling Assessment & Plan Assessment & Plan (1) Schizoaffective disorder, bipolar type: Status: Acute Code(s): F25.0 - Schizoaffective disorder, bipolar type (2) Cannabis use disorder: Status: Acute Code(s): F12.90 - Cannabis use, unspecified, uncomplicated (3) Elevated transaminase level: Status: Acute Code(s): R74.01 - Elevation of levels of liver transaminase levels Assessment and Plan: mild Plan Admit, CV, 15 minute checks Diagnostics as needed Seroquel 50 mg tid prn Evaluate efficacy of re-starting Seroquel and if pt should return to [facility] Collateral contact Discharge/aftercare planning. 09/13- TDN. Pt declined med changes. Continue current plan. 09/15: Laying in bed. napping. guarded. declined to meet with T/W. Patient reports feeling better ; pt stated, I didn't sleep last night. I'm leaving tomorrow and going to [facility] . denies any issues at this time. Continue current tx plan. Reason for continued inpatient stay Substantial Risk for: med/psych decompensation Time Spent With Patient Time: Total time managing care of this patient today _10___ minutes.
[2024-09-15] MEDS: hydrOXYzine HCL 25 MG TABLET PO ×2 (16:16→22:06)
[2024-09-15] MEDS: QUEtiapine Fumarate 50 MG TABLET PO ×3 (16:16→22:06)
[2024-09-15] MEDS: QUEtiapine Fumarate 200 MG TABLET PO (19:45)
[2024-09-16 08:00] VITALS: BP 112/59; PULSE 96; RESP 18; TEMP 37; O2SAT 100
[2024-09-16] MEDS: estradioL 0.5 MG TABLET 3 MG PO (08:12)
[2024-09-16] MEDS: QUEtiapine Fumarate 100 MG TABLET PO (08:12)
[2024-09-16] MEDS: Ferrous Sulfate 324 MG TABLET.DR PO (08:12)
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
[2024-09-16] MEDS: hydrOXYzine HCL 25 MG TABLET PO ×2 (10:18→20:28)
[2024-09-16] MEDS: QUEtiapine Fumarate 25 MG TABLET 75 MG PO (11:21)
[2024-09-16 19:47] VITALS: BP 116/71; PULSE 95; RESP 16; TEMP 36.4; O2SAT 97
[2024-09-16] MEDS: QUEtiapine Fumarate 50 MG TABLET PO (20:27)
[2024-09-16] MEDS: QUEtiapine Fumarate 200 MG TABLET PO (20:27)
[2024-09-17 08:00] VITALS: BP 111/58; PULSE 76; RESP 16; TEMP 36.4; O2SAT 99
--- NOTE | 2024-09-17 10:06 | P.PNPSI_ITS ---
Subjective Subjective Date of Service: 09/17/24 Reason For Visit: crisis eval Subjective Notes: Section 7 Healthcare Proxy: No Guardianship: No Medical Problems Affecting Mental Status: No Interim History: Discussed med changes with pt. She does not want to consider any ROJO's, only PO. Discussed Abilify- she agrees to a trial. Discussed [facility]-wanting to terminate services and change to [facility] or [facility]. Identifies several issues with [facility]. Medication Compliance: Yes Side effects from medications: No Attending Groups: Intermittent Review of Systems Acute medical concerns: No Review of Systems Review of Systems Denies Mental Status Exam Mental Status Exam Patient Appearance: Appropriate Patient Orientation: Person, Place, Time and Situation Level of Consciousness: Alert Patient Behavior: Talkative, Cooperative and Isolative (today) Mood Description: Calm Affect Description: Calm Patient Cognition Impaired: No Ability to Follow Directions: Good Speech Pattern: Clear and Spontaneous Speech Hallucinations: None Delusions: Present Thought Process: Intact and Goal Oriented Thought Content: positive for Homicidal Ideation Judgement: Fair Diagnostics Vital Signs (24Hr): Vital Signs - 24 hr 09/16/24 19:47 09/17/24 08:00 Temperature 97.6 F 97.5 F Pulse Rate 95 76 Respiratory Rate 16 16 Blood Pressure 116/71 111/58 L Pulse Oximetry 97 99 Oxygen Delivery Method Room Air Room Air BMI result Body Mass Index 23.8 Labs 09/08/24 19:57 09/10/24 08:17 Medications Medications Current Medications Acetaminophen (Acetaminophen 325 Mg Tablet) 650 mg PO Q6H PRN PRN Reason: Headache/Pain, Scale 1-10 Al Hydroxide/Mg Hydroxide (Magnesium Hydrox/Alum Hydrox 30 Ml Oral.Susp) 30 ml PO Q6H PRN PRN Reason: Heartburn/Nausea Estradiol (Estradiol 0.5 Mg Tablet) 3 mg PO DAILY [facility] Last Admin: 09/16/24 08:12 Dose: 3 mg Ferrous Sulfate (Ferrous Sulfate 324 Mg Tablet.) 324 mg PO DAILY [facility] Last Admin: 09/16/24 08:12 Dose: 324 mg Hydroxyzine HCl (Hydroxyzine Hcl 25 Mg Tablet) 25 mg PO Q6H PRN PRN Reason: mild anxiety Last Admin: 09/16/24 20:28 Dose: 25 mg Lidocaine (Lidocaine 4 % Patch Adh..Patch) 1 patch TRANSDERMA DAILY [facility]; Protocol Last Admin: 09/16/24 08:49 Dose: Not Given Magnesium Hydroxide (Milk Of Magnesia 30 Ml Oral.Susp) 30 ml PO DAILY PRN PRN Reason: Constipation Nicotine (Nicotine 21 Mg Patch.Td24) 21 mg TRANSDERMA DAILY PRN PRN Reason: smoking cessation Nicotine Polacrilex (Nicotine Polacrilex 2 Mg Gum) 4 mg BUCCAL Q2H PRN PRN Reason: Nicotine Cravings Olanzapine (Olanzapine 5 Mg Tablet) 5 mg PO TID PRN PRN Reason: agitation Quetiapine Fumarate (Quetiapine Fumarate 200 Mg Tablet) 200 mg PO BEDTIME [facility] Last Admin: 09/16/24 20:27 Dose: 200 mg Quetiapine Fumarate (Quetiapine Fumarate 100 Mg Tablet) 100 mg PO DAILY [facility] Last Admin: 09/16/24 08:12 Dose: 100 mg Quetiapine Fumarate (Quetiapine Fumarate 25 Mg Tablet) 75 mg PO DAILY@1200 [facility] Last Admin: 09/16/24 11:21 Dose: 75 mg Quetiapine Fumarate (Quetiapine Fumarate 50 Mg Tablet) 50 mg PO BEDTIME [facility] Last Admin: 09/16/24 20:27 Dose: 50 mg Quetiapine Fumarate (Quetiapine Fumarate 50 Mg Tablet) 50 mg PO TID PRN PRN Reason: anxiety, Last Admin: 09/15/24 22:06 Dose: 50 mg Trazodone HCl (Trazodone Hcl 50 Mg Tablet) 50 mg PO BEDTIME MRX1 PRN PRN Reason: Insomnia Allergies Allergies Allergy/AdvReac Type Severity Reaction Status Date / Time amoxicillin Allergy Facial Verified 09/08/24 18:39 Swelling Assessment & Plan Assessment & Plan (1) Schizoaffective disorder, bipolar type: Status: Acute Code(s): F25.0 - Schizoaffective disorder, bipolar type (2) Cannabis use disorder: Status: Acute Code(s): F12.90 - Cannabis use, unspecified, uncomplicated (3) Elevated transaminase level: Status: Acute Code(s): R74.01 - Elevation of levels of liver transaminase levels Assessment and Plan: mild Plan Admit, CV, 15 minute checks Diagnostics as needed Seroquel 50 mg tid prn Evaluate efficacy of re-starting Seroquel and if pt should return to [facility] Collateral contact Discharge/aftercare planning. 09/14/24- TDN to 5/8. Pt to discharge Declined med changes 09/17- Abilify 5 mg HS trial Reason for continued inpatient stay Substantial Risk for: rapid decompensation Time Spent With Patient Time: Total time managing care of this patient today ____ minutes.
[2024-09-17] MEDS: estradioL 0.5 MG TABLET 3 MG PO (10:25)
[2024-09-17] MEDS: QUEtiapine Fumarate 100 MG TABLET PO (10:25)
[2024-09-17] MEDS: Ferrous Sulfate 324 MG TABLET.DR PO (10:25)
[2024-09-17] MEDS: hydrOXYzine HCL 25 MG TABLET PO ×2 (11:25→19:03)
[2024-09-17] MEDS: QUEtiapine Fumarate 25 MG TABLET 75 MG PO (11:25)
[2024-09-17] MEDS: OLANZapine 5 MG TABLET PO (19:03)
[2024-09-17] MEDS: QUEtiapine Fumarate 50 MG TABLET PO ×3 (19:03→23:33)
[2024-09-17 20:00] VITALS: BP 120/65; PULSE 93; RESP 15; TEMP 37; O2SAT 98
[2024-09-17] MEDS: ARIPiprazole 5 MG TABLET PO (20:46)
[2024-09-17] MEDS: QUEtiapine Fumarate 200 MG TABLET PO (20:47)
--- NOTE | 2024-09-18 07:29 | HO.PSYCHPN ---
Subjective Subjective Date of Service: 09/18/24 Reason For Visit: crisis eval Subjective Notes: Section 7 Interim History: Pt seen and discussed with team. Visable in milieu and with peers. Delusional content persists. She is concerned about court. We discussed that team has sent over a letter to the court last week reporting she was hospitalized and will probably reschedule her court date. 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 We reviewed HIPPA and privacy standards, along with her rights for privacy as an [employer] pt. Reports Abilify is tolerated. We will continue 5 mg dosing this evening. Medication Compliance: Yes Side effects from medications: No Attending Groups: Intermittent Review of Systems Acute medical concerns: No Review of Systems Review of Systems Denies Mental Status Exam Mental Status Exam Patient Appearance: Appropriate Patient Orientation: Person, Place, Time and Situation Level of Consciousness: Alert Patient Behavior: Talkative and Cooperative Mood Description: Calm Affect Description: Calm Patient Cognition Impaired: No Ability to Follow Directions: Good Speech Pattern: Clear and Spontaneous Speech Hallucinations: None Delusions: Present Thought Process: Intact and Goal Oriented Thought Content: positive for Homicidal Ideation Judgement: Fair Diagnostics Vital Signs (24Hr): Vital Signs - 24 hr 09/17/24 08:00 09/17/24 20:00 Temperature 97.5 F 98.6 F Pulse Rate 76 93 Respiratory Rate 16 15 Blood Pressure 111/58 L 120/65 Pulse Oximetry 99 98 Oxygen Delivery Method Room Air BMI result Body Mass Index 23.8 Labs 09/08/24 19:57 09/10/24 08:17 Medications Medications Current Medications Acetaminophen (Acetaminophen 325 Mg Tablet) 650 mg PO Q6H PRN PRN Reason: Headache/Pain, Scale 1-10 Al Hydroxide/Mg Hydroxide (Magnesium Hydrox/Alum Hydrox 30 Ml Oral.Susp) 30 ml PO Q6H PRN PRN Reason: Heartburn/Nausea Aripiprazole (Aripiprazole 5 Mg Tablet) 5 mg PO BEDTIME [facility]AC[facility] Last Admin: 09/17/24 20:46 Dose: 5 mg Estradiol (Estradiol 0.5 Mg Tablet) 3 mg PO DAILY [facility] Last Admin: 09/17/24 10:25 Dose: 3 mg Ferrous Sulfate (Ferrous Sulfate 324 Mg Tablet.) 324 mg PO DAILY [facility] Last Admin: 09/17/24 10:25 Dose: 324 mg Hydroxyzine HCl (Hydroxyzine Hcl 25 Mg Tablet) 25 mg PO Q6H PRN PRN Reason: mild anxiety Last Admin: 09/17/24 19:03 Dose: 25 mg Lidocaine (Lidocaine 4 % Patch Adh..Patch) 1 patch TRANSDERMA DAILY [facility]; Protocol Last Admin: 09/17/24 10:26 Dose: Not Given Magnesium Hydroxide (Milk Of Magnesia 30 Ml Oral.Susp) 30 ml PO DAILY PRN PRN Reason: Constipation Nicotine (Nicotine 21 Mg Patch.Td24) 21 mg TRANSDERMA DAILY PRN PRN Reason: smoking cessation Nicotine Polacrilex (Nicotine Polacrilex 2 Mg Gum) 4 mg BUCCAL Q2H PRN PRN Reason: Nicotine Cravings Olanzapine (Olanzapine 5 Mg Tablet) 5 mg PO TID PRN PRN Reason: agitation Last Admin: 09/17/24 19:03 Dose: 5 mg Quetiapine Fumarate (Quetiapine Fumarate 200 Mg Tablet) 200 mg PO BEDTIME [facility]PL[facility] Last Admin: 09/17/24 20:47 Dose: 200 mg Quetiapine Fumarate (Quetiapine Fumarate 100 Mg Tablet) 100 mg PO DAILY [facility] Last Admin: 09/17/24 10:25 Dose: 100 mg Quetiapine Fumarate (Quetiapine Fumarate 25 Mg Tablet) 75 mg PO DAILY@1200 [facility] Last Admin: 09/17/24 11:25 Dose: 75 mg Quetiapine Fumarate (Quetiapine Fumarate 50 Mg Tablet) 50 mg PO BEDTIME REPLACED BY [facility] Last Admin: 09/17/24 20:47 Dose: 50 mg Quetiapine Fumarate (Quetiapine Fumarate 50 Mg Tablet) 50 mg PO TID PRN PRN Reason: anxiety, Last Admin: 09/17/24 23:33 Dose: 50 mg Trazodone HCl (Trazodone Hcl 50 Mg Tablet) 50 mg PO BEDTIME MRX1 PRN PRN Reason: Insomnia Allergies Allergies Allergy/AdvReac Type Severity Reaction Status Date / Time amoxicillin Allergy Facial Verified 09/08/24 18:39 Swelling Assessment & Plan Assessment & Plan (1) Schizoaffective disorder, bipolar type: Status: Acute Code(s): F25.0 - Schizoaffective disorder, bipolar type (2) Cannabis use disorder: Status: Acute Code(s): F12.90 - Cannabis use, unspecified, uncomplicated (3) Elevated transaminase level: Status: Acute Code(s): R74.01 - Elevation of levels of liver transaminase levels Assessment and Plan: mild Plan Admit, CV, 15 minute checks Diagnostics as needed Seroquel 50 mg tid prn Evaluate efficacy of re-starting Seroquel and if pt should return to [facility] Collateral contact Discharge/aftercare planning. 09/14/24- TDN to 09/16. Pt to discharge Declined med changes 09/17- Abilify 5 mg HS trial 09/18- Continue Abilify Reason for continued inpatient stay Substantial Risk for: rapid decompensation Time Spent With Patient Time: Total time managing care of this patient today ____ minutes.
[2024-09-18 08:00] VITALS: BP 118/66; PULSE 85; RESP 16; TEMP 36.5; O2SAT 98
[2024-09-18] MEDS: estradioL 0.5 MG TABLET 3 MG PO (08:49)
[2024-09-18] MEDS: Ferrous Sulfate 324 MG TABLET.DR PO (08:49)
[2024-09-18] MEDS: QUEtiapine Fumarate 100 MG TABLET PO (08:49)
[2024-09-18] MEDS: Lidocaine 4 % Patch ADH..PATCH 1 PATCH TRANSDERMA (08:50)
[2024-09-18] MEDS: hydrOXYzine HCL 25 MG TABLET PO ×2 (13:07→20:10)
[2024-09-18] MEDS: QUEtiapine Fumarate 25 MG TABLET 75 MG PO (13:07)
[2024-09-18] MEDS: QUEtiapine Fumarate 50 MG TABLET PO ×2 (18:30→20:10)
[2024-09-18 20:00] VITALS: BP 121/58; PULSE 95; RESP 15; TEMP 36.7; O2SAT 99
[2024-09-18] MEDS: QUEtiapine Fumarate 200 MG TABLET PO (20:10)
[2024-09-18] MEDS: ARIPiprazole 5 MG TABLET PO (20:10)
--- NOTE | 2024-09-19 | ECG_ITS ---
Test Reason : Abilify trial, reports 12/19 chest pain last evenin Blood Pressure : */* mmHG Vent. Rate : 87 BPM Atrial Rate : 87 BPM P-R Int : 144 ms QRS Dur : 98 ms QT Int : 344 ms P-R-T Axes : 34 88 78 degrees QTcB Int : 413 ms Normal sinus rhythm Normal ECG When compared with ECG of 09-Sep-2024 08:34, No significant change was found Referred By: Kelle Williamson Electronically Signed By: BRITTA ROBERSON MD
--- NOTE | 2024-09-19 05:48 | P.PNPSI_ITS ---
Subjective Subjective Date of Service: 09/19/24 Reason For Visit: crisis eval Interim History: Met with pt and discussed with the team.Reports severe chest pain after taking Abilify last evening. EKG WNL. Asks to hold Abilify this evening. Pt is upset as he reports he knows a staff member who worked on the unit this weekend. This has increased his concern that he will be taken advantage of by this person as he believes she works for [employer] as well. Team is looking into the reality of this association he has made so it may be addressed. Medication Compliance: Intermittent Side effects from medications: Yes (?) Attending Groups: Intermittent Review of Systems Review of Systems CP reported last evening. EKG is WNL today. Mental Status Exam Mental Status Exam Patient Appearance: Appropriate Patient Orientation: Person, Place, Time and Situation Level of Consciousness: Alert Patient Behavior: Talkative and Cooperative Mood Description: Anxious and Apprehensive Affect Description: Anxious and Apprehensive Patient Cognition Impaired: No Ability to Follow Directions: Good Speech Pattern: Clear and Spontaneous Speech Hallucinations: None Delusions: Paranoid Ideation and Present Thought Process: Intact and Goal Oriented Thought Content: positive for Homicidal Ideation Judgement: Poor Diagnostics Vital Signs (24Hr): Vital Signs - 24 hr 09/18/24 08:00 09/18/24 20:00 Temperature 97.7 F 98.1 F Pulse Rate 85 95 Respiratory Rate 16 15 Blood Pressure 118/66 121/58 L Pulse Oximetry 98 99 Oxygen Delivery Method Room Air BMI result Body Mass Index 23.8 Labs 09/08/24 19:57 09/10/24 08:17 Medications Medications Current Medications Acetaminophen (Acetaminophen 325 Mg Tablet) 650 mg PO Q6H PRN PRN Reason: Headache/Pain, Scale 1-10 Al Hydroxide/Mg Hydroxide (Magnesium Hydrox/Alum Hydrox 30 Ml Oral.Susp) 30 ml PO Q6H PRN PRN Reason: Heartburn/Nausea Aripiprazole (Aripiprazole 5 Mg Tablet) 5 mg PO BEDTIME [facility] Last Admin: 09/18/24 20:10 Dose: 5 mg Estradiol (Estradiol 0.5 Mg Tablet) 3 mg PO DAILY [facility] Last Admin: 09/18/24 08:49 Dose: 3 mg Ferrous Sulfate (Ferrous Sulfate 324 Mg Tablet.) 324 mg PO DAILY [facility] Last Admin: 09/18/24 08:49 Dose: 324 mg Hydroxyzine HCl (Hydroxyzine Hcl 25 Mg Tablet) 25 mg PO Q6H PRN PRN Reason: mild anxiety Last Admin: 09/18/24 20:10 Dose: 25 mg Lidocaine (Lidocaine 4 % Patch Adh..Patch) 1 patch TRANSDERMA DAILY [facility]; Protocol Last Admin: 09/18/24 08:50 Dose: 1 patch Magnesium Hydroxide (Milk Of Magnesia 30 Ml Oral.Susp) 30 ml PO DAILY PRN PRN Reason: Constipation Nicotine (Nicotine 21 Mg Patch.Td24) 21 mg TRANSDERMA DAILY PRN PRN Reason: smoking cessation Nicotine Polacrilex (Nicotine Polacrilex 2 Mg Gum) 4 mg BUCCAL Q2H PRN PRN Reason: Nicotine Cravings Olanzapine (Olanzapine 5 Mg Tablet) 5 mg PO TID PRN PRN Reason: agitation Last Admin: 09/17/24 19:03 Dose: 5 mg Quetiapine Fumarate (Quetiapine Fumarate 200 Mg Tablet) 200 mg PO BEDTIME [facility] Last Admin: 09/18/24 20:10 Dose: 200 mg Quetiapine Fumarate (Quetiapine Fumarate 100 Mg Tablet) 100 mg PO DAILY [facility] Last Admin: 09/18/24 08:49 Dose: 100 mg Quetiapine Fumarate (Quetiapine Fumarate 25 Mg Tablet) 75 mg PO DAILY@1200 [facility] Last Admin: 09/18/24 13:07 Dose: 75 mg Quetiapine Fumarate (Quetiapine Fumarate 50 Mg Tablet) 50 mg PO BEDTIME [facility] Last Admin: 09/18/24 20:10 Dose: 50 mg Quetiapine Fumarate (Quetiapine Fumarate 50 Mg Tablet) 50 mg PO TID PRN PRN Reason: anxiety, Last Admin: 09/18/24 18:30 Dose: 50 mg Trazodone HCl (Trazodone Hcl 50 Mg Tablet) 50 mg PO BEDTIME MRX1 PRN PRN Reason: Insomnia Allergies Allergies Allergy/AdvReac Type Severity Reaction Status Date / Time amoxicillin Allergy Facial Verified 09/08/24 18:39 Swelling Assessment & Plan Assessment & Plan (1) Schizoaffective disorder, bipolar type: Status: Acute Code(s): F25.0 - Schizoaffective disorder, bipolar type (2) Cannabis use disorder: Status: Acute Code(s): F12.90 - Cannabis use, unspecified, uncomplicated (3) Elevated transaminase level: Status: Acute Code(s): R74.01 - Elevation of levels of liver transaminase levels Assessment and Plan: mild Plan Admit, CV, 15 minute checks Diagnostics as needed Seroquel 50 mg tid prn Evaluate efficacy of re-starting Seroquel and if pt should return to [facility] Collateral contact Discharge/aftercare planning. 09/14/24- TDN to 09/16. Pt to discharge Declined med changes 09/17- Abilify 5 mg HS trial 09/19- Hold Abilify marianoight-pt reported CP after taking last night, EKG is wnl Pt currently upset as he believes a staff member who worked over the weekend is one of his [employer] staff members and is feeling threatened- team is working to validate the reality of current concern. Reason for continued inpatient stay Substantial Risk for: rapid decompensation Time Spent With Patient Time: Total time managing care of this patient today ____ minutes.
[2024-09-19 08:00] VITALS: BP 120/62; PULSE 77; RESP 16; TEMP 36.4; O2SAT 98
[2024-09-19] MEDS: QUEtiapine Fumarate 100 MG TABLET PO (08:41)
[2024-09-19] MEDS: Ferrous Sulfate 324 MG TABLET.DR PO (08:41)
[2024-09-19] MEDS: estradioL 0.5 MG TABLET 3 MG PO (08:41)
[2024-09-19] MEDS: QUEtiapine Fumarate 25 MG TABLET 75 MG PO (12:36)
[2024-09-19] MEDS: QUEtiapine Fumarate 50 MG TABLET PO ×3 (14:46→21:32)
--- NOTE | 2024-09-19 15:30 | PC.NURSE ---
pt approached TW and asked to pass along to Darinel that I need my progeserone. I think she was calling Yanira to get it . Pt also wants provider to know The conversation I had with her and Ruy.... I just had the same conversation with Reanna except Darinel and Ruy weren't present. Reanna & the new case consultant want to sit with Darinel and Dhruv .
[2024-09-19] MEDS: hydrOXYzine HCL 25 MG TABLET PO (17:50)
[2024-09-19 20:00] VITALS: BP 105/58; PULSE 93; RESP 15; TEMP 36.6; O2SAT 100
[2024-09-19] MEDS: QUEtiapine Fumarate 200 MG TABLET PO (20:14)
[2024-09-20 08:00] VITALS: BP 120/64; PULSE 76; RESP 18; TEMP 36.3; O2SAT 99
[2024-09-20] MEDS: Ferrous Sulfate 324 MG TABLET.DR PO (08:05)
[2024-09-20] MEDS: QUEtiapine Fumarate 100 MG TABLET PO (08:05)
[2024-09-20] MEDS: estradioL 0.5 MG TABLET 3 MG PO (08:05)
[2024-09-20] MEDS: hydrOXYzine HCL 25 MG TABLET PO ×2 (10:30→19:42)
[2024-09-20] MEDS: QUEtiapine Fumarate 25 MG TABLET 75 MG PO (14:33)
--- NOTE | 2024-09-20 15:20 | P.PNPSI_ITS ---
Subjective Subjective Date of Service: 09/20/24 Reason For Visit: crisis eval Interim History: Active on unit. observed responding to internal stimuli. paranoid. delusional. Patient believes he is dating [employer] and not for his money ; he reports receiving money whenever I want from the mayor in [place] . Patient believes his neighbors has sent people to the unit to put things in my food and follow me . Continue current tx plan. Medication Compliance: Yes Side effects from medications: No Mental Status Exam Mental Status Exam Patient Appearance: Well Grooomed Patient Orientation: Person, Place, Time and Situation Level of Consciousness: Awake and Alert Patient Behavior: Appropriate, Cooperative and Good Eye Contact Mood Description: Anxious Affect Description: Anxious Ability to Follow Directions: Good Speech Pattern: Clear and Appropriate Memory Description: Intact Hallucinations: Auditory Delusions: Paranoid Ideation and Grandiose Thought Process: Intact Thought Content: positive for Intact Diagnostics Vital Signs (24Hr): Vital Signs - 24 hr 09/19/24 20:00 09/20/24 08:00 Temperature 97.9 F 97.4 F Pulse Rate 93 76 Respiratory Rate 15 18 Blood Pressure 105/58 L 120/64 Pulse Oximetry 100 99 Oxygen Delivery Method Room Air BMI result Body Mass Index 23.8 Labs 09/08/24 19:57 09/10/24 08:17 Medications Medications Current Medications Acetaminophen (Acetaminophen 325 Mg Tablet) 650 mg PO Q6H PRN PRN Reason: Headache/Pain, Scale 1-10 Al Hydroxide/Mg Hydroxide (Magnesium Hydrox/Alum Hydrox 30 Ml Oral.Susp) 30 ml PO Q6H PRN PRN Reason: Heartburn/Nausea Aripiprazole (Aripiprazole 5 Mg Tablet) 5 mg PO BEDTIME [facility] Last Admin: 09/18/24 20:10 Dose: 5 mg Estradiol (Estradiol 0.5 Mg Tablet) 3 mg PO DAILY [facility] Last Admin: 09/20/24 08:05 Dose: 3 mg Ferrous Sulfate (Ferrous Sulfate 324 Mg Tablet.) 324 mg PO DAILY [facility] Last Admin: 09/20/24 08:05 Dose: 324 mg Hydroxyzine HCl (Hydroxyzine Hcl 25 Mg Tablet) 25 mg PO Q6H PRN PRN Reason: mild anxiety Last Admin: 09/20/24 10:30 Dose: 25 mg Lidocaine (Lidocaine 4 % Patch Adh..Patch) 1 patch TRANSDERMA DAILY [facility]; Protocol Last Admin: 09/20/24 08:07 Dose: Not Given Magnesium Hydroxide (Milk Of Magnesia 30 Ml Oral.Susp) 30 ml PO DAILY PRN PRN Reason: Constipation Nicotine (Nicotine 21 Mg Patch.Td24) 21 mg TRANSDERMA DAILY PRN PRN Reason: smoking cessation Nicotine Polacrilex (Nicotine Polacrilex 2 Mg Gum) 4 mg BUCCAL Q2H PRN PRN Reason: Nicotine Cravings Olanzapine (Olanzapine 5 Mg Tablet) 5 mg PO TID PRN PRN Reason: agitation Last Admin: 09/17/24 19:03 Dose: 5 mg Quetiapine Fumarate (Quetiapine Fumarate 200 Mg Tablet) 200 mg PO BEDTIME [facility] Last Admin: 09/19/24 20:14 Dose: 200 mg Quetiapine Fumarate (Quetiapine Fumarate 100 Mg Tablet) 100 mg PO DAILY [facility] Last Admin: 09/20/24 08:05 Dose: 100 mg Quetiapine Fumarate (Quetiapine Fumarate 25 Mg Tablet) 75 mg PO DAILY@1200 [facility] Last Admin: 09/20/24 14:33 Dose: 75 mg Quetiapine Fumarate (Quetiapine Fumarate 50 Mg Tablet) 50 mg PO BEDTIME [facility] Last Admin: 09/19/24 20:14 Dose: 50 mg Quetiapine Fumarate (Quetiapine Fumarate 50 Mg Tablet) 50 mg PO TID PRN PRN Reason: moderate to severe anxiety Trazodone HCl (Trazodone Hcl 50 Mg Tablet) 50 mg PO BEDTIME MRX1 PRN PRN Reason: Insomnia Allergies Allergies Allergy/AdvReac Type Severity Reaction Status Date / Time amoxicillin Allergy Facial Verified 09/08/24 18:39 Swelling Assessment & Plan Assessment & Plan (1) Schizoaffective disorder, bipolar type: Status: Acute Code(s): F25.0 - Schizoaffective disorder, bipolar type (2) Cannabis use disorder: Status: Acute Code(s): F12.90 - Cannabis use, unspecified, uncomplicated (3) Elevated transaminase level: Status: Acute Code(s): R74.01 - Elevation of levels of liver transaminase levels Assessment and Plan: mild Plan Admit, CV, 15 minute checks Diagnostics as needed Seroquel 50 mg tid prn Evaluate efficacy of re-starting Seroquel and if pt should return to [facility] Collateral contact Discharge/aftercare planning. 09/14/24- TDN to 09/16. Pt to discharge Declined med changes 09/17- Abilify 5 mg HS trial 09/19- Hold Abilify mal-pt reported CP after taking last night, EKG is wnl Pt currently upset as he believes a staff member who worked over the weekend is one of his [employer] staff members and is feeling threatened- team is working to validate the reality of current concern. 09/20: Active on unit. observed responding to internal stimuli. paranoid. delusional. Patient believes he is dating [employer] and not for his money ; he reports receiving money whenever I want from the mayor in [place] . Patient believes his neighbors has sent people to the unit to put things in my food and follow me . Continue current tx plan. Patient educated on: diagnosis and medication risk/benefits Reason for continued inpatient stay Substantial Risk for: med/psych decompensation Time Spent With Patient Time: Total time managing care of this patient today _20___ minutes.
[2024-09-20] MEDS: QUEtiapine Fumarate 50 MG TABLET PO ×2 (19:41→23:17)
[2024-09-20] MEDS: QUEtiapine Fumarate 200 MG TABLET PO (19:41)
[2024-09-20 20:00] VITALS: BP 129/63; PULSE 81; RESP 16; TEMP 36.9; O2SAT 100
[2024-09-21 08:00] VITALS: BP 112/62; PULSE 81; RESP 16; TEMP 36.9; O2SAT 99
[2024-09-21] MEDS: Ferrous Sulfate 324 MG TABLET.DR PO (08:29)
[2024-09-21] MEDS: estradioL 0.5 MG TABLET 3 MG PO (08:29)
[2024-09-21] MEDS: QUEtiapine Fumarate 100 MG TABLET PO (08:29)
--- NOTE | 2024-09-21 10:09 | HO.PSYCHPN ---
Subjective Subjective Date of Service: 09/21/24 Reason For Visit: crisis eval Subjective Notes: Section 7 Healthcare Proxy: No Guardianship: No Medical Problems Affecting Mental Status: No Interim History: Pt reports feeling targeted on the unit by a male peer and by a health and social care teacher that worked over the weekend who has affiliation with him with [employer]. Alvina (the health and social care teacher) read my chart, took Ruy (former [employer] worker) out of my life, told Argelia (former [employer] worker) not to talk with me. Alvina was supposed to bring my things, she has been unreachable. I am ending services with [employer] . If I have to defend myself I will, I can use gasoline and a brand mgr. Alvina talked to Jose (above mentioned peer he feels targeted by) about me, I saw them, I saw Jose punch the wall. Reality testing attempted with pt, support offered in addition. Discussed Abilify- this option was discussed as it has a low incidence of sexual SE. On 09/19, pt reported to tw that she had CP on 09/18 after taking Abilify. EKG on 09/19 was WNL. Reviewed with pt. She would like to trial Abilify again. Give me 30 mg . Discussed that we should begin with 5mg, discussed rationale and she agreed. Will trial this evening. Medication Compliance: Intermittent Side effects from medications: No Attending Groups: Intermittent Review of Systems Acute medical concerns: No Review of Systems Review of Systems Denies today Mental Status Exam Mental Status Exam Patient Appearance: Well Grooomed Patient Orientation: Person, Place, Time and Situation Level of Consciousness: Awake and Alert Patient Behavior: Appropriate, Cooperative and Good Eye Contact Mood Description: Anxious Affect Description: Anxious Ability to Follow Directions: Good Speech Pattern: Clear and Appropriate Memory Description: Intact Hallucinations: Auditory Delusions: Paranoid Ideation and Grandiose Thought Process: Intact Thought Content: positive for Intact Diagnostics Vital Signs (24Hr): Vital Signs - 24 hr 09/20/24 20:00 09/21/24 08:00 Temperature 98.4 F 98.4 F Pulse Rate 81 81 Respiratory Rate 16 16 Blood Pressure 129/63 112/62 Pulse Oximetry 100 99 Oxygen Delivery Method Room Air Room Air BMI result Body Mass Index 23.8 Labs 09/08/24 19:57 09/10/24 08:17 Medications Medications Current Medications Acetaminophen (Acetaminophen 325 Mg Tablet) 650 mg PO Q6H PRN PRN Reason: Headache/Pain, Scale 1-10 Al Hydroxide/Mg Hydroxide (Magnesium Hydrox/Alum Hydrox 30 Ml Oral.Susp) 30 ml PO Q6H PRN PRN Reason: Heartburn/Nausea Aripiprazole (Aripiprazole 5 Mg Tablet) 5 mg PO BEDTIME [facility] Last Admin: 09/18/24 20:10 Dose: 5 mg Estradiol (Estradiol 0.5 Mg Tablet) 3 mg PO DAILY [facility] Last Admin: 09/21/24 08:29 Dose: 3 mg Ferrous Sulfate (Ferrous Sulfate 324 Mg Tablet.Dr) 324 mg PO DAILY [facility] Last Admin: 09/21/24 08:29 Dose: 324 mg Hydroxyzine HCl (Hydroxyzine Hcl 25 Mg Tablet) 25 mg PO Q6H PRN PRN Reason: mild anxiety Last Admin: 09/20/24 19:42 Dose: 25 mg Lidocaine (Lidocaine 4 % Patch Adh..Patch) 1 patch TRANSDERMA DAILY [facility]; Protocol Last Admin: 09/21/24 08:31 Dose: Not Given Magnesium Hydroxide (Milk Of Magnesia 30 Ml Oral.Susp) 30 ml PO DAILY PRN PRN Reason: Constipation Nicotine (Nicotine 21 Mg Patch.Td24) 21 mg TRANSDERMA DAILY PRN PRN Reason: smoking cessation Nicotine Polacrilex (Nicotine Polacrilex 2 Mg Gum) 4 mg BUCCAL Q2H PRN PRN Reason: Nicotine Cravings Olanzapine (Olanzapine 5 Mg Tablet) 5 mg PO TID PRN PRN Reason: agitation Last Admin: 09/17/24 19:03 Dose: 5 mg Quetiapine Fumarate (Quetiapine Fumarate 200 Mg Tablet) 200 mg PO BEDTIME [facility] Last Admin: 09/20/24 19:41 Dose: 200 mg Quetiapine Fumarate (Quetiapine Fumarate 100 Mg Tablet) 100 mg PO DAILY [facility] Last Admin: 09/21/24 08:29 Dose: 100 mg Quetiapine Fumarate (Quetiapine Fumarate 25 Mg Tablet) 75 mg PO DAILY@1200 [facility] Last Admin: 09/20/24 14:33 Dose: 75 mg Quetiapine Fumarate (Quetiapine Fumarate 50 Mg Tablet) 50 mg PO BEDTIME [facility] Last Admin: 09/20/24 19:41 Dose: 50 mg Quetiapine Fumarate (Quetiapine Fumarate 50 Mg Tablet) 50 mg PO TID PRN PRN Reason: moderate to severe anxiety Last Admin: 09/20/24 23:17 Dose: 50 mg Trazodone HCl (Trazodone Hcl 50 Mg Tablet) 50 mg PO BEDTIME MRX1 PRN PRN Reason: Insomnia Allergies Allergies Allergy/AdvReac Type Severity Reaction Status Date / Time amoxicillin Allergy Facial Verified 09/08/24 18:39 Swelling Assessment & Plan Assessment & Plan (1) Schizoaffective disorder, bipolar type: Status: Acute Code(s): F25.0 - Schizoaffective disorder, bipolar type (2) Cannabis use disorder: Status: Acute Code(s): F12.90 - Cannabis use, unspecified, uncomplicated (3) Elevated transaminase level: Status: Acute Code(s): R74.01 - Elevation of levels of liver transaminase levels Assessment and Plan: mild Plan Admit, CV, 15 minute checks Diagnostics as needed Seroquel 50 mg tid prn Evaluate efficacy of re-starting Seroquel and if pt should return to [facility] Collateral contact Discharge/aftercare planning. 09/14/24- TDN to 09/16. Pt to discharge Declined med changes 09/17- Abilify 5 mg HS trial 09/19- Hold Abilify tonight-pt reported CP after taking last night, EKG is wnl Pt currently upset as he believes a staff member who worked over the weekend is one of his [facility] staff members and is feeling threatened- team is working to validate the reality of current concern. 09/20: Active on unit. observed responding to internal stimuli. paranoid. delusional. Patient believes he is dating [employer] and not for his money ; he reports receiving money whenever I want from the mayor in [place] . Patient believes his neighbors has sent people to the unit to put things in my food and follow me . Continue current tx plan. 09/21- Retrial Abilify 5 mg HS. Reason for continued inpatient stay Substantial Risk for: rapid decompensation Time Spent With Patient Time: Total time managing care of this patient today ____ minutes.
[2024-09-21] MEDS: Lidocaine 4 % Patch ADH..PATCH 1 PATCH TRANSDERMA (10:33)
[2024-09-21] MEDS: QUEtiapine Fumarate 25 MG TABLET 75 MG PO (11:32)
[2024-09-21] MEDS: hydrOXYzine HCL 25 MG TABLET PO ×2 (11:32→21:14)
[2024-09-21 19:43] VITALS: BP 128/60; PULSE 103; TEMP 36.8; O2SAT 98
[2024-09-21] MEDS: QUEtiapine Fumarate 200 MG TABLET PO (21:12)
[2024-09-21] MEDS: QUEtiapine Fumarate 50 MG TABLET PO ×2 (21:12→22:35)
[2024-09-21] MEDS: ARIPiprazole 5 MG TABLET PO (21:12)
[2024-09-22 08:00] VITALS: BP 128/66; PULSE 97; RESP 16; TEMP 36.7; O2SAT 98
[2024-09-22] MEDS: estradioL 0.5 MG TABLET 3 MG PO (08:42)
[2024-09-22] MEDS: QUEtiapine Fumarate 100 MG TABLET PO (08:43)
[2024-09-22] MEDS: Ferrous Sulfate 324 MG TABLET.DR PO (08:43)
--- NOTE | 2024-09-22 10:04 | HO.PSYCHPN ---
Subjective Subjective Date of Service: 09/22/24 Reason For Visit: crisis eval Subjective Notes: Section 7 Healthcare Proxy: No Guardianship: No Medical Problems Affecting Mental Status: No Interim History: Pt is seen today in the milieu. She has tolerated re-trial of Abilify thus far. Her court date is postponed as she is making this attempt in med trial. Medication Compliance: Yes Side effects from medications: No Attending Groups: Intermittent Review of Systems Acute medical concerns: No Medical Review of Systems: unchanged Review of Systems Review of Systems Tolerating retrial of Abilify Mental Status Exam Mental Status Exam Patient Appearance: Fatigued and Appropriate Patient Orientation: Person, Place, Time and Situation Level of Consciousness: Alert Patient Behavior: Talkative and Good Eye Contact Mood Description: Anxious Affect Description: Anxious Patient Cognition Impaired: No Ability to Follow Directions: Good Speech Pattern: Spontaneous Speech Memory Description: Episodic Impaired Delusions: Paranoid Ideation, Grandiose and Present Thought Process: Distracted and Rumination Thought Content: positive for Circumstantial Depressive Symptoms: Increased Anxiety Judgement: Poor Diagnostics Vital Signs (24Hr): Vital Signs - 24 hr 09/21/24 19:43 Temperature 98.2 F Pulse Rate 103 H Blood Pressure 128/60 Pulse Oximetry 98 Oxygen Delivery Method Room Air BMI result Body Mass Index 23.8 Labs 09/08/24 19:57 09/10/24 08:17 Medications Medications Current Medications Acetaminophen (Acetaminophen 325 Mg Tablet) 650 mg PO Q6H PRN PRN Reason: Headache/Pain, Scale 1-10 Al Hydroxide/Mg Hydroxide (Magnesium Hydrox/Alum Hydrox 30 Ml Oral.Susp) 30 ml PO Q6H PRN PRN Reason: Heartburn/Nausea Aripiprazole (Aripiprazole 5 Mg Tablet) 5 mg PO BEDTIME [facility] Last Admin: 09/21/24 21:12 Dose: 5 mg Estradiol (Estradiol 0.5 Mg Tablet) 3 mg PO DAILY [facility] Last Admin: 09/22/24 08:42 Dose: 3 mg Ferrous Sulfate (Ferrous Sulfate 324 Mg Tablet.) 324 mg PO DAILY [facility] Last Admin: 09/22/24 08:43 Dose: 324 mg Hydroxyzine HCl (Hydroxyzine Hcl 25 Mg Tablet) 25 mg PO Q6H PRN PRN Reason: mild anxiety Last Admin: 09/21/24 21:14 Dose: 25 mg Lidocaine (Lidocaine 4 % Patch Adh..Patch) 1 patch TRANSDERMA DAILY [facility]; Protocol Last Admin: 09/21/24 10:33 Dose: 1 patch Magnesium Hydroxide (Milk Of Magnesia 30 Ml Oral.Susp) 30 ml PO DAILY PRN PRN Reason: Constipation Nicotine (Nicotine 21 Mg Patch.Td24) 21 mg TRANSDERMA DAILY PRN PRN Reason: smoking cessation Nicotine Polacrilex (Nicotine Polacrilex 2 Mg Gum) 4 mg BUCCAL Q2H PRN PRN Reason: Nicotine Cravings Olanzapine (Olanzapine 5 Mg Tablet) 5 mg PO TID PRN PRN Reason: agitation Last Admin: 09/17/24 19:03 Dose: 5 mg Quetiapine Fumarate (Quetiapine Fumarate 200 Mg Tablet) 200 mg PO BEDTIME [facility] Last Admin: 09/21/24 21:12 Dose: 200 mg Quetiapine Fumarate (Quetiapine Fumarate 100 Mg Tablet) 100 mg PO DAILY [facility] Last Admin: 09/22/24 08:43 Dose: 100 mg Quetiapine Fumarate (Quetiapine Fumarate 25 Mg Tablet) 75 mg PO DAILY@1200 [facility] Last Admin: 09/21/24 11:32 Dose: 75 mg Quetiapine Fumarate (Quetiapine Fumarate 50 Mg Tablet) 50 mg PO BEDTIME [facility] Last Admin: 09/21/24 21:12 Dose: 50 mg Quetiapine Fumarate (Quetiapine Fumarate 50 Mg Tablet) 50 mg PO TID PRN PRN Reason: moderate to severe anxiety Last Admin: 09/21/24 22:35 Dose: 50 mg Trazodone HCl (Trazodone Hcl 50 Mg Tablet) 50 mg PO BEDTIME MRX1 PRN PRN Reason: Insomnia Allergies Allergies Allergy/AdvReac Type Severity Reaction Status Date / Time amoxicillin Allergy Facial Verified 09/08/24 18:39 Swelling Assessment & Plan Assessment & Plan (1) Schizoaffective disorder, bipolar type: Status: Acute Code(s): F25.0 - Schizoaffective disorder, bipolar type (2) Cannabis use disorder: Status: Acute Code(s): F12.90 - Cannabis use, unspecified, uncomplicated (3) Elevated transaminase level: Status: Acute Code(s): R74.01 - Elevation of levels of liver transaminase levels Assessment and Plan: mild Plan Admit, CV, 15 minute checks Diagnostics as needed Seroquel 50 mg tid prn Evaluate efficacy of re-starting Seroquel and if pt should return to [facility] Collateral contact Discharge/aftercare planning. 09/14/24- TDN to 09/16. Pt to discharge Declined med changes 09/17- Abilify 5 mg HS trial 09/19- Hold Abilify tonight-pt reported CP after taking last night, EKG is wnl Pt currently upset as he believes a staff member who worked over the weekend is one of his [facility] staff members and is feeling threatened- team is working to validate the reality of current concern. 09/20: Active on unit. observed responding to internal stimuli. paranoid. delusional. Patient believes he is dating [employer] and not for his money ; he reports receiving money whenever I want from the mayor in [place] . Patient believes his neighbors has sent people to the unit to put things in my food and follow me . Continue current tx plan. 09/22: Tolerating retrial of Abilify Reason for continued inpatient stay Substantial Risk for: rapid decompensation Time Spent With Patient Time: Total time managing care of this patient today ____ minutes.
[2024-09-22] MEDS: QUEtiapine Fumarate 25 MG TABLET 75 MG PO (12:00)
[2024-09-22] MEDS: hydrOXYzine HCL 25 MG TABLET PO ×3 (12:02→23:19)
[2024-09-22] MEDS: QUEtiapine Fumarate 50 MG TABLET PO ×3 (16:40→21:19)
[2024-09-22] MEDS: Lidocaine 4 % Patch ADH..PATCH 1 PATCH TRANSDERMA (19:22)
[2024-09-22 20:00] VITALS: BP 134/78; PULSE 99; TEMP 37.2; O2SAT 98
[2024-09-22] MEDS: QUEtiapine Fumarate 200 MG TABLET PO (21:18)
[2024-09-22] MEDS: ARIPiprazole 5 MG TABLET PO (21:19)
[2024-09-23 08:00] VITALS: BP 114/59; PULSE 86; TEMP 36.3; O2SAT 97
[2024-09-23] MEDS: QUEtiapine Fumarate 100 MG TABLET PO (08:46)
[2024-09-23] MEDS: Ferrous Sulfate 324 MG TABLET.DR PO (08:46)
[2024-09-23] MEDS: estradioL 0.5 MG TABLET 3 MG PO (08:46)
[2024-09-23] MEDS: Lidocaine 4 % Patch ADH..PATCH 1 PATCH TRANSDERMA (10:05)
[2024-09-23] MEDS: QUEtiapine Fumarate 25 MG TABLET 75 MG PO ×2 (11:36→15:46)
[2024-09-23 11:48] VITALS: BMI 24.8
--- NOTE | 2024-09-23 12:21 | HO.PSYCHPN ---
Subjective Subjective Date of Service: 09/23/24 Reason For Visit: crisis eval Subjective Notes: Section 7 Healthcare Proxy: No Guardianship: No Medical Problems Affecting Mental Status: No Interim History: I am ready to increase the Seroquel and Abilify Reivewed pt's dosing of the above. Reports a good meeting with her employment law attorney Discussed team concerns and rationale for Section 7. Discussed seriousness of pt's threats to use gasoline/flame to manage conflicts with others and consequences. Yes, those I know I should change . Medication Compliance: Yes Side effects from medications: No Attending Groups: Intermittent Review of Systems Acute medical concerns: No Review of Systems Review of Systems Denies Mental Status Exam Mental Status Exam Patient Appearance: Fatigued and Appropriate Patient Orientation: Person, Place, Time and Situation Level of Consciousness: Alert Patient Behavior: Talkative and Good Eye Contact Mood Description: Anxious Affect Description: Anxious Patient Cognition Impaired: No Ability to Follow Directions: Good Speech Pattern: Spontaneous Speech Memory Description: Episodic Impaired Delusions: Paranoid Ideation, Grandiose and Present Thought Process: Distracted and Rumination Thought Content: positive for Circumstantial Depressive Symptoms: Increased Anxiety Judgement: Poor Diagnostics Vital Signs (24Hr): Vital Signs - 24 hr 09/22/24 20:00 09/23/24 08:00 Temperature 98.9 F 97.4 F Pulse Rate 99 86 Blood Pressure 134/78 114/59 L Pulse Oximetry 98 97 Oxygen Delivery Method Room Air Room Air BMI result Body Mass Index 24.8 Labs 09/08/24 19:57 09/10/24 08:17 Medications Medications Current Medications Acetaminophen (Acetaminophen 325 Mg Tablet) 650 mg PO Q6H PRN PRN Reason: Headache/Pain, Scale 1-10 Al Hydroxide/Mg Hydroxide (Magnesium Hydrox/Alum Hydrox 30 Ml Oral.Susp) 30 ml PO Q6H PRN PRN Reason: Heartburn/Nausea Aripiprazole (Aripiprazole 5 Mg Tablet) 5 mg PO BEDTIME [facility] Last Admin: 09/22/24 21:19 Dose: 5 mg Estradiol (Estradiol 0.5 Mg Tablet) 3 mg PO DAILY [facility] Last Admin: 09/23/24 08:46 Dose: 3 mg Ferrous Sulfate (Ferrous Sulfate 324 Mg Tablet.Dr) 324 mg PO DAILY [facility] Last Admin: 09/23/24 08:46 Dose: 324 mg Hydroxyzine HCl (Hydroxyzine Hcl 25 Mg Tablet) 25 mg PO Q6H PRN PRN Reason: mild anxiety Last Admin: 09/22/24 23:19 Dose: 25 mg Lidocaine (Lidocaine 4 % Patch Adh..Patch) 1 patch TRANSDERMA DAILY [facility]; Protocol Last Admin: 09/23/24 10:05 Dose: 1 patch Magnesium Hydroxide (Milk Of Magnesia 30 Ml Oral.Susp) 30 ml PO DAILY PRN PRN Reason: Constipation Nicotine (Nicotine 21 Mg Patch.Td24) 21 mg TRANSDERMA DAILY PRN PRN Reason: smoking cessation Nicotine Polacrilex (Nicotine Polacrilex 2 Mg Gum) 4 mg BUCCAL Q2H PRN PRN Reason: Nicotine Cravings Olanzapine (Olanzapine 5 Mg Tablet) 5 mg PO TID PRN PRN Reason: agitation Last Admin: 09/17/24 19:03 Dose: 5 mg Quetiapine Fumarate (Quetiapine Fumarate 200 Mg Tablet) 200 mg PO BEDTIME [facility] Last Admin: 09/22/24 21:18 Dose: 200 mg Quetiapine Fumarate (Quetiapine Fumarate 100 Mg Tablet) 100 mg PO DAILY [facility] Last Admin: 09/23/24 08:46 Dose: 100 mg Quetiapine Fumarate (Quetiapine Fumarate 25 Mg Tablet) 75 mg PO DAILY@1200 [facility] Last Admin: 09/23/24 11:36 Dose: 75 mg Quetiapine Fumarate (Quetiapine Fumarate 50 Mg Tablet) 50 mg PO BEDTIME [facility] Last Admin: 09/22/24 21:19 Dose: 50 mg Quetiapine Fumarate (Quetiapine Fumarate 50 Mg Tablet) 50 mg PO TID PRN PRN Reason: moderate to severe anxiety Last Admin: 09/22/24 21:19 Dose: 50 mg Trazodone HCl (Trazodone Hcl 50 Mg Tablet) 50 mg PO BEDTIME MRX1 PRN PRN Reason: Insomnia Allergies Allergies Allergy/AdvReac Type Severity Reaction Status Date / Time amoxicillin Allergy Facial Verified 09/08/24 18:39 Swelling Assessment & Plan Assessment & Plan (1) Schizoaffective disorder, bipolar type: Status: Acute Code(s): F25.0 - Schizoaffective disorder, bipolar type (2) Cannabis use disorder: Status: Acute Code(s): F12.90 - Cannabis use, unspecified, uncomplicated (3) Elevated transaminase level: Status: Acute Code(s): R74.01 - Elevation of levels of liver transaminase levels Assessment and Plan: mild Plan Admit, CV, 15 minute checks Diagnostics as needed Seroquel 50 mg tid prn Evaluate efficacy of re-starting Seroquel and if pt should return to [facility] Collateral contact Discharge/aftercare planning. 09/14/24- TDN to 09/16. Pt to discharge Declined med changes 09/17- Abilify 5 mg HS trial 09/19- Hold Abilify tonchuck-pt reported CP after taking last night, EKG is wnl Pt currently upset as he believes a staff member who worked over the weekend is one of his [facility] staff members and is feeling threatened- team is working to validate the reality of current concern. 09/20: Active on unit. observed responding to internal stimuli. paranoid. delusional. 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 Patient believes his neighbors has sent people to the unit to put things in my food and follow me . Continue current tx plan. 09/22: Tolerating retrial of Abilify 09/23: Increase Abilify to 10 mg. Pt requests we change to a.m. Increase Seroquel to 150 mg a.m., 75 mg noon, 300 mg hs. Continue 75 mg tid prn. By hx pt reports >800 mg used daily. Will monitor (525 mg scheduled, 225 mg prn) Patient educated on: medication risk/benefits Reason for continued inpatient stay Substantial Risk for: rapid decompensation Time Spent With Patient Time: Total time managing care of this patient today ____ minutes.
[2024-09-23] MEDS: hydrOXYzine HCL 25 MG TABLET PO (15:46)
[2024-09-23 20:00] VITALS: BP 129/7; PULSE 103; TEMP 37.3; O2SAT 97
[2024-09-23] MEDS: QUEtiapine Fumarate 300 MG TABLET PO (20:29)
[2024-09-24] MEDS: QUEtiapine Fumarate 25 MG TABLET 75 MG PO ×3 (00:11→17:07)
[2024-09-24 08:00] VITALS: BP 121/56; PULSE 73; RESP 16; TEMP 36.3; O2SAT 97
[2024-09-24] MEDS: estradioL 0.5 MG TABLET 3 MG PO (09:45)
[2024-09-24] MEDS: QUEtiapine Fumarate 50 MG TABLET 150 MG PO (09:45)
[2024-09-24] MEDS: Ferrous Sulfate 324 MG TABLET.DR PO (09:45)
[2024-09-24] MEDS: ARIPiprazole 10 MG TABLET PO (09:45)
[2024-09-24] MEDS: hydrOXYzine HCL 25 MG TABLET PO ×2 (09:46→18:30)
[2024-09-24] MEDS: Lidocaine 4 % Patch ADH..PATCH 1 PATCH TRANSDERMA (09:47)
--- NOTE | 2024-09-24 09:57 | P.PNPSI_ITS ---
Subjective Subjective Date of Service: 09/24/24 Reason For Visit: crisis eval Subjective Notes: Section 7 Healthcare Proxy: No Guardianship: No Medical Problems Affecting Mental Status: No Interim History: Pt reports increases in medication have been tolerated and without adverse effects. Slept 5 hours last night. Visable in the milieu-talking with peers, team, on the telephone. No questions or concerns expressed today. States she is feeling well. Court is rescheduled for 09/30/24. Medication Compliance: Yes Side effects from medications: No Attending Groups: Intermittent Review of Systems Acute medical concerns: No Review of Systems Review of Systems Reports she is feeling well. Mental Status Exam Mental Status Exam Patient Appearance: Appropriate Patient Orientation: Person, Place, Time and Situation Level of Consciousness: Alert Patient Behavior: Talkative and Good Eye Contact Mood Description: Calm Affect Description: Calm Patient Cognition Impaired: No Ability to Follow Directions: Good Speech Pattern: Spontaneous Speech Memory Description: Episodic Impaired Delusions: Grandiose and Present Thought Process: Distracted Thought Content: positive for Circumstantial Judgement: Fair Diagnostics Vital Signs (24Hr): Vital Signs - 24 hr 09/23/24 20:00 Temperature 99.1 F Pulse Rate 103 H Blood Pressure 129/7 L Pulse Oximetry 97 Oxygen Delivery Method Room Air BMI result Body Mass Index 24.8 Labs 09/08/24 19:57 09/10/24 08:17 Medications Medications Current Medications Acetaminophen (Acetaminophen 325 Mg Tablet) 650 mg PO Q6H PRN PRN Reason: Headache/Pain, Scale 1-10 Al Hydroxide/Mg Hydroxide (Magnesium Hydrox/Alum Hydrox 30 Ml Oral.Susp) 30 ml PO Q6H PRN PRN Reason: Heartburn/Nausea Aripiprazole (Aripiprazole 10 Mg Tablet) 10 mg PO DAILY [facility] Last Admin: 09/24/24 09:45 Dose: 10 mg Estradiol (Estradiol 0.5 Mg Tablet) 3 mg PO DAILY [facility] Last Admin: 09/24/24 09:45 Dose: 3 mg Ferrous Sulfate (Ferrous Sulfate 324 Mg Tablet.) 324 mg PO DAILY [facility] Last Admin: 09/24/24 09:45 Dose: 324 mg Hydroxyzine HCl (Hydroxyzine Hcl 25 Mg Tablet) 25 mg PO Q6H PRN PRN Reason: mild anxiety Last Admin: 09/24/24 09:46 Dose: 25 mg Lidocaine (Lidocaine 4 % Patch Adh..Patch) 1 patch TRANSDERMA DAILY [facility]; Protocol Last Admin: 09/24/24 09:47 Dose: 1 patch Magnesium Hydroxide (Milk Of Magnesia 30 Ml Oral.Susp) 30 ml PO DAILY PRN PRN Reason: Constipation Nicotine (Nicotine 21 Mg Patch.Td24) 21 mg TRANSDERMA DAILY PRN PRN Reason: smoking cessation Nicotine Polacrilex (Nicotine Polacrilex 2 Mg Gum) 4 mg BUCCAL Q2H PRN PRN Reason: Nicotine Cravings Olanzapine (Olanzapine 5 Mg Tablet) 5 mg PO TID PRN PRN Reason: agitation Last Admin: 09/17/24 19:03 Dose: 5 mg Quetiapine Fumarate (Quetiapine Fumarate 25 Mg Tablet) 75 mg PO DAILY@1200 [facility] Last Admin: 09/23/24 11:36 Dose: 75 mg Quetiapine Fumarate (Quetiapine Fumarate 50 Mg Tablet) 150 mg PO DAILY [facility] Last Admin: 09/24/24 09:45 Dose: 150 mg Quetiapine Fumarate (Quetiapine Fumarate 25 Mg Tablet) 75 mg PO TID PRN PRN Reason: moderate to severe anxiety Last Admin: 09/24/24 00:11 Dose: 75 mg Quetiapine Fumarate (Quetiapine Fumarate 300 Mg Tablet) 300 mg PO BEDTIME [facility] Last Admin: 09/23/24 20:29 Dose: 300 mg Trazodone HCl (Trazodone Hcl 50 Mg Tablet) 50 mg PO BEDTIME MRX1 PRN PRN Reason: Insomnia Allergies Allergies Allergy/AdvReac Type Severity Reaction Status Date / Time amoxicillin Allergy Facial Verified 09/08/24 18:39 Swelling Assessment & Plan Assessment & Plan (1) Schizoaffective disorder, bipolar type: Status: Acute Code(s): F25.0 - Schizoaffective disorder, bipolar type (2) Cannabis use disorder: Status: Acute Code(s): F12.90 - Cannabis use, unspecified, uncomplicated (3) Elevated transaminase level: Status: Acute Code(s): R74.01 - Elevation of levels of liver transaminase levels Assessment and Plan: mild Plan Admit, CV, 15 minute checks Diagnostics as needed Seroquel 50 mg tid prn Evaluate efficacy of re-starting Seroquel and if pt should return to [facility] Collateral contact Discharge/aftercare planning. 09/14/24- TDN to 09/16. Pt to discharge Declined med changes 09/17- Abilify 5 mg HS trial 09/19- Hold Abilify mal-pt reported CP after taking last night, EKG is wnl Pt currently upset as he believes a staff member who worked over the weekend is one of his [facility] staff members and is feeling threatened- team is working to validate the reality of current concern. 09/20: Active on unit. observed responding to internal stimuli. paranoid. delusional. Patient believes he is dating [employer] and not for his money ; he reports receiving money whenever I want from the mayor in [place] . Patient believes his neighbors has sent people to the unit to put things in my food and follow me . Continue current tx plan. 09/22: Tolerating retrial of Abilify 09/23: Increase Abilify to 10 mg. Pt requests we change to a.m. Increase Seroquel to 150 mg a.m., 75 mg noon, 300 mg hs. Continue 75 mg tid prn. By hx pt reports >800 mg used daily. Will monitor (525 mg scheduled, 225 mg prn) 09/24: Continue tx Court 09/30/24. 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 Reason for continued inpatient stay Substantial Risk for: rapid decompensation Time Spent With Patient Time: Total time managing care of this patient today ____ minutes.
[2024-09-24 20:23] VITALS: BP 122/68; PULSE 102; TEMP 37.8; O2SAT 97
[2024-09-24] MEDS: QUEtiapine Fumarate 300 MG TABLET PO (20:50)
[2024-09-25] MEDS: QUEtiapine Fumarate 25 MG TABLET 75 MG PO ×4 (01:53→21:53)
[2024-09-25] MEDS: hydrOXYzine HCL 25 MG TABLET PO ×3 (01:53→21:53)
[2024-09-25 08:00] VITALS: BP 149/64; PULSE 88; TEMP 37.8; O2SAT 100
[2024-09-25] MEDS: Lidocaine 4 % Patch ADH..PATCH 1 PATCH TRANSDERMA (08:24)
[2024-09-25] MEDS: estradioL 0.5 MG TABLET 3 MG PO (08:24)
[2024-09-25] MEDS: QUEtiapine Fumarate 50 MG TABLET 150 MG PO (08:25)
[2024-09-25] MEDS: ARIPiprazole 10 MG TABLET PO (08:25)
[2024-09-25] MEDS: Ferrous Sulfate 324 MG TABLET.DR PO (08:25)
[2024-09-25 09:28] VITALS: TEMP 37.2
--- NOTE | 2024-09-25 10:13 | P.PNPSI_ITS ---
Subjective Subjective Date of Service: 09/25/24 Reason For Visit: crisis eval Interim History: Met with patient; discussed with team Patient in bed, awake and alert, not wanting to talk but saying that she is okay without any complaints Later in the day nurse informed clinical writer that patient was complaining of right- sided abdominal pain that happened shortly after eating her hamburger for lunch. Only hurts when [she] sucks in stomach or presses on the area. Describes as sharp and ?poking?. Patient had bowel movement today; passing gas without issue. Will increase vitals to t.i.d.; will monitor and get consult if pain persists or worsens Will get abdominal labs, LFTs, GGT to a out cholelithiasis (pain following fatty meal) Review of chart shows that on 08/01/2020 patient complained of abdominal pain and had abdominal CT: ...radiologist to inform of patient's retroperitoneal lymphadenopathy. Patient was informed of this and told he should follow up with PCP or oncology to get biopsy make sure he does not have lymphoma. Patient labs are normal.... IMPRESSION: 1. Retroperitoneal lymphadenopathy and splenomegaly. Differential diagnosis includes infectious etiologies as well as neoplastic. 2. Incidentally noted tiny punctate nonobstructing left renal calculus. Mental Status Exam Mental Status Exam Patient Appearance: Appropriate Patient Orientation: Person, Place, Time and Situation Level of Consciousness: Awake and Alert Patient Behavior: Talkative Mood Description: Calm ( ok ) Affect Description: Calm Patient Cognition Impaired: No Ability to Follow Directions: Fair Speech Pattern: Spontaneous Speech Memory Description: Episodic Impaired Delusions: Grandiose and Present Thought Process: Distracted Thought Content: positive for Circumstantial Judgement and Insight: impaired Diagnostics Vital Signs (24Hr): Vital Signs - 24 hr 09/24/24 20:23 09/25/24 08:00 09/25/24 09:28 Temperature 100.0 F 100.0 F 99 F Pulse Rate 102 H 88 Blood Pressure 122/68 149/64 H Pulse Oximetry 97 100 Oxygen Delivery Method Room Air Room Air BMI result Body Mass Index 24.8 Labs 09/08/24 19:57 09/10/24 08:17 Medications Medications Current Medications Acetaminophen (Acetaminophen 325 Mg Tablet) 650 mg PO Q6H PRN PRN Reason: Headache/Pain, Scale 1-10 Al Hydroxide/Mg Hydroxide (Magnesium Hydrox/Alum Hydrox 30 Ml Oral.Susp) 30 ml PO Q6H PRN PRN Reason: Heartburn/Nausea Aripiprazole (Aripiprazole 10 Mg Tablet) 10 mg PO DAILY [facility] Last Admin: 09/25/24 08:25 Dose: 10 mg Estradiol (Estradiol 0.5 Mg Tablet) 3 mg PO DAILY [facility] Last Admin: 09/25/24 08:24 Dose: 3 mg Ferrous Sulfate (Ferrous Sulfate 324 Mg Tablet.Dr) 324 mg PO DAILY [facility] Last Admin: 09/25/24 08:25 Dose: 324 mg Hydroxyzine HCl (Hydroxyzine Hcl 25 Mg Tablet) 25 mg PO Q6H PRN PRN Reason: mild anxiety Last Admin: 09/25/24 01:53 Dose: 25 mg Lidocaine (Lidocaine 4 % Patch Adh..Patch) 1 patch TRANSDERMA DAILY [facility]; Protocol Last Admin: 09/25/24 08:24 Dose: 1 patch Magnesium Hydroxide (Milk Of Magnesia 30 Ml Oral.Susp) 30 ml PO DAILY PRN PRN Reason: Constipation Nicotine (Nicotine 21 Mg Patch.Td24) 21 mg TRANSDERMA DAILY PRN PRN Reason: smoking cessation Nicotine Polacrilex (Nicotine Polacrilex 2 Mg Gum) 4 mg BUCCAL Q2H PRN PRN Reason: Nicotine Cravings Olanzapine (Olanzapine 5 Mg Tablet) 5 mg PO TID PRN PRN Reason: agitation Last Admin: 09/17/24 19:03 Dose: 5 mg Quetiapine Fumarate (Quetiapine Fumarate 25 Mg Tablet) 75 mg PO DAILY@1200 [facility] Last Admin: 09/24/24 11:48 Dose: 75 mg Quetiapine Fumarate (Quetiapine Fumarate 50 Mg Tablet) 150 mg PO DAILY [facility] Last Admin: 09/25/24 08:25 Dose: 150 mg Quetiapine Fumarate (Quetiapine Fumarate 25 Mg Tablet) 75 mg PO TID PRN PRN Reason: moderate to severe anxiety Last Admin: 09/25/24 01:53 Dose: 75 mg Quetiapine Fumarate (Quetiapine Fumarate 300 Mg Tablet) 300 mg PO BEDTIME [facility] Last Admin: 09/24/24 20:50 Dose: 300 mg Trazodone HCl (Trazodone Hcl 50 Mg Tablet) 50 mg PO BEDTIME MRX1 PRN PRN Reason: Insomnia Allergies Allergies Allergy/AdvReac Type Severity Reaction Status Date / Time amoxicillin Allergy Facial Verified 09/08/24 18:39 Swelling Assessment & Plan Assessment & Plan (1) Schizoaffective disorder, bipolar type: Status: Acute Code(s): F25.0 - Schizoaffective disorder, bipolar type (2) Cannabis use disorder: Status: Acute Code(s): F12.90 - Cannabis use, unspecified, uncomplicated (3) Elevated transaminase level: Status: Acute Code(s): R74.01 - Elevation of levels of liver transaminase levels Assessment and Plan: mild Plan Admit, CV, 15 minute checks Diagnostics as needed Seroquel 50 mg tid prn Evaluate efficacy of re-starting Seroquel and if pt should return to [facility] Collateral contact Discharge/aftercare planning. 09/14/24- TDN to 09/16. Pt to discharge Declined med changes 09/17- Abilify 5 mg HS trial 09/19- Hold Abilify tonight-pt reported CP after taking last night, EKG is wnl Pt currently upset as he believes a staff member who worked over the weekend is one of his [facility] staff members and is feeling threatened- team is working to validate the reality of current concern. 09/20: Active on unit. observed responding to internal stimuli. paranoid. delusional. Patient believes he is dating [employer] and not for his money ; he reports receiving money whenever I want from the mayor in [place] . Patient believes his neighbors has sent people to the unit to put things in my food and follow me . Continue current tx plan. 09/22: Tolerating retrial of Abilify 09/23: Increase Abilify to 10 mg. Pt requests we change to a.m. Increase Seroquel to 150 mg a.m., 75 mg noon, 300 mg hs. Continue 75 mg tid prn. By hx pt reports >800 mg used daily. Will monitor (525 mg scheduled, 225 mg prn) 09/24: Continue tx Court 09/30/24. 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 09/25 Patient in bed, awake and alert, not wanting to talk but saying that she is okay without any complaints Later in the day nurse informed clinical writer that patient was complaining of right- sided abdominal pain that happened shortly after eating her hamburger for lunch. Only hurts when [she] sucks in stomach or presses on the area. Describes as sharp and ?poking?. Patient had bowel movement today; passing gas without issue. PLAN: Will increase vitals to t.i.d.; will monitor and get consult if pain persists or worsens Will get abdominal labs, LFTs, GGT to a out cholelithiasis (pain following fatty meal); lipase; CBC Further Review of chart shows that on 08/01/2020 patient complained of abdominal pain and had abdominal CT: ...radiologist to inform of patient's retroperitoneal lymphadenopathy. Patient was informed of this and told he should follow up with PCP or oncology to get biopsy make sure he does not have lymphoma. Patient labs are normal.... IMPRESSION: 1. Retroperitoneal lymphadenopathy and splenomegaly. Differential diagnosis includes infectious etiologies as well as neoplastic. 2. Incidentally noted tiny punctate nonobstructing left renal calculus. Reason for continued inpatient stay Substantial Risk for: inability to function Time Spent With Patient Time: Total time managing care of this patient today ____ minutes.
[2024-09-25 13:51] VITALS: TEMP 37.2
[2024-09-25 14:50] LABS: MANUAL DIFF FLAG NO
[2024-09-25 14:52] LABS: Basophils Percent Auto 0.4 % (0-2); Eosinophils Absolute Auto 0.1 X10*3/uL (0.0-0.4); Hematocrit 38.4 % (37.0-47.0); Hemoglobin 13.2 g/dl (12.0-16.0); Imm Gran Abs Auto 0.02 X10*3/uL (0.00-0.03); Imm Gran Pct Auto 0.4 % (0.0-0.4); Lymphocytes Absolute Auto 1.6 X10*3/uL (1.2-4.9); Lymphocytes Percent Auto 28.7 % (20-40); Mean Corpuscular HGB Conc 34.4 g/dl (31.0-35.0); Mean Corpuscular Hemoglobin 30.8 pg (27.0-33.0); Mean Corpuscular Volume 89.7 fL (80.0-98.0); Mean Platelet Volume 8.6 fL (9.4-12.3); Monocytes Absolute Auto 0.6 X10*3/uL (0.1-1.2); Monocytes Percent Auto 11.5 % (2-11); Neutrophils Absolute Auto 3.1 x10*3/uL (2.0-8.3); Platelet Count 246 X10*3/uL (160-400); Red Blood Count 4.28 X10*6/uL (4.20-5.50); Red Cell Distribution Width 13.2 % (11.0-16.0); White Blood Count 5.5 X10*3/uL (4.8-10.8)
[2024-09-25 15:01] LABS: Ammonia 38 umol/L (13-55)
[2024-09-25 15:30] LABS: Alanine Aminotransferase 24 U/L (0-31); Albumin Level 4.1 g/dL (3.5-5.0); Alkaline Phosphatase 86 U/L (39-117); Anion Gap 13 (12-20); Aspartate Amino Transferase 25 U/L (5-31); Bilirubin Direct 0.3 mg/dL (0.0-0.5); Blood Urea Nitrogen 17 mg/dL (9-16); Calcium 8.8 mg/dL (8.4-10.2); Carbon Dioxide 24 mmol/L (22-29); Chloride 104 mmol/L (96-108); Creatinine Clr Calc Pharmacy 94.1; Estimated Glomerular Filt Rate > 60; Gamma Glutamyl Transpeptidase 61 U/L (7-33); Glucose Random 97 mg/dL (60-115); Lipase 31 U/L (8-78); Potassium 4.3 mmol/L (3.3-5.1); Sodium 137 mmol/L (135-145); Total Protein 6.6 g/dL (6.5-8.0)
[2024-09-25 19:34] VITALS: BP 132/64; PULSE 104; RESP 16; TEMP 36.3; O2SAT 98
[2024-09-25] MEDS: QUEtiapine Fumarate 300 MG TABLET PO (19:42)
[2024-09-26] MEDS: QUEtiapine Fumarate 25 MG TABLET 75 MG PO ×3 (04:31→16:27)
[2024-09-26 08:00] VITALS: BP 121/51; PULSE 83; RESP 14; TEMP 36.6; O2SAT 97
[2024-09-26] MEDS: ARIPiprazole 10 MG TABLET PO (08:35)
[2024-09-26] MEDS: QUEtiapine Fumarate 50 MG TABLET 150 MG PO (08:35)
[2024-09-26] MEDS: estradioL 0.5 MG TABLET 3 MG PO (08:35)
[2024-09-26] MEDS: Ferrous Sulfate 324 MG TABLET.DR PO (08:35)
[2024-09-26] MEDS: hydrOXYzine HCL 25 MG TABLET PO ×2 (08:37→16:27)
[2024-09-26 08:54] LABS: Alanine Aminotransferase 25 U/L (0-31); Albumin Level 4.1 g/dL (3.5-5.0); Alkaline Phosphatase 84 U/L (39-117); Aspartate Amino Transferase 28 U/L (5-31); Bilirubin Direct 0.3 mg/dL (0.0-0.5); Bilirubin Total 1.3 mg/dL (0.0-1.0); Gamma Glutamyl Transpeptidase 57 U/L (7-33); Total Protein 6.6 g/dL (6.5-8.0)
--- NOTE | 2024-09-26 09:38 | HO.PSYCHPN ---
Subjective Subjective Date of Service: 09/26/24 Reason For Visit: crisis eval Interim History: met with patient; discussed with team Patient reports feeling much better today, abdominal pain fully resolved. Discussed labs with patient including increased bilirubin that GGT remains elevated; discussed cholelithiasis, fatty meal etc. and patient will pay attention to see if there is a correlation. Also reviewed [address] finding with patient who said she never followed up with PCP but grateful to have this discussed instead will do so on discharge. Mental Status Exam Mental Status Exam Patient Appearance: Appropriate Patient Orientation: Person, Place, Time and Situation Level of Consciousness: Awake and Alert Patient Behavior: Talkative Mood Description: Calm ( good ) Affect Description: Calm Patient Cognition Impaired: No Ability to Follow Directions: Fair Speech Pattern: Spontaneous Speech Memory Description: Episodic Impaired Delusions: Grandiose and Present Thought Process: Distracted Thought Content: positive for Circumstantial Judgement and Insight: impaired Diagnostics Vital Signs (24Hr): Vital Signs - 24 hr 09/25/24 13:51 09/25/24 19:34 Temperature 98.9 F 97.4 F Pulse Rate 104 H Respiratory Rate 16 Blood Pressure 132/64 Pulse Oximetry 98 Oxygen Delivery Method Room Air BMI result Body Mass Index 24.8 Labs 09/25/24 14:47 09/25/24 14:47 Labs: Laboratory Results - last 48 hr 09/25/24 09/26/24 14:47 08:31 WBC 5.5 RBC 4.28 Hgb 13.2 Hct 38.4 MCV 89.7 MCH 30.8 MCHC 34.4 RDW 13.2 Plt Count 246 MPV 8.6 L Immature Gran % (Auto) 0.4 Neut % (Auto) 57.0 Lymph % (Auto) 28.7 [place] % (Auto) 11.5 H Eos % (Auto) 2.0 Baso % (Auto) 0.4 Lymph # (Auto) 1.6 [place] # (Auto) 0.6 Eos # (Auto) 0.1 Baso # (Auto) 0.0 Abs Immat Gran (auto) 0.02 Absolute Neuts (auto) 3.1 Absolute Nucleated RBC 0.000 Nucleated RBC % (auto) 0.0 Sodium 137 Potassium 4.3 Chloride 104 Carbon Dioxide 24 Anion Gap 13 BUN 17 H Creatinine 0.93 Estim Creat Clear Calc 94.1 Estimated GFR > 60 Random Glucose 97 Calcium 8.8 Total Bilirubin 1.0 1.3 H Direct Bilirubin 0.3 0.3 GGT 61 H 57 H AST 25 28 ALT 24 25 Alkaline Phosphatase 86 84 Ammonia 38 Total Protein 6.6 6.6 Albumin 4.1 4.1 Lipase 31 Medications Medications Current Medications Acetaminophen (Acetaminophen 325 Mg Tablet) 650 mg PO Q6H PRN PRN Reason: Headache/Pain, Scale 1-10 Al Hydroxide/Mg Hydroxide (Magnesium Hydrox/Alum Hydrox 30 Ml Oral.Susp) 30 ml PO Q6H PRN PRN Reason: Heartburn/Nausea Aripiprazole (Aripiprazole 10 Mg Tablet) 10 mg PO DAILY [facility] Last Admin: 09/26/24 08:35 Dose: 10 mg Estradiol (Estradiol 0.5 Mg Tablet) 3 mg PO DAILY [facility] Last Admin: 09/26/24 08:35 Dose: 3 mg Ferrous Sulfate (Ferrous Sulfate 324 Mg Tablet.Dr) 324 mg PO DAILY [facility] Last Admin: 09/26/24 08:35 Dose: 324 mg Hydroxyzine HCl (Hydroxyzine Hcl 25 Mg Tablet) 25 mg PO Q6H PRN PRN Reason: mild anxiety Last Admin: 09/26/24 08:37 Dose: 25 mg Lidocaine (Lidocaine 4 % Patch Adh..Patch) 1 patch TRANSDERMA DAILY [facility]; Protocol Last Admin: 09/26/24 09:08 Dose: Not Given Magnesium Hydroxide (Milk Of Magnesia 30 Ml Oral.Susp) 30 ml PO DAILY PRN PRN Reason: Constipation Nicotine (Nicotine 21 Mg Patch.Td24) 21 mg TRANSDERMA DAILY PRN PRN Reason: smoking cessation Nicotine Polacrilex (Nicotine Polacrilex 2 Mg Gum) 4 mg BUCCAL Q2H PRN PRN Reason: Nicotine Cravings Olanzapine (Olanzapine 5 Mg Tablet) 5 mg PO TID PRN PRN Reason: agitation Last Admin: 09/17/24 19:03 Dose: 5 mg Quetiapine Fumarate (Quetiapine Fumarate 25 Mg Tablet) 75 mg PO DAILY@1200 [facility] Last Admin: 09/25/24 12:18 Dose: 75 mg Quetiapine Fumarate (Quetiapine Fumarate 50 Mg Tablet) 150 mg PO DAILY [facility] Last Admin: 09/26/24 08:35 Dose: 150 mg Quetiapine Fumarate (Quetiapine Fumarate 25 Mg Tablet) 75 mg PO TID PRN PRN Reason: moderate to severe anxiety Last Admin: 09/26/24 04:31 Dose: 75 mg Quetiapine Fumarate (Quetiapine Fumarate 300 Mg Tablet) 300 mg PO BEDTIME [facility] Last Admin: 09/25/24 19:42 Dose: 300 mg Trazodone HCl (Trazodone Hcl 50 Mg Tablet) 50 mg PO BEDTIME MRX1 PRN PRN Reason: Insomnia Allergies Allergies Allergy/AdvReac Type Severity Reaction Status Date / Time amoxicillin Allergy Facial Verified 09/08/24 18:39 Swelling Assessment & Plan Assessment & Plan (1) Schizoaffective disorder, bipolar type: Status: Acute Code(s): F25.0 - Schizoaffective disorder, bipolar type (2) Cannabis use disorder: Status: Acute Code(s): F12.90 - Cannabis use, unspecified, uncomplicated (3) Elevated transaminase level: Status: Acute Code(s): R74.01 - Elevation of levels of liver transaminase levels Assessment and Plan: mild Plan Admit, CV, 15 minute checks Diagnostics as needed Seroquel 50 mg tid prn Evaluate efficacy of re-starting Seroquel and if pt should return to [facility] Collateral contact Discharge/aftercare planning. 09/14/24- TDN to 09/16. Pt to discharge Declined med changes 09/17- Abilify 5 mg HS trial 09/19- Hold Abilify tonight-pt reported CP after taking last night, EKG is wnl Pt currently upset as he believes a staff member who worked over the weekend is one of his [facility] staff members and is feeling threatened- team is working to validate the reality of current concern. 09/20: Active on unit. observed responding to internal stimuli. paranoid. delusional. Patient believes he is dating [employer] and not for his money ; he reports receiving money whenever I want from the mayor in [place] . Patient believes his neighbors has sent people to the unit to put things in my food and follow me . Continue current tx plan. 09/22: Tolerating retrial of Abilify 09/23: Increase Abilify to 10 mg. Pt requests we change to a.m. Increase Seroquel to 150 mg a.m., 75 mg noon, 300 mg hs. Continue 75 mg tid prn. By hx pt reports >800 mg used daily. Will monitor (525 mg scheduled, 225 mg prn) 09/24: Continue tx Court 09/30/24. Pt's progesterone prescription will be ready for brass pickler on 09/27 at [facility]. 09/25 Patient in bed, awake and alert, not wanting to talk but saying that she is okay without any complaints Later in the day nurse informed assembly instructions writer that patient was complaining of right-sided abdominal pain that happened shortly after eating her hamburger for lunch. Only hurts when [she] sucks in stomach or presses on the area. Describes as sharp and ?poking?. Patient had bowel movement today; passing gas without issue. PLAN: Will increase vitals to t.i.d.; will monitor and get consult if pain persists or worsens Will get abdominal labs, LFTs, GGT to a out cholelithiasis (pain following fatty meal); lipase; CBC Further Review of chart shows that on 08/01/2020 patient complained of abdominal pain and had abdominal CT: ...radiologist to inform of patient's retroperitoneal lymphadenopathy. Patient was informed of this and told he should follow up with PCP or oncology to get biopsy make sure he does not have lymphoma. Patient labs are normal.... IMPRESSION: 1. Retroperitoneal lymphadenopathy and splenomegaly. Differential diagnosis includes infectious etiologies as well as neoplastic. 2. Incidentally noted tiny punctate nonobstructing left renal calculus. 09/26 Patient reports feeling much better today, abdominal pain fully resolved. Discussed labs with patient including increased bilirubin that GGT remains elevated; discussed cholelithiasis, fatty meal etc. and patient will pay attention to see if there is a correlation. Also reviewed [address] finding with patient who said she never followed up with PCP but grateful to have this discussed instead will do so on discharge. -GGT remains elevated but stable; slight increase in direct bilirubin following fatty meal which seems to point towards biliary colic as symptoms can be remitting and intermittent -primary team to help facilitate follow-up with PCP post discharge regarding 2020 CT abdominal finding (see above) Patient educated on: medical condition Informed Consent: understands Reason for continued inpatient stay Substantial Risk for: inability to function Time Spent With Patient Time: Total time managing care of this patient today ____ minutes.
[2024-09-26] MEDS: Lidocaine 4 % Patch ADH..PATCH 1 PATCH TRANSDERMA (10:42)
[2024-09-26 19:53] VITALS: BP 106/73; PULSE 97; TEMP 37.5; O2SAT 97
[2024-09-26] MEDS: QUEtiapine Fumarate 300 MG TABLET PO (20:04)
[2024-09-27] MEDS: ARIPiprazole 10 MG TABLET PO (08:13)
[2024-09-27] MEDS: Ferrous Sulfate 324 MG TABLET.DR PO (08:13)
[2024-09-27] MEDS: QUEtiapine Fumarate 50 MG TABLET 150 MG PO (08:13)
[2024-09-27] MEDS: estradioL 0.5 MG TABLET 3 MG PO (08:13)
[2024-09-27 08:23] VITALS: BP 118/64; PULSE 83; RESP 16; TEMP 36.6; O2SAT 97
--- NOTE | 2024-09-27 09:33 | P.PNPSI_ITS ---
Subjective Subjective Date of Service: 09/27/24 Reason For Visit: crisis eval Subjective Notes: Section 7 Healthcare Proxy: No Guardianship: No Medical Problems Affecting Mental Status: No Interim History: Review of episode of abdominal pain over the weekend, diagnostics, results and 2020 CT which pt wants to follow up with post discharge. Pt discussed her milieu interactions- I am learning how to remove myself from potentially conflictual situations. I really am a loner at home, I do stay to myself. I don't want to have conflicts where it comes to fighting, I don't want to harm anyone or be harmed. Discussed concerns with peers on the unit and her responses. Discussed [facility] and the changes which have taken place and her struggles with these and feelings of loss. Tolerating med changes. Denies adverse effects. Denies SI,HI,AH,VH. No sx of acute jonathan or psychosis. Evidence of delusional content in milieu: dust mites, bugs, feeling people could be tampering with her food. Medication Compliance: Yes Side effects from medications: No Attending Groups: Intermittent Review of Systems Acute medical concerns: No Review of Systems Review of Systems Denies abdominal pain today Mental Status Exam Mental Status Exam Patient Appearance: Appropriate Patient Orientation: Person, Place, Time and Situation Level of Consciousness: Alert Patient Behavior: Appropriate, Talkative, Cooperative and Good Eye Contact Mood Description: Appropriate Affect Description: Appropriate Patient Cognition Impaired: No Ability to Follow Directions: Good Speech Pattern: Spontaneous Speech Memory Description: Episodic Impaired Delusions: Present Thought Process: Distracted and Goal Oriented Thought Content: positive for Goal Oriented, positive for Suicidal Ideation (denies) and positive for Homicidal Ideation (denies) Judgement: Fair Diagnostics Vital Signs (24Hr): Vital Signs - 24 hr 09/26/24 19:53 09/27/24 08:23 Temperature 99.5 F 97.8 F Pulse Rate 97 83 Respiratory Rate 16 Blood Pressure 106/73 118/64 Pulse Oximetry 97 97 Oxygen Delivery Method Room Air Room Air BMI result Body Mass Index 24.8 Labs 09/25/24 14:47 09/25/24 14:47 Labs: Laboratory Results - last 48 hr 09/25/24 09/26/24 14:47 08:31 WBC 5.5 RBC 4.28 Hgb 13.2 Hct 38.4 MCV 89.7 MCH 30.8 MCHC 34.4 RDW 13.2 Plt Count 246 MPV 8.6 L Immature Gran % (Auto) 0.4 Neut % (Auto) 57.0 Lymph % (Auto) 28.7 [place] % (Auto) 11.5 H Eos % (Auto) 2.0 Baso % (Auto) 0.4 Lymph # (Auto) 1.6 [place] # (Auto) 0.6 Eos # (Auto) 0.1 Baso # (Auto) 0.0 Abs Immat Gran (auto) 0.02 Absolute Neuts (auto) 3.1 Absolute Nucleated RBC 0.000 Nucleated RBC % (auto) 0.0 Sodium 137 Potassium 4.3 Chloride 104 Carbon Dioxide 24 Anion Gap 13 BUN 17 H Creatinine 0.93 Estim Creat Clear Calc 94.1 Estimated GFR > 60 Random Glucose 97 Calcium 8.8 Total Bilirubin 1.0 1.3 H Direct Bilirubin 0.3 0.3 GGT 61 H 57 H AST 25 28 ALT 24 25 Alkaline Phosphatase 86 84 Ammonia 38 Total Protein 6.6 6.6 Albumin 4.1 4.1 Lipase 31 Medications Medications Current Medications Acetaminophen (Acetaminophen 325 Mg Tablet) 650 mg PO Q6H PRN PRN Reason: Headache/Pain, Scale 1-10 Al Hydroxide/Mg Hydroxide (Magnesium Hydrox/Alum Hydrox 30 Ml Oral.Susp) 30 ml PO Q6H PRN PRN Reason: Heartburn/Nausea Aripiprazole (Aripiprazole 10 Mg Tablet) 10 mg PO DAILY [facility] Last Admin: 09/27/24 08:13 Dose: 10 mg Estradiol (Estradiol 0.5 Mg Tablet) 3 mg PO DAILY [facility] Last Admin: 09/27/24 08:13 Dose: 3 mg Ferrous Sulfate (Ferrous Sulfate 324 Mg Tablet.) 324 mg PO DAILY [facility] Last Admin: 09/27/24 08:13 Dose: 324 mg Hydroxyzine HCl (Hydroxyzine Hcl 25 Mg Tablet) 25 mg PO Q6H PRN PRN Reason: mild anxiety Last Admin: 09/26/24 16:27 Dose: 25 mg Lidocaine (Lidocaine 4 % Patch Adh..Patch) 1 patch TRANSDERMA DAILY [facility]; Protocol Last Admin: 09/27/24 08:21 Dose: Not Given Magnesium Hydroxide (Milk Of Magnesia 30 Ml Oral.Susp) 30 ml PO DAILY PRN PRN Reason: Constipation Nicotine (Nicotine 21 Mg Patch.Td24) 21 mg TRANSDERMA DAILY PRN PRN Reason: smoking cessation Nicotine Polacrilex (Nicotine Polacrilex 2 Mg Gum) 4 mg BUCCAL Q2H PRN PRN Reason: Nicotine Cravings Olanzapine (Olanzapine 5 Mg Tablet) 5 mg PO TID PRN PRN Reason: agitation Last Admin: 09/17/24 19:03 Dose: 5 mg Quetiapine Fumarate (Quetiapine Fumarate 25 Mg Tablet) 75 mg PO DAILY@1200 [facility] Last Admin: 09/26/24 11:44 Dose: 75 mg Quetiapine Fumarate (Quetiapine Fumarate 50 Mg Tablet) 150 mg PO DAILY [facility] Last Admin: 09/27/24 08:13 Dose: 150 mg Quetiapine Fumarate (Quetiapine Fumarate 25 Mg Tablet) 75 mg PO TID PRN PRN Reason: moderate to severe anxiety Last Admin: 09/26/24 16:27 Dose: 75 mg Quetiapine Fumarate (Quetiapine Fumarate 300 Mg Tablet) 300 mg PO BEDTIME [facility] Last Admin: 09/26/24 20:04 Dose: 300 mg Trazodone HCl (Trazodone Hcl 50 Mg Tablet) 50 mg PO BEDTIME MRX1 PRN PRN Reason: Insomnia Allergies Allergies Allergy/AdvReac Type Severity Reaction Status Date / Time amoxicillin Allergy Facial Verified 09/08/24 18:39 Swelling Assessment & Plan Assessment & Plan (1) Schizoaffective disorder, bipolar type: Status: Acute Code(s): F25.0 - Schizoaffective disorder, bipolar type (2) Cannabis use disorder: Status: Acute Code(s): F12.90 - Cannabis use, unspecified, uncomplicated (3) Elevated transaminase level: Status: Acute Code(s): R74.01 - Elevation of levels of liver transaminase levels Assessment and Plan: mild Plan Admit, CV, 15 minute checks Diagnostics as needed Seroquel 50 mg tid prn Evaluate efficacy of re-starting Seroquel and if pt should return to [facility] Collateral contact Discharge/aftercare planning. 09/14/24- TDN to 09/16. Pt to discharge Declined med changes 09/17- Abilify 5 mg HS trial 09/19- Hold Abilify mal-pt reported CP after taking last night, EKG is wnl Pt currently upset as he believes a staff member who worked over the weekend is one of his [facility] staff members and is feeling threatened- team is working to validate the reality of current concern. 09/20: Active on unit. observed responding to internal stimuli. paranoid. delusional. Patient believes he is dating [employer] and not for his money ; he reports receiving money whenever I want from the mayor in [place] . Patient believes his neighbors has sent people to the unit to put things in my food and follow me . Continue current tx plan. 09/22: Tolerating retrial of Abilify 09/23: Increase Abilify to 10 mg. Pt requests we change to a.m. Increase Seroquel to 150 mg a.m., 75 mg noon, 300 mg hs. Continue 75 mg tid prn. By hx pt reports >800 mg used daily. Will monitor (525 mg scheduled, 225 mg prn) 09/24: Continue tx Court 09/30/24. Pt's progesterone prescription will be ready for pharmacy picking technician on 09/27 at [facility]. 09/25 Patient in bed, awake and alert, not wanting to talk but saying that she is okay without any complaints Later in the day nurse informed adjusto writer operator that patient was complaining of right- sided abdominal pain that happened shortly after eating her hamburger for lunch. Only hurts when [she] sucks in stomach or presses on the area. Describes as sharp and ?poking?. Patient had bowel movement today; passing gas without issue. 09/27: Continue tx. PLAN: Will increase vitals to t.i.d.; will monitor and get consult if pain persists or worsens Will get abdominal labs, LFTs, GGT to a out cholelithiasis (pain following fatty meal); lipase; CBC Further Review of chart shows that on 08/01/2020 patient complained of abdominal pain and had abdominal CT: ...radiologist to inform of patient's retroperitoneal lymphadenopathy. Patient was informed of this and told he should follow up with PCP or oncology to get biopsy make sure he does not have lymphoma. Patient labs are normal.... IMPRESSION: 1. Retroperitoneal lymphadenopathy and splenomegaly. Differential diagnosis includes infectious etiologies as well as neoplastic. 2. Incidentally noted tiny punctate nonobstructing left renal calculus. 09/26 Patient reports feeling much better today, abdominal pain fully resolved. Discussed labs with patient including increased bilirubin that GGT remains elevated; discussed cholelithiasis, fatty meal etc. and patient will pay attention to see if there is a correlation. Also reviewed [address] finding with patient who said she never followed up with PCP but grateful to have this discussed instead will do so on discharge. -GGT remains elevated but stable; slight increase in direct bilirubin following fatty meal which seems to point towards biliary colic as symptoms can be remitting and intermittent -primary team to help facilitate follow-up with PCP post discharge regarding 2020 CT abdominal finding (see above) Reason for continued inpatient stay Substantial Risk for: rapid decompensation Time Spent With Patient Time: Total time managing care of this patient today ____ minutes.
[2024-09-27] MEDS: QUEtiapine Fumarate 25 MG TABLET 75 MG PO ×3 (10:31→16:50)
[2024-09-27] MEDS: hydrOXYzine HCL 25 MG TABLET PO (10:32)
[2024-09-27] MEDS: Lidocaine 4 % Patch ADH..PATCH 1 PATCH TRANSDERMA (17:53)
--- NOTE | 2024-09-27 17:54 | PC.NURSE ---
Darinel Williamson NP authorized late administration of Lidocaine patch.
[2024-09-27] MEDS: hydrOXYzine HCL 50 MG TABLET PO (20:03)
[2024-09-27] MEDS: QUEtiapine Fumarate 300 MG TABLET PO (20:04)
[2024-09-28] MEDS: ARIPiprazole 10 MG TABLET PO (08:21)
[2024-09-28] MEDS: estradioL 0.5 MG TABLET 3 MG PO (08:21)
[2024-09-28] MEDS: Ferrous Sulfate 324 MG TABLET.DR PO (08:21)
[2024-09-28] MEDS: QUEtiapine Fumarate 50 MG TABLET 150 MG PO (08:21)
[2024-09-28] MEDS: hydrOXYzine HCL 50 MG TABLET PO ×2 (09:19→20:15)
[2024-09-28 09:35] VITALS: BP 118/66; PULSE 75; RESP 18; TEMP 36.7; O2SAT 98
--- NOTE | 2024-09-28 09:49 | P.PNPSI_ITS ---
Subjective Subjective Date of Service: 09/28/24 Reason For Visit: crisis eval Subjective Notes: Section 7 Healthcare Proxy: No Guardianship: No Medical Problems Affecting Mental Status: No Interim History: Pt reports to team that there are dust mites and bugs in her room. She also tells team she believes others are altering her food trays. Met with pt who has several delusions which are consistent. She denies SI, HI, AH, VH, however sees the mites and bugs. Discussed rationale for Section 7 and concern she will harm others. Reports she is utilizing the milieu to improve coping and learning skills to turn away from the challenges. Reports Abilify is tolerated, without SE and she is interested in ongoing titration. Will increase to 15 mg daily. Medication Compliance: Yes Side effects from medications: No Attending Groups: Yes Review of Systems Acute medical concerns: No Review of Systems Review of Systems Denies Mental Status Exam Mental Status Exam Patient Appearance: Appropriate Patient Orientation: Person, Place, Time and Situation Level of Consciousness: Alert Patient Behavior: Appropriate, Talkative, Cooperative and Good Eye Contact Mood Description: Appropriate Affect Description: Appropriate Patient Cognition Impaired: No Ability to Follow Directions: Good Speech Pattern: Spontaneous Speech Memory Description: Episodic Impaired Delusions: Present Thought Process: Distracted and Goal Oriented Thought Content: positive for Goal Oriented, positive for Suicidal Ideation (denies) and positive for Homicidal Ideation (denies) Judgement: Fair Diagnostics Vital Signs (24Hr): Vital Signs - 24 hr 09/28/24 09:35 Temperature 98.0 F Pulse Rate 75 Respiratory Rate 18 Blood Pressure 118/66 Pulse Oximetry 98 Oxygen Delivery Method Room Air BMI result Body Mass Index 24.8 Labs 09/25/24 14:47 09/25/24 14:47 Medications Medications Current Medications Acetaminophen (Acetaminophen 325 Mg Tablet) 650 mg PO Q6H PRN PRN Reason: Headache/Pain, Scale 1-10 Al Hydroxide/Mg Hydroxide (Magnesium Hydrox/Alum Hydrox 30 Ml Oral.Susp) 30 ml PO Q6H PRN PRN Reason: Heartburn/Nausea Aripiprazole (Aripiprazole 10 Mg Tablet) 10 mg PO DAILY [facility] Last Admin: 09/28/24 08:21 Dose: 10 mg Estradiol (Estradiol 0.5 Mg Tablet) 3 mg PO DAILY [facility] Last Admin: 09/28/24 08:21 Dose: 3 mg Ferrous Sulfate (Ferrous Sulfate 324 Mg Tablet.) 324 mg PO DAILY [facility] Last Admin: 09/28/24 08:21 Dose: 324 mg Hydroxyzine HCl (Hydroxyzine Hcl 50 Mg Tablet) 50 mg PO Q6H PRN PRN Reason: mild anxiety Last Admin: 09/28/24 09:19 Dose: 50 mg Lidocaine (Lidocaine 4 % Patch Adh..Patch) 1 patch TRANSDERMA DAILY [facility]; Protocol Last Admin: 09/28/24 08:21 Dose: Not Given Magnesium Hydroxide (Milk Of Magnesia 30 Ml Oral.Susp) 30 ml PO DAILY PRN PRN Reason: Constipation Nicotine (Nicotine 21 Mg Patch.Td24) 21 mg TRANSDERMA DAILY PRN PRN Reason: smoking cessation Nicotine Polacrilex (Nicotine Polacrilex 2 Mg Gum) 4 mg BUCCAL Q2H PRN PRN Reason: Nicotine Cravings Olanzapine (Olanzapine 5 Mg Tablet) 5 mg PO TID PRN PRN Reason: agitation Last Admin: 09/17/24 19:03 Dose: 5 mg Quetiapine Fumarate (Quetiapine Fumarate 25 Mg Tablet) 75 mg PO DAILY@1200 [facility] Last Admin: 09/27/24 12:32 Dose: 75 mg Quetiapine Fumarate (Quetiapine Fumarate 50 Mg Tablet) 150 mg PO DAILY [facility] Last Admin: 09/28/24 08:21 Dose: 150 mg Quetiapine Fumarate (Quetiapine Fumarate 25 Mg Tablet) 75 mg PO TID PRN PRN Reason: moderate to severe anxiety Last Admin: 09/27/24 16:50 Dose: 75 mg Quetiapine Fumarate (Quetiapine Fumarate 300 Mg Tablet) 300 mg PO BEDTIME [facility] Last Admin: 09/27/24 20:04 Dose: 300 mg Trazodone HCl (Trazodone Hcl 50 Mg Tablet) 50 mg PO BEDTIME MRX1 PRN PRN Reason: Insomnia Allergies Allergies Allergy/AdvReac Type Severity Reaction Status Date / Time amoxicillin Allergy Facial Verified 09/08/24 18:39 Swelling Assessment & Plan Assessment & Plan (1) Schizoaffective disorder, bipolar type: Status: Acute Code(s): F25.0 - Schizoaffective disorder, bipolar type (2) Cannabis use disorder: Status: Acute Code(s): F12.90 - Cannabis use, unspecified, uncomplicated (3) Elevated transaminase level: Status: Acute Code(s): R74.01 - Elevation of levels of liver transaminase levels Assessment and Plan: mild Plan Admit, CV, 15 minute checks Diagnostics as needed Seroquel 50 mg tid prn Evaluate efficacy of re-starting Seroquel and if pt should return to [facility] Collateral contact Discharge/aftercare planning. 09/14/24- TDN to 09/16. Pt to discharge Declined med changes 09/17- Abilify 5 mg HS trial 09/19- Hold Abilify tonight-pt reported CP after taking last night, EKG is wnl Pt currently upset as he believes a staff member who worked over the weekend is one of his [facility] staff members and is feeling threatened- team is working to validate the reality of current concern. 09/20: Active on unit. observed responding to internal stimuli. paranoid. delusional. Patient believes he is dating Bad Bunny and not for his money ; he reports receiving money whenever I want from the mayor in [place] . Patient believes his neighbors has sent people to the unit to put things in my food and follow me . Continue current tx plan. 09/22: Tolerating retrial of Abilify 09/23: Increase Abilify to 10 mg. Pt requests we change to a.m. Increase Seroquel to 150 mg a.m., 75 mg noon, 300 mg hs. Continue 75 mg tid prn. By hx pt reports >800 mg used daily. Will monitor (525 mg scheduled, 225 mg prn) 09/24: Continue tx Court 09/30/24. 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 09/25 Patient in bed, awake and alert, not wanting to talk but saying that she is okay without any complaints Later in the day nurse informed service writer advisor that patient was complaining of right- sided abdominal pain that happened shortly after eating her hamburger for lunch. Only hurts when [she] sucks in stomach or presses on the area. Describes as sharp and ?poking?. Patient had bowel movement today; passing gas without issue. PLAN: Will increase vitals to t.i.d.; will monitor and get consult if pain persists or worsens Will get abdominal labs, LFTs, GGT to a out cholelithiasis (pain following fatty meal); lipase; CBC Further Review of chart shows that on 08/01/2020 patient complained of abdominal pain and had abdominal CT: ...radiologist to inform of patient's retroperitoneal lymphadenopathy. Patient was informed of this and told he should follow up with PCP or oncology to get biopsy make sure he does not have lymphoma. Patient labs are normal.... IMPRESSION: 1. Retroperitoneal lymphadenopathy and splenomegaly. Differential diagnosis includes infectious etiologies as well as neoplastic. 2. Incidentally noted tiny punctate nonobstructing left renal calculus. 09/26 Patient reports feeling much better today, abdominal pain fully resolved. Discussed labs with patient including increased bilirubin that GGT remains elevated; discussed cholelithiasis, fatty meal etc. and patient will pay attention to see if there is a correlation. Also reviewed [address] finding with patient who said she never followed up with PCP but grateful to have this discussed instead will do so on discharge. -GGT remains elevated but stable; slight increase in direct bilirubin following fatty meal which seems to point towards biliary colic as symptoms can be remitting and intermittent -primary team to help facilitate follow-up with PCP post discharge regarding 2020 CT abdominal finding (see above) 09/28- Increase Abilify to 15 mg daily. Reason for continued inpatient stay Substantial Risk for: rapid decompensation Time Spent With Patient Time: Total time managing care of this patient today ____ minutes.
[2024-09-28] MEDS: QUEtiapine Fumarate 25 MG TABLET 75 MG PO ×2 (11:45→15:19)
[2024-09-28] MEDS: Docusate Sodium 100 MG CAPSULE PO (15:19)
[2024-09-28] MEDS: Lidocaine 4 % Patch ADH..PATCH 1 PATCH TRANSDERMA (15:57)
[2024-09-28] MEDS: QUEtiapine Fumarate 300 MG TABLET PO (20:15)
[2024-09-28 22:00] VITALS: BP 110/60; PULSE 91; TEMP 37.4; O2SAT 98
[2024-09-29] MEDS: QUEtiapine Fumarate 50 MG TABLET 150 MG PO (08:06)
[2024-09-29] MEDS: estradioL 0.5 MG TABLET 3 MG PO (08:06)
[2024-09-29] MEDS: ARIPiprazole 15 MG TABLET PO (08:06)
[2024-09-29] MEDS: Ferrous Sulfate 324 MG TABLET.DR PO (08:06)
[2024-09-29] MEDS: Lidocaine 4 % Patch ADH..PATCH 1 PATCH TRANSDERMA (08:29)
[2024-09-29 08:30] VITALS: BP 116/56; PULSE 89; RESP 18; TEMP 37.1; O2SAT 100
--- NOTE | 2024-09-29 09:34 | P.PNPSI_ITS ---
Subjective Subjective Date of Service: 09/29/24 Reason For Visit: crisis eval Subjective Notes: Section 7 Healthcare Proxy: No Guardianship: No Medical Problems Affecting Mental Status: No Interim History: Met with pt and Dhruv LIPSCOMB. Review of Section 7 and concerns with pt threats of violence. As this has been an ongoing discussion with pt, she reports she has used milieu to strengthen skills to avoid conflicts. She is aware that she is responsible for her actions and harming others becomes a legal matter. She denies any intent of harming others and did cite alternative ways of mgt of these issues, while asking questions about role of police when called and other resources for help and assist. She is compliant with medications and plans to continue medications. Discussed delusional content regarding MHA,Leena and perception of bugs being in her apartment and in her room at [facility] [place]. Discussed delusional sx and treatments, citing rationale for Haldol, Olanzapine use during previous admission. Pt would like to continue Seroquel and Abilify. Discussed discharge for 09/30. Pt agrees. She is aware she may call/return as needed. Medication Compliance: Yes Side effects from medications: No Attending Groups: Yes Review of Systems Acute medical concerns: No Review of Systems Review of Systems denies Mental Status Exam Mental Status Exam Patient Appearance: Appropriate Patient Orientation: Person, Place, Time and Situation Level of Consciousness: Alert Patient Behavior: Appropriate, Talkative, Cooperative and Good Eye Contact Mood Description: Appropriate Affect Description: Appropriate Patient Cognition Impaired: No Ability to Follow Directions: Good Speech Pattern: Spontaneous Speech Memory Description: Episodic Impaired Delusions: Present Thought Process: Distracted and Goal Oriented Thought Content: positive for Goal Oriented, positive for Suicidal Ideation (denies) and positive for Homicidal Ideation (denies) Judgement: Fair Diagnostics Vital Signs (24Hr): Vital Signs - 24 hr 09/28/24 09:35 09/28/24 22:00 Temperature 98.0 F 99.3 F Pulse Rate 75 91 Respiratory Rate 18 Blood Pressure 118/66 110/60 Pulse Oximetry 98 98 Oxygen Delivery Method Room Air BMI result Body Mass Index 24.8 Labs 09/25/24 14:47 09/25/24 14:47 Medications Medications Current Medications Acetaminophen (Acetaminophen 325 Mg Tablet) 650 mg PO Q6H PRN PRN Reason: Headache/Pain, Scale 1-10 Al Hydroxide/Mg Hydroxide (Magnesium Hydrox/Alum Hydrox 30 Ml Oral.Susp) 30 ml PO Q6H PRN PRN Reason: Heartburn/Nausea Aripiprazole (Aripiprazole 15 Mg Tablet) 15 mg PO DAILY [facility] Last Admin: 09/29/24 08:06 Dose: 15 mg Docusate Sodium (Docusate Sodium 100 Mg Capsule) 100 mg PO BID PRN PRN Reason: Constipation Last Admin: 09/28/24 15:19 Dose: 100 mg Estradiol (Estradiol 0.5 Mg Tablet) 3 mg PO DAILY [facility] Last Admin: 09/29/24 08:06 Dose: 3 mg Ferrous Sulfate (Ferrous Sulfate 324 Mg Tablet.Dr) 324 mg PO DAILY [facility] Last Admin: 09/29/24 08:06 Dose: 324 mg Hydroxyzine HCl (Hydroxyzine Hcl 50 Mg Tablet) 50 mg PO Q6H PRN PRN Reason: mild anxiety Last Admin: 09/28/24 20:15 Dose: 50 mg Lidocaine (Lidocaine 4 % Patch Adh..Patch) 1 patch TRANSDERMA DAILY [facility]; Protocol Last Admin: 09/29/24 08:29 Dose: 1 patch Magnesium Hydroxide (Milk Of Magnesia 30 Ml Oral.Susp) 30 ml PO DAILY PRN PRN Reason: Constipation Nicotine (Nicotine 21 Mg Patch.Td24) 21 mg TRANSDERMA DAILY PRN PRN Reason: smoking cessation Nicotine Polacrilex (Nicotine Polacrilex 2 Mg Gum) 4 mg BUCCAL Q2H PRN PRN Reason: Nicotine Cravings Olanzapine (Olanzapine 5 Mg Tablet) 5 mg PO TID PRN PRN Reason: agitation Last Admin: 09/17/24 19:03 Dose: 5 mg Quetiapine Fumarate (Quetiapine Fumarate 25 Mg Tablet) 75 mg PO DAILY@1200 [facility] Last Admin: 09/28/24 11:45 Dose: 75 mg Quetiapine Fumarate (Quetiapine Fumarate 50 Mg Tablet) 150 mg PO DAILY [facility] Last Admin: 09/29/24 08:06 Dose: 150 mg Quetiapine Fumarate (Quetiapine Fumarate 25 Mg Tablet) 75 mg PO TID PRN PRN Reason: moderate to severe anxiety Last Admin: 09/28/24 15:19 Dose: 75 mg Quetiapine Fumarate (Quetiapine Fumarate 300 Mg Tablet) 300 mg PO BEDTIME [facility] Last Admin: 09/28/24 20:15 Dose: 300 mg Trazodone HCl (Trazodone Hcl 50 Mg Tablet) 50 mg PO BEDTIME MRX1 PRN PRN Reason: Insomnia Allergies Allergies Allergy/AdvReac Type Severity Reaction Status Date / Time amoxicillin Allergy Facial Verified 09/08/24 18:39 Swelling Assessment & Plan Assessment & Plan (1) Schizoaffective disorder, bipolar type: Status: Acute Code(s): F25.0 - Schizoaffective disorder, bipolar type (2) Cannabis use disorder: Status: Acute Code(s): F12.90 - Cannabis use, unspecified, uncomplicated (3) Elevated transaminase level: Status: Acute Code(s): R74.01 - Elevation of levels of liver transaminase levels Assessment and Plan: mild Plan Admit, CV, 15 minute checks Diagnostics as needed Seroquel 50 mg tid prn Evaluate efficacy of re-starting Seroquel and if pt should return to [facility] Collateral contact Discharge/aftercare planning. 09/14/24- TDN to 09/16. Pt to discharge Declined med changes 09/17- Abilify 5 mg HS trial 09/19- Hold Abilify tonight-pt reported CP after taking last night, EKG is wnl Pt currently upset as he believes a staff member who worked over the weekend is one of his [facility] staff members and is feeling threatened- team is working to validate the reality of current concern. 09/20: Active on unit. observed responding to internal stimuli. paranoid. delusional. Patient believes he is dating Bad Bunny and not for his money ; he reports receiving money whenever I want from the mayor in [place] . Patient believes his neighbors has sent people to the unit to put things in my food and follow me . Continue current tx plan. 09/22: Tolerating retrial of Abilify 09/23: Increase Abilify to 10 mg. Pt requests we change to a.m. Increase Seroquel to 150 mg a.m., 75 mg noon, 300 mg hs. Continue 75 mg tid prn. By hx pt reports >800 mg used daily. Will monitor (525 mg scheduled, 225 mg prn) 09/24: Continue tx Court 09/30/24. 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 09/25 Patient in bed, awake and alert, not wanting to talk but saying that she is okay without any complaints Later in the day nurse informed functional tester typewriters that patient was complaining of right- sided abdominal pain that happened shortly after eating her hamburger for lunch. Only hurts when [she] sucks in stomach or presses on the area. Describes as sharp and ?poking?. Patient had bowel movement today; passing gas without issue. 09/27: Continue tx. 09/29: Discharge 09/30. PLAN: Will increase vitals to t.i.d.; will monitor and get consult if pain persists or worsens Will get abdominal labs, LFTs, GGT to a out cholelithiasis (pain following fatty meal); lipase; CBC Further Review of chart shows that on 08/01/2020 patient complained of abdominal pain and had abdominal CT: ...radiologist to inform of patient's retroperitoneal lymphadenopathy. Patient was informed of this and told he should follow up with PCP or oncology to get biopsy make sure he does not have lymphoma. Patient labs are normal.... IMPRESSION: 1. Retroperitoneal lymphadenopathy and splenomegaly. Differential diagnosis includes infectious etiologies as well as neoplastic. 2. Incidentally noted tiny punctate nonobstructing left renal calculus. 09/26 Patient reports feeling much better today, abdominal pain fully resolved. Discussed labs with patient including increased bilirubin that GGT remains elevated; discussed cholelithiasis, fatty meal etc. and patient will pay attention to see if there is a correlation. Also reviewed [address] finding with patient who said she never followed up with PCP but grateful to have this discussed instead will do so on discharge. -GGT remains elevated but stable; slight increase in direct bilirubin following fatty meal which seems to point towards biliary colic as symptoms can be remitting and intermittent -primary team to help facilitate follow-up with PCP post discharge regarding 2020 CT abdominal finding (see above) Reason for continued inpatient stay Substantial Risk for: stable for discharge Time Spent With Patient Time: Total time managing care of this patient today ____ minutes.
[2024-09-29] MEDS: hydrOXYzine HCL 50 MG TABLET PO ×2 (11:53→20:10)
[2024-09-29] MEDS: QUEtiapine Fumarate 25 MG TABLET 75 MG PO ×4 (11:53→21:59)
[2024-09-29] MEDS: OLANZapine 5 MG TABLET PO (14:07)
[2024-09-29 19:45] VITALS: BP 124/76; PULSE 95; RESP 16; TEMP 36.2; O2SAT 100
[2024-09-29] MEDS: QUEtiapine Fumarate 300 MG TABLET PO (20:10)
[2024-09-30 07:00] VITALS: BMI 24.7
[2024-09-30] MEDS: Ferrous Sulfate 324 MG TABLET.DR PO (08:06)
[2024-09-30] MEDS: ARIPiprazole 15 MG TABLET PO (08:06)
[2024-09-30] MEDS: estradioL 0.5 MG TABLET 3 MG PO (08:06)
[2024-09-30] MEDS: QUEtiapine Fumarate 50 MG TABLET 150 MG PO (08:06)
[2024-09-30] MEDS: Lidocaine 4 % Patch ADH..PATCH 1 PATCH TRANSDERMA (08:07)
[2024-09-30 08:22] VITALS: BP 117/56; PULSE 89; TEMP 36.5; O2SAT 99
[2024-09-30] MEDS: hydrOXYzine HCL 50 MG TABLET PO (08:40)
--- NOTE | 2024-09-30 11:10 | P.DS_ITS ---
DS: Providers Provider Date of Service: 09/30/24 Date of admission: 09/09/24 12:33 Date of discharge: 09/30/24 Primary care physician: Unknown Physician Admitting clinician: Kelle Williamson Attending physician on admission: Devan Sanchez Attending physician on discharge: Devan Sanchez Discharging clinician: Kelle Williamson DS: Diagnosis Discharge Diagnosis (1) Schizoaffective disorder, bipolar type: Status: Acute (2) Cannabis use disorder: Status: Acute (3) Elevated transaminase level: Status: Acute DS: Medications Discharge Medications Home Medications: Previous Rx's ?Medication ?Instructions ?Recorded aripiprazole 15 mg tablet 15 mg PO DAILY #30 tabs 09/29/24 docusate sodium 100 mg capsule 100 mg PO BID PRN Constipation #60 09/29/24 caps estradiol 3 mg PO DAILY #30 tabs 09/29/24 ferrous sulfate 324 mg PO DAILY #30 tabs 09/29/24 lidocaine 4 % topical patch 1 patch transdermal DAILY #30 ea 09/29/24 (Lidocaine Pain Relief) olanzapine 5 mg tablet 5 mg PO TID PRN agitation #30 tabs 09/29/24 quetiapine 25 mg tablet 75 mg (3 x 25 mg) PO DAILY@1200 09/29/24 #120 tabs quetiapine 25 mg tablet 75 mg (3 x 25 mg) PO TID PRN 09/29/24 moderate to severe anxiety #0 tabs quetiapine 300 mg tablet 300 mg PO BEDTIME #30 tabs 09/29/24 quetiapine 50 mg tablet (Seroquel) 150 mg (3 x 50 mg) PO DAILY #90 09/29/24 tabs vitamin B complex 1 tab PO DAILY #30 tabs 09/29/24 Mental Status Exam Mental Status Exam Patient Appearance: Appropriate Patient Orientation: Person, Place, Time and Situation Level of Consciousness: Alert Patient Behavior: Appropriate, Talkative, Cooperative and Good Eye Contact Mood Description: Appropriate Affect Description: Appropriate Patient Cognition Impaired: No Ability to Follow Directions: Good Speech Pattern: Spontaneous Speech Memory Description: Episodic Impaired Delusions: Present Thought Process: Distracted and Goal Oriented Thought Content: positive for Goal Oriented, positive for Suicidal Ideation (denies) and positive for Homicidal Ideation (denies) Judgement: Fair Data Data Completed and Pending Completed studies during hospitalization [Text1]: 09/25/24 09/26/24 14:47 08:31 WBC 5.5 RBC 4.28 Hgb 13.2 Hct 38.4 MCV 89.7 MCH 30.8 MCHC 34.4 RDW 13.2 Plt Count 246 MPV 8.6 L Immature Gran % (Auto) 0.4 Neut % (Auto) 57.0 Lymph % (Auto) 28.7 Bryan % (Auto) 11.5 H Eos % (Auto) 2.0 Baso % (Auto) 0.4 Lymph # (Auto) 1.6 Bryan # (Auto) 0.6 Eos # (Auto) 0.1 Baso # (Auto) 0.0 Abs Immat Gran (auto) 0.02 Absolute Neuts (auto) 3.1 Absolute Nucleated RBC 0.000 Nucleated RBC % (auto) 0.0 Sodium 137 Potassium 4.3 Chloride 104 Carbon Dioxide 24 Anion Gap 13 BUN 17 H Creatinine 0.93 Estim Creat Clear Calc 94.1 Estimated GFR > 60 Random Glucose 97 Calcium 8.8 Total Bilirubin 1.0 1.3 H Direct Bilirubin 0.3 0.3 GGT 61 H 57 H AST 25 28 ALT 24 25 Alkaline Phosphatase 86 84 Ammonia 38 Total Protein 6.6 6.6 Albumin 4.1 4.1 Lipase 31 DS: Summary Hospital Course Hospital Course: Admission to adult psychiatry for exacerbation of schizoaffective disorder, bipolar type, delusional disorder, cannabis use disorder. Pt experienced delusions of persecution, racing thoughts and pressured thoughts and speech. Section 7 was filed. Medications were evaluated and adjusted. Abilify was added. Persecuatory delusions resolved, pt was non suicidal or homicidal. She will return to [facility] and her out patient team upon discharge. Status at Discharge Functional status at discharge: independent ambulation Overall status at discharge: patient is progressing back to baseline Time Spent with Patient Time attestation: Total time managing care of this patient today ____ minutes. Time spent: Less than 30 minutes Discharge Plan Discharge Anticipated Discharge Date/Time: 09/30/24 12:00 Patient Disposition: Home, Self-Care Discharge Diagnosis: Schizoaffective Disorder, Bipolar [place] Delusional Disorder Cannabis Use Disorder Elevated transaminase Levels Referrals: [facility]: Dr. Marroquin [Other] - 10/19/24 1:20 pm (Scheduled appointment with psychiatric medication provider Appointment is by Zoom.) [facility]: Qing (therapist) [Other] - 1 Week (Therapist will reach out to you to scheduled hospital discharge appointment You will need to contact Medicare as they identified that the your name in the system does not match what is on your Medicare insurance card) Giuila Maher (long-term) [Other] - 1 Week (Patient should call daily to follow-up with long-term to determine if there is a bed available. Call at 8:00 am daily to speak with long-term staff.) Physician,Shivam J [Primary Care Provider] - 1 Week Discharge Medications: New quetiapine 25 mg Tablet 75 mg PO TID PRN (Reason: moderate to severe anxiety) Qty: 0 0RF quetiapine 25 mg Tablet 75 mg PO DAILY@1200 Qty: 120 0RF quetiapine 300 mg Tablet 300 mg PO BEDTIME Qty: 30 0RF lidocaine [Lidocaine Pain Relief] 4 % Adhesive Patch,Medicated 1 patch transdermal DAILY Qty: 30 0RF Protocol: Apply to: Apply to: back olanzapine 5 mg Tablet 5 mg PO TID PRN (Reason: agitation) Qty: 30 0RF docusate sodium 100 mg Capsule 100 mg PO BID PRN (Reason: Constipation) Qty: 60 0RF aripiprazole 15 mg Tablet 15 mg PO DAILY Qty: 30 0RF quetiapine [Seroquel] 50 mg tablet 150 mg PO DAILY Qty: 90 0RF vitamin B complex Tablet 1 tab PO DAILY Qty: 30 0RF estradiol 2 mg tablet 3 mg PO DAILY Qty: 45 0RF ferrous sulfate 324 mg (65 mg iron) tablet,delayed release (DR/EC) 324 mg PO DAILY Qty: 30 0RF Continued estradiol 3 mg PO DAILY Qty: 30 0RF ferrous sulfate 324 mg PO DAILY Qty: 30 0RF Discontinued quetiapine 100 mg PO DAILY quetiapine 75 mg PO QNOON quetiapine 250 mg PO BEDTIME progesterone micronized 100 mg Capsule 100 mg PO BEDTIME Rx Instructions: off 7 days; repeat cycle Discharge Orders: Discharge Order (Routine); Ordered 09/30/24 Ordered By: Kelle Williamson Diet: Advance to usual diet Activity on Discharge: As tolerated Stand Alone Forms: Patient Portal Discharge page, Community Support Print Language: Georgian Care Plan Goals: Mood and Behavioral Stabilization Abstinence from Substances Health Concerns: Mood and Behavioral Stabilization Abstinence from Substances Plan of Treatment: Attend scheduled appointments Take medications as directed Assessment: Denies SI,HI,AH,VH Fixed delusional content present No sx of acute jonathan or psychosis Pt has insight regarding wanting to continue treatment/medications as an out pt. Discharge Date/Time: 09/30/24 10:40
== END 2024-09-30 10:40 | disposition home or self-care (01) | DRG 885 ==
LOC: HO.ED 19:53 → HO.PM5 09-09 12:34
PROVIDERS: Physician Assistant Medical; Admitting Provider Psychiatry & Neurology Psychiatry; Emergency Provider Emergency Medicine; Visit Provider Clinical Nurse Specialist Psychiatric/Mental Health, Adult
DX: F25.0 Schizoaffective disorder, bipolar type (principal); F17.210 Nicotine dependence, cigarettes, uncomplicated; Z71.6 Tobacco abuse counseling; F12.90 Cannabis use, unspecified, uncomplicated; R74.01 Elevation of levels of liver transaminase levels; Z20.822 Contact with and (suspected) exposure to COVID-19; Z79.899 Other long term (current) drug therapy
CPT/HCPCS: 0241U; 36415; 80048; 80053; 80061; 80076; 80143; 80179; 80307; 81003; 82140; 82977; 83036; 83690; 83735; 84443; 84702; 85025; 93005; 99285; S9485

== ENCOUNTER → 2024-09-09 08:34 | Outpatient (BNV) | payer MEDICARE, MEDICAID, SELFPAY | PROVIDERS: Admitting Provider Psychiatry & Neurology Psychiatry; Emergency Provider Emergency Medicine; Visit Provider Internal Medicine Cardiovascular Disease | DX: Z13.6 Encounter for screening for cardiovascular disorders (principal) | CPT/HCPCS: 93010 ==

== ENCOUNTER 2024-09-09 12:33 | Outpatient (BNV) | payer MEDICARE, MEDICAID, SELFPAY | END 2024-09-19 17:42 | PROVIDERS: Admitting Provider Psychiatry & Neurology Psychiatry; Emergency Provider Emergency Medicine; Visit Provider Internal Medicine Cardiovascular Disease | DX: R07.9 Chest pain, unspecified (principal) | CPT/HCPCS: 93010 ==

== ENCOUNTER → 2024-09-09 12:33 | Outpatient (BNV) | payer MEDICARE, MEDICAID, SELFPAY | PROVIDERS: Admitting Provider Psychiatry & Neurology Psychiatry; Emergency Provider Emergency Medicine; Visit Provider Clinical Nurse Specialist Psychiatric/Mental Health, Adult | DX: F25.0 Schizoaffective disorder, bipolar type (principal); F12.90 Cannabis use, unspecified, uncomplicated; R74.01 Elevation of levels of liver transaminase levels | CPT/HCPCS: 90792; 99231; 99232 ==

== ENCOUNTER 2024-12-01 10:55 | Emergency (ER) | payer MEDICARE, MEDICAID, SELFPAY ==
--- NOTE | 2024-12-01 10:57 | ED_ITS ---
HPI - General Adult General Chief complaint: Psychiatric Symptoms Stated complaint: Crisis Time Seen by Provider: 12/01/24 11:08 Source: patient Mode of arrival: ambulatory History of Present Illness HPI narrative: This is a 29 years old man with a history of schizoaffective disorder, history of paranoid delusion presented to the emergency department requesting psychiatric evaluation stating that he needs to be hospitalized. Denies SI and HI Onset (ago): day(s) (1) Radiation: non-radiation Pain Consistency: constant Relieving factors: none Exacerbating factors: none Associated symptoms: denies other symptoms Related Data Previous Rx's ?Medication ?Instructions ?Recorded aripiprazole 15 mg tablet 15 mg PO DAILY #30 tabs 09/10 06/05 docusate sodium 100 mg capsule 100 mg PO BID PRN Const ipation #60 09/29/24 caps estradiol 3 mg PO DAILY #30 tabs 09/29 ferrous sulfate 324 mg PO DAILY #30 tabs lidocaine 4 % topical patch 1 patch transdermal DAILY #30 ea 09/29/24 (Lidocaine Pain Relief) olanzapine 5 mg tablet 5 mg PO TID PRN agitation #3 0 tabs 09/29/24 quetiapine 25 mg tablet 75 mg (3 x 25 mg) PO DAILY@1 200 09/29/24 #120 tabs quetiapine 25 mg tablet 75 mg (3 x 25 mg) PO TID PRN 09/29/24 moderate to severe anxiety #0 tabs quetiapine 300 mg tablet 300 mg PO BEDTIME #30 tabs 0 09/29/24 quetiapine 50 mg tablet (Seroquel) 150 mg (3 x 50 mg) PO DAILY #90 09/29/24 tabs vitamin B complex 1 tab PO DAILY #30 tabs 09/10 06/05 estradiol 2 mg tablet 3 mg (1.5 x 2 mg) PO DAILY # 45 tabs 10/01/24 ferrous sulfate 324 mg (65 mg 324 mg PO DAILY #30 tabs 10/01/24 iron) tablet,delayed release Allergies Allergy/AdvReac Type Severity Reaction Status Date / Time amoxicillin Allergy Facial Verified 12/01/24 11:01 Swelling Review of Systems 2 Review of Systems: Yes Unobtainable due to mental condition PMFSH Past Medical History Attestation statement: The following information was validated with the patient. Medical History (Updated 12/01/24 @ 12:00 by Josiah Montoya MD) Cannabis use disorder Schizoaffective disorder, bipolar type PTSD (post-traumatic stress disorder) Social History Social History Household Members: None Housing: Apartment Do you presently have visiting nurse or other home services: No Alcohol intake: current Alcohol intake frequency: holidays/special occasions only Patient Tobacco Use Status: Current everyday Tobacco user Tobacco use type: Cigarette Cigarette Packs Per Day: 0.33 Cigarettes Per Day: 2 Years Smoked: 8 years Smoked in Last 30 Days: No e-Cigarette/Vaping Use: Never Used Second Hand Smoke Exposure: No Use of substances other than those prescribed or required for medical reasons: No Substance Use Type: Marijuana Advance Directives: No Advance Directives Information Provided: Yes Do you have a plan to hurt others: No Plan Patient : No service: No Sexual orientation: Decline to Answer Physical Exam ED Exam Exam: Not in distress comfortable Vital Signs: Vital Signs - 24 hr 12/01/24 10:58 Temperature 97.8 F Pulse Rate 88 Respiratory Rate 18 Blood Pressure 118/65 Pulse Oximetry 97 Oxygen Delivery Method Room Air BMI result Body Mass Index 23.6 Const General: cooperative Nutritional Appearance: average body habitus Orientation/consciousness: patient oriented x3 HENMT Head: Yes normal to inspection Ears: hearing grossly normal bilaterally General nose exam: Normal external nose present Face and sinus: Yes normal facial exam Mouth: Normal oral and palatal mucosa present Neck Neck: Yes normal visual inspection Chest Chest palpation & inspection: normal inspection of the chest Resp Effort & Inspection: normal respiratory effort Auscultation: clear to auscultation bilaterally Cardio Jugular venous distension: no JVD Rate: regular rate Rhythm: regular rhythm GI Inspection: Yes normal to inspection Palpation (GI): Soft to palpation Auscultation: normal bowel sounds Neuro General: patient oriented x3 Cranial nerves: Yes CN's II-XII intact bilaterally Psych Other: Disorganized thought paranoid Course Course Course Narrative: This is a rapid medical exam performed by Abe Cowart NP: Additional HPI, ROS, PE not included below will be deferred to primary provider. Patient is a 29-year-old with reported history of schizoaffective disorder, cannabis use disorder presenting to the ED requesting a psychiatric evaluation. Denies SI, HI, AH, VH. Presented to [facility] as he felt he was decompensating but was told he would not be able to have a crisis eval there. Uses medical cannabis, occasionally uses cocaine recreationally for sexual purposes. Denies current physical complaints. Plan: med clearance then CARE team eval Reevaluation(s) Reevaluation #1: Patient was seen by crisis team is clear for discharge home no SI no HI Time: 14:05 Medical Decision Making Medical Decision Making MDM Narrative: Patient with a history of schizoaffective disorder presented to emergency room with disorganized thought paranoid we will consult crisis Differential Diagnosis Differential Diagnoses: The differential diagnosis associated with the presentation includes Exacerbation of schizoaffective disorder/paranoia/substance abuse Lab Data 12/01/24 11:28 12/01/24 11:28 Labs: Lab Results 12/01/24 12/01/24 Range/Units 11:28 13:15 WBC 4.2 L (4.8-10.8) X10*3/uL RBC 4.09 L (4.20-5.50) X10*6/uL Hgb 12.1 (12.0-16.0) g/dl Hct 36.9 L (37.0-47.0) % MCV 90.2 (80.0-98.0) fL MCH 29.6 (27.0-33.0) pg MCHC 32.8 (31.0-35.0) g/dl RDW 12.9 (11.0-16.0) % Plt Count 213 (160-400) X10*3/uL MPV 9.1 L (9.4-12.3) fL Immature Gran % (Auto) 0.2 (0.0-0.4) % Neut % (Auto) 57.3 (45-73) % Lymph % (Auto) 25.2 (20-40) % [place] % (Auto) 13.7 H (2-11) % Eos % (Auto) 3.1 (0-4) % Baso % (Auto) 0.5 (0-2) % Lymph # (Auto) 1.1 L (1.2-4.9) X10*3/uL [place] # (Auto) 0.6 (0.1-1.2) X10*3/uL Eos # (Auto) 0.1 (0.0-0.4) X10*3/uL Baso # (Auto) 0.0 (0.0-0.2) X10*3/uL Abs Immat Gran (auto) 0.01 (0.00-0.03) X10*3/uL Absolute Neuts (auto) 2.4 (2.0-8.3) x10*3/uL Absolute Nucleated RBC 0.000 (0.0-0.012) X10*3/uL Nucleated RBC % (auto) 0.0 (0.0-0.2) /100WBC Sodium 141 (135-145) mmol/L Potassium 4.1 (3.3-5.1) mmol/L Chloride 107 (96-108) mmol/L Carbon Dioxide 28 (22-29) mmol/L Anion Gap 10 L (12-20) BUN 14 (9-16) mg/dL Creatinine 0.77 (0.5-1.4) mg/dL Estim Creat Clear Calc 113.6 Estimated GFR > 60 Random Glucose 86 (60-115) mg/dL Calcium 9.0 (8.4-10.2) mg/dL Total Bilirubin 1.6 H (0.0-1.0) mg/dL AST 28 (5-31) U/L ALT 21 (0-31) U/L Alkaline Phosphatase 59 (39-117) U/L Total Protein 6.6 (6.5-8.0) g/dL Albumin 4.5 (3.5-5.0) g/dL Urine Color Yellow Urine Appearance Clear Urine pH 7.5 (5.0-9.0) Ur Specific [place] 1.020 (1.005-1.025) Urine Protein Negative (Neg-Trace) mg/dL Urine Glucose (UA) Negative (Negative) mg/dL Urine Ketones Negative (Negative) mg/dL Urine Blood Negative (Negative) Urine Nitrite Negative (Negative) Ur Leukocyte Esterase Trace H (Negative) Urine RBC 0-2 (0-2) /HPF Urine WBC 11-20 H (0-5) /HPF Ur Squamous Epith Cells 0-2 (0-2) /HPF Urine Bacteria None Seen (None Seen) Hyaline Casts 0-2 (0-2) /LPF Urine Opiates Screen Not Detected (Not Detect) Ur Buprenorphine Scrn Not Detected (Not Detect) ng/mL Ur Oxycodone Screen Not Detected (Not Detect) ng/mL Urine Methadone Screen Not Detected (Not Detect) ng/mL Urine Fentanyl Screen Not Detected (Not Detect) Ur Barbiturates Screen Not Detected (Not Detect) Ur Phencyclidine Scrn Not Detected (Not Detect) Ur Amphetamines Screen Not Detected (Not Detect) U Benzodiazepines Scrn Not Detected (Not Detect) Urine Cocaine Screen Not Detected (Not Detect) U Marijuana (THC) Screen POSITIVE H (Not Detect) Ethyl Alcohol < 10 mg/dL Influenza Type A (PCR) NEGATIVE (Negative) Influenza Type B (PCR) NEGATIVE (Negative) RSV RNA Qual (PCR) NEGATIVE (Negative) SARS-CoV-2 RNA (RT-PCR) NEGATIVE (Negative) Discharge Plan Discharge Clinical Impression: Schizoaffective disorder, bipolar type Prescriptions: No Action quetiapine 25 mg Tablet 75 mg PO TID PRN (Reason: moderate to severe anxiety) Qty: 0 0RF quetiapine 25 mg Tablet 75 mg PO DAILY@1200 Qty: 120 0RF quetiapine 300 mg Tablet 300 mg PO BEDTIME Qty: 30 0RF lidocaine [Lidocaine Pain Relief] 4 % Adhesive Patch,Medicated 1 patch transdermal DAILY Qty: 30 0RF Protocol: Apply to: Apply to: back olanzapine 5 mg Tablet 5 mg PO TID PRN (Reason: agitation) Qty: 30 0RF docusate sodium 100 mg Capsule 100 mg PO BID PRN (Reason: Constipation) Qty: 60 0RF aripiprazole 15 mg Tablet 15 mg PO DAILY Qty: 30 0RF quetiapine [Seroquel] 50 mg tablet 150 mg PO DAILY Qty: 90 0RF vitamin B complex Tablet 1 tab PO DAILY Qty: 30 0RF estradiol 3 mg PO DAILY Qty: 30 0RF ferrous sulfate 324 mg PO DAILY Qty: 30 0RF estradiol 2 mg tablet 3 mg PO DAILY Qty: 45 0RF ferrous sulfate 324 mg (65 mg iron) tablet,delayed release (DR/EC) 324 mg PO DAILY Qty: 30 0RF Interventions: [place]-Suicide Risk Severity Scale Last Done: 12/01/24 12:49 Print Language: Italian
[2024-12-01 10:58] VITALS: BP 118/65; PULSE 88; RESP 18; TEMP 36.6; O2SAT 97; BMI 23.6
[2024-12-01 11:33] LABS: MANUAL DIFF FLAG NO
[2024-12-01 11:37] LABS: Hematocrit 36.9 % (37.0-47.0); Hemoglobin 12.1 g/dl (12.0-16.0); Imm Gran Abs Auto 0.01 X10*3/uL (0.00-0.03); Imm Gran Pct Auto 0.2 % (0.0-0.4); Lymphocytes Absolute Auto 1.1 X10*3/uL (1.2-4.9); Mean Corpuscular HGB Conc 32.8 g/dl (31.0-35.0); Mean Corpuscular Hemoglobin 29.6 pg (27.0-33.0); Mean Corpuscular Volume 90.2 fL (80.0-98.0); NRBC Abs Auto 0.000 X10*3/uL (0.0-0.012); NRBC Pct Auto 0.0 /100WBC (0.0-0.2); Platelet Count 213 X10*3/uL (160-400); Red Blood Count 4.09 X10*6/uL (4.20-5.50); White Blood Count 4.2 X10*3/uL (4.8-10.8)
[2024-12-01 11:50] LABS: Alanine Aminotransferase 21 U/L (0-31); Albumin Level 4.5 g/dL (3.5-5.0); Alkaline Phosphatase 59 U/L (39-117); Anion Gap 10 (12-20); Aspartate Amino Transferase 28 U/L (5-31); Blood Urea Nitrogen 14 mg/dL (9-16); Calcium 9.0 mg/dL (8.4-10.2); Carbon Dioxide 28 mmol/L (22-29); Chloride 107 mmol/L (96-108); Creatinine Clr Calc Pharmacy 113.6; Estimated Glomerular Filt Rate > 60; Potassium 4.1 mmol/L (3.3-5.1); Sodium 141 mmol/L (135-145); Total Protein 6.6 g/dL (6.5-8.0)
[2024-12-01 12:12] LABS: Resp Syncy Virus RNA Qual PCR NEGATIVE (Negative); SARS COV2 PCR INHOUSE NEGATIVE (Negative)
--- OUTSIDE RECORDS SUMMARY | 2024-12-01 12:18 | XMS_ITS | Clinical Summary ---
Author Organization [facility] Address [address] [place] [address] Phone Care Team Providers Care Principal Systems Architect Name Role Phone Physician, Pcp Unknown Primary Care Provider Chela vailable Allergies No known active allergies Medications estradioL (CLIMARA) 0.1 mg/[address] 0.3 mg on the skin 3 (three) times a week. (3) 01mg patches 3x weekly according to [facility] 4 Active QUEtiapine (SeroqueL) 300 mg tablet Take 1 tablet (300 mg total) by mouth at bedtime. 5 Active QUEtiapine (SEROquel) 100 mg tablet Take 1.5 tablets (150 mg total) by mouth 1 (one) time each day. 5 Active progesterone (PROMETRIUM) 100 mg capsule Take 1 capsule (100 mg total) by mouth at bedtime. 4 Active QUEtiapine (SEROquel) 25 mg tablet Take 3 tablets (75 mg total) by mouth 1 (one) time each day with lunch. Takes at 2pm Active ferrous sulfate 325 mg (65 mg iron) EC tablet Take 1 tablet (325 mg total) by mouth 1 (one) time each day. 5 08/09/19 26 Active B complex tablet Take 1 tablet by mouth 1 (one) time each day. Active ARIPiprazole (ABILIFY) 15 mg tablet Take 1 tablet (15 mg total) by mouth 1 (one) time each day. Active hydrOXYzine HCL (ATARAX) 50 mg tabletIndicatio ns:anxiety Take 1 tablet (50 mg total) by mouth every 6 (six) hours if needed for itching or anxiety. Active QUEtiapine (SEROquel) 25 mg tablet Take 3 tablets (75 mg total) by mouth 3 (three) times a day if needed (severe anxiety). Active docusate sodium (COLACE) 100 mg capsule Take 1 capsule (100 mg total) by mouth 2 (two) times a day if needed for constipation. Active OLANZapine (ZyPREXA) 5 mg tablet Take 1 tablet (5 mg total) by mouth 3 (three) times a day if needed (agitation). Active lidocaine 4 % patch Apply 1 patch topically 1 (one) time each day. To back Active estradioL (ESTRACE) 1 mg tablet Take 3 tablets (3 mg total) by mouth 1 (one) time each day. 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) Discharge Disposition: Home or Self Care from Last 3 Months Medical History Medical History Date Comments Acute suppurative otitis med ia without spontaneous rupture of eardrum 01/09/03 DX:Acute suppurative otitis media without spontaneous rupture of eardrum Other developmental speech o r language disorder 11/19/97 DX:Other developmental speec h or language disorder Unspecified asthma(493.90) 03/26/03 DX:Un specified asthma(493.90) Acute pharyngitis 02/08/03,01/09/03,07 0 01/12 DX:Acute pharyngitis Acute upper respiratory infections of unspecified site 11/17/02,07/19/00 DX:Acute upper respirat ory infections of unspecified site Unspecified otitis media 05/09/00,,05/12 DX:Unspecified otitis media Unspecified constipation 08/26/2006 DX:Unsp ecified constipation Family History Medical History Relation Name Comments Asthma Father Diabetes Paternal Grandfather AODM Glaucoma Paternal Grandfather Cataracts Paternal Grandmother Diabetes Paternal Grandmother AODM Nephrolithiasis Paternal Grandmother Blindness Neg Hx Macular degeneration Neg Hx Strabismus Neg Hx Relation Name Status Comments Brother Alive Noah Landis K ailan 1/2 siblings Father Alive 03/19/76,Frankie Mother Alive 11/14/76,Kamille Carreon Paternal Grandfather Paternal Grandmother Sister Alive Nohemi Gómez 1 /2 sister,lives with mgm Social History Tobacco Use Types Packs/Day Years Used Date Smoking Tobacco: Passive Smo ke Exposure - Never Smoker Alcohol Use Standard Drinks/Week Comments Not Asked 0 (1 standard drink = 0.6 oz pur e alcohol) Sex and Gender Information Value Date Recorded Sex Assigned at Male 10/02/2024 8:56 AM EDT Legal Sex Male 1:16 PM EST Gender Identity Female 10/02/2024 8:56 AM EDT Sexual Orientation Choose not to disclose 2024 8:56 AM EDT Obstetrics History Last Filed Vital Signs Vital Sign Reading Time Taken Comments Blood Pressure 113/76 10/03/2024 1:05 PM EDT Pulse 66 10/03/2024 1:05 PM EDT Temperature 36.7 C (98.1 F) 10/03/2024 1:05 PM EDT Respiratory Rate 16 10/03/2024 1:05 PM EDT Oxygen Saturation 100% 10/03/2024 1:05 PM EDT Inhaled Oxygen Concentration - - Weight 72.6 kg (160 lb) 10/02/2024 2:59 AM EDT Height 172.7 cm (5' 8 ) 10/02/2024 2:59 AM EDT Body Mass Index 24.33 10/02/2024 2:59 AM EDT Plan of Treatment Health Maintenance Due Date Last Done Comments HPV Vaccines (2 - 3-dose series) 01/29/2012 01/01/2012 DTaP,Tdap,and Td Vaccines (7 - Td or Tdap) 11/23/2018 11/23/2008, 08/18/2000, 01/10/1998, Additional history exists HIV Screening 04/09/2022 Hepatitis C Screening 04/09/2022 Social Influencers of Health Screening 04/09/2022 COVID-19 Vaccine ( season) 2024 08/20/2022, 07/30/2022, 07/24/2022, Additional history exists Depression Screening 05/12/2024 Influenza Vaccine (#1) 2025 3, 02/17/2021, 03/07/2017, Additional history exists Hepatitis B Vaccines Completed 1996, 1996, 1996 HIB Vaccines Completed 09/19/1997, 12/10, 1996, Additional history exists IPV Vaccines Completed 08/18/2000, 05/1997, 1996, Additional history exists MMR Vaccines Completed 08/18/2000, 09/19/1997 Meningococcal ACWY Vaccine Aged Out 11/23/2008 N o longer eligible based on patient's age to complete this topic Varicella Vaccines Completed 11/23/2008, 06/23/1997 Hepatitis A Vaccines Aged Out No long er eligible based on patient's age to complete this topic Meningococcal B Vaccine Aged Out No l onger eligible based on patient's age to complete this topic Pneumococcal Vaccine: Pediatrics (0 to 5 Years) and At-Risk Patients (6 to 49 Years) Aged Out No longer eligible based on patient's age to complete this topic RSV Immunization Patients Under 20 months Aged Out No longer eligible based on patient's age to complete this topic Procedures Procedure Name Priority Date/Time Associated Diagnosis Comments CBC WITH AUTO DIFFERENTIAL STAT 10/02/2024 4:21 AM EDT METHADONE SCREEN, URINE STAT 10/02/2024 4:21 AM EDT PHENCYCLIDINE, URINE STAT 10/02/2024 4:21 AM EDT BUPRENORPHINE SCREEN, URINE STAT 10/02/2024 4:21 AM EDT DRUG ABUSE SCREEN 8A PANEL, URINE STAT 10/02/2024 4:21 AM EDT SALICYLATE LEVEL STAT 10/02/2024 4:21 AM EDT ACETAMINOPHEN LEVEL STAT 10/02/2024 4 :21 AM EDT ETHANOL STAT 10/02/2024 4:21 AM EDT COMPREHENSIVE METABOLIC PANEL STAT 10/02/2024 4:21 AM EDT CBC AND DIFFERENTIAL STAT 10/02/2024 4:21 AM EDT from Last 3 Months Results * (ABNORMAL) Drug abuse screen 8a panel, urine (10/02/2024 4:21 AM EDT) Amphetamine Screen, Ur Negative Negative LAB CHEMISTRY METHOD 4:53 AM [facility] Comment:Certain OTC medicati ons containing ephedrine, phenylephrine, pseudoephedrine and phenylpropanolamine can cause false positive results. Barbiturate Screen, Ur Negative Negative LAB CHEMISTRY METHOD 4:53 AM [facility] Benzodiazepine Screen, Ur Negative Negative LAB CHEMISTRY METHOD 4:53 AM [facility] Cocaine Screen, Ur Negative Negative LAB CHEMISTRY METHOD 4:53 AM [facility] Opiate Screen, Ur Positive(A ) Negative LAB CHEMISTRY METHOD 4:53 AM [facility] Cannabinoid (THC) Screen, Ur Positive(A ) Negative LAB CHEMISTRY METHOD 4:53 AM [facility] Comment:Specimens from patie nts taking pantoprazole sodium (Protonix) have been shown to produce false positive results. Oxycodone Screen, Ur Negative Negative LAB CHEMISTRY METHOD 4:53 AM [facility] Fentanyl, Ur Negative Negative LAB CHEMISTRY METHOD 4:53 AM [facility] Urine Urine specimen obtained by clean catch procedure / Unknown 10/02/2024 4:21 AM EDT 10/02/2024 4:21 AM EDT Narrative [facility] - 10/02/2024 4:53 AM EDT Assay cutoffs: Amphetamines 1000 ng/mL Barbiturates 200 ng/mL Benzodiazepines 200 ng/mL Cocaine 300 ng/mL Fentanyl 1 ng/mL Opiates 300 ng/mL Oxycodone 100 ng/mL THC 50 ng/mL Semi-quantitative assay for screening purposes only. Unconfirmed screening result should not be used for non-medical purposes. *ALTERNATE METHOD CONFIRMATION DONE UPON REQUEST ONLY* [facility] URINE ORDERABLES Final Resul t Performing Organization Address [facility] de Phone Number [facility] [address] [place] [address], * Buprenorphine screen, urine (10/02/2024 4:21 AM EDT) Buprenorphine Screen Urine Negative Negative LAB CHEMISTRY METHOD 10/02/2024 4:53 AM EDT [facility] Urine Urine specimen obtained by clean catch procedure / Unknown 10/02/2024 4:21 AM EDT 10/02/2024 4:21 AM EDT Narrative [facility] - 10/02/2024 4:53 AM EDT Assay cutoff 5 ng/mL Semi-quantitative assay for screening purposes only. Unconfirmed screening result should not be used for non-medical purposes. *ALTERNATE METHOD CONFIRMATION DONE UPON REQUEST ONLY* [facility] [facility] URINE ORDERABLES Final Resul t Performing Organization Address [facility] de Phone Number [facility] [address] [place] [address], * Methadone, urine (10/02/2024 4:21 AM EDT) Methadone Screen, Urine Negative Negative LAB CHEMISTRY METHOD 10/02/2024 4:53 AM EDT [facility] Comment: Assay cutoff 300 ng/mL Semi-quantitative assay for screening purposes only. Unconfirmed screening result should not be used for non-medical purposes. *ALTERNATE METHOD CONFIRMATION DONE UPON REQUEST ONLY* Urine Urine specimen obtained by clean catch procedure / Unknown 10/02/2024 4:21 AM EDT 10/02/2024 4:21 AM EDT [facility] URINE ORDERABLES Final Resul t [facility] [address] [place] [address], [place] [phone] * (ABNORMAL) CBC auto differential (10/02/2024 4:21 AM EDT) WBC 5.8 4.8 - 10.8 K/mcL LAB HEMETOLOGY METHOD 10/02/2024 4:25 AM EDT [facility] RBC 4.00(L) 4.50 - 5.50 M/mcL LAB HEMETOLOGY METHOD 10/02/2024 4:25 AM [facility] Hemoglobin 12.2(L) 13.5 - 17.5 g/dL LAB HEMETOLOGY METHOD 10/02/2024 4:25 AM T [facility] Hematocrit 36.9(L) 42.0 - 54.0 % LAB HEMETOLOGY METHOD 10/02/2024 4:25 AM [facility] MCV 92.0 79.0 - 98.0 FL LAB HEMETOLOGY METHOD 10/02[facility]24 [facility] MCH 30.4 27.0 - 32.0 pcg LAB HEMETOLOGY METHOD 10/02/2024 4:25 AM EDT [facility] MCHC 33.1 32.0 - 37.0 g/dL LAB HEMETOLOGY METHOD 10/02/2024 4:25 AM [facility] RDW 13.0 11.0 - 15.0 % LAB HEMETOLOGY METHOD 10/02/2024 4:25 AM [facility] Platelets 259 130 - 400 K/mcL LAB HEMETOLOGY METHOD 10/02/2024 4:25 AM [facility] MPV 8.8 7.0 - 11.0 FL LAB HEMETOLOGY METHOD 10/02/2024 4:25 AM [facility] NRBC 0.0 <1.0 % LAB HEMETOLOGY METHOD 10/02/2024 4:25 AM [facility] NRBC Absolute 0.00 <0.10 K/mcL LAB HEMETOLOGY METHOD 10/02/2024 4:25 AM [facility] Neutrophils Relative 52.8 % LAB HEMETOLOGY METHOD 10/02/2024 4:25 AM [facility] Lymphocytes Relative 24.1 % LAB HEMETOLOGY METHOD 10/02/2024 4:25 AM [facility] Monocytes Relative 19.1 % LAB HEMETOLOGY METHOD 10/02/2024 4:25 AM [facility] Eosinophils Relative 3.3 % LAB HEMETOLOGY METHOD 10/02/2024 4:25 AM [facility] Basophils Relative 0.5 % LAB HEMETOLOGY METHOD 10/02/2024 4:25 AM [facility] Immature Granulocytes Relative 0.2 % LAB HEMETOLOGY METHOD 10/02/2024 4:25 AM [facility] Neutrophils Absolute 3.08 1.50 - 7.00 K/mcL LAB HEMETOLOGY METHOD 10/02/2024 4:25 AM [facility] Lymphocytes Absolute 1.40 1.00 - 5.00 K/mcL LAB HEMETOLOGY METHOD 10/02/2024 4:25 AM [facility] Monocytes Absolute 1.11(H) 0.20 - 1.00 K/mcL LAB HEMETOLOGY METHOD 10/02/2024 4:25 AM [facility] Eosinophils Absolute 0.19 0.00 - 0.50 K/mcL LAB HEMETOLOGY METHOD 10/02/2024 4:25 AM EDT [facility] Basophils Absolute 0.03 0.00 - 0.20 K/[facility] LAB HEMETOLOGY METHOD 10/02/2024 4:25 AM EDT [facility] Immature Granulocytes Absolute 0.01 0.00 - 0.03 K/[facility] LAB HEMETOLOGY METHOD 10/02/2024 4:25 AM EDT [facility] Blood Venous blood specimen / Unknown Venipuncture / Unknown 10/02/2024 4:21 AM EDT 10/02/2024 4:21 AM EDT [facility] BLOOD ORDERABLES Final Resul t Performing Organization Address [facility] Co de Phone Number [facility] [address] [place] [address], [place] [phone] * Phencyclidine, urine (10/02/2024 4:21 AM EDT) PCP Scrn, Ur Negative Negative LAB CHEMISTRY METHOD 10/02/2024 4:53 AM EDT [facility] Comment: Assay cutoff 25 ng/mL Semi-quantitative assay for screening purposes only. Unconfirmed screening result should not be used for non-medical purposes. *ALTERNATE METHOD CONFIRMATION DONE UPON REQUEST ONLY* Urine Urine specimen obtained by clean catch procedure / Unknown 10/02/2024 4:21 AM EDT 10/02/2024 4:21 AM EDT [facility] URINE ORDERABLES Final Resul t Performing Organization Address [facility]/ZIP Co de Phone Number [facility] [address] [place] [address], [place] [phone] * Ethanol (10/02/2024 4:21 AM EDT) Ethanol Level 5 0 - 10 mg/dL LAB CHEMISTRY METHOD 10/02/2024 4:53 AM EDT [facility] Blood Venous blood specimen / Unknown Venipuncture / Unknown 10/02/2024 4:21 AM EDT 10/02/2024 4:21 AM EDT [facility] BLOOD ORDERABLES Final Resul t Performing Organization Address City/[facility]/ZIP Co de Phone Number [facility] [address] [place] [address], [place] [phone] * (ABNORMAL) Acetaminophen level (10/02/2024 4:21 AM EDT) Acetaminophen Level <2.0(L) 10.0 - 30.0 mcg/mL LAB CHEMISTRY METHOD 10/02/2024 4:53 AM EDT [facility] Blood Venous blood specimen / Unknown Venipuncture / Unknown 10/02/2024 4:21 AM EDT 10/02/2024 4:21 AM EDT us [facility] BLOOD ORDERABLES Final Resul t Performing Organization Address [facility]/ZIP Co de Phone Number [facility] [address] [place] [address], [place] [phone] * (ABNORMAL) Salicylate level (10/02/2024 4:21 AM EDT) Salicylate Level <1.7(L) 2.0 - 29.0 mg/dL LAB CHEMISTRY METHOD 10/02/2024 4:53 AM EDT [facility] Blood Venous blood specimen / Unknown Venipuncture / Unknown 10/02/2024 4:21 AM EDT 10/02/2024 4:21 AM EDT us [facility] BLOOD ORDERABLES Final Resul t Performing Organization Address City/[facility]/ZIP Co de Phone Number [facility] [address] [place] [address], [place] [phone] * Comprehensive metabolic panel (10/02/2024 4:21 AM EDT) Sodium 139 133 - 145 mmol/L LAB CHEMISTRY METHOD 10/02/2024 4:53 AM [facility] Potassium 3.8 3.5 - 5.5 mmol/L LAB CHEMISTRY METHOD 10/02/2024 4:53 AM [facility] Chloride 105 96 - 110 mmol/L LAB CHEMISTRY METHOD 10/02/2024 4:53 AM [facility] CO2 28 21 - 32 mmol/L LAB CHEMISTRY METHOD 10/02/2024 4:53 AM [facility] Anion Gap 6 3 - 11 LAB CHEMISTRY METHOD 10/02/2024 4:53 AM [facility] Glucose 93 70 - 100 mg/dL LAB CHEMISTRY METHOD 10/02/2024 4:53 AM [facility] BUN 14 5 - 25 mg/dL LAB CHEMISTRY METHOD 10/02/2024 4:53 AM [facility] Creatinine 0.80 0.70 - 1.30 mg/dL LAB CHEMISTRY METHOD 10/02/2024 4:53 AM [facility] eGFR 124 >=60 mL/min/1. 73m2 LAB CHEMISTRY METHOD 10/02/2024 4:53 AM [facility] Comment:Calculation based on the Chronic Kidney Disease Epidemiology Collaboration (CKD-EPI) equation refit without adjustment for race. BUN/Creatinine Ratio 17.5 LAB CHEMISTRY METHOD 10/02/2024 4:53 AM [facility] Calcium 8.8 8.5 - 10.5 mg/dL LAB CHEMISTRY METHOD 10/02/2024 4:53 AM [facility] AST (SGOT) 31 10 - 42 unit/L LAB CHEMISTRY METHOD 10/02/2024 4:53 AM [facility] ALT (SGPT) 31 10 - 60 unit/L LAB CHEMISTRY METHOD 10/02/2024 4:53 AM EDT [facility] Alkaline Phosphatase 89 42 - 121 unit/L LAB CHEMISTRY METHOD 10/02/2024 4:53 AM EDT [facility] Total Protein 6.1 6.0 - 8.0 g/dL LAB CHEMISTRY METHOD 10/02/2024 4:53 AM EDT [facility] Albumin 3.5 3.2 - 5.0 g/dL LAB CHEMISTRY METHOD 10/02/2024 4:53 AM EDT [facility] Total Bilirubin 1.1 0.0 - 1.4 mg/dL LAB CHEMISTRY METHOD 10/02/2024 4:53 AM EDT [facility] Blood Venous blood specimen / Unknown Venipuncture / Unknown 10/02/2024 4:21 AM EDT 10/02/2024 4:21 AM EDT [facility] BLOOD ORDERABLES Final Resul t [facility] [address] [place] [address], from Last 3 Months Insurance MEDICAID - [place] Care Teams Principal Systems Architect Relationship Specialty Start Date End Date Physician, Pcp Unknown PCP - General 10/02/24
[2024-12-01 13:30] LABS: Appearance Urine Clear; Glucose Urine UA Negative (Negative); PH 7.5 (5.0-9.0); Specific Gravity - Urine 1.020 (1.005-1.025); UMIC TRIGGER UACC YES
[2024-12-01 13:35] LABS: UACC Culture Trigger YES
[2024-12-01 13:43] LABS: Cannabinoid Screen Urine POSITIVE (Not Detect)
[2024-12-01 14:10] VITALS: BP 119/71; PULSE 69; RESP 14; TEMP 36.6; O2SAT 99
== END 2024-12-01 14:27 | disposition home or self-care (01) ==
PROVIDERS: Registered Nurse Emergency; Emergency Provider Emergency Medicine
DX: F25.0 Schizoaffective disorder, bipolar type (principal); F17.210 Nicotine dependence, cigarettes, uncomplicated; F12.90 Cannabis use, unspecified, uncomplicated; Z51.81 Encounter for therapeutic drug level monitoring; Z79.899 Other long term (current) drug therapy; Z03.818 Encounter for observation for suspected exposure to other biological agents ruled out
CPT/HCPCS: 36415; 80053; 80307; 81001; 85025; 87086; 87637; 99284; S9485